=== PATIENT | female | born 1970 | race Caucasian/White ===

== ENCOUNTER 2016-10-25 14:32 | Inpatient (IN) | payer OTHER ==
[~2016-10-25] VITALS: Ht 177.8 cm; Wt 59.6 kg
[~2016-10-25 14:32] MED LIST: ACET-1256 PO; ALPR1TAB3 PO; ASPI-390 PO; ASPI81TA28 PO; CLR10 PO; ESOM1CAP34 PO; FLUT0.0529; PHN/25 PO; [UNRECOGNIZED DRUG - OTHER] PO
[2016-10-25] MEDS ORDERED: SODIUM CHLORIDE 0.9% 1000ML 1,000 ML IV STA (14:57)
[2016-10-25] MEDS ORDERED: ONDANSETRON INJ 2 MG/ML 2 ML VIAL IV STA (14:57)
[2016-10-25] MEDS ORDERED: OXYC-106 PO (15:14)
[2016-10-25] MEDS ORDERED: ONDA4TAB46 PO (15:14)
--- NOTE | 2016-10-25 15:24 | DIAGNOSTIC IMAGING REPORT ---
CHEST ONE VIEW PORTABLE CLINICAL HISTORY: vomiting nausea COMPARISON STUDY: 01/09/2016 FINDINGS: The bones soft tissues and hemidiaphragms are normal. The cardiomediastinal silhouette is normal. The lungs are clear. The pulmonary vasculature is normal. IMPRESSION: Negative chest. Electronically signed by: Geovany Pedro M.D. 10/25/2016 3:23 PM Dictated Date/Time: 10/25/2016 3:22 PM
[2016-10-25 16:15] LABS: BASO % 0.1 %; BASO ABS # 0.01 K/uL (0-0.2); COMPLETE YES; IG% 0.3 %; LYMPH % 11.2 %; LYMPH ABS # 1.66 K/uL (1.2-3.4); MEAN CELL VOLUME 91.4 fL (80-100); MEAN CORPUSCULAR HEMOGLOBIN 31.9 pg (25-34); MEAN CORPUSCULAR HGB CONC 34.9 g/dl (32-36); MEAN PLATELET VOLUME 9.8 fL (7.4-10.4); MONO % 6.9 %; NEUT % 81.5 %; PLATELET COUNT 295 K/uL (130-400); RED BLOOD COUNT 5.58 M/uL (4.2-5.4); WHITE BLOOD COUNT 14.83 K/uL (4.8-10.8)
[2016-10-25 16:40] LABS: BUN/CREATININE RATIO 33.6 (10-20); CALCIUM 9.2 mg/dl (8.5-10.1); CREATININE 0.84 mg/dl (0.60-1.20); POTASSIUM 2.7 mmol/L (3.5-5.1)
[2016-10-25] MEDS ORDERED: POTASSIUM CHLR 20 MEQ / WTR 20 MEQ in PREMIXED WATER 100 ML IV STA (17:11)
[2016-10-25 17:19] LABS: URINE APPEARANCE CLEAR (CLEAR); URINE COLOR DK YELLOW; URINE EPITHELIAL CELL AUTO >30 /lpf (0-5); URINE NITRITE NEG (NEG); URINE PH 5.5 (4.5-7.5); URINE SPECIFIC GRAVITY 1.045 (1.000-1.030); UROBILINOGEN NEG (NEG); ZZURINE CULT IF INDIC CATH NO
[2016-10-25 17:25] LABS: REVIEW REQ? NO; URINE BILIRUBIN NEG (NEG)
[2016-10-25 18:16] LABS: MANUAL MICROSCOPIC REQUIRED? NO
--- NOTE | 2016-10-25 18:29 | DIAGNOSTIC IMAGING REPORT ---
Right upper quadrant ultrasound (LIVER) ABDOMEN LIMITED CLINICAL HISTORY: vomiting, elevated LFTs nausea TECHNIQUE: Ultrasound COMPARISON STUDY: None FINDINGS: Prior cholecystectomy. Common bile duct 6 mm. Liver is uniform. Pancreas and right kidney are unremarkable. IMPRESSION: Negative study status post cholecystectomy Electronically signed by: Geovany Pedro M.D. 10/25/2016 6:28 PM Dictated Date/Time: 10/25/2016 6:27 PM
[2016-10-25] MEDS: POTASSIUM CHLR 10MEQ / WTR IV SCH ×2 (18:55→21:41)
[2016-10-25 19:33] LABS: INR 1.4 (0.9-1.1); PROTHROMBIN TIME (PATIENT) 14.7 SECONDS (9.0-12.0)
[2016-10-25] MEDS ORDERED: PHYTONADIONE 5 MG TAB PO STA (20:12)
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
--- NOTE | 2016-10-25 20:37 | DIAGNOSTIC IMAGING REPORT ---
HEAD CT NONCONTRAST CT DOSE: 601.98 mGy.cm HISTORY: Mental status change eval for ICH, eval for stroke, eval for fracture, etc TECHNIQUE: Multiaxial CT images of the head were performed without the use of intravenous contrast. Comparison: 02/23/2013 Findings: Air-fluid level within the right maxillary sinus. Prior antral window placement. The calvarium and skull base are intact. The ventricles and sulci are within normal limits. There is no mass, hematoma, midline shift, or acute infarct. Impression: No acute intracranial abnormality. Right maxillary sinusitis Electronically signed by: Geovany Pedro M.D. 10/25/2016 8:36 PM Dictated Date/Time: 10/25/2016 8:34 PM
[2016-10-25 20:54] VITALS: BP 174/86; PULSE 89; TEMP 37.7; O2SAT 96; Ht 177.8 cm; Wt 59.6 kg
[2016-10-25] MEDS ORDERED: FoLIC ACID INJ 1 MG in SYRINGE 9.8 ML IV ONE (21:30)
[2016-10-25] MEDS: FAMOTIDINE IV INJ 20 MG in DEXTROSE 5% 100ML 100 ML IV SCH (21:41)
[2016-10-25] MEDS: SODIUM CHLOR 0.45% + 20MEQ KCL 1,000 ML IV SCH (21:41)
--- NOTE | 2016-10-25 21:53 | EMERGENCY ROOM VISIT NOTE ---
History Report prepared by Bipin: Polly Moreno Under the Supervision of: Dr. Lake Swenson M.D. First contact with patient: 14:49 Chief Complaint: VOMITING Stated Complaint: VOMITING X 3 DAYS Nursing Triage Summary: reports pt has had n/v/d x3 days History of Present Illness The patient is a 46 year old female who presents to the Emergency Room with complaints of persistent vomiting for the past 4 days. There is blood in her vomit. She hasn't been able to keep anything down, including water and her medications, which include Zofran and Xanax. She has been gagging whenever she tries to eat something. She also has not been speaking very much for the past 4 days. Her last bowel movement was yesterday around 1500 and there was no blood. She is able to ambulate normally. She denies any abdominal pain or dysuria. Source of History: patient, family () Onset: 4 days ago Position: other (global) Quality: other (vomiting) Timing: other (persistent) Associated Symptoms: No abdominal pain, No hematochezia, No melena, No urinary symptoms Note: Pt is not speaking much. Review of Systems See HPI for pertinent positives & negatives. A total of 10 systems reviewed and were otherwise negative. Past Medical & Surgical Medical Problems: (1) Anxiety State Nos (2) borderline intellectual functioning (3) Dehydration with hypernatremia (4) Depressive Disorder Nec (5) Gastroenteritis (6) Gastroenteritis (7) Hearing impairment (8) Hyperlipidemia Nec/Nos (9) Hypertension Nos (10) Migraine (11) Opioid dependence (12) Personality disorder (13) Speech impairment Surgical Problems: (1) H/O section (2) Hx of cholecystectomy Family History No significant family history stated Social History Smoking Status: Current Every Day Smoker Alcohol Use: occasionally Drug Use: none Marital Status: Housing Status: lives with family Occupation Status: disabled Current/Historical Medications Scheduled Alprazolam (Xanax), 1 MG PO TID Aspirin (Aspirin Ec), 81 MG PO DAILY Esomeprazole Magnesium (Esomeprazole Magnesium), 40 MG PO DAILY Scheduled PRN Ryicbsa-Lrlqbwoabhmgx-Tttmhgvl (Excedrin Migraine), 2 TABLETS PO UD PRN Fluticasone Propionate (Nasal) (Flonase), 2 SPRAYS NA DAILY PRN for Nasal Congestion Loratadine (Claritin), 10 MG PO DAILY PRN for ALLERGIC REACTION Ondansetron Hcl (Zofran), 4 MG PO Q8 PRN for Nausea Oxycodone/Acetaminophen 10MG/325MG (Percocet 10MG/325MG), 1 TAB PO Q6 PRN for Pain Allergies Coded Allergies: Haloperidol (Verified Allergy, Severe, TONGUE SWELLS, 10/25/16) Hydroxyzine (Verified Allergy, Severe, CAN'T BREATH, 10/25/16) Prochlorperazine (Verified Adverse Reaction, Intermediate, SICK, 10/25/16) Escitalopram (Verified Adverse Reaction, Mild, MAKES HER "THINK GOOFY", ) Rofecoxib (Verified Adverse Reaction, Mild, FIERRO LIPS, 10/25/16) Prednisone (Verified Adverse Reaction, Unknown, GI UPSET, 10/25/16) Tramadol (Verified Adverse Reaction, Unknown, UNABLE TO VOID, 10/25/16) Physical Exam Vital Signs Date Time Temp Pulse Resp B/P Pulse Ox O2 Delivery O2 Flow Rate FiO2 10/25/16 18:58 77 16 141/80 93 Nasal Cannula 2.0 10/25/16 14:35 37.4 116 16 125/88 91 Room Air Physical Exam GENERAL: Patient is chronically unwell appearing, diffuse muscle wasting, not engaged in exam, only answered questions when directly asked to repeat them. HEENT: No acute trauma, normocephalic atraumatic, mucous membranes dry, no nasal congestion, no scleral icterus. NECK: No stridor, no adenopathy, no meningismus, trachea is midline. LUNGS: No dyspnea. Clear to auscultation and equal bilaterally. No wheeze, no rhonchi. HEART: Regular rate and rhythm. No murmurs, rubs, gallops appreciated. ABDOMEN: Soft, nontender, mildly hyperactive bowel sounds, no masses appreciated , no peritonitis. BACK: No midline tenderness, no CVA tenderness EXTREMITIES: Normal motion all extremities, no cyanosis, no edema. NEUROLOGIC: Alert and oriented, no acute motor or sensory deficits, no focal weakness, cranial nerves grossly intact. SKIN: No rash, no jaundice, no diaphoresis. Medical Decision & Procedures ER Provider Diagnostic Interpretation: X ray results are stated below per my interpretation and the radiologist's interpretation. Radiology results and stated below per my review and radiologist interpretation: CHEST ONE VIEW PORTABLE CLINICAL HISTORY: vomiting nausea COMPARISON STUDY: 01/09/2016 FINDINGS: The bones soft tissues and hemidiaphragms are normal. The cardiomediastinal silhouette is normal. The lungs are clear. The pulmonary vasculature is normal. IMPRESSION: Negative chest. Electronically signed by: Geovany Pedro M.D. 10/25/2016 3:23 PM Dictated Date/Time: 10/25/2016 3:22 PM Right upper quadrant ultrasound (LIVER) ABDOMEN LIMITED CLINICAL HISTORY: vomiting, elevated LFTs nausea TECHNIQUE: Ultrasound COMPARISON STUDY: None FINDINGS: Prior cholecystectomy. Common bile duct 6 mm. Liver is uniform. Pancreas and right kidney are unremarkable. IMPRESSION: Negative study status post cholecystectomy Electronically signed by: Geovany Pedro M.D. 10/25/2016 6:28 PM Dictated Date/Time: 10/25/2016 6:27 PM Laboratory Results 10/25/16 16:00 Red Blood Count 5.58, Mean Corpuscular Volume 91.4, Mean Corpuscular Hemoglobin 31.9, Mean Corpuscular Hemoglobin Concent 34.9, Mean Platelet Volume 9.8, Neutrophils (%) (Auto) 81.5, Lymphocytes (%) (Auto) 11.2, Monocytes (%) (Auto) 6.9, Eosinophils (%) (Auto) 0.0, Basophils (%) (Auto) 0.1, Neutrophils # (Auto) 12.10, Lymphocytes # (Auto) 1.66, Monocytes # (Auto) 1.02, Eosinophils # (Auto) 0.00, Basophils # (Auto) 0.01 10/25/16 16:00 Test 10/25/16 16:00 10/25/16 16:55 White Blood Count 14.83 K/uL (4.8-10.8) Red Blood Count 5.58 M/uL (4.2-5.4) Hemoglobin 17.8 g/dL (12.0-16.0) Hematocrit 51.0 % (37-47) Mean Corpuscular Volume 91.4 fL (80-100) Mean Corpuscular Hemoglobin 31.9 pg (25-34) Mean Corpuscular Hemoglobin Concent 34.9 g/dl (32-36) Platelet Count 295 K/uL (130-400) Mean Platelet Volume 9.8 fL (7.4-10.4) Neutrophils (%) (Auto) 81.5 % Lymphocytes (%) (Auto) 11.2 % Monocytes (%) (Auto) 6.9 % Eosinophils (%) (Auto) 0.0 % Basophils (%) (Auto) 0.1 % Neutrophils # (Auto) 12.10 K/uL (1.4-6.5) Lymphocytes # (Auto) 1.66 K/uL (1.2-3.4) Monocytes # (Auto) 1.02 K/uL (0.11-0.59) Eosinophils # (Auto) 0.00 K/uL (0-0.5) Basophils # (Auto) 0.01 K/uL (0-0.2) RDW Standard Deviation 43.4 fL (36.4-46.3) RDW Coefficient of Variation 13.2 % (11.5-14.5) Immature Granulocyte % (Auto) 0.3 % Immature Granulocyte # (Auto) 0.04 K/uL (0.00-0.02) Prothrombin Time 14.7 SECONDS (9.0-12.0) Prothromb Time International Ratio 1.4 (0.9-1.1) Anion Gap 14.0 mmol/L (3-11) Est Creatinine Clear Calc Drug Dose 82.3 ml/min Estimated GFR () 95.9 Estimated GFR (Non- 82.8 BUN/Creatinine Ratio 33.6 (10-20) Calcium Level 9.2 mg/dl (8.5-10.1) Magnesium Level 2.5 mg/dl (1.8-2.4) Total Bilirubin 1.6 mg/dl (0.2-1) Direct Bilirubin 0.3 mg/dl (0-0.2) Aspartate Amino Transf (AST/SGOT) 187 U/L (15-37) Alanine Aminotransferase (ALT/SGPT) 215 U/L (12-78) Alkaline Phosphatase 110 U/L (45-117) Total Protein 8.0 gm/dl (6.4-8.2) Albumin 4.1 gm/dl (3.4-5.0) Lipase 134 U/L (73-393) Acetaminophen Level < 2 ug/ml (10-30) Urine Color DK YELLOW Urine Appearance CLEAR (CLEAR) Urine pH 5.5 (4.5-7.5) Urine Specific [place] 1.045 (1.000-1.030) Urine Protein 2+ (NEG) Urine Glucose (UA) NEG (NEG) Urine Ketones 3+ (NEG) Urine Occult Blood 2+ (NEG) Urine Nitrite NEG (NEG) Urine Bilirubin NEG (NEG) Urine Urobilinogen NEG (NEG) Urine Leukocyte Esterase TRACE (NEG) Urine WBC (Auto) 5-10 /hpf (0-5) Urine RBC (Auto) 5-10 /hpf (0-4) Urine Hyaline Casts (Auto) 1-5 /lpf (0-5) Urine Epithelial Cells (Auto) >30 /lpf (0-5) Urine Bacteria (Auto) NEG (NEG) Urine Test NEG (NEG) Laboratory results as reviewed by me. Medications Administered Medications (Trade) Dose Ordered Sig/Jaquelin Route Start Time Stop Time Status Last Admin Dose Admin Sodium Chloride (Nss 1000ml) 1,000 ml @ 999 mls/hr Q1H1M STAT IV 10/25/16 14:57 10/25/16 15:57 DC 10/25/16 16:14 999 MLS/HR Ondansetron HCl 4 mg 4 mg NOW STAT IV 10/25/16 14:57 10/25/16 15:00 DC 10/25/16 16:14 4 MG Potassium Chloride/Prmx (Kcl 10 Meq / Wtr/Premixed Water) 100 ml @ 100 mls/hr Q1H IV 10/25/16 18:30 10/25/16 20:29 DC 10/25/16 21:41 100 MLS/HR ED Course 1450: The patient was evaluated in room C11. A complete history and physical exam was performed. 1457: Zofran Inj 4 mg IV, NSS 1000 ml @ 999 mls/hr IV. 1607: I reevaluated the patient. The IV is being placed. 1651: I reevaluated the patient. She is unable to pee. A straight catheter will be put in place. 1706: Upon reevaluation, the patient is resting. Discussed results and treatment plan with the patient. She verbalized understanding and agreement with the treatment plan. The patient will be evaluated for further management. 1711: I discussed the patient's case Dr. Ozuna, [facility] - hospitalist. The patient will be evaluated for further treatment and disposition. 1830: Potassium Chloride 10 meq/Prmx 100 ml @ 100 mls/hr IV. Medical Decision Differential: Gastroenteritis, Food Borne, Esophageal Perforation, , Electrolyte Abnormality, Dehydration, Intraabdominal Infection, UTI/ Pyelonephritis, Bowel Obstruction, Biliary Pathology, amongst other pathology entertained. 46 yr old female with clear mental health disorder and not very willing to participate in discussion nor exam (though clearly can). She is dehydrated appearing and unable to keep down fluids. No clear evidence of obstruction by examination. White count, LFTs, INR all elevated of uncertain etiology. US liver unremarkable. She has no abdominal TTP nor has she had significant evidence of obstruction. I suspect wbc is mostly dehydration related. K quite low from vomiting/not eating. She is in no condition to go home at this time. requesting pain medications for patient cosmo she is clearly in no distress nor in any need of pain medications at this time. Will hold off on abx at this time given no clear evidence of infection. Consults Time Called: 1708 Consulting Physician: Dr. Ozuna [facility] - hospitalist Returned Call: [phone] Discussed the patient's case. The patient will be evaluated for further treatment and disposition. Impression Primary Impression: Generalized weakness Additional Impressions: Hypokalemia Intractable vomiting Dehydration Scribe Attestation The scribe's documentation has been prepared under my direction and personally reviewed by me in its entirety. I confirm that the note above accurately reflects all work, treatment, procedures, and medical decision making performed by me. Departure Information Dispostion Being Evaluated By Hospitalist Referrals Sridhar Gonzalez D.O. (PCP) Patient Instructions My [facility] Problem Qualifiers Additional Impressions: Intractable vomiting Vomiting type: unspecified Nausea presence: with nausea Qualified Codes: R11.2 - Nausea with vomiting, unspecified
[2016-10-25 22:58] LABS: BENZODIAZEPINE, URINE NEG (NEG); COCAINE,URINE NEG (NEG); PHENCYCLIDINE, URINE NEG (NEG)
[2016-10-25 23:32] VITALS: BP 136/84; PULSE 88; TEMP 37.8; O2SAT 98
[2016-10-25] MEDS: THIAMINE HCL INJ 200 MG in SODIUM CHLORIDE 0.9% 50ML 50 ML IV SCH (23:47)
[2016-10-25] MEDS: CEFTRIAXONE SOD INJ 1 GM in DEXTROSE 5% ADD-VANTAGE 50ML 50 ML IV SCH (23:47)
[2016-10-26] VITALS (7 sets, daily range): BP systolic 125–150; BP diastolic 81–92; PULSE 60–87; TEMP 36.5–37.5; O2SAT 92–96
--- NOTE | 2016-10-26 06:15 | DIAGNOSTIC IMAGING REPORT ---
ABDOMEN 2 VIEWS CLINICAL HISTORY: eval for sob, ileus, etc dyspnea COMPARISON STUDY: 01/06/2016 FINDINGS: The soft tissues, psoas shadows, renal outlines and intestinal gas pattern appear normal. There is no evidence for bowel obstruction. There is no evidence for free intraperitoneal air. No abnormal abdominal calcifications are seen. IMPRESSION: Normal study. Electronically signed by: Geovany Pedro M.D. 10/26/2016 6:13 AM Dictated Date/Time: 10/26/2016 6:13 AM
[2016-10-26 07:01] LABS: INR 1.4 (0.9-1.1); PROTHROMBIN TIME (PATIENT) 15.4 SECONDS (9.0-12.0)
[2016-10-26 07:50] LABS: ALKALINE PHOSPHATASE 93 U/L (45-117); ALT/SGPT 156 U/L (12-78); BLOOD UREA NITROGEN 24 mg/dl (7-18); BUN/CREATININE RATIO 34.1 (10-20); CALCIUM 8.3 mg/dl (8.5-10.1); CARBON DIOXIDE 29 mmol/L (21-32); CHLORIDE 111 mmol/L (98-107); GLUCOSE 104 mg/dl (70-99); SODIUM 151 mmol/L (136-145)
[2016-10-26 08:23] LABS: MEAN CORPUSCULAR HGB CONC 35.1 g/dl (32-36); PLATELET COUNT 234 K/uL (130-400)
[2016-10-26 08:34] LABS: HEMATOCRIT 46.1 % (37-47); MEAN CELL VOLUME 92.8 fL (80-100); MEAN CORPUSCULAR HEMOGLOBIN 32.6 pg (25-34); MEAN PLATELET VOLUME 10.4 fL (7.4-10.4); RED BLOOD COUNT 4.97 M/uL (4.2-5.4); WHITE BLOOD COUNT 15.89 K/uL (4.8-10.8)
[2016-10-26] MEDS: PHYTONADIONE 5 MG TAB PO SCH (08:34)
[2016-10-26] MEDS: SODIUM CHLOR 0.45% + 20MEQ KCL 1,000 ML IV SCH (08:34)
[2016-10-26] MEDS: FoLIC ACID INJ 1 MG in SYRINGE 9.8 ML IV SCH (08:34)
[2016-10-26 10:35] LABS: POTASSIUM 3.2 mmol/L (3.5-5.1)
[2016-10-26] MEDS: D5W AND 1/4NSS + 20MEQ KCL 1,000 ML IV SCH ×2 (11:29→21:13)
[2016-10-26] MEDS: THIAMINE HCL INJ 200 MG in SODIUM CHLORIDE 0.9% 50ML 50 ML IV SCH ×2 (11:29→21:31)
[2016-10-26] MEDS: POTASSIUM CHLORIDE 20 MEQ/15 ML UDC PO SCH ×2 (11:29→21:30)
[2016-10-26] MEDS: FAMOTIDINE IV INJ 20 MG in DEXTROSE 5% 100ML 100 ML IV SCH ×2 (11:29→21:31)
[2016-10-26 11:59] LABS: ALLEN TEST POS (POS); ARTERIAL BLD GAS O2 SATURATION 84.5 % (90-95); ARTERIAL BLOOD GAS BASE EXCESS 5.3 mEq/L (-9-1.8); ARTERIAL BLOOD GAS HCO3 29 mmol/L (19-24); ARTERIAL BLOOD GAS PO2 51 mm/Hg (80-95); ARTERIAL BLOOD GAS pH 7.47 (7.35-7.45); O2 ADMINISTRATION ROOM AIR
--- NOTE | 2016-10-26 19:52 | DIAGNOSTIC IMAGING REPORT ---
CHEST ONE VIEW PORTABLE CLINICAL HISTORY: eval for new pneumonia dyspnea COMPARISON STUDY: 10/25/2016 FINDINGS: Small developing parenchymal infiltrate right base. Lungs otherwise appear clear. Diaphragms smooth. IMPRESSION: Small parenchymal infiltrate medial right base Electronically signed by: Geovany Pedro M.D. 10/26/2016 7:51 PM Dictated Date/Time: 10/26/2016 7:51 PM
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
[2016-10-26] MEDS ORDERED: AZITHROMYCIN IV 500 MG in DEXTROSE 5% 250ML 250 ML IV ONE (21:00)
--- NOTE | 2016-10-26 21:32 | Progress Note ---
Progress Note Date of Service Oct 26, 2016. Progress Note 0 P chest x-ray with developing RLL pneumonia. Will add zithromax IV to her rocephin. Hopefully her encephalopathy is due to pneumonia and will clear next 24-36 hours with abx and supportive care. see my progress note for additional information. total time today over multiple visits, speaking with , reviewing data, etc - 50 minutes Francesco WILLOUGHBY MD
[2016-10-26] MEDS: CEFTRIAXONE SOD INJ 1 GM in DEXTROSE 5% ADD-VANTAGE 50ML 50 ML IV SCH (22:59)
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
[2016-10-27 01:52] LABS: BASO % 0.1 %; BASO ABS # 0.02 K/uL (0-0.2); COMPLETE YES; EOS % 0.4 %; HEMATOCRIT 42.5 % (37-47); IG% 0.2 %; LYMPH % 18.9 %; LYMPH ABS # 2.55 K/uL (1.2-3.4); MEAN CELL VOLUME 91.4 fL (80-100); MEAN CORPUSCULAR HEMOGLOBIN 31.4 pg (25-34); MEAN CORPUSCULAR HGB CONC 34.4 g/dl (32-36); MEAN PLATELET VOLUME 9.7 fL (7.4-10.4); MONO % 5.4 %; PLATELET COUNT 211 K/uL (130-400); RED BLOOD COUNT 4.65 M/uL (4.2-5.4); WHITE BLOOD COUNT 13.48 K/uL (4.8-10.8)
[2016-10-27 02:08] LABS: BLOOD UREA NITROGEN 17 mg/dl (7-18); BUN/CREATININE RATIO 23.2 (10-20); CALCIUM 8.1 mg/dl (8.5-10.1); CARBON DIOXIDE 29 mmol/L (21-32); CHLORIDE 107 mmol/L (98-107); CREATININE 0.75 mg/dl (0.60-1.20); GLUCOSE 132 mg/dl (70-99); POTASSIUM 3.4 mmol/L (3.5-5.1); SODIUM 144 mmol/L (136-145)
[2016-10-27 02:13] LABS: CKMB/CK RATIO 0.3 (0-3.0)
[2016-10-27 03:56] VITALS: BP 125/81; PULSE 53; TEMP 36.7; O2SAT 95
[2016-10-27] MEDS: FoLIC ACID INJ 1 MG in SYRINGE 9.8 ML IV SCH (07:52)
[2016-10-27] MEDS: PHYTONADIONE 5 MG TAB PO SCH (07:52)
[2016-10-27 07:59] LABS: INR 1.2 (0.9-1.1); PROTHROMBIN TIME (PATIENT) 12.6 SECONDS (9.0-12.0)
[2016-10-27 08:00] VITALS: BP 141/86; PULSE 57; TEMP 36.6; O2SAT 94
[2016-10-27 08:16] LABS: BUN/CREATININE RATIO 20.8 (10-20); CALCIUM 9.3 mg/dl (8.5-10.1); CREATININE 0.72 mg/dl (0.60-1.20); POTASSIUM 3.4 mmol/L (3.5-5.1)
[2016-10-27 08:17] LABS: BASO % 0.2 %; BASO ABS # 0.03 K/uL (0-0.2); EOS % 0.7 %; HEMATOCRIT 43.6 % (37-47); IG% 0.7 %; LYMPH % 23.7 %; LYMPH ABS # 3.17 K/uL (1.2-3.4); MEAN CELL VOLUME 91.2 fL (80-100); MEAN CORPUSCULAR HEMOGLOBIN 31.4 pg (25-34); MEAN PLATELET VOLUME 10.1 fL (7.4-10.4); MONO % 5.8 %; NEUT % 68.9 %; PLATELET COUNT 229 K/uL (130-400); RED BLOOD COUNT 4.78 M/uL (4.2-5.4); WHITE BLOOD COUNT 13.35 K/uL (4.8-10.8)
[2016-10-27 08:26] LABS: THYROID STIMULATING HORMONE 2.36 uIu/ml (0.300-4.500)
[2016-10-27] MEDS: THIAMINE HCL INJ 200 MG in SODIUM CHLORIDE 0.9% 50ML 50 ML IV SCH ×2 (08:49→20:25)
[2016-10-27] MEDS: D5W AND 1/2NSS + 20MEQ KCL 1,000 ML IV SCH ×2 (08:49→20:25)
[2016-10-27 08:56] LABS: COMPLETE YES; MEAN CORPUSCULAR HGB CONC 34.4 g/dl (32-36)
[2016-10-27] MEDS: AZITHROMYCIN IV 250 MG in DEXTROSE 5% 250ML 250 ML IV SCH (09:32)
[2016-10-27 12:34] VITALS: BP 128/87; PULSE 63; TEMP 37; O2SAT 95
[2016-10-27] MEDS: POTASSIUM CHLORIDE 20 MEQ/15 ML UDC PO SCH ×2 (14:34→19:33)
[2016-10-27] MEDS: FAMOTIDINE IV INJ 20 MG in DEXTROSE 5% 100ML 100 ML IV SCH ×2 (14:35→20:25)
[2016-10-27] MEDS: MoRPHine SULFATE 2 MG/ML CARP IV PRN ×2 (14:36→21:57)
--- NOTE | 2016-10-27 16:08 | DIAGNOSTIC IMAGING REPORT ---
Brain MRI WITHOUT CONTRAST HISTORY: Mental status change eval for subacute stroke TECHNIQUE: Multiplanar multisequence MRI of the brain was performed without the use of contrast. COMPARISON STUDY: 01/26/2009 FINDINGS: Diffusion-weighted images show a 10 x 8 mm focus of increased signal posterior aspect of the corpus callosum. This is in the midline. No additional foci of increased signal are identified. Coronal FLAIR images demonstrate a slight progression of foci of increased signal within the periventricular deep white matter regions as compared to the prior exam. Possibility of chronic small vessel change without acute infarct of the posterior corpus callosum must be considered. Alternatively, active foci of demyelination must be considered. Ventricular system is midline. Sella and parasellar region are unremarkable. Internal artery canals are symmetric. IMPRESSION: 1. Mildly progressive number as well as size of several foci of increased signal within the periventricular deep white matter regions bilaterally. 2. Acute focus of either ischemic change versus an active plaque of a demyelinating disorder at the posterior corpus callosum is currently present. 3. Diagnostic considerations must include chronic small vessel change with an acute infarct, versus the possibility of a demyelinating disorder with an active plaque. Lyme' s disease is a potential but nevertheless secondary diagnostic possibility Electronically signed by: Geovany Pedro M.D. 10/27/2016 4:06 PM Dictated Date/Time: 10/27/2016 4:00 PM
[2016-10-27 16:46] VITALS: BP 130/80; PULSE 52; TEMP 36.5; O2SAT 95
[2016-10-27 18:42] LABS: LYME DISEASE AB IGG NEG (NEG); LYME DISEASE AB IGM NEG (NEG)
[2016-10-27 19:12] VITALS: BP 109/79; PULSE 57; TEMP 37; O2SAT 99
--- NOTE | 2016-10-27 20:16 | Procedure Note ---
Procedure Note Procedure Date Oct 27, 2016. Procedure Description Procedure Name: lumbar puncture Procedure time out: side/site verified, patient ID confirmed, correct procedure Consent obtained: written (from POA ()) Time of procedure: 18:30 Performed by: attending, other (ICU attending) Indications: diagnostic Contraindications: none Description: After written consent was obtained the patient was placed on her side and anatomical landmarks were identified. Betadine was used to prep the back and allowed to dry in sterile fashion. Sterile drapes were then applied. 1% lidocaine was used for local analgesia at the L4-L5 interspace. Using standard adult LP needle 1 attempt was made by this sports book writer without success. Dr. Brittany Kemp then attempted twice at the same level, and finally I attempted once more at the same level. No CSF was obtained. Blood loss - minimal (<1cc). Tolerated well. Complications: none Patient tolerated procedure: well Post-procedure vital signs: reviewed and stable Comments: Tee Mccollum MD
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
[2016-10-27] MEDS: CEFTRIAXONE SOD INJ 2,000 MG in DEXTROSE 5% ADD-VANTAGE 50ML 50 ML IV SCH (21:37)
[2016-10-28] VITALS (8 sets, daily range): BP systolic 97–138; BP diastolic 67–90; PULSE 58–106; TEMP 36.7–37.2; O2SAT 94–97
[2016-10-28 06:15] LABS: BASO % 0.2 %; BASO ABS # 0.02 K/uL (0-0.2); COMPLETE YES; EOS % 1.8 %; HEMATOCRIT 43.5 % (37-47); IG% 0.4 %; LYMPH % 17.9 %; LYMPH ABS # 2.33 K/uL (1.2-3.4); MEAN CELL VOLUME 90.6 fL (80-100); MEAN CORPUSCULAR HEMOGLOBIN 32.7 pg (25-34); MEAN CORPUSCULAR HGB CONC 36.1 g/dl (32-36); MEAN PLATELET VOLUME 10.1 fL (7.4-10.4); MONO % 4.8 %; NEUT % 74.9 %; PLATELET COUNT 225 K/uL (130-400); WHITE BLOOD COUNT 13.01 K/uL (4.8-10.8)
[2016-10-28 06:49] LABS: BUN/CREATININE RATIO 15.7 (10-20); CALCIUM 8.7 mg/dl (8.5-10.1); CREATININE 0.68 mg/dl (0.60-1.20); MAGNESIUM 2.1 mg/dl (1.8-2.4); POTASSIUM 3.7 mmol/L (3.5-5.1)
[2016-10-28 06:52] LABS: ALB/GLOB RATIO 0.9 (0.9-2)
[2016-10-28] MEDS: AZITHROMYCIN IV 250 MG in DEXTROSE 5% 250ML 250 ML IV SCH (08:07)
[2016-10-28] MEDS: PHYTONADIONE 5 MG TAB PO SCH (08:13)
[2016-10-28] MEDS: FoLIC ACID INJ 1 MG in SYRINGE 9.8 ML IV SCH (08:14)
[2016-10-28] MEDS: POTASSIUM CHLORIDE 20 MEQ/15 ML UDC PO SCH ×2 (08:16→21:01)
[2016-10-28] MEDS: MoRPHine SULFATE 2 MG/ML CARP IV PRN ×4 (08:32→20:28)
--- NOTE | 2016-10-28 09:45 | Progress Note ---
Progress Note Date of Service Oct 28, 2016. Progress Note Patient is encephalopathic with altered mental status from unknown cause. I feel she requires an emergent lumbar puncture to further evaluate her symptoms.
[2016-10-28] MEDS ORDERED: CHLORASEPTIC 1.4% SOLN 180 ML BTL MT PRN (10:30)
--- NOTE | 2016-10-28 10:48 | Neurology Consultation ---
Neurology Consultation Date of Consultation: Oct 28, 2016. Attending Physician: Tee Mccollum MD Primary Care Physician: Sridhar Gonzalez D.O. Reason for Consultation: Encephalopathy, abnormal MRI History of Present Illness Source: spouse, hospital records The patient is a 46-year-old female with a past medical history significant for chronic pain, chronic migraines, opioid dependency, benzodiazepine dependency, mixed personality disorder, and a previous admission to the behavioral mental health unit for suicidal ideation. She has followed with Dr. Wolf in the past for chronic migraines but has not seen him in several years. Her is at bedside indicates that he experiences migraine headaches on a daily basis and typically uses Percocet for headache control. She had been experiencing a persistent, severe headache that began about 1 week ago. She was evaluated at [facility] at that time. Her headache never really improved according to her . She has been having associated nausea, vomiting, diarrhea, abdominal pain and increasing lethargy and confusion. She has not been eating or drinking very well according to her . No seizures of been observed. Initial lab evaluation revealed an elevation in liver transaminases and bilirubins. She hyponatremic, hypokalemic, hypomagnesemic, and dehydrated upon presentation. A urine tox screen was unremarkable. Serum testing for Lyme disease as well as an RPR were unremarkable. A sedimentation rate and CRP were unremarkable. An initial CT of the head was unremarkable and negative for hemorrhage or other acute process. A follow-up brain MRI, without contrast, was completed. I reviewed the images, radiologist's interpretation, and discussed the test results personally with radiology this morning. There is a well- circumscribed area of restricted diffusion within the center splenium of the corpus callosum which measures 10 x 8 mm in size. There is decreased signal on associated ADC maps. The abnormality is bright on T2 and hypointense on T1. There is not appear to be associated vasogenic edema. The signal abnormality is fairly uniform. No evidence of hemorrhage. The remainder of the brain parenchyma reveals scattered, subcortical, by hemispheric hyperintensities on T2 /FLAIR sequences. The patient remains encephalopathic this morning. She does not interact well for the purposes of examination her physical examination. See physical exam below for further details. She does not really answer any questions pertaining to her symptoms at this time. She does properly identify her at bedside and is able to state her name. Past Medical/Surgical History Medical Problems: (1) Abdominal pain Status: Acute (2) Anxiety Status: Acute (3) Anxiety State Nos Status: Chronic (4) borderline intellectual functioning Status: Chronic (5) Dehydration Status: Acute (6) Depressive Disorder Nec Status: Chronic (7) Elevated liver function tests Status: Acute (8) Generalized weakness Status: Acute (9) Hearing impairment Status: Chronic (10) Hyperlipidemia Nec/Nos Status: Chronic (11) Hypertension Nos Status: Chronic (12) Hypokalemia Status: Acute (13) Intractable vomiting Status: Acute (14) Migraine Status: Chronic (15) Opioid dependence Status: Chronic (16) Personality disorder Status: Chronic (17) Speech impairment Status: Chronic (18) Vomiting Status: Acute Family History non-contributory in the context of her acute illness Grandfather: thromboembolic disease Social History Smoking Status: Unknown if ever smoked Alcohol Use: none Drug Use: none Marital Status: Housing Status: lives with family Occupation Status: disabled Allergies Coded Allergies: Haloperidol (Verified Allergy, Severe, TONGUE SWELLS, 10/25/16) Hydroxyzine (Verified Allergy, Severe, CAN'T BREATH, 10/25/16) Prochlorperazine (Verified Adverse Reaction, Intermediate, SICK, 10/25/16) Escitalopram (Verified Adverse Reaction, Mild, MAKES HER "THINK GOOFY", ) Rofecoxib (Verified Adverse Reaction, Mild, FIERRO LIPS, 10/25/16) Prednisone (Verified Adverse Reaction, Unknown, GI UPSET, 10/25/16) Tramadol (Verified Adverse Reaction, Unknown, UNABLE TO VOID, 10/25/16) Current Inpatient Medications Current Inpatient Medications Medications (Trade) Dose Ordered Sig/Jaquelin Route Start Time Stop Time Status Last Admin Dose Admin Thiamine HCl 200 mg/Sodium Chloride 52 ml @ 208 mls/hr Q12H IV 10/25/16 22:00 11/24/16 20:59 10/27/16 20:25 208 MLS/HR Folic Acid/Syringe (Folvite Inj/ Syringe) 10 ml @ 5 mls/min QAM IV 10/26/16 09:00 11/25/16 08:59 10/28/16 08:14 5 MLS/MIN Ondansetron HCl 4 mg 4 mg Q6H PRN IV 10/25/16 19:45 11/24/16 19:44 Famotidine/ Dextrose (Pepcid IV Inj/ D5 100ml) 102 ml @ 200 mls/hr Q12H IV 10/25/16 22:00 11/24/16 19:44 10/27/16 20:25 200 MLS/HR Morphine Sulfate (MoRPHine SULFATE INJ) 2 mg Q4H PRN IV 10/25/16 19:45 11/08/16 19:44 10/28/16 08:32 2 MG Phytonadione (Mephyton Tab) 5 mg QAM PO 10/26/16 09:00 11/25/16 08:59 10/28/16 08:13 5 MG Potassium Chloride 20 meq 20 meq BID PO 10/26/16 11:00 11/25/16 10:59 10/28/16 08:16 20 MEQ Azithromycin 250 mg/Dextrose 252.5 ml @ 125 mls/hr DAILY@0800 IV 10/27/16 08:00 11/03/16 07:59 10/28/16 08:07 125 MLS/HR Potassium Chloride/Dextrose/ Sod Cl 1,000 ml @ 75 mls/hr [id number] IV 10/27/16 08:30 11/26/16 08:29 10/27/16 20:25 75 MLS/HR Ceftriaxone Sodium/Dextrose (Rocephin Inj/ Dextrose Add-[place] 50ML) 70 ml @ 100 mls/hr Q12H IV 10/27/16 22:00 10/29/16 21:59 10/27/16 21:37 100 MLS/HR Review of Systems Unable to obtain due to patient's encephalopathy Physical Exam Vital Signs (Past 24 Hrs): Date Time Temp Pulse Resp B/P Pulse Ox O2 Delivery O2 Flow Rate FiO2 10/28/16 08:00 Nasal Cannula 2.0 10/28/16 07:10 36.9 61 16 124/86 96 Nasal Cannula 2.0 10/28/16 04:08 36.9 60 14 134/81 96 Nasal Cannula 2.0 10/28/16 04:00 Nasal Cannula 2.0 10/28/16 01:01 36.7 58 14 128/82 95 Nasal Cannula 2.0 10/28/16 00:00 Nasal Cannula 2.0 10/27/16 20:00 Nasal Cannula 2.0 10/27/16 19:12 37.0 57 20 109/79 99 Nasal Cannula 2.0 10/27/16 16:46 36.5 52 16 130/80 95 Nasal Cannula 2.0 10/27/16 16:00 Nasal Cannula 2.0 10/27/16 12:34 37.0 63 18 128/87 95 Nasal Cannula 2.0 10/27/16 12:00 Nasal Cannula 2.0 The patient is a chronically ill-appearing female who looks older than her stated age. She is lying in bed, her and brother are at bedside. She is lying quietly and appears to be sleeping throughout the majority of the evaluation. She will open her eyes only briefly to voice and tactile stimulation. She will answer only simple questions and is able to state her name. Attention is poor, she quickly falls back to sleep. She was able to correctly identify her at bedside, but perhaps not her brother. She was not oriented to place or time. Speech soft but limited, unable to fully assess. Not grossly dysarthric. She did not cooperate with testing of higher integrative functions such as language, fund of knowledge, or memory. Unable to reliably assess visual rebollar. Pupils equal round reactive to light. There is no gaze preference. There is no nystagmus. Full evaluation of ocular motility is limited. There is no obvious facial droop. The patient would not cooperate for testing of movement of the tongue or palate. Hearing grossly intact. Unable to evaluate shoulder shrug strength. Unable to evaluate sensory function to various modalities. Patient does withdraw all 4 limbs to noxious stimulation, however. Deep tendon reflexes are 1-2+ throughout, nonlocalizing or lateralized. Plantar responses withdrawal bilaterally. Patient unable to perform additional motor testing such as finger to nose or heel to goodman. Carotid pulses normal, no bruits to auscultation. Patient will not cooperate adequately for ophthalmoscopic examination. Unable to visualize optic nerves and posterior segments. Limited musculoskeletal examination due to poor patient cooperation. As above, she does withdraw all 4 limbs to noxious stimulation. Muscle tone appears to be normal throughout. No abnormal movements, tremors, or fasciculations observed. No myoclonic type movements. No dystonic posturing. Unable to assess gait and station. Laboratory Results Past 24 Hours: 10/28/16 06:00 Red Blood Count 4.80, Mean Corpuscular Volume 90.6, Mean Corpuscular Hemoglobin 32.7, Mean Corpuscular Hemoglobin Concent 36.1, Mean Platelet Volume 10.1, Neutrophils (%) (Auto) 74.9, Lymphocytes (%) (Auto) 17.9, Monocytes (%) (Auto) 4.8, Eosinophils (%) (Auto) 1.8, Basophils (%) (Auto) 0.2, Neutrophils # (Auto) 9.76, Lymphocytes # (Auto) 2.33, Monocytes # (Auto) 0.62, Eosinophils # (Auto) 0.23, Basophils # (Auto) 0.02 10/28/16 06:00 Test 10/27/16 16:57 10/27/16 17:20 10/27/16 21:03 10/28/16 04:44 Carboxyhemoglobin 0.0 % THgb Erythrocyte Sedimentation Rate 8 mm/hr (0-21) C-Reactive Protein < 0.29 mg/dl (0-0.29) Rapid Plasma Reagin NONREACTIVE (NONREACT) Lyme Disease IgG Antibody NEG (NEG) Lyme Disease IgM Antibody NEG (NEG) Test 10/28/16 06:00 White Blood Count 13.01 K/uL (4.8-10.8) Red Blood Count 4.80 M/uL (4.2-5.4) Hemoglobin 15.7 g/dL (12.0-16.0) Hematocrit 43.5 % (37-47) Mean Corpuscular Volume 90.6 fL (80-100) Mean Corpuscular Hemoglobin 32.7 pg (25-34) Mean Corpuscular Hemoglobin Concent 36.1 g/dl (32-36) Platelet Count 225 K/uL (130-400) Mean Platelet Volume 10.1 fL (7.4-10.4) Neutrophils (%) (Auto) 74.9 % Lymphocytes (%) (Auto) 17.9 % Monocytes (%) (Auto) 4.8 % Eosinophils (%) (Auto) 1.8 % Basophils (%) (Auto) 0.2 % Neutrophils # (Auto) 9.76 K/uL (1.4-6.5) Lymphocytes # (Auto) 2.33 K/uL (1.2-3.4) Monocytes # (Auto) 0.62 K/uL (0.11-0.59) Eosinophils # (Auto) 0.23 K/uL (0-0.5) Basophils # (Auto) 0.02 K/uL (0-0.2) RDW Standard Deviation 41.7 fL (36.4-46.3) RDW Coefficient of Variation 12.6 % (11.5-14.5) Immature Granulocyte % (Auto) 0.4 % Immature Granulocyte # (Auto) 0.05 K/uL (0.00-0.02) Anion Gap 11.0 mmol/L (3-11) Est Creatinine Clear Calc Drug Dose 93.2 ml/min Estimated GFR () 120.7 Estimated GFR (Non- 104.2 BUN/Creatinine Ratio 15.7 (10-20) Calcium Level 8.7 mg/dl (8.5-10.1) Magnesium Level 2.1 mg/dl (1.8-2.4) Total Bilirubin 1.4 mg/dl (0.2-1) Aspartate Amino Transf (AST/SGOT) 49 U/L (15-37) Alanine Aminotransferase (ALT/SGPT) 92 U/L (12-78) Alkaline Phosphatase 89 U/L (45-117) Total Protein 6.3 gm/dl (6.4-8.2) Albumin 3.0 gm/dl (3.4-5.0) Globulin 3.3 gm/dl (2.5-4.0) Albumin/Globulin Ratio 0.9 (0.9-2) Impression Encephalopathy, probably metabolic or toxic. Encephalitis not expected on the basis of imaging although not completely excluded. Chronic migraines. The observed abnormality affecting the center of the splenium of her corpus callosum is quite unusual. As above, I did discuss these results directly with Dr. Mon, radiology, this morning. I also performed a brief literature review summarizing lesions of the corpus callosum. ([place] Journal of Roentgentology, volume 200, issue 1, "lesions of the corpus callosum." The observed lesion appears most consistent with what is known as "transient splenial intensity change." This type of abnormality is nonspecific and has been associated with seizures, antiepileptic drug toxicity or withdraw, hypernatremia, Wernicke encephalopathy, migraine, and viral encephalitis. The differential diagnosis for a lesion in this area could also include Marchiafava- Bignami (related to chronic alcohol abuse and nutritional deficiencies), COUNTY DIRECTOR WELFARE lymphoma, multiple sclerosis, glioblastoma and stroke. The patient's is fairly adamant that she does not abuse alcohol, however. Her clinical history does not suggest multiple sclerosis. The observed imaging characteristics are not really suggestive of neoplasm. The location of the lesion would be quite atypical for acute stroke. Therefore, I think the imaging diagnosis of transient splenial intensity change is probably correct and in her case could be related to withdrawal of medications (her urine tox screen was negative for benzodiazepines and opiates in spite of long-term use), hypernatremia, or migraine. This patient's persistent encephalopathy could be related to withdrawal of opiates or benzodiazepines with additional contributions from dehydration, hyponatremia, and refractory migraine. However, encephalitis cannot be excluded. Plan Agree with obtaining a lumbar puncture in radiology today. This testing should help to exclude encephalitis and multiple sclerosis. Cytology and flow cytometry could be useful to exclude [employer] lymphoma. Continue supportive medical and nutritional care including administration of IV thiamine and broad-spectrum antimicrobial coverage. I would recommend adding intravenous acyclovir as well until HSV encephalitis can be excluded. A repeat brain MRI with and without contrast would be useful to further evaluate the lesion and assess for interval change or resolution. The repeat brain MRI could be obtained and 24-48 hours depending on her clinical status. I will follow along.
--- NOTE | 2016-10-28 11:23 | DIAGNOSTIC IMAGING REPORT ---
FLUOROSCOPICALLY GUIDED DIAGNOSTIC LUMBAR PUNCTURE CLINICAL HISTORY: altered mental status, abnormal MRI brain, recent fever COMPARISON STUDY: MRI the brain dated 10/27/2016 FINDINGS: The risks of procedure were explained to the patient's , and informed consent was obtained from the patient's as the patient was unable to give informed consent. The patient was prepped and draped in sterile fashion. The skin was anesthetized 1% lidocaine. A lumbar puncture was performed the L4-5 level with a 22-gauge spinal needle. 8 cc of clear CSF was withdrawn under gravity drip. The fluid was into 4 tubes and sent for laboratory analysis as specified by the referring clinician. IMPRESSION: Successful fluoroscopically guided diagnostic lumbar puncture at the L4-5 level. 8 cc of clear CSF was withdrawn and sent for laboratory analysis. Electronically signed by: Maurizio Vee M.D. 10/28/2016 11:22 AM Dictated Date/Time: 10/28/2016 11:20 AM
[2016-10-28] MEDS: CEFTRIAXONE SOD INJ 2,000 MG in DEXTROSE 5% ADD-VANTAGE 50ML 50 ML IV SCH ×2 (11:41→22:50)
[2016-10-28] MEDS: THIAMINE HCL INJ 200 MG in SODIUM CHLORIDE 0.9% 50ML 50 ML IV SCH ×2 (11:41→22:50)
[2016-10-28] MEDS: FAMOTIDINE IV INJ 20 MG in DEXTROSE 5% 100ML 100 ML IV SCH ×2 (11:42→23:13)
[2016-10-28 11:43] LABS: CSF TOTAL PROTEIN 49.6 mg/dl (15.0-45.0)
[2016-10-28] MEDS: D5W AND 1/2NSS + 20MEQ KCL 1,000 ML IV SCH (11:43)
[2016-10-28 12:43] LABS: CSF APPEARANCE CLEAR; CSF COLOR COLORLESS
[2016-10-28 12:44] LABS: CSF XANTHOCHROMIC NO XANTHOCHROMIA
--- NOTE | 2016-10-28 14:21 | Psychiatric Progress Notes ---
Psychiatric Progress Note Date of Service Oct 28, 2016. Notes Received consult request from Dr. Salazar for AMS, hx of personality disorder. Patient currently undergoing work up with neuro for possible MS. Will await completion of workup for medical causes for AMS. Dr. Salazar agrees to call us when she is appropriate to be seen.
[2016-10-28] MEDS: NYSTATIN SUSP 500,000 U/5 ML UDC MT SCH ×3 (14:29→20:34)
--- NOTE | 2016-10-28 20:13 | Hospitalist Progress Note ---
Hospitalist Progress Note Date of Service Oct 28, 2016. Subjective Pt evaluation today including: conversation w/ family, physical exam, chart review, lab review, review of studies, review of inpatient medication list Patient not conversant with me. reported that she was talking earlier and he reports that she is more awake today. Additional Comments: Unable secondary to condition. Objective Vital Signs Date Time Temp Pulse Resp B/P Pulse Ox O2 Delivery O2 Flow Rate FiO2 10/28/16 20:01 36.7 62 16 110/71 97 Nasal Cannula 2.0 10/28/16 16:00 Nasal Cannula 2.0 10/28/16 15:28 36.9 64 16 97/67 94 Nasal Cannula 2.0 10/28/16 13:39 36.8 106 18 97 Room Air 10/28/16 12:25 37.2 66 18 118/80 96 Nasal Cannula 2.0 10/28/16 11:35 Nasal Cannula 2.0 10/28/16 08:00 Nasal Cannula 2.0 10/28/16 07:10 36.9 61 16 124/86 96 Nasal Cannula 2.0 10/28/16 04:08 36.9 60 14 134/81 96 Nasal Cannula 2.0 10/28/16 04:00 Nasal Cannula 2.0 10/28/16 01:01 36.7 58 14 128/82 95 Nasal Cannula 2.0 10/28/16 00:00 Nasal Cannula 2.0 Physical Exam Notes: GEN: Awake (eyes are open) HEENT: PERRLA, MMM Neck: Soft, supple Lungs: CTA b/l, no r/r/w Heart: REG, nrl S1S2 without murmurs, rubs or gallops Abdomen: Soft, NT, ND, + BS EXT: No C/C/E NEURO: Not following commands. Skin: warm, dry, no rashes PSYCH: unable to assess. Laboratory Results Last 24 Hours Test 10/28/16 06:00 10/28/16 11:05 10/28/16 14:49 White Blood Count 13.01 K/uL Red Blood Count 4.80 M/uL Hemoglobin 15.7 g/dL Hematocrit 43.5 % Mean Corpuscular Volume 90.6 fL Mean Corpuscular Hemoglobin 32.7 pg Mean Corpuscular Hemoglobin Concent 36.1 g/dl Platelet Count 225 K/uL Mean Platelet Volume 10.1 fL Neutrophils (%) (Auto) 74.9 % Lymphocytes (%) (Auto) 17.9 % Monocytes (%) (Auto) 4.8 % Eosinophils (%) (Auto) 1.8 % Basophils (%) (Auto) 0.2 % Neutrophils # (Auto) 9.76 K/uL Lymphocytes # (Auto) 2.33 K/uL Monocytes # (Auto) 0.62 K/uL Eosinophils # (Auto) 0.23 K/uL Basophils # (Auto) 0.02 K/uL RDW Standard Deviation 41.7 fL RDW Coefficient of Variation 12.6 % Immature Granulocyte % (Auto) 0.4 % Immature Granulocyte # (Auto) 0.05 K/uL Sodium Level 139 mmol/L Potassium Level 3.7 mmol/L Chloride Level 103 mmol/L Carbon Dioxide Level 25 mmol/L Anion Gap 11.0 mmol/L Blood Urea Nitrogen 11 mg/dl Creatinine 0.68 mg/dl Est Creatinine Clear Calc Drug Dose 93.2 ml/min Estimated GFR () 120.7 Estimated GFR (Non- 104.2 BUN/Creatinine Ratio 15.7 Random Glucose 113 mg/dl Calcium Level 8.7 mg/dl Magnesium Level 2.1 mg/dl Total Bilirubin 1.4 mg/dl Aspartate Amino Transf (AST/SGOT) 49 U/L Alanine Aminotransferase (ALT/SGPT) 92 U/L Alkaline Phosphatase 89 U/L Total Protein 6.3 gm/dl Albumin 3.0 gm/dl Globulin 3.3 gm/dl Albumin/Globulin Ratio 0.9 CSF Color COLORLESS CSF Appearance CLEAR CSF WBC 0 /uL CSF RBC 1 /uL CSF Xanthrochromic NO XANTHOCHROMIA CSF Cell Count Tube # 3 CSF Chemistry Tube # 1 CSF Glucose 67 mg/dl CSF Total Protein 49.6 mg/dl Procalcitonin < 0.05 ng/mL Assessment and Plan 1) Altered mental status/encephalopathy - still no obvious explanation, but she is improving according to . 2) RLL pneumonia - day #3 Rocpehin and Zithromax 3) Hypokalemia - resolved. 4) Personality disorder - Ask psych to evaluate when patient is more lucid. 5) Vomiting and diarrhea - resolved. DVT prophylaxis TEDs, SCDs. adding Sub-q heparin today.
[2016-10-28] MEDS ORDERED: GADAVIST IV PRN (22:30)
--- NOTE | 2016-10-28 22:37 | DIAGNOSTIC IMAGING REPORT ---
Brain MRA HISTORY: Abnormal brain MRI. acute stroke? Evaluate for occlusion TECHNIQUE: 3-D [id number] MRA of the brain was performed without contrast. COMPARISON STUDY: Brain MRI 10/27/2016. FINDINGS: There is a hypoplastic left distal vertebral artery which terminates in the left posterior inferior cerebellar artery. The distal right vertebral artery and basilar artery are patent but also slightly small in caliber. The left P1 segment is absent consistent with a persistent left circulation. The left RN UNIT MANAGER is widely patent. There is a hypoplastic right P1 segment. Otherwise, the right RN UNIT MANAGER is widely patent. The bilateral locator specialist are fed primarily through the posterior communicating arteries. The bilateral ACAs and MCAs are widely patent. There is no significant stenosis, occlusion, or aneurysm. The bilateral intracranial internal carotid arteries are patent. IMPRESSION: No significant stenosis, occlusion, or aneurysm within the [place]. 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 Electronically signed by: Mehran Ingram M.D. 10/28/2016 10:36 PM Dictated Date/Time: 10/28/2016 10:28 PM
--- NOTE | 2016-10-28 22:46 | DIAGNOSTIC IMAGING REPORT ---
NECK MRA HISTORY: Abnormal brain MRI. acute stroke?, evaluate for dissection TECHNIQUE: [id number] and gadolinium-enhanced MRA of the neck was performed both before and after the intravenous administration of contrast. All measurements were calculated based on NASCET criteria. COMPARISON STUDY: None. FINDINGS: The aortic arch and proximal great vessels are widely patent. There is no significant stenosis, occlusion, or dissection identified within the bilateral common carotid, internal carotid, or vertebral arteries. Hypoplastic left vertebral artery. IMPRESSION: No significant stenosis, occlusion, or dissection identified within the carotid or vertebral arteries. Electronically signed by: Mehran Ingram M.D. 10/28/2016 10:45 PM Dictated Date/Time: 10/28/2016 10:42 PM
[2016-10-29] VITALS (10 sets, daily range): BP systolic 90–110; BP diastolic 59–76; PULSE 58–77; TEMP 36.6–37.2; O2SAT 93–100
[2016-10-29] MEDS: D5W AND 1/2NSS + 20MEQ KCL 1,000 ML IV SCH ×2 (03:41→14:46)
[2016-10-29 07:16] LABS: BASO % 0.2 %; BASO ABS # 0.02 K/uL (0-0.2); COMPLETE YES; EOS % 2.2 %; HEMATOCRIT 44.4 % (37-47); IG% 0.4 %; LYMPH % 16.9 %; LYMPH ABS # 1.95 K/uL (1.2-3.4); MEAN CELL VOLUME 91.2 fL (80-100); MEAN CORPUSCULAR HEMOGLOBIN 32.4 pg (25-34); MEAN CORPUSCULAR HGB CONC 35.6 g/dl (32-36); MEAN PLATELET VOLUME 10.3 fL (7.4-10.4); MONO % 6.6 %; NEUT % 73.7 %; PLATELET COUNT 224 K/uL (130-400); RED BLOOD COUNT 4.87 M/uL (4.2-5.4); WHITE BLOOD COUNT 11.53 K/uL (4.8-10.8)
[2016-10-29] MEDS: AZITHROMYCIN IV 250 MG in DEXTROSE 5% 250ML 250 ML IV SCH (07:45)
[2016-10-29 07:46] LABS: BUN/CREATININE RATIO 12.9 (10-20); CALCIUM 8.9 mg/dl (8.5-10.1); CREATININE 0.77 mg/dl (0.60-1.20); POTASSIUM 4.2 mmol/L (3.5-5.1)
[2016-10-29] MEDS: MoRPHine SULFATE 2 MG/ML CARP IV PRN (07:46)
[2016-10-29 07:49] LABS: ALB/GLOB RATIO 0.8 (0.9-2)
--- NOTE | 2016-10-29 10:20 | Neurology Progress Notes ---
Neurology Progress Note Date of Service Oct 29, 2016. Subjective Follow-up for encephalopathy The patient is lying comfortably in bed, she is much more alert compared with yesterday and answers questions appropriately. Her is at bedside. She does not seem uncomfortable or agitated. She is not photophobic. The patient has completed the requested MR angiography of the head and neck. I reviewed the results of these tests. There is no evidence of vascular occlusion , dissection, or other significant abnormalities. The results of yesterday's lumbar puncture were again reviewed. There is no evidence of abnormal cell counts that was suggested infection or hemorrhage. The CSF protein is mildly elevated which is nonspecific. The patient is not complaining of significant headache, light sensitivity, or nausea at this time. She does not appear uncomfortable. She has complained of some mild low back pain related to yesterday's lumbar puncture. Objective Date Time Temp Pulse Resp B/P Pulse Ox O2 Delivery O2 Flow Rate FiO2 10/29/16 07:44 37.2 66 18 104/71 95 10/29/16 04:15 36.8 63 18 110/73 94 Nasal Cannula 2.0 10/29/16 04:00 Nasal Cannula 2.0 10/29/16 00:12 36.6 59 18 95/62 93 Room Air 10/29/16 00:00 Nasal Cannula 2.0 10/28/16 20:01 36.7 62 16 110/71 97 Nasal Cannula 2.0 10/28/16 20:00 97 Nasal Cannula 10/28/16 16:00 Nasal Cannula 2.0 10/28/16 15:28 36.9 64 16 97/67 94 Nasal Cannula 2.0 10/28/16 13:39 36.8 106 18 97 Room Air 10/28/16 12:25 37.2 66 18 118/80 96 Nasal Cannula 2.0 10/28/16 11:35 Nasal Cannula 2.0 Last 24 Hours Test 10/28/16 11:05 10/28/16 14:49 10/29/16 07:07 CSF Color COLORLESS CSF Appearance CLEAR CSF WBC 0 /uL CSF RBC 1 /uL CSF Xanthrochromic NO XANTHOCHROMIA CSF Cell Count Tube # 3 CSF Chemistry Tube # 1 CSF Glucose 67 mg/dl CSF Total Protein 49.6 mg/dl Procalcitonin < 0.05 ng/mL White Blood Count 11.53 K/uL Red Blood Count 4.87 M/uL Hemoglobin 15.8 g/dL Hematocrit 44.4 % Mean Corpuscular Volume 91.2 fL Mean Corpuscular Hemoglobin 32.4 pg Mean Corpuscular Hemoglobin Concent 35.6 g/dl Platelet Count 224 K/uL Mean Platelet Volume 10.3 fL Neutrophils (%) (Auto) 73.7 % Lymphocytes (%) (Auto) 16.9 % Monocytes (%) (Auto) 6.6 % Eosinophils (%) (Auto) 2.2 % Basophils (%) (Auto) 0.2 % Neutrophils # (Auto) 8.50 K/uL Lymphocytes # (Auto) 1.95 K/uL Monocytes # (Auto) 0.76 K/uL Eosinophils # (Auto) 0.25 K/uL Basophils # (Auto) 0.02 K/uL RDW Standard Deviation 42.0 fL RDW Coefficient of Variation 12.6 % Immature Granulocyte % (Auto) 0.4 % Immature Granulocyte # (Auto) 0.05 K/uL Sodium Level 139 mmol/L Potassium Level 4.2 mmol/L Chloride Level 104 mmol/L Carbon Dioxide Level 26 mmol/L Anion Gap 9.0 mmol/L Blood Urea Nitrogen 10 mg/dl Creatinine 0.77 mg/dl Est Creatinine Clear Calc Drug Dose 82.3 ml/min Estimated GFR () 106.6 Estimated GFR (Non- 91.9 BUN/Creatinine Ratio 12.9 Random Glucose 109 mg/dl Calcium Level 8.9 mg/dl Total Bilirubin 1.3 mg/dl Aspartate Amino Transf (AST/SGOT) 34 U/L Alanine Aminotransferase (ALT/SGPT) 86 U/L Alkaline Phosphatase 97 U/L Total Protein 6.6 gm/dl Albumin 3.0 gm/dl Globulin 3.6 gm/dl Albumin/Globulin Ratio 0.8 Exam: As above, the patient is lying comfortably in bed, her is at bedside. She is not agitated and does not appear to be in significant pain. She is not photophobic. She is oriented to person place and time. She exhibits some mild impairment of intention and tends to stare off at a distance or down towards the floor. She is able to name objects, repeat phrases, and reads simple text without much difficulty. She is able to describe a complex visual scene. Spontaneous speech output is minimal although there is no dysarthria or aphasia. She does not exhibit echolalia or stuttering. Vocabulary seems normal. She follows a variety of commands and is able to distinguish left from right. She follows commands that require her to cross the midline without difficulty. She does not exhibit apraxia. Visual rebollar full to confrontation. There is no gaze preference. There is no nystagmus. Eye movements normal. Both pupils are modestly large in size but both are equal, round, and react to light and accommodation. There is no facial droop or weakness. There is normal movement of the tongue and palate. Hearing is normal. Ophthalmoscopic examination is completed. There is no papilledema. No retinal hemorrhages. The patient is able to perform finger to nose and heel to goodman without much difficulty. There is no dysmetria or ataxia. No abnormal movements or tremors are observed. She does not have a pronator drift. Full motor evaluation is limited due to poor patient effort, however. She does not appear to have focal or lateralized weakness on examination. Current Inpatient Medications Medications (Trade) Dose Ordered Sig/Jaquelin Route Start Time Stop Time Status Last Admin Dose Admin Thiamine HCl 200 mg/Sodium Chloride 52 ml @ 208 mls/hr Q12H IV 10/25/16 22:00 11/24/16 20:59 10/28/16 22:50 208 MLS/HR Folic Acid/Syringe (Folvite Inj/ Syringe) 10 ml @ 5 mls/min QAM IV 10/26/16 09:00 11/25/16 08:59 10/28/16 08:14 5 MLS/MIN Ondansetron HCl 4 mg 4 mg Q6H PRN IV 10/25/16 19:45 11/24/16 19:44 Famotidine/ Dextrose (Pepcid IV Inj/ D5 100ml) 102 ml @ 200 mls/hr Q12H IV 10/25/16 22:00 11/24/16 19:44 10/28/16 23:13 200 MLS/HR Morphine Sulfate (MoRPHine SULFATE INJ) 2 mg Q4H PRN IV 10/25/16 19:45 11/08/16 19:44 10/29/16 07:46 2 MG Phytonadione (Mephyton Tab) 5 mg QAM PO 10/26/16 09:00 11/25/16 08:59 10/28/16 08:13 5 MG Potassium Chloride 20 meq 20 meq BID PO 10/26/16 11:00 11/25/16 10:59 10/28/16 21:01 20 MEQ Azithromycin 250 mg/Dextrose 252.5 ml @ 125 mls/hr DAILY@0800 IV 10/27/16 08:00 11/03/16 07:59 10/29/16 07:45 125 MLS/HR Potassium Chloride/Dextrose/ Sod Cl 1,000 ml @ 75 mls/hr [id number] IV 10/27/16 08:30 11/26/16 08:29 10/29/16 03:41 75 MLS/HR Ceftriaxone Sodium/Dextrose (Rocephin Inj/ Dextrose Add-[place] 50ML) 70 ml @ 100 mls/hr Q12H IV 10/27/16 22:00 10/29/16 21:59 10/28/16 22:50 100 MLS/HR Nystatin (Mycostatin Susp) 10 ml QID MT 10/28/16 13:00 11/07/16 12:59 10/28/16 20:34 10 ML Phenol (Chloraseptic 1.4% [place]) 2 sprays Q4HWA PRN MT 10/28/16 10:30 11/27/16 10:29 Gadobutrol (Gadavist) 5.5 mmol UD PRN IV 10/28/16 22:30 11/01/16 22:29 Impression Improving encephalopathy. Etiology probably metabolic or toxic as previously described. Medication withdrawal also a potential factor. Chronic migraines. Seems to be stable at this time. No evidence of vascular occlusion or dissection on MR angiography of the head and neck as above. Atypical-appearing area of restricted diffusion within the splenium of her corpus callosum potentially related to an infarct or focus of demyelination. The underlying pathophysiology may be metabolic, toxic, or migraine induced vasospasm. Atheroembolic disease probably unlikely. No evidence of encephalitis, meningitis, or hemorrhage on recently completed lumbar puncture. MS profile pending although this diagnosis is felt to be unlikely based on her clinical presentation and assessment of her imaging. Plan I would like this patient have a follow-up brain MRI with and without contrast completed either this evening or tomorrow morning to assess for any significant interval change in the previously identified splenium hyperintensity. I do not have any additional recommendations for her treatment. Continue current supportive medical care.
--- NOTE | 2016-10-29 10:20 | Medical Consult ---
Consultation Date of Consultation: Oct 29, 2016. Attending Physician: Tee Mccollum MD Reason for Consultation: AMS/encephalitis unknown cause History of Present Illness The patient is a 46-year-old female who presented to the emergency department with her with complaints of 3 days of vomiting, headache, nausea, diarrhea, and abdominal pain. The patient does have history of chronic pain syndrome, migraines, opiate dependence, benzodiazepine dependence, and personality disorder. The patient reports that at home, she does have migraines frequently and does take Percocet for her migraines. Upon presentation, the patient's white blood cell count was 14.83 with predominantly neutrophils on differential. Her LFTs were noted to be mildly elevated with an AST of 187 and ALT of 215. Her creatinine was 0.84 on admission. Her potassium was noted to be low at 2.7 and her sodium was high at 150. She did have blood cultures drawn which are showing no growth to date. A urine culture showed lactobacillus only. Her urinalysis showed 5-10 white blood cells and trace leukocyte esterase with 3 ketones. She has been afebrile. The patient did have a lumbar puncture yesterday which showed 0 white blood cells, mildly elevated protein, and a glucose of 67. Lyme screen is negative, influenza screen was negative, and RPR was negative. Her tox screen was unremarkable. She has had multiple imaging studies. Her liver ultrasound showed no acute process. She did undergo head and neck MRA which showed no significant stenosis , occlusion, or aneurysm. Neurology consultation was reviewed, and it was noted that this patient likely has metabolic or toxic encephalopathy in the setting of chronic migraines. I did discuss this patient case with pharmacy as well. She is currently on IV ceftriaxone and azithromycin. Her C-reactive protein was unremarkable, and her ESR was 8. Her white blood cell count has trended down since admission. Her chest x-ray did show small parenchymal infiltrate of the medial right base. I also discussed this patient's case with her . He states that she did have a mild rash on her left wrist and posterior neck approximately 2 weeks ago. He has a similar rash on his posterior neck which is been there for approximately 5 years. He is unsure of the etiology of this rash. Past Medical/Surgical History Medical Problems: (1) Abdominal pain Status: Acute (2) Anxiety Status: Acute (3) Anxiety State Nos Status: Chronic (4) borderline intellectual functioning Status: Chronic (5) Dehydration Status: Acute (6) Depressive Disorder Nec Status: Chronic (7) Elevated liver function tests Status: Acute (8) Generalized weakness Status: Acute (9) Hearing impairment Status: Chronic (10) Hyperlipidemia Nec/Nos Status: Chronic (11) Hypertension Nos Status: Chronic (12) Hypokalemia Status: Acute (13) Intractable vomiting Status: Acute (14) Migraine Status: Chronic (15) Opioid dependence Status: Chronic (16) Personality disorder Status: Chronic (17) Speech impairment Status: Chronic (18) Vomiting Status: Acute Medical Problems: (1) Anxiety State Nos (2) borderline intellectual functioning (3) Dehydration with hypernatremia (4) Depressive Disorder Nec (5) Gastroenteritis (6) Gastroenteritis (7) Hearing impairment (8) Hyperlipidemia Nec/Nos (9) Hypertension Nos (10) Migraine (11) Opioid dependence (12) Personality disorder (13) Speech impairment Surgical Problems: (1) H/O section (2) Hx of cholecystectomy Family History No significant family history stated Noncontributory Social History Smoking Status: Current Every Day Smoker Alcohol Use: none Drug Use: none Marital Status: Housing Status: lives with family Occupation Status: disabled Allergies Coded Allergies: Haloperidol (Verified Allergy, Severe, TONGUE SWELLS, 10/25/16) Hydroxyzine (Verified Allergy, Severe, CAN'T BREATH, 10/25/16) Prochlorperazine (Verified Adverse Reaction, Intermediate, SICK, 10/25/16) Escitalopram (Verified Adverse Reaction, Mild, MAKES HER "THINK GOOFY", ) Rofecoxib (Verified Adverse Reaction, Mild, FIERRO LIPS, 10/25/16) Prednisone (Verified Adverse Reaction, Unknown, GI UPSET, 10/25/16) Tramadol (Verified Adverse Reaction, Unknown, UNABLE TO VOID, 10/25/16) Home Medications Reported Home Medications Medications Dose Route/Sig Max Daily Dose Days Date Category Zofran (Ondansetron HCl) 4 Mg Tab 4 Mg PO Q8 PRN 10/25/16 Reported Percocet 10MG/325MG (Oxycodone/Acetaminophen) Tab 1 Tab PO Q6 PRN 10/25/16 Reported Esomeprazole Magnesium 40 Mg Cap 40 Mg PO DAILY 30 01/06/16 Reported Claritin (Loratadine) 10 Mg Tab 10 Mg PO DAILY PRN 06/06/14 Reported Flonase (Fluticasone Propionate (Nasal)) 50 Mcg/Act Spr 2 Sprays NA DAILY PRN 06/06/14 Reported Xanax (Alprazolam) 1 Mg Tab 1 Mg PO TID 06/06/14 Reported Aspirin Ec (Aspirin) 81 Mg Tab 81 Mg PO DAILY 06/06/14 Reported Excedrin Migraine (Vxoqphn-Ocbdgpgqzscmu-Kgfetesw) 1 Tab Tab 2 Tablets PO UD PRN 02/23/13 Reported Current Inpatient Medications Current Inpatient Medications Medications (Trade) Dose Ordered Sig/Jaquelin Route Start Time Stop Time Status Last Admin Dose Admin Thiamine HCl 200 mg/Sodium Chloride 52 ml @ 208 mls/hr Q12H IV 10/25/16 22:00 11/24/16 20:59 10/28/16 22:50 208 MLS/HR Folic Acid/Syringe (Folvite Inj/ Syringe) 10 ml @ 5 mls/min QAM IV 10/26/16 09:00 11/25/16 08:59 10/28/16 08:14 5 MLS/MIN Ondansetron HCl 4 mg 4 mg Q6H PRN IV 10/25/16 19:45 11/24/16 19:44 Famotidine/ Dextrose (Pepcid IV Inj/ D5 100ml) 102 ml @ 200 mls/hr Q12H IV 10/25/16 22:00 11/24/16 19:44 10/28/16 23:13 200 MLS/HR Morphine Sulfate (MoRPHine SULFATE INJ) 2 mg Q4H PRN IV 10/25/16 19:45 11/08/16 19:44 10/29/16 07:46 2 MG Phytonadione (Mephyton Tab) 5 mg QAM PO 10/26/16 09:00 11/25/16 08:59 10/28/16 08:13 5 MG Potassium Chloride 20 meq 20 meq BID PO 10/26/16 11:00 11/25/16 10:59 10/28/16 21:01 20 MEQ Azithromycin 250 mg/Dextrose 252.5 ml @ 125 mls/hr DAILY@0800 IV 10/27/16 08:00 11/03/16 07:59 10/29/16 07:45 125 MLS/HR Potassium Chloride/Dextrose/ Sod Cl 1,000 ml @ 75 mls/hr [id number] IV 10/27/16 08:30 11/26/16 08:29 10/29/16 03:41 75 MLS/HR Ceftriaxone Sodium/Dextrose (Rocephin Inj/ Dextrose Add-[place] 50ML) 70 ml @ 100 mls/hr Q12H IV 10/27/16 22:00 10/29/16 21:59 10/28/16 22:50 100 MLS/HR Nystatin (Mycostatin Susp) 10 ml QID MT 10/28/16 13:00 11/07/16 12:59 10/28/16 20:34 10 ML Phenol (Chloraseptic 1.4% [place]) 2 sprays Q4HWA PRN MT 10/28/16 10:30 11/27/16 10:29 Gadobutrol (Gadavist) 5.5 mmol UD PRN IV 10/28/16 22:30 11/01/16 22:29 Review of Systems Constitutional: + fatigue, No fever Eyes: No worsening of vision ENT: No hearing loss, No sore throat, No trouble swallowing Respiratory: + cough, + shortness of breath (since admission), No sputum Cardiovascular: No chest pain Abdomen: + 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), No pain Musculoskeletal: No joint pain, No swelling Genitourinary - Female: No dysmenorrhea, No dysuria, No urinary frequency, No urinary urgency, No vaginal discharge, No vaginal itching Neurologic: + problem reported (chronic migraines), No numbness/tingling Integumentary: + rash (a week or 2 ago, patient had rash on back of neck and left wrist- now resolved- has similar rash on back of neck- erythematous , raised, nodular, recurring) Physical Exam Date Time Temp Pulse Resp B/P Pulse Ox O2 Delivery O2 Flow Rate FiO2 10/29/16 07:44 37.2 66 18 104/71 95 10/29/16 04:15 36.8 63 18 110/73 94 Nasal Cannula 2.0 10/29/16 04:00 Nasal Cannula 2.0 10/29/16 00:12 36.6 59 18 95/62 93 Room Air 10/29/16 00:00 Nasal Cannula 2.0 10/28/16 20:01 36.7 62 16 110/71 97 Nasal Cannula 2.0 10/28/16 20:00 97 Nasal Cannula 10/28/16 16:00 Nasal Cannula 2.0 10/28/16 15:28 36.9 64 16 97/67 94 Nasal Cannula 2.0 10/28/16 13:39 36.8 106 18 97 Room Air 10/28/16 12:25 37.2 66 18 118/80 96 Nasal Cannula 2.0 10/28/16 11:35 Nasal Cannula 2.0 General Appearance: WD/WN, no apparent distress Head: normocephalic, atraumatic Eyes: normal inspection, sclerae normal ENT: hearing grossly normal Neck: supple, trachea midline Respiratory/Chest: chest non-tender, lungs clear, normal breath sounds, no respiratory distress, no accessory muscle use Cardiovascular: regular rate, rhythm, no murmur Abdomen/GI: normal bowel sounds, non tender, soft Extremities/Musculoskelatal: normal inspection, no pedal edema Neurologic/Psych: alert, + disoriented (very slightly disoriented but answering questions appropriately. Speaks very softly) Skin: normal color, warm/dry, no rash Laboratory Results Brain MRA HISTORY: Abnormal brain MRI. acute stroke? Evaluate for occlusion TECHNIQUE: 3-D [id number] MRA of the brain was performed without contrast. COMPARISON STUDY: Brain MRI 10/27/2016. FINDINGS: There is a hypoplastic left distal vertebral artery which terminates in the left posterior inferior cerebellar artery. The distal right vertebral artery and basilar artery are patent but also slightly small in caliber. The left P1 segment is absent consistent with a persistent left circulation. The left DOG FOOD DOUGH MIXER is widely patent. There is a hypoplastic right P1 segment. Otherwise, the right DOG FOOD DOUGH MIXER is widely patent. The bilateral wildlife ecology professor are fed primarily through the posterior communicating arteries. The bilateral ACAs and MCAs are widely patent. There is no significant stenosis, occlusion, or aneurysm. The bilateral intracranial internal carotid arteries are patent. IMPRESSION: No significant stenosis, occlusion, or aneurysm within the mak[place] of [place]. 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 NECK MRA HISTORY: Abnormal brain MRI. acute stroke?, evaluate for dissection TECHNIQUE: [id number] and gadolinium-enhanced MRA of the neck was performed both before and after the intravenous administration of contrast. All measurements were calculated based on NASCET criteria. COMPARISON STUDY: None. FINDINGS: The aortic arch and proximal great vessels are widely patent. There is no significant stenosis, occlusion, or dissection identified within the bilateral common carotid, internal carotid, or vertebral arteries. Hypoplastic left vertebral artery. IMPRESSION: No significant stenosis, occlusion, or dissection identified within the carotid or vertebral arteries. CHEST ONE VIEW PORTABLE CLINICAL HISTORY: eval for new pneumonia dyspnea COMPARISON STUDY: 10/25/2016 FINDINGS: Small developing parenchymal infiltrate right base. Lungs otherwise appear clear. Diaphragms smooth. IMPRESSION: Small parenchymal infiltrate medial right base Right upper quadrant ultrasound (LIVER) ABDOMEN LIMITED CLINICAL HISTORY: vomiting, elevated LFTs nausea TECHNIQUE: Ultrasound COMPARISON STUDY: None FINDINGS: Prior cholecystectomy. Common bile duct 6 mm. Liver is uniform. Pancreas and right kidney are unremarkable. IMPRESSION: Negative study status post cholecystectomy RUN DATE: 10/28/16 [facility] LAB PAGE 1 RUN TIME: 1311 Specimen Inquiry PATIENT: JOSEFINA SHROE LOC: [facility] U # : [id number] AGE/SX: 46/F ROOM: E221 REG : 10/25/[address]: Tee Mccollum MD : 1970 BED: 1 DIS : STATUS: ADM IN TLOC: SPEC #: [id number] PATRICE: 10/28/16 STATUS: RES REQ #: [id number] RECD: 10/28/[address] [facility] [address]: Tee Mccollum MD SOURCE: CSF ENTR: 10/27/16 [facility] DR: Andrew Ozuna M.D. SPDESC: Sridhar Gonzalez D.O. ORDERED: CSF CULT/SMR COMMENTS: Comments to Shearing Shed Hand Tube #2 TUBE # TO USE FOR SPINAL FLUID CELL CULTURE= 2 Procedure Result Verified Site GRAM STAIN Final 10/28/16 RESULT NO WBCs SEEN NO ORGANISMS SEEN CSF CULTURE PENDING Item Value Date Time Gram Stain - Final Resulted 10/28/161104 Cerebral Spinal Fluid Blood Culture - Preliminary Resulted 10/25/162216 Blood NO GROWTH TO DATE. Blood Culture - Preliminary Resulted 10/25/162216 Blood NO GROWTH TO DATE. Urine Culture - Final Complete 10/25/162199 Urine,Catheterized Lactobacillus Species Last 24 Hours Test 10/28/16 11:05 10/28/16 14:49 10/29/16 07:07 CSF Color COLORLESS CSF Appearance CLEAR CSF WBC 0 /uL CSF RBC 1 /uL CSF Xanthrochromic NO XANTHOCHROMIA CSF Cell Count Tube # 3 CSF Chemistry Tube # 1 CSF Glucose 67 mg/dl CSF Total Protein 49.6 mg/dl Procalcitonin < 0.05 ng/mL White Blood Count 11.53 K/uL Red Blood Count 4.87 M/uL Hemoglobin 15.8 g/dL Hematocrit 44.4 % Mean Corpuscular Volume 91.2 fL Mean Corpuscular Hemoglobin 32.4 pg Mean Corpuscular Hemoglobin Concent 35.6 g/dl Platelet Count 224 K/uL Mean Platelet Volume 10.3 fL Neutrophils (%) (Auto) 73.7 % Lymphocytes (%) (Auto) 16.9 % Monocytes (%) (Auto) 6.6 % Eosinophils (%) (Auto) 2.2 % Basophils (%) (Auto) 0.2 % Neutrophils # (Auto) 8.50 K/uL Lymphocytes # (Auto) 1.95 K/uL Monocytes # (Auto) 0.76 K/uL Eosinophils # (Auto) 0.25 K/uL Basophils # (Auto) 0.02 K/uL RDW Standard Deviation 42.0 fL RDW Coefficient of Variation 12.6 % Immature Granulocyte % (Auto) 0.4 % Immature Granulocyte # (Auto) 0.05 K/uL Sodium Level 139 mmol/L Potassium Level 4.2 mmol/L Chloride Level 104 mmol/L Carbon Dioxide Level 26 mmol/L Anion Gap 9.0 mmol/L Blood Urea Nitrogen 10 mg/dl Creatinine 0.77 mg/dl Est Creatinine Clear Calc Drug Dose 82.3 ml/min Estimated GFR () 106.6 Estimated GFR (Non- 91.9 BUN/Creatinine Ratio 12.9 Random Glucose 109 mg/dl Calcium Level 8.9 mg/dl Total Bilirubin 1.3 mg/dl Aspartate Amino Transf (AST/SGOT) 34 U/L Alanine Aminotransferase (ALT/SGPT) 86 U/L Alkaline Phosphatase 97 U/L Total Protein 6.6 gm/dl Albumin 3.0 gm/dl Globulin 3.6 gm/dl Albumin/Globulin Ratio 0.8 Assessment & Plan Patient with encephalopathy of unknown source. She did have an LP which showed 0 WBC's and very mildly elevated protein. CSF culture pending. CXR showed small parenchymal infiltrate medial right base. She does have a mild cough on exam. Neurology is also following. I ordered procalcitonin which was negative. ESR and CRP are unremarkable. WBC count was up to 15.89 but has been trending down. Feel that likely this patient's encephalopathy is of a non-infectious source. She does appear that she could have a CAP, so therefore will continue Azithromycin. This patient does not have meningitis and is very unlikely to have HSV encephalitis with CSF evaluation showing 0 WBCs. Will D/C Ceftriaxone. We will follow along but feel that this is otherwise non-infectious. Note: This document was dictated utilizing [employer] voice recognition software. Minor errors in infant babysitter may be present. PROVIDER ADDENDUM: Patient examined and reviewed with Ms. Bales. Agree with above assessment.
[2016-10-29] MEDS: FoLIC ACID INJ 1 MG in SYRINGE 9.8 ML IV SCH (10:32)
[2016-10-29] MEDS: PHYTONADIONE 5 MG TAB PO SCH (10:34)
[2016-10-29] MEDS: NYSTATIN SUSP 500,000 U/5 ML UDC MT SCH ×4 (10:34→20:55)
[2016-10-29] MEDS: POTASSIUM CHLORIDE 20 MEQ/15 ML UDC PO SCH ×2 (10:34→20:55)
[2016-10-29] MEDS: FAMOTIDINE IV INJ 20 MG in DEXTROSE 5% 100ML 100 ML IV SCH ×2 (10:35→22:17)
[2016-10-29] MEDS: THIAMINE HCL INJ 200 MG in SODIUM CHLORIDE 0.9% 50ML 50 ML IV SCH ×2 (10:35→22:18)
[2016-10-29] MEDS ORDERED: IBUPROFEN 800 MG TAB PO PRN (14:15)
[2016-10-29] MEDS ORDERED: SUMATRIPTAN SUCCINATE 6 MG/0.5 ML VIAL SQ PRN (14:15)
[2016-10-29] MEDS: OXYCODONE/ACETAMINOPHEN 5-325 TAB PO PRN (14:46)
--- NOTE | 2016-10-29 16:09 | Hospitalist Progress Note ---
Hospitalist Progress Note Date of Service Oct 29, 2016. Subjective Pt evaluation today including: conversation w/ patient, physical exam, chart review, lab review, review of studies, review of inpatient medication list The patient is awake today. She is alert. There were no family members present. She told me that she remembers me from yesterday. I found that interesting as she had appeared to be unresponsive mostly. I did a review of systems and she declined having a headache. She has no nausea, chest pain or SOB. She did complain of cough and had coughed (which sounded moist) a few times during my visit. She told me many times that she does not remember anything that happened. She asked me if it would be expected for her to not remember. Lastly, she asked if her memory would come back. I found this series of questions curious. She never asked me what was wrong with her or for what we were treating her. Additional Comments: A 10 system review was performed and all were negative. Positives were placed in the subjective section. Objective Vital Signs Date Time Temp Pulse Resp B/P Pulse Ox O2 Delivery O2 Flow Rate FiO2 10/29/16 15:23 36.7 68 16 97/69 97 Nasal Cannula 3.0 10/29/16 12:00 95 Nasal Cannula 2.0 10/29/16 11:42 37.1 77 20 106/76 95 10/29/16 11:15 97 10/29/16 08:00 95 Nasal Cannula 2.0 10/29/16 07:44 37.2 66 18 104/71 95 10/29/16 04:15 36.8 63 18 110/73 94 Nasal Cannula 2.0 10/29/16 04:00 Nasal Cannula 2.0 10/29/16 00:12 36.6 59 18 95/62 93 Room Air 10/29/16 00:00 Nasal Cannula 2.0 10/28/16 20:01 36.7 62 16 110/71 97 Nasal Cannula 2.0 10/28/16 20:00 97 Nasal Cannula 10/28/16 16:00 Nasal Cannula 2.0 Physical Exam Notes: GEN: Awake, alert. Not in acute distress HEENT: Tm's intact, no inflammation, EOMI, PERRLA, MMM Neck: Soft, supple Lungs: few scattered rhonchi b/l. Heart: REG, nrl S1S2 without murmurs, rubs or gallops Abdomen: Soft, NT, ND, + BS EXT: No C/C/E NEURO: CN's II-XII grossly intact, non-focal Skin: warm, dry, no rashes PSYCH: Flat affect. Laboratory Results Last 24 Hours Test 10/29/16 07:07 White Blood Count 11.53 K/uL Red Blood Count 4.87 M/uL Hemoglobin 15.8 g/dL Hematocrit 44.4 % Mean Corpuscular Volume 91.2 fL Mean Corpuscular Hemoglobin 32.4 pg Mean Corpuscular Hemoglobin Concent 35.6 g/dl Platelet Count 224 K/uL Mean Platelet Volume 10.3 fL Neutrophils (%) (Auto) 73.7 % Lymphocytes (%) (Auto) 16.9 % Monocytes (%) (Auto) 6.6 % Eosinophils (%) (Auto) 2.2 % Basophils (%) (Auto) 0.2 % Neutrophils # (Auto) 8.50 K/uL Lymphocytes # (Auto) 1.95 K/uL Monocytes # (Auto) 0.76 K/uL Eosinophils # (Auto) 0.25 K/uL Basophils # (Auto) 0.02 K/uL RDW Standard Deviation 42.0 fL RDW Coefficient of Variation 12.6 % Immature Granulocyte % (Auto) 0.4 % Immature Granulocyte # (Auto) 0.05 K/uL Sodium Level 139 mmol/L Potassium Level 4.2 mmol/L Chloride Level 104 mmol/L Carbon Dioxide Level 26 mmol/L Anion Gap 9.0 mmol/L Blood Urea Nitrogen 10 mg/dl Creatinine 0.77 mg/dl Est Creatinine Clear Calc Drug Dose 82.3 ml/min Estimated GFR () 106.6 Estimated GFR (Non- 91.9 BUN/Creatinine Ratio 12.9 Random Glucose 109 mg/dl Calcium Level 8.9 mg/dl Total Bilirubin 1.3 mg/dl Aspartate Amino Transf (AST/SGOT) 34 U/L Alanine Aminotransferase (ALT/SGPT) 86 U/L Alkaline Phosphatase 97 U/L Total Protein 6.6 gm/dl Albumin 3.0 gm/dl Globulin 3.6 gm/dl Albumin/Globulin Ratio 0.8 Assessment and Plan 1) Altered mental status/encephalopathy - obvious improvement since yesterday. We have ruled out a number of causes, but to date have only possibilities and no solid diagnosis. Neurology ordered EEG and recommended repeat MRI in few days to re-evaluate the posterior corpus callosum. 2) RLL pneumonia - day #4 Rocpehin and Zithromax. ID then D/C'd Rocephin today. Will continue zithromax. 3) Hypokalemia - resolved. 4) Personality disorder - Psych attempted again today to talk with patient but patient was non-compliant. 5) Vomiting and diarrhea - resolved. DVT prophylaxis TEDs, SCDs. adding Sub-q heparin.
[2016-10-29] MEDS: KETOROLAC TROMETHAMINE 30 MG/ML VIAL IV PRN (16:32)
[2016-10-29] MEDS ORDERED: GADAVIST IV PRN (22:15)
--- NOTE | 2016-10-29 22:31 | DIAGNOSTIC IMAGING REPORT ---
MRI OF THE BRAIN WITHOUT AND WITH IV CONTRAST CLINICAL HISTORY: stroke, demyelination COMPARISON STUDY: 10/27/2016 TECHNIQUE: MRI of the brain was performed from the vertex to the skull base utilizing various T1 and T2 weighted sequences. Following the IV administration of 5.5 mL of Gadavist contrast, additional enhanced images were obtained. FINDINGS: Sagittal T1, axial diffusion, proton density and T2 weighted axial, coronal FLAIR, and pre and post axial T1-weighted images were acquired. These were supplemented with post gadolinium coronal T1 weighted images. No intra or extra-axial mass lesions are visualized. Axial diffusion-weighted images demonstrate a 14 mm focus of restricted water diffusion involving the splenium of the corpus callosum in the midline. This is minimally larger than on the preceding examination area this demonstrates decreased signal on ADC map images. This lesion is minimally hyperintense on T2 weighted images. Postcontrast images reveal no evidence of pathologic enhancement. The lesion is slightly hypointense on T1-weighted images. There is no evidence of ventricular dilatation. Proton density T2-weighted and FLAIR images reveal in addition to the signal abnormalities the corpus callosum, stable foci of increased T2 and FLAIR signal within the subcortical parietal white matter. There are no abnormal flow voids. There is no evidence of pathologic enhancement. There is a right maxillary sinus air-fluid level. IMPRESSION: 1. Minimal interval increase in the size of the 14 mm focus of restricted water diffusion involving the splenic edema the corpus callosum in the midline. This is minimally larger than on the preceding study. There is no pathologic enhancement. 2. This would be an atypical location for an acute infarct. A neoplasm is also felt to be unlikely given the lack of enhancement. 3. This lesion likely represents an area of demyelination and intracellular edema secondary to an infectious, inflammatory, or metabolic abnormality. 4. Follow-up MRI imaging is recommended, as it should be noted that lesions such as these, can be reversible. Reversible lesions are known as mild encephalitis/encephalopathy with a reversible isolated splenium of the corpus callosum lesion (MERS). There is a very large differential for associated etiologies. Obviously a follow-up study demonstrating resolution would be necessary before this lesion could be classified as a MERS lesion 5. The additional foci of increased T2 signal within the subcortical parietal white matter remain similar. 6. Right maxillary sinus air-fluid level. Electronically signed by: Maurizio Vee M.D. 10/29/2016 10:30 PM Dictated Date/Time: 10/29/2016 10:18 PM
[2016-10-30] VITALS (7 sets, daily range): BP systolic 86–112; BP diastolic 59–75; PULSE 56–73; TEMP 36.3–37.3; O2SAT 91–100
[2016-10-30] MEDS: D5W AND 1/2NSS + 20MEQ KCL 1,000 ML IV SCH ×2 (03:05→16:38)
[2016-10-30] MEDS: AZITHROMYCIN IV 250 MG in DEXTROSE 5% 250ML 250 ML IV SCH (08:12)
--- NOTE | 2016-10-30 08:57 | EEG Procedure Note ---
EEG Procedure Note Date of Service Oct 30, 2016. Start / End Times Start Time: 7:59 AM End Time: 8:19 AM Referring Physician Ellis Chin History This is a 46-year-old female who presents with delirium and encephalopathy. EEG for further evaluation of possible seizure etiology. Home Medication List Scheduled Alprazolam (Xanax), 1 MG PO TID Aspirin (Aspirin Ec), 81 MG PO DAILY Esomeprazole Magnesium (Esomeprazole Magnesium), 40 MG PO DAILY Scheduled PRN [id number]-[id number] (Excedrin Migraine), 2 TABLETS PO UD PRN Fluticasone Propionate (Nasal) (Flonase), 2 SPRAYS NA DAILY PRN for Nasal Congestion Loratadine (Claritin), 10 MG PO DAILY PRN for ALLERGIC REACTION Ondansetron Hcl (Zofran), 4 MG PO Q8 PRN for Nausea Oxycodone/Acetaminophen 10MG/325MG (Percocet 10MG/325MG), 1 TAB PO Q6 PRN for Pain Inpatient Medication List Current Inpatient Medications Medications (Trade) Dose Ordered Sig/Jaquelin Route Start Time Stop Time Status Last Admin Dose Admin Thiamine HCl 200 mg/Sodium Chloride 52 ml @ 208 mls/hr Q12H IV 10/25/16 22:00 11/24/16 20:59 10/29/16 22:18 208 MLS/HR Folic Acid/Syringe (Folvite Inj/ Syringe) 10 ml @ 5 mls/min QAM IV 10/26/16 09:00 11/25/16 08:59 10/29/16 10:32 5 MLS/MIN Ondansetron HCl 4 mg 4 mg Q6H PRN IV 10/25/16 19:45 11/24/16 19:44 Famotidine/ Dextrose (Pepcid IV Inj/ D5 100ml) 102 ml @ 200 mls/hr Q12H IV 10/25/16 22:00 11/24/16 19:44 10/29/16 22:17 200 MLS/HR Phytonadione (Mephyton Tab) 5 mg QAM PO 10/26/16 09:00 11/25/16 08:59 10/29/16 10:34 5 MG Potassium Chloride 20 meq 20 meq BID PO 10/26/16 11:00 11/25/16 10:59 3/22/17 20:55 20 MEQ Azithromycin 250 mg/Dextrose 252.5 ml @ 125 mls/hr DAILY@0800 IV 10/27/16 08:00 10/30/16 09:00 10/30/16 08:12 125 MLS/HR Potassium Chloride/Dextrose/ Sod Cl (D5W And 1/2nss + 20meq KCl) 1,000 ml @ 75 mls/hr [id number] IV 10/27/16 08:30 11/26/16 08:29 10/30/16 03:05 75 MLS/HR Nystatin (Mycostatin Susp) 10 ml QID MT 10/28/16 13:00 11/07/16 12:59 10/29/16 20:55 10 ML Phenol (Chloraseptic 1.4% [place]) 2 sprays Q4HWA PRN MT 10/28/16 10:30 11/27/16 10:29 Gadobutrol (Gadavist) 5.5 mmol UD PRN IV 10/28/16 22:30 11/01/16 22:29 Sumatriptan Succinate (Imitrex Sq Inj) 6 mg DAILY PRN SQ 10/29/16 14:15 11/28/16 14:14 Ketorolac Tromethamine (Toradol Inj) 30 mg Q6H PRN IV 10/29/16 14:15 11/03/16 14:14 10/29/16 16:32 30 MG Ibuprofen (Motrin Tab) 800 mg QID PRN PO 10/29/16 14:15 11/28/16 14:14 Oxycodone/ Acetaminophen (Percocet 5-325mg Tab) 1 tab Q4H PRN PO 10/29/16 14:15 11/12/16 14:14 10/29/16 14:46 1 TAB Gadobutrol (Gadavist) 5.5 mmol UD PRN IV 10/29/16 22:15 11/02/16 22:14 Description This is a 21 electrode EEG with a single channel dedicated to limited EKG. The electrodes were placed in accordance with the International 10-20 system. Intermittent movement and electrode artifact noted. At the start of the recording the patient was in an awake state. Background was well organized and composed of symmetric mixed alpha and beta frequencies. There was a symmetric well-formed moderate amplitude 9 Hz posterior dominant rhythm that was reactive to eye opening and closure. Hyperventilation was not done. Intermittent photic stimulation was not done due to lack of cooperation. There was no state changes or sleep transients Interpretation This is a normal awake only routine EEG. There was no electrographic seizures or epileptiform discharges. Clinical Correlation A normal EEG does not rule out epilepsy if there is a strong clinical suspicion.
[2016-10-30] MEDS: PHYTONADIONE 5 MG TAB PO SCH (09:52)
[2016-10-30] MEDS: POTASSIUM CHLORIDE 20 MEQ/15 ML UDC PO SCH ×2 (09:52→21:36)
[2016-10-30] MEDS: NYSTATIN SUSP 500,000 U/5 ML UDC MT SCH ×4 (09:53→21:35)
[2016-10-30] MEDS: FoLIC ACID INJ 1 MG in SYRINGE 9.8 ML IV SCH (09:53)
[2016-10-30] MEDS: THIAMINE HCL INJ 200 MG in SODIUM CHLORIDE 0.9% 50ML 50 ML IV SCH ×2 (09:53→21:44)
[2016-10-30] MEDS: FAMOTIDINE IV INJ 20 MG in DEXTROSE 5% 100ML 100 ML IV SCH ×2 (09:54→21:44)
--- NOTE | 2016-10-30 10:57 | Neurology Progress Notes ---
Neurology Progress Note Date of Service Oct 30, 2016. Subjective Follow-up for encephalopathy The patient seems to be improved this morning She currently denies headache, nausea, or light sensitivity. The patient completed the follow-up brain MRI as requested. I reviewed the images and radiologist's interpretation of this test. There is continued evidence of an area of restricted diffusion within the center of the splenium of her corpus callosum. The areas of bit more prominent than what was observed previously but not significantly different. The interpreting radiologist appears to be in agreement with my thoughts on "transients splenial intensity change" as described in my initial consult. These lesions are felt to be related to metabolic, toxic, or inflammatory processes. The patient is also completed electroencephalogram this morning as requested for further evaluation of her encephalopathy area I reviewed the tracing as well as the interpretation by Dr. Thomas. There is a normal 9 Hz background rhythm without evidence of focal slowing or epileptiform abnormalities. No evidence of encephalopathy or seizure disorder. Objective Date Time Temp Pulse Resp B/P Pulse Ox O2 Delivery O2 Flow Rate FiO2 10/30/16 08:00 98 Nasal Cannula 2.0 10/30/16 07:48 36.3 64 18 96/62 98 Nasal Cannula 2.0 10/30/16 04:40 36.8 58 18 101/65 100 Nasal Cannula 3.0 10/30/16 04:00 Nasal Cannula 4.0 10/30/16 00:00 Nasal Cannula 4.0 10/29/16 23:15 37.0 58 16 95/62 100 Nasal Cannula 3.0 10/29/16 20:00 Nasal Cannula 2.0 10/29/16 19:55 36.6 61 18 90/59 95 Nasal Cannula 3.0 10/29/16 16:00 Nasal Cannula 2.0 10/29/16 15:23 36.7 68 16 97/69 97 Nasal Cannula 3.0 10/29/16 12:00 95 Nasal Cannula 2.0 10/29/16 11:42 37.1 77 20 106/76 95 10/29/16 11:15 97 Exam: The patient is lying comfortably in bed. She is alert and oriented to person place and time. Attention and concentration seem to be normal. She does not really give good eye contact which may be normal for her. Her speech is soft but fluent and non-dysarthric. Vocabulary normal. She is able to name objects, repeat phrases, and read text without difficulty. Visual rebollar full to confrontation. Visual acuity normal. Pupils equal round reactive to light and accommodation. Eye movements normal. No nystagmus. There is normal facial symmetry and strength. No facial droop. Palate elevates to midline. Tongue protrudes to midline. Shoulder shrug and hearing intact. There is no pronator drift with outstretched arms. No dysmetria with finger to nose or heel to goodman. No tremors or other abnormal movements observed. There is normal strength for the arms and legs bilaterally. Sensation intact for the limbs. Deep tendon reflexes are normoactive for the arms and legs symmetrically. Plantar responses downgoing bilaterally. Current Inpatient Medications Medications (Trade) Dose Ordered Sig/Jaquelin Route Start Time Stop Time Status Last Admin Dose Admin Thiamine HCl 200 mg/Sodium Chloride 52 ml @ 208 mls/hr Q12H IV 10/25/16 22:00 11/24/16 20:59 10/30/16 09:53 208 MLS/HR Folic Acid/Syringe (Folvite Inj/ Syringe) 10 ml @ 5 mls/min QAM IV 10/26/16 09:00 11/25/16 08:59 10/30/16 09:53 5 MLS/MIN Ondansetron HCl 4 mg 4 mg Q6H PRN IV 10/25/16 19:45 11/24/16 19:44 Famotidine/ Dextrose (Pepcid IV Inj/ D5 100ml) 102 ml @ 200 mls/hr Q12H IV 10/25/16 22:00 11/24/16 19:44 10/30/16 09:54 200 MLS/HR Phytonadione (Mephyton Tab) 5 mg QAM PO 10/26/16 09:00 11/25/16 08:59 10/30/16 09:52 5 MG Potassium Chloride 20 meq 20 meq BID PO 10/26/16 11:00 11/25/16 10:59 10/30/16 09:52 20 MEQ Potassium Chloride/Dextrose/ Sod Cl (D5W And 1/2nss + 20meq KCl) 1,000 ml @ 75 mls/hr [id number] IV 10/27/16 08:30 11/26/16 08:29 10/30/16 03:05 75 MLS/HR Nystatin (Mycostatin Susp) 10 ml QID MT 10/28/16 13:00 11/07/16 12:59 10/30/16 09:53 10 ML Phenol (Chloraseptic 1.4% [place]) 2 sprays Q4HWA PRN MT 10/28/16 10:30 11/27/16 10:29 Gadobutrol (Gadavist) 5.5 mmol UD PRN IV 10/28/16 22:30 11/01/16 22:29 Sumatriptan Succinate (Imitrex Sq Inj) 6 mg DAILY PRN SQ 10/29/16 14:15 11/28/16 14:14 Ketorolac Tromethamine (Toradol Inj) 30 mg Q6H PRN IV 10/29/16 14:15 11/03/16 14:14 10/29/16 16:32 30 MG Ibuprofen (Motrin Tab) 800 mg QID PRN PO 10/29/16 14:15 11/28/16 14:14 Oxycodone/ Acetaminophen (Percocet 5-325mg Tab) 1 tab Q4H PRN PO 10/29/16 14:15 11/12/16 14:14 10/29/16 14:46 1 TAB Gadobutrol (Gadavist) 5.5 mmol UD PRN IV 10/29/16 22:15 11/02/16 22:14 Impression Improving encephalopathy. Suspect this patient has returned to her baseline. No evidence of encephalopathy on this morning's EEG. No evidence of seizure disorder. Follow-up brain MRI reviewed and described in the history of present illness. Transient splenial intensity change related to toxic or metabolic factors seems most likely. Plan I agree with the interpreting radiologist impression and statement that an additional follow-up MRI will be necessary to confirm the transient nature of the suspected diagnosis. Assuming this patient remains clinically stable, I think a follow-up brain MRI should be completed in 4-6 weeks. Outpatient follow-up in neurology clinic may be helpful to assist with managing her chronic migraines. She has followed with Dr. Wolf for this issue previously although has not seen him in a few years. I suspect she would be an appropriate candidate for Botox for chronic migraine as well. I have no further immediate recommendations.
--- NOTE | 2016-10-30 11:51 | Infectious Disease Progress Nt ---
Progress Note Date of Service Oct 30, 2016. Subjective Pt evaluation today including: conversation w/ patient, physical exam, chart review, lab review, review of studies, review of inpatient medication list WBC count this morning down to 11.53. Creatinine was stable at 0.77. CSF culture showing no growth. Blood cultures continue to show NGTD. Repeat Brain MRI showed minimal increase in the corpus collosum. She continues to have a mild cough but states that she feels very slightly better today. She would like to have she and her follow up with Dermatology after discharge to evaluate his rash. All Other Systems: Reviewed and Negative Medications Current Inpatient Medications Medications (Trade) Dose Ordered Sig/Jaquelin Route Start Time Stop Time Status Last Admin Dose Admin Thiamine HCl 200 mg/Sodium Chloride 52 ml @ 208 mls/hr Q12H IV 10/25/16 22:00 11/24/16 20:59 10/30/16 09:53 208 MLS/HR Folic Acid/Syringe (Folvite Inj/ Syringe) 10 ml @ 5 mls/min QAM IV 10/26/16 09:00 11/25/16 08:59 10/30/16 09:53 5 MLS/MIN Ondansetron HCl 4 mg 4 mg Q6H PRN IV 10/25/16 19:45 11/24/16 19:44 Famotidine/ Dextrose (Pepcid IV Inj/ D5 100ml) 102 ml @ 200 mls/hr Q12H IV 10/25/16 22:00 11/24/16 19:44 10/30/16 09:54 200 MLS/HR Phytonadione (Mephyton Tab) 5 mg QAM PO 10/26/16 09:00 11/25/16 08:59 10/30/16 09:52 5 MG Potassium Chloride 20 meq 20 meq BID PO 10/26/16 11:00 11/25/16 10:59 10/30/16 09:52 20 MEQ Potassium Chloride/Dextrose/ Sod Cl (D5W And 1/2nss + 20meq KCl) 1,000 ml @ 75 mls/hr [id number] IV 10/27/16 08:30 11/26/16 08:29 10/30/16 03:05 75 MLS/HR Nystatin (Mycostatin Susp) 10 ml QID MT 10/28/16 13:00 11/07/16 12:59 10/30/16 09:53 10 ML Phenol (Chloraseptic 1.4% [place]) 2 sprays Q4HWA PRN MT 10/28/16 10:30 11/27/16 10:29 Gadobutrol (Gadavist) 5.5 mmol UD PRN IV 10/28/16 22:30 11/01/16 22:29 Sumatriptan Succinate (Imitrex Sq Inj) 6 mg DAILY PRN SQ 10/29/16 14:15 11/28/16 14:14 Ketorolac Tromethamine (Toradol Inj) 30 mg Q6H PRN IV 10/29/16 14:15 11/03/16 14:14 10/29/16 16:32 30 MG Ibuprofen (Motrin Tab) 800 mg QID PRN PO 10/29/16 14:15 11/28/16 14:14 Oxycodone/ Acetaminophen (Percocet 5-325mg Tab) 1 tab Q4H PRN PO 10/29/16 14:15 11/12/16 14:14 10/29/16 14:46 1 TAB Gadobutrol (Gadavist) 5.5 mmol UD PRN IV 10/29/16 22:15 11/02/16 22:14 Objective Vital Signs Date Time Temp Pulse Resp B/P Pulse Ox O2 Delivery O2 Flow Rate FiO2 10/30/16 11:05 36.7 73 20 105/71 91 10/30/16 08:00 98 Nasal Cannula 2.0 10/30/16 07:48 36.3 64 18 96/62 98 Nasal Cannula 2.0 10/30/16 04:40 36.8 58 18 101/65 100 Nasal Cannula 3.0 10/30/16 04:00 Nasal Cannula 4.0 10/30/16 00:00 Nasal Cannula 4.0 10/29/16 23:15 37.0 58 16 95/62 100 Nasal Cannula 3.0 10/29/16 20:00 Nasal Cannula 2.0 10/29/16 19:55 36.6 61 18 90/59 95 Nasal Cannula 3.0 10/29/16 16:00 Nasal Cannula 2.0 10/29/16 15:23 36.7 68 16 97/69 97 Nasal Cannula 3.0 10/29/16 12:00 95 Nasal Cannula 2.0 Physical Exam General Appearance: no apparent distress, + thin Eyes: normal inspection ENT: hearing grossly normal Neck: supple, trachea midline Respiratory/Chest: chest non-tender, lungs clear, normal breath sounds, no respiratory distress, no accessory muscle use Cardiovascular: regular rate, rhythm, no murmur Abdomen: normal bowel sounds Neurologic/Psychiatric: alert Skin: normal color, warm/dry, no rash Laboratory Results MRI OF THE BRAIN WITHOUT AND WITH IV CONTRAST CLINICAL HISTORY: stroke, demyelination COMPARISON STUDY: 10/27/2016 TECHNIQUE: MRI of the brain was performed from the vertex to the skull base utilizing various T1 and T2 weighted sequences. Following the IV administration of 5.5 mL of Gadavist contrast, additional enhanced images were obtained. FINDINGS: Sagittal T1, axial diffusion, proton density and T2 weighted axial, coronal FLAIR, and pre and post axial T1-weighted images were acquired. These were supplemented with post gadolinium coronal T1 weighted images. No intra or extra-axial mass lesions are visualized. Axial diffusion-weighted images demonstrate a 14 mm focus of restricted water diffusion involving the splenium of the corpus callosum in the midline. This is minimally larger than on the preceding examination area this demonstrates decreased signal on ADC map images. This lesion is minimally hyperintense on T2 weighted images. Postcontrast images reveal no evidence of pathologic enhancement. The lesion is slightly hypointense on T1-weighted images. There is no evidence of ventricular dilatation. Proton density T2-weighted and FLAIR images reveal in addition to the signal abnormalities the corpus callosum, stable foci of increased T2 and FLAIR signal within the subcortical parietal white matter. There are no abnormal flow voids. There is no evidence of pathologic enhancement. There is a right maxillary sinus air-fluid level. IMPRESSION: 1. Minimal interval increase in the size of the 14 mm focus of restricted water diffusion involving the splenic edema the corpus callosum in the midline. This is minimally larger than on the preceding study. There is no pathologic enhancement. 2. This would be an atypical location for an acute infarct. A neoplasm is also felt to be unlikely given the lack of enhancement. 3. This lesion likely represents an area of demyelination and intracellular edema secondary to an infectious, inflammatory, or metabolic abnormality. 4. Follow-up MRI imaging is recommended, as it should be noted that lesions such as these, can be reversible. Reversible lesions are known as mild encephalitis/encephalopathy with a reversible isolated splenium of the corpus callosum lesion (MERS). There is a very large differential for associated etiologies. Obviously a follow-up study demonstrating resolution would be necessary before this lesion could be classified as a MERS lesion 5. The additional foci of increased T2 signal within the subcortical parietal white matter remain similar. 6. Right maxillary sinus air-fluid level. Assessment and Plan Patient with encephalopathy of unknown source. She did have an LP which showed 0 WBC's and very mildly elevated protein. CSF culture pending. CXR showed small parenchymal infiltrate medial right base. She has completed 5 days of Azithromycin for potential CAP. Feel that likely this patient's encephalopathy is of a non-infectious source. ID will sign off, but if there are further questions or changes in her state- please call. PROVIDER ADDENDUM: Patient reviewed with Ms. Bales. Agree with above assessment.
[2016-10-30] MEDS: ONDANSETRON INJ 2 MG/ML 2 ML VIAL IV PRN (13:14)
[2016-10-30] MEDS: KETOROLAC TROMETHAMINE 30 MG/ML VIAL IV PRN (15:44)
[2016-10-30] MEDS ORDERED: HYDROmorphone INJ 2 MG/ML SYR/VIAL IV STA (18:47)
[2016-10-30] MEDS ORDERED: PROMETHAZINE HCL INJ 25 MG in SODIUM CHLORIDE 0.9% 50ML 50 ML IV PRN (19:00)
--- NOTE | 2016-10-30 19:09 | Hospitalist Progress Note ---
Hospitalist Progress Note Date of Service Oct 30, 2016. Subjective Pt evaluation today including: conversation w/ patient, physical exam, chart review, lab review, review of studies, review of inpatient medication list Patient is wearing a black sleep/eye cover. She has a migraine headache reporting 9/10 pain associated with nausea. Imitrex did not help her. She is too nauseated to take oxycodone. I will order a one time dose of Dilaudid. Zofran did not completely resolve her nausea thus I also ordered Phenergan. It appears that her encephalopathy has resolved. Additional Comments: A 10 system review was performed and all were negative. Positives were placed in the subjective section. Objective Vital Signs Date Time Temp Pulse Resp B/P Pulse Ox O2 Delivery O2 Flow Rate FiO2 10/30/16 16:00 Nasal Cannula 2.0 10/30/16 15:47 37.3 57 20 112/75 99 Nasal Cannula 2.0 10/30/16 11:05 36.7 73 20 105/71 91 10/30/16 08:00 98 Nasal Cannula 2.0 10/30/16 07:48 36.3 64 18 96/62 98 Nasal Cannula 2.0 10/30/16 04:40 36.8 58 18 101/65 100 Nasal Cannula 3.0 10/30/16 04:00 Nasal Cannula 4.0 10/30/16 00:00 Nasal Cannula 4.0 10/29/16 23:15 37.0 58 16 95/62 100 Nasal Cannula 3.0 10/29/16 20:00 Nasal Cannula 2.0 10/29/16 19:55 36.6 61 18 90/59 95 Nasal Cannula 3.0 Physical Exam Notes: GEN: Awake, alert. In mod distress due to headache. HEENT: Tm's intact, no inflammation, MMM Neck: Soft, supple Lungs: CTA b/l, no r/r/w Heart: REG, nrl S1S2 without murmurs, rubs or gallops Abdomen: Soft, NT, ND, + BS EXT: No C/C/E NEURO: CN's II-XII grossly intact, non-focal Skin: warm, dry, no rashes PSYCH: seems agitated at her . She said, " I just want to be able to eat cause we dont have any food at home". Assessment and Plan 1) Altered mental status/encephalopathy - resolved. 2) RLL pneumonia - day #5 Zithromax. 3) Hypokalemia - resolved. 4) Migraine headache - acute, single dose of Dilaudid. 5) Vomiting and diarrhea - resolved. DVT prophylaxis TEDs, SCDs. adding Sub-q heparin.
[2016-10-31] VITALS (7 sets, daily range): BP systolic 89–108; BP diastolic 58–74; PULSE 53–66; TEMP 36.6–37.2; O2SAT 96–98
[2016-10-31] MEDS: D5W AND 1/2NSS + 20MEQ KCL 1,000 ML IV SCH ×2 (05:27→18:55)
[2016-10-31 06:02] LABS: BASO % 0.1 %; BASO ABS # 0.01 K/uL (0-0.2); COMPLETE YES; EOS % 2.5 %; IG% 0.3 %; LYMPH % 16.1 %; LYMPH ABS # 1.75 K/uL (1.2-3.4); MEAN CELL VOLUME 92.7 fL (80-100); MEAN CORPUSCULAR HEMOGLOBIN 31.1 pg (25-34); MEAN CORPUSCULAR HGB CONC 33.6 g/dl (32-36); MEAN PLATELET VOLUME 10.4 fL (7.4-10.4); MONO % 8.7 %; NEUT % 72.3 %; PLATELET COUNT 209 K/uL (130-400); RED BLOOD COUNT 4.53 M/uL (4.2-5.4); WHITE BLOOD COUNT 10.88 K/uL (4.8-10.8)
[2016-10-31 06:46] LABS: ALB/GLOB RATIO 0.9 (0.9-2); BUN/CREATININE RATIO 16.9 (10-20); CALCIUM 8.8 mg/dl (8.5-10.1); CREATININE 0.93 mg/dl (0.60-1.20); POTASSIUM 4.9 mmol/L (3.5-5.1)
[2016-10-31] MEDS: PHYTONADIONE 5 MG TAB PO SCH (08:09)
[2016-10-31] MEDS: FoLIC ACID INJ 1 MG in SYRINGE 9.8 ML IV SCH (08:09)
[2016-10-31] MEDS: POTASSIUM CHLORIDE 20 MEQ/15 ML UDC PO SCH ×2 (08:09→20:58)
[2016-10-31] MEDS: NYSTATIN SUSP 500,000 U/5 ML UDC MT SCH ×4 (08:10→20:57)
--- NOTE | 2016-10-31 09:34 | Neurology Progress Notes ---
Neurology Progress Note Date of Service Oct 31, 2016. Subjective Follow-up for encephalopathy, abnormal MRI, headaches The patient complains of a severe, 9-10/10, frontal headache with associated nausea. She indicates that this headache has never really gone away and has not responded to any particular treatments. However, she is just finished eating her entire breakfast. No emesis. No abdominal pain. She does not appear to be in any distress. She speaks very softly and slowly, not much different from yesterday. Upon further questioning, she admits that her current headache seems to be like her typical headache which she has been experiencing for many years and for which she has been using narcotic analgesics such as Percocet on an outpatient basis without much success. She has received a dose of hydromorphone last night for headache. She was last given Percocet on the . Imitrex has not been helpful previously. I questioned the patient regarding the intensity of her pain as she does not really appear to be in any significant distress. She was unable to elaborate any further and indicated that she was unable to get in touch with her . She continues to speak in a very flat, slow manner which I think is her baseline. The patient recalls trials of previous medications for headache prevention including Topamax, Depakote, Elavil, and propranolol. She remembers that Topamax had a negative effect on her thinking while Depakote and Elavil were not tolerated for other reasons. She states the propranolol gave her chest pain and made her feel like she was having a heart attack. The patient denies any new symptoms such as fever, chills, neck pain or stiffness, chest pain, shortness of breath, abdominal pain, dysuria, or diarrhea. Objective Date Time Temp Pulse Resp B/P Pulse Ox O2 Delivery O2 Flow Rate FiO2 10/31/16 07:31 37.2 60 18 95/62 96 Room Air 10/31/16 04:38 37.1 66 16 106/72 97 Nasal Cannula 2.0 10/31/16 04:00 Nasal Cannula 2.0 10/30/16 23:59 Nasal Cannula 2.0 10/30/16 23:50 36.9 56 16 86/59 98 Nasal Cannula 2.0 10/30/16 20:00 Nasal Cannula 2.0 10/30/16 19:51 37.0 65 20 92/63 97 Nasal Cannula 2.0 10/30/16 16:00 Nasal Cannula 2.0 10/30/16 15:47 37.3 57 20 112/75 99 Nasal Cannula 2.0 10/30/16 11:05 36.7 73 20 105/71 91 Last 24 Hours Test 10/31/16 05:19 White Blood Count 10.88 K/uL Red Blood Count 4.53 M/uL Hemoglobin 14.1 g/dL Hematocrit 42.0 % Mean Corpuscular Volume 92.7 fL Mean Corpuscular Hemoglobin 31.1 pg Mean Corpuscular Hemoglobin Concent 33.6 g/dl Platelet Count 209 K/uL Mean Platelet Volume 10.4 fL Neutrophils (%) (Auto) 72.3 % Lymphocytes (%) (Auto) 16.1 % Monocytes (%) (Auto) 8.7 % Eosinophils (%) (Auto) 2.5 % Basophils (%) (Auto) 0.1 % Neutrophils # (Auto) 7.87 K/uL Lymphocytes # (Auto) 1.75 K/uL Monocytes # (Auto) 0.95 K/uL Eosinophils # (Auto) 0.27 K/uL Basophils # (Auto) 0.01 K/uL RDW Standard Deviation 44.0 fL RDW Coefficient of Variation 13.1 % Immature Granulocyte % (Auto) 0.3 % Immature Granulocyte # (Auto) 0.03 K/uL Sodium Level 140 mmol/L Potassium Level 4.9 mmol/L Chloride Level 106 mmol/L Carbon Dioxide Level 28 mmol/L Anion Gap 6.0 mmol/L Blood Urea Nitrogen 16 mg/dl Creatinine 0.93 mg/dl Est Creatinine Clear Calc Drug Dose 70.1 ml/min Estimated GFR () 84.8 Estimated GFR (Non- 73.2 BUN/Creatinine Ratio 16.9 Random Glucose 103 mg/dl Calcium Level 8.8 mg/dl Total Bilirubin 1.2 mg/dl Aspartate Amino Transf (AST/SGOT) 7 U/L Alanine Aminotransferase (ALT/SGPT) 49 U/L Alkaline Phosphatase 91 U/L Total Protein 6.3 gm/dl Albumin 3.0 gm/dl Globulin 3.3 gm/dl Albumin/Globulin Ratio 0.9 Exam: The patient is lying comfortably in bed. The lights are on in the room. She does not exhibit photophobia or sonophobia. She exhibits no signs of distress and has just eaten her full breakfast. The patient is alert and oriented to person place and time. She exhibits normal attention and concentration. She is able to spell the word world forwards and backwards. She is able to name objects and repeat phrases. She speaks in a slow, soft, monotonous fashion and exhibits a flat affect. Recent and remote memory are intact. Delayed recall intact. Vocabulary normal. Visual rebollar full to confrontation. Pupils equal round reactive to light and accommodation. There is no nystagmus. Eye movements intact. There is normal facial symmetry and strength. The palate elevates to midline. Tongue protrudes to midline. Shoulder shrug and hearing intact bilaterally. The neck is supple. Negative Kernig sign. Negative Brudzinski sign. Moving the patient's head and neck does not provoke any pain or aggravate her headache. A repeat ophthalmoscopic examination was performed. There is no papilledema. No hemorrhages. The optic nerves appear normal. There is no pronator drift with outstretched arms. Patient performs finger to nose and heel to goodman bilaterally although does so slowly and deliberately. There is no dysmetria. There is no ataxia. There are no tremors. Muscle tone is normal throughout. No posturing or rigidity. No abnormal movements observed. No myoclonus, twitching, or fasciculations. Strength is normal for all 4 limbs proximally and distally. Sensation intact to light touch and vibration in all 4 limbs. Current Inpatient Medications Medications (Trade) Dose Ordered Sig/[facility] Route Start Time Stop Time Status Last Admin Dose Admin Thiamine HCl 200 mg/Sodium Chloride 52 ml @ 208 mls/hr Q12H IV 10/25/16 22:00 11/24/16 20:59 10/30/16 21:44 208 MLS/HR Folic Acid/Syringe (Folvite Inj/ Syringe) 10 ml @ 5 mls/min QAM IV 10/26/16 09:00 11/25/16 08:59 10/30/16 09:53 5 MLS/MIN Ondansetron HCl 4 mg 4 mg Q6H PRN IV 10/25/16 19:45 11/24/16 19:44 10/30/16 13:14 4 MG Famotidine/ Dextrose (Pepcid IV Inj/ D5 100ml) 102 ml @ 200 mls/hr Q12H IV 10/25/16 22:00 11/24/16 19:44 10/30/16 21:44 200 MLS/HR Phytonadione (Mephyton Tab) 5 mg QAM PO 10/26/16 09:00 11/25/16 08:59 10/30/16 09:52 5 MG Potassium Chloride 20 meq 20 meq BID PO 10/26/16 11:00 11/25/16 10:59 10/30/16 21:36 20 MEQ Potassium Chloride/Dextrose/ Sod Cl (D5W And 1/2nss + 20meq KCl) 1,000 ml @ 75 mls/hr [id number] IV 10/27/16 08:30 11/26/16 08:29 10/31/16 05:27 75 MLS/HR Nystatin (Mycostatin Susp) 10 ml QID MT 10/28/16 13:00 11/07/16 12:59 10/30/16 21:35 10 ML Phenol (Chloraseptic 1.4% [place]) 2 sprays Q4HWA PRN MT 10/28/16 10:30 11/27/16 10:29 Gadobutrol (Gadavist) 5.5 mmol UD PRN IV 10/28/16 22:30 11/01/16 22:29 Ketorolac Tromethamine (Toradol Inj) 30 mg Q6H PRN IV 10/29/16 14:15 11/03/16 14:14 10/30/16 15:44 30 MG Ibuprofen (Motrin Tab) 800 mg QID PRN PO 10/29/16 14:15 11/28/16 14:14 Oxycodone/ Acetaminophen (Percocet 5-325mg Tab) 1 tab Q4H PRN PO 10/29/16 14:15 11/12/16 14:14 10/29/16 14:46 1 TAB Gadobutrol 5.5 mmol 5.5 mmol UD PRN IV 10/29/16 22:15 11/02/16 22:14 Promethazine HCl/ Sodium Chloride (Phenergan Inj/ Nss 50ml) 51 ml @ 204 mls/hr Q6H PRN IV 10/30/16 19:00 11/29/16 18:59 10/30/16 21:34 204 MLS/HR Impression Improved encephalopathy. She did very well with bedside cognitive testing. 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 Although the patient complains of a persistent, severe, frontal headache. She later admits that this headache is consistent with her chronic daily headache which she has had for many years. Also, she does not appear to be in any significant degree of distress and appears to have a good appetite in spite of reporting to be in severe pain. Further, she does not exhibit obvious photophobia or sonophobia or any indication that external stimuli are bothersome to her. Furthermore, her lack of tolerance or benefit from any standard treatment for chronic headaches or migraine in the past is concerning. Her history potentially suggests dependency on narcotic analgesics and potentially medication overuse headache syndrome further confounded by psychiatric comorbidity. Plan I would recommend against using narcotic analgesics for treatment of this patient's chronic headache. I'm not very optimistic she would be a very good candidate for pharmacologic treatment of chronic migraines or other primary headache disorder. A trial of Botox for chronic migraines could be considered and would need to be arranged through the pain clinic. Physical therapy for chronic headache could also be an option for her. Psychiatric consultation will be of value and may provide additional insight into this patient's affect and limbic functioning. 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 This repeat study should be completed in 4-6 weeks depending on her clinical status. I do not have any further specific recommendations at this time. Please contact me if I may be of further assistance.
[2016-10-31] MEDS: FAMOTIDINE IV INJ 20 MG in DEXTROSE 5% 100ML 100 ML IV SCH ×2 (13:14→21:50)
[2016-10-31] MEDS: THIAMINE HCL INJ 200 MG in SODIUM CHLORIDE 0.9% 50ML 50 ML IV SCH ×2 (13:14→21:51)
[2016-10-31] MEDS: KETOROLAC TROMETHAMINE 30 MG/ML VIAL IV PRN (15:19)
[2016-10-31] MEDS: ONDANSETRON INJ 2 MG/ML 2 ML VIAL IV PRN (15:20)
[2016-10-31] MEDS ORDERED: OPTIRAY 320 IV PRN (16:00)
--- NOTE | 2016-10-31 16:04 | Hospitalist Progress Note ---
Hospitalist Progress Note Date of Service Oct 31, 2016. Subjective Pt evaluation today including: conversation w/ patient, conversation w/ family , physical exam, chart review, lab review, review of studies, review of inpatient medication list Patient is awake. She did not complain to me of having a headache. She has eyes open without photophobia. is at bedside. Nursing reported that the patient has been eating 100% of meals. I asked her how she was doing with regards to eating and she reported that she hasn't felt like eating. Nursing reported to me that patient had increased rhonchi in the right lung field to which I agree. I will order a CT of the chest. Her initial CXR did show a mid right infiltrate and she had antibiotics for days, but these have since been DC' d. Additional Comments: A 10 system review was performed and all were negative. Positives were placed in the subjective section. Objective Vital Signs Date Time Temp Pulse Resp B/P Pulse Ox O2 Delivery O2 Flow Rate FiO2 10/31/16 15:18 36.8 64 18 108/74 98 10/31/16 12:00 98 Nasal Cannula 2.0 10/31/16 11:24 37.1 61 16 104/68 98 Room Air 10/31/16 08:00 98 Nasal Cannula 2.0 10/31/16 07:31 37.2 60 18 95/62 96 Room Air 10/31/16 04:38 37.1 66 16 106/72 97 Nasal Cannula 2.0 10/31/16 04:00 Nasal Cannula 2.0 10/30/16 23:59 Nasal Cannula 2.0 10/30/16 23:50 36.9 56 16 86/59 98 Nasal Cannula 2.0 10/30/16 20:00 Nasal Cannula 2.0 10/30/16 19:51 37.0 65 20 92/63 97 Nasal Cannula 2.0 10/30/16 16:00 Nasal Cannula 2.0 Physical Exam Notes: GEN: Awake, alert, and oriented x 3. Not in acute distress HEENT: Tm's intact, no inflammation, EOMI, PERRLA, MMM Neck: Soft, supple Lungs: Rhonchi noted b/l R>L. Heart: REG, nrl S1S2 without murmurs, rubs or gallops Abdomen: Soft, NT, ND, + BS EXT: No C/C/E NEURO: CN's II-XII grossly intact, non-focal Skin: warm, dry, no rashes PSYCH: talks in a whisper. At times does not answer questions at all. She stares in one direction and does not move or change position. Laboratory Results Last 24 Hours Test 10/31/16 05:19 White Blood Count 10.88 K/uL Red Blood Count 4.53 M/uL Hemoglobin 14.1 g/dL Hematocrit 42.0 % Mean Corpuscular Volume 92.7 fL Mean Corpuscular Hemoglobin 31.1 pg Mean Corpuscular Hemoglobin Concent 33.6 g/dl Platelet Count 209 K/uL Mean Platelet Volume 10.4 fL Neutrophils (%) (Auto) 72.3 % Lymphocytes (%) (Auto) 16.1 % Monocytes (%) (Auto) 8.7 % Eosinophils (%) (Auto) 2.5 % Basophils (%) (Auto) 0.1 % Neutrophils # (Auto) 7.87 K/uL Lymphocytes # (Auto) 1.75 K/uL Monocytes # (Auto) 0.95 K/uL Eosinophils # (Auto) 0.27 K/uL Basophils # (Auto) 0.01 K/uL RDW Standard Deviation 44.0 fL RDW Coefficient of Variation 13.1 % Immature Granulocyte % (Auto) 0.3 % Immature Granulocyte # (Auto) 0.03 K/uL Sodium Level 140 mmol/L Potassium Level 4.9 mmol/L Chloride Level 106 mmol/L Carbon Dioxide Level 28 mmol/L Anion Gap 6.0 mmol/L Blood Urea Nitrogen 16 mg/dl Creatinine 0.93 mg/dl Est Creatinine Clear Calc Drug Dose 70.1 ml/min Estimated GFR () 84.8 Estimated GFR (Non- 73.2 BUN/Creatinine Ratio 16.9 Random Glucose 103 mg/dl Calcium Level 8.8 mg/dl Total Bilirubin 1.2 mg/dl Aspartate Amino Transf (AST/SGOT) 7 U/L Alanine Aminotransferase (ALT/SGPT) 49 U/L Alkaline Phosphatase 91 U/L Total Protein 6.3 gm/dl Albumin 3.0 gm/dl Globulin 3.3 gm/dl Albumin/Globulin Ratio 0.9 Assessment and Plan 1) Altered mental status/encephalopathy - resolved. 2) RLL pneumonia - Today with increased rhonchi in the right side, with increase in cough. I will check CT chest to further evaluate. 3) Hypokalemia - resolved. 4) Migraine headache - currently no reports of having headache. 5) Vomiting and diarrhea - resolved. 6) Deconditioning - advance activity, continue PT/OT. D/C [place] cath. tele monitoring no longer required. DVT prophylaxis TEDs, SCDs. Lovenox added today.
[2016-10-31] MEDS: ENOXAPARIN 40 MG/0.4 ML SYR SQ SCH (16:38)
[2016-10-31] MEDS ORDERED: OXYCODONE HCL IR 5 MG TAB (IMMEDIATE RELEASE) PO STA (16:58)
--- NOTE | 2016-10-31 20:05 | DIAGNOSTIC IMAGING REPORT ---
CHEST CT WITH CONTRAST CT DOSE: 189.40 mGy.cm HISTORY: Pneumonia productive cough, evaluate pneumonia. TECHNIQUE: Multiaxial CT images of the chest were performed following the intravenous administration of contrast. COMPARISON: None. FINDINGS: Minimal parenchymal infiltrative versus atelectatic changes right posterior gastric angle. Lungs otherwise are clear Mediastinal hilar regions are unremarkable. IMPRESSION: Minimal atelectatic versus infiltrative change posterior costophrenic angle right base. Otherwise negative study Electronically signed by: Geovany Pedro M.D. 10/31/2016 8:04 PM Dictated Date/Time: 10/31/2016 8:03 PM
[2016-11-01] MEDS: NYSTATIN SUSP 500,000 U/5 ML UDC MT SCH ×4 (07:25→20:43)
[2016-11-01] MEDS: D5W AND 1/2NSS + 20MEQ KCL 1,000 ML IV SCH (07:25)
[2016-11-01] MEDS: ENOXAPARIN 40 MG/0.4 ML SYR SQ SCH (07:26)
[2016-11-01] MEDS: PHYTONADIONE 5 MG TAB PO SCH (07:28)
[2016-11-01] MEDS: FoLIC ACID INJ 1 MG in SYRINGE 9.8 ML IV SCH (07:29)
[2016-11-01] MEDS: OXYCODONE/ACETAMINOPHEN 5-325 TAB PO PRN ×3 (07:31→20:42)
[2016-11-01] MEDS: POTASSIUM CHLORIDE 20 MEQ/15 ML UDC PO SCH ×4 (07:32→21:00)
[2016-11-01 07:43] LABS: BASO % 0.3 %; BASO ABS # 0.03 K/uL (0-0.2); COMPLETE YES; EOS % 3.5 %; HEMATOCRIT 39.7 % (37-47); IG% 0.3 %; LYMPH % 21.2 %; LYMPH ABS # 1.89 K/uL (1.2-3.4); MEAN CELL VOLUME 94.5 fL (80-100); MEAN CORPUSCULAR HEMOGLOBIN 31.7 pg (25-34); MEAN CORPUSCULAR HGB CONC 33.5 g/dl (32-36); MEAN PLATELET VOLUME 10.7 fL (7.4-10.4); MONO % 8.5 %; NEUT % 66.2 %; PLATELET COUNT 245 K/uL (130-400); WHITE BLOOD COUNT 8.92 K/uL (4.8-10.8)
[2016-11-01 07:49] LABS: PROTHROMBIN TIME (PATIENT) 11.2 SECONDS (9.0-12.0)
[2016-11-01 08:08] VITALS: BP 93/62; PULSE 61; TEMP 37; O2SAT 96
[2016-11-01 08:11] LABS: CALCIUM 9.2 mg/dl (8.5-10.1); CREATININE 0.93 mg/dl (0.60-1.20); POTASSIUM 5.4 mmol/L (3.5-5.1)
[2016-11-01 08:13] LABS: ALB/GLOB RATIO 0.9 (0.9-2)
[2016-11-01] MEDS: FAMOTIDINE IV INJ 20 MG in DEXTROSE 5% 100ML 100 ML IV SCH (09:56)
[2016-11-01] MEDS: THIAMINE HCL INJ 200 MG in SODIUM CHLORIDE 0.9% 50ML 50 ML IV SCH (09:56)
[2016-11-01 11:58] VITALS: BP 88/61; PULSE 57; TEMP 36.5; O2SAT 98
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
[2016-11-01 16:30] VITALS: BP 103/68; PULSE 69; TEMP 36.8; O2SAT 96
--- NOTE | 2016-11-01 17:30 | Hospitalist Progress Note ---
Hospitalist Progress Note Date of Service Nov 01, 2016. Subjective Pt evaluation today including: conversation w/ patient, physical exam, chart review, lab review, review of studies, review of inpatient medication list Patient makes eye contact with me as I walk in the room but as I walk to the opposite on the her bed, she does not turn head to make contact and does not respond to my questions unless I am looking directly at her ie leaning over the bed to have her see my face. She actually did not complain of having a headache to me. Additional Comments: Not answering questions today. Objective Vital Signs Date Time Temp Pulse Resp B/P Pulse Ox O2 Delivery O2 Flow Rate FiO2 11/01/16 16:30 36.8 69 16 103/68 96 Room Air 11/01/16 15:21 Room Air 11/01/16 11:58 36.5 57 16 88/61 98 Room Air 11/01/16 08:08 37.0 61 16 93/62 96 11/01/16 08:00 Room Air 11/01/16 00:00 Room Air 10/31/16 23:44 36.6 53 16 89/58 97 Room Air Physical Exam Notes: GEN: Awake, alert. Not in acute distress HEENT: Tm's intact, no inflammation, EOMI, PERRLA, MMM Neck: Soft, supple Lungs: CTA b/l, no r/r/w Heart: REG, nrl S1S2 without murmurs, rubs or gallops Abdomen: Soft, NT, ND, + BS EXT: No C/C/E NEURO: CN's II-XII grossly intact, non-focal Skin: warm, dry, no rashes PSYCH: quiet, impolite and uncooperative. Laboratory Results Last 24 Hours Test 11/01/16 07:00 White Blood Count 8.92 K/uL Red Blood Count 4.20 M/uL Hemoglobin 13.3 g/dL Hematocrit 39.7 % Mean Corpuscular Volume 94.5 fL Mean Corpuscular Hemoglobin 31.7 pg Mean Corpuscular Hemoglobin Concent 33.5 g/dl Platelet Count 245 K/uL Mean Platelet Volume 10.7 fL Neutrophils (%) (Auto) 66.2 % Lymphocytes (%) (Auto) 21.2 % Monocytes (%) (Auto) 8.5 % Eosinophils (%) (Auto) 3.5 % Basophils (%) (Auto) 0.3 % Neutrophils # (Auto) 5.90 K/uL Lymphocytes # (Auto) 1.89 K/uL Monocytes # (Auto) 0.76 K/uL Eosinophils # (Auto) 0.31 K/uL Basophils # (Auto) 0.03 K/uL RDW Standard Deviation 46.2 fL RDW Coefficient of Variation 13.3 % Immature Granulocyte % (Auto) 0.3 % Immature Granulocyte # (Auto) 0.03 K/uL Prothrombin Time 11.2 SECONDS Prothromb Time International Ratio 1.0 Sodium Level 139 mmol/L Potassium Level 5.4 mmol/L Chloride Level 106 mmol/L Carbon Dioxide Level 26 mmol/L Anion Gap 7.0 mmol/L Blood Urea Nitrogen 16 mg/dl Creatinine 0.93 mg/dl Est Creatinine Clear Calc Drug Dose 70.4 ml/min Estimated GFR () 84.8 Estimated GFR (Non- 73.2 BUN/Creatinine Ratio 17.0 Random Glucose 96 mg/dl Calcium Level 9.2 mg/dl Total Bilirubin 1.1 mg/dl Aspartate Amino Transf (AST/SGOT) 8 U/L Alanine Aminotransferase (ALT/SGPT) 34 U/L Alkaline Phosphatase 83 U/L Total Protein 5.9 gm/dl Albumin 2.8 gm/dl Globulin 3.1 gm/dl Albumin/Globulin Ratio 0.9 Assessment and Plan 1) Altered mental status/encephalopathy - resolved. 2) RLL pneumonia - resolved, CT favors atelectasis. . 3) Hypokalemia - resolved. 4) Migraine headache - currently no reports of having headache. 5) Vomiting and diarrhea - resolved. 6) Deconditioning - advance activity, continue PT/OT. DVT prophylaxis TEDs, SCDs. Lovenox. I do not think there is anything further we can do for her. I will attempt to discharge to home tomorrow, but if patient is not able due to strength we will have to look into rehab options that is if she will agree to go.
[2016-11-01] MEDS: ONDANSETRON INJ 2 MG/ML 2 ML VIAL IV PRN (19:24)
[2016-11-01] MEDS: FAMOTIDINE 20 MG TAB PO SCH (20:42)
[2016-11-01 23:44] VITALS: BP 96/62; PULSE 61; TEMP 36.9; O2SAT 97
[2016-11-02 08:15] VITALS: BP 97/61; PULSE 60; TEMP 36.8; O2SAT 90
[2016-11-02 08:16] VITALS: BP 100/64
[2016-11-02] MEDS: POTASSIUM CHLORIDE 20 MEQ/15 ML UDC PO SCH ×2 (08:19→20:16)
[2016-11-02] MEDS: PHYTONADIONE 5 MG TAB PO SCH (08:19)
[2016-11-02] MEDS: FAMOTIDINE 20 MG TAB PO SCH ×2 (08:19→20:16)
[2016-11-02] MEDS: THIAMINE HCL 50 MG TAB PO SCH (08:19)
[2016-11-02] MEDS: NYSTATIN SUSP 500,000 U/5 ML UDC MT SCH ×4 (08:19→20:16)
[2016-11-02] MEDS: ENOXAPARIN 40 MG/0.4 ML SYR SQ SCH (08:20)
--- NOTE | 2016-11-02 09:11 | Hospitalist Progress Note ---
Hospitalist Progress Note Date of Service Nov 02, 2016. Subjective Pt evaluation today including: conversation w/ patient, physical exam, chart review, lab review, review of studies, review of inpatient medication list Patient seems in a better mood today. No reports of pain or headache. She was wearing her glasses and reading the paper. She knew this day was Thursday. She needs assistance walking. Additional Comments: A 10 system review was performed and all were negative. Positives were placed in the subjective section. Objective Vital Signs Date Time Temp Pulse Resp B/P Pulse Ox O2 Delivery O2 Flow Rate FiO2 11/02/16 08:16 100/64 11/02/16 08:15 36.8 60 16 97/61 90 11/02/16 08:00 Room Air 11/02/16 00:00 Room Air 11/01/16 23:44 36.9 61 18 96/62 97 11/01/16 20:00 Room Air 11/01/16 16:30 36.8 69 16 103/68 96 Room Air 11/01/16 15:21 Room Air 11/01/16 11:58 36.5 57 16 88/61 98 Room Air Physical Exam Notes: GEN: Awake, alert. Not in acute distress HEENT: Tm's intact, no inflammation, EOMI, PERRLA, MMM Neck: Soft, supple Lungs: CTA b/l, no r/r/w Heart: REG, nrl S1S2 without murmurs, rubs or gallops Abdomen: Soft, NT, ND, + BS EXT: No C/C/E NEURO: CN's II-XII grossly intact, non-focal Skin: warm, dry, no rashes PSYCH: slow to answer questions, but this is improving. She also is speaking with more volume today as opposed to whispering. Assessment and Plan 1) Altered mental status/encephalopathy - resolved. 2) RLL pneumonia - resolved, CT favors atelectasis. . 3) Hypokalemia - resolved. 4) Migraine headache - No acute symptoms. 5) Vomiting and diarrhea - resolved. 6) Deconditioning - advance activity, continue PT/OT. DVT prophylaxis TEDs, SCDs. Lovenox. Await PT/OT evaluation tomorrow, if she is not able to ambulate on her own, we will need to look into rehab.
[2016-11-02] MEDS: OXYCODONE/ACETAMINOPHEN 5-325 TAB PO PRN (12:24)
[2016-11-02 15:52] VITALS: BP 100/68; PULSE 64; TEMP 36.8; O2SAT 94
[2016-11-02 16:00] VITALS: O2SAT 94
[2016-11-03 07:00] LABS: HEMATOCRIT 41.9 % (37-47); MEAN CELL VOLUME 91.9 fL (80-100); MEAN CORPUSCULAR HEMOGLOBIN 31.6 pg (25-34); MEAN CORPUSCULAR HGB CONC 34.4 g/dl (32-36); MEAN PLATELET VOLUME 10.6 fL (7.4-10.4); PLATELET COUNT 249 K/uL (130-400); RED BLOOD COUNT 4.56 M/uL (4.2-5.4); WHITE BLOOD COUNT 7.56 K/uL (4.8-10.8)
[2016-11-03 07:48] VITALS: BP 102/62; PULSE 66; TEMP 36.7; O2SAT 97
[2016-11-03 07:50] LABS: CREATININE 0.98 mg/dl (0.60-1.20)
[2016-11-03 07:51] LABS: BUN/CREATININE RATIO 20.9 (10-20); POTASSIUM 4.3 mmol/L (3.5-5.1)
[2016-11-03 08:07] VITALS: O2SAT 97
[2016-11-03] MEDS: NYSTATIN SUSP 500,000 U/5 ML UDC MT SCH ×4 (08:41→21:02)
[2016-11-03] MEDS: POTASSIUM CHLORIDE 20 MEQ/15 ML UDC PO SCH ×2 (08:41→21:02)
[2016-11-03] MEDS: THIAMINE HCL 50 MG TAB PO SCH (08:42)
[2016-11-03] MEDS: PHYTONADIONE 5 MG TAB PO SCH (08:42)
[2016-11-03] MEDS: FAMOTIDINE 20 MG TAB PO SCH ×2 (08:42→21:03)
[2016-11-03] MEDS: ENOXAPARIN 40 MG/0.4 ML SYR SQ SCH (08:42)
--- NOTE | 2016-11-03 11:09 | Hospitalist Progress Note ---
Hospitalist Progress Note Date of Service Nov 03, 2016. Subjective Pt evaluation today including: conversation w/ patient, physical exam, chart review, lab review, review of studies, review of inpatient medication list Voiding: no voiding problems, no incontinence Patient states she is feeling tired. Denies any headache. She is alert and oriented x3. She is eating and drinking OK. Patient denies any fever, chills, sweats, lightheadedness, dizziness, vision changes, CP, palpitations, edema, SOB , wheezing, cough, abdominal pain, nausea, vomiting, diarrhea, urinary symptoms , melena, numbness/tingling, weakness, muscle/joint pain, anxiety/depression, active bleeding, or new skin discoloration/changes. Medications Current Inpatient Medications Medications (Trade) Dose Ordered Sig/Jaquelin Route Start Time Stop Time Status Last Admin Dose Admin Ondansetron HCl (Zofran Inj) 4 mg Q6H PRN IV 10/25/16 19:45 11/24/16 19:44 11/01/16 19:24 4 MG Phytonadione (Mephyton Tab) 5 mg QAM PO 10/26/16 09:00 11/25/16 08:59 11/03/16 08:42 5 MG Potassium Chloride ([place]iel Elix) 20 meq BID PO 10/26/16 11:00 11/25/16 10:59 11/03/16 08:41 20 MEQ Nystatin (Mycostatin Susp) 10 ml QID MT 10/28/16 13:00 11/07/16 12:59 11/03/16 08:41 10 ML Phenol (Chloraseptic 1.4% [place]) 2 sprays Q4HWA PRN MT 10/28/16 10:30 11/27/16 10:29 Ketorolac Tromethamine (Toradol Inj) 30 mg Q6H PRN IV 10/29/16 14:15 11/03/16 14:14 10/31/16 15:19 30 MG Ibuprofen (Motrin Tab) 800 mg QID PRN PO 10/29/16 14:15 11/28/16 14:14 Oxycodone/ Acetaminophen 1 tab 1 tab Q4H PRN PO 10/29/16 14:15 11/12/16 14:14 11/02/16 12:24 1 TAB Promethazine HCl/ Sodium Chloride (Phenergan Inj/ Nss 50ml) 51 ml @ 204 mls/hr Q6H PRN IV 10/30/16 19:00 11/29/16 18:59 10/30/16 21:34 204 MLS/HR Enoxaparin Sodium (Lovenox Inj) 40 mg DAILY SQ 10/31/16 15:45 11/30/16 15:44 11/03/16 08:42 40 MG Ioversol (Optiray 320) 125 ml UD PRN IV 10/31/16 16:00 11/04/16 15:59 Famotidine (Pepcid Tab) 20 mg BID PO 11/01/16 21:00 12/01/16 20:59 11/03/16 08:42 20 MG Folic Acid (Folvite Tab) 1 mg QAM PO 11/02/16 09:00 12/02/16 08:59 11/03/16 08:41 1 MG Thiamine HCl (Vitamin B-1 Tab) 50 mg QAM PO 11/02/16 09:00 12/02/16 08:59 11/03/16 08:42 50 MG Objective Vital Signs Date Time Temp Pulse Resp B/P Pulse Ox O2 Delivery O2 Flow Rate FiO2 11/03/16 08:07 97 Room Air 11/03/16 08:00 Room Air 11/03/16 07:48 36.7 66 12 102/62 97 Room Air 11/03/16 00:00 Room Air 11/02/16 16:00 94 Room Air 11/02/16 15:52 36.8 64 16 100/68 94 Physical Exam General Appearance: no apparent distress Eyes: normal inspection, PERRL ENT: hearing grossly normal Neck: supple Respiratory/Chest: lungs clear, no respiratory distress, no accessory muscle use Cardiovascular: regular rate, rhythm Abdomen: normal bowel sounds, non tender, soft Extremities: no pedal edema, no calf tenderness Neurologic/Psychiatric: alert, normal mood/affect, oriented x 3 Skin: normal color, warm/dry, no rash Laboratory Results Last 24 Hours Test 11/03/16 06:18 White Blood Count 7.56 K/uL Red Blood Count 4.56 M/uL Hemoglobin 14.4 g/dL Hematocrit 41.9 % Mean Corpuscular Volume 91.9 fL Mean Corpuscular Hemoglobin 31.6 pg Mean Corpuscular Hemoglobin Concent 34.4 g/dl RDW Standard Deviation 43.2 fL RDW Coefficient of Variation 13.0 % Platelet Count 249 K/uL Mean Platelet Volume 10.6 fL Sodium Level 139 mmol/L Potassium Level 4.3 mmol/L Chloride Level 103 mmol/L Carbon Dioxide Level 27 mmol/L Anion Gap 9.0 mmol/L Blood Urea Nitrogen 21 mg/dl Creatinine 0.98 mg/dl Est Creatinine Clear Calc Drug Dose 66.8 ml/min Estimated GFR () 79.6 Estimated GFR (Non- 68.7 BUN/Creatinine Ratio 20.9 Random Glucose 100 mg/dl Calcium Level 9.0 mg/dl Assessment and Plan 46 y/o female with h/o opiate dependence, benzodiazepine dependence, chronic pain syndrome, chronic migraine headaches, previous psychiatric admissions for self-cutting/self-abuse, personality disorder, and suspected intellectual disorder presenting with hypernatremic dehydration, suspected altered mental status, and vomiting/abd pain/diarrhea. Hypernatremic, likely secondary to dehydration from vomiting/diarrhea- resolved : - Treated w/ 1/2 NS with KCL at 100cc/hr and D5 1/4 NS Nausea/vomiting/diarrhea- resolved: - IV Zofran PRN Encephalopathy/AMS- resolved: - Thiamine and Folic acid supplementation - IV Toradol/Percocet PRN for pain control - BCx- NGTD - UCx- Lactobacillus species - LP- CSFx- NGTD - Influenza- negative - Lyme titer, RPR- negative - HSV serologies pending - Toxicology screen- negative - TSH and B12- WNL - EEG- no evidence of seizure - Consult neurology, appreciate recommendations -- CT of head/brain MRIs/neck and head MRA- ?Transient splenial intensity change, repeat MRI in 4-6 wks, f/u outpt -- Chronic headaches- avoid narcotic analgesics for treatment, ?trial of Botox, f/u outpt - Consult ID, appreciate recommendations -- Likely non-infectious source Personality disorder: - Consult psychiatry, appreciate recommendations -- Avoid Xanax at discharge, no acute psychiatric admission indication, pt refusing mental health referrals RLL pneumonia: - Treated w/ Azithromycin x5 days - CT on 10/31 to confirm adequate treatment- favored atelectatic Hypokalemia- resolved: - KCL 20 mEq PO BID Oral thrush: Nystatin mouthwash Abnormal LFTs - in January 2016 had similar clinical presentation with abnormal LFTs- stable: - Hep A, B, C- all negative in January 2016 - Repeat LFTs stable - ETOH level <3 - RUQ U/S 10/25/16- unremarkable Coagulopathy, likely secondary to Vit K deficiency- resolved: - Treated w/ PO Vitamin K 5 mg daily - Follow INR Deconditioning: Consult PT/OT DVT prophylaxis: Lovenox 40 mg SQ q24 hrs, DARIO and SCDs Code Status: LEVEL I, FULL Dispo: Pending PT/OT evaluations--> ?Home vs placement
[2016-11-03] MEDS: OXYCODONE/ACETAMINOPHEN 5-325 TAB PO PRN ×2 (13:18→17:26)
[2016-11-03] MEDS ORDERED: CEPHALEXIN MONOHYDRATE 250 MG CAP PO ONE (14:45)
[2016-11-03 15:14] VITALS: BP 96/67; PULSE 77; TEMP 36.6; O2SAT 96
[2016-11-03 16:00] VITALS: O2SAT 96
[2016-11-03] MEDS ORDERED: LORATADINE 10 MG TAB PO PRN (16:30)
[2016-11-03] MEDS ORDERED: ONDANSETRON 4 MG TAB PO PRN ×2 (16:30→16:45)
[2016-11-03] MEDS ORDERED: FLUTICASONE PROPIONATE NA SPR 16 GM BTL PRN (16:30)
[2016-11-03] MEDS ORDERED: ALPRAZOLAM 0.5 MG TAB PO SCH (21:00)
[2016-11-03] MEDS: CEPHALEXIN MONOHYDRATE 250 MG CAP PO SCH (21:03)
[2016-11-04 00:25] VITALS: BP 101/68; PULSE 77; TEMP 36.7; O2SAT 97
[2016-11-04 07:31] VITALS: BP 92/61; PULSE 76; TEMP 36.7; O2SAT 96
[2016-11-04 08:22] LABS: PROTHROMBIN TIME (PATIENT) 10.7 SECONDS (9.0-12.0)
[2016-11-04 08:30] LABS: BUN/CREATININE RATIO 20.4 (10-20); CALCIUM 9.6 mg/dl (8.5-10.1); CREATININE 1.1 mg/dl (0.60-1.20); MAGNESIUM 2.3 mg/dl (1.8-2.4); POTASSIUM 4.6 mmol/L (3.5-5.1)
[2016-11-04] MEDS: NYSTATIN SUSP 500,000 U/5 ML UDC MT SCH ×2 (08:34→12:53)
[2016-11-04] MEDS: CEPHALEXIN MONOHYDRATE 250 MG CAP PO SCH ×2 (08:34→12:54)
[2016-11-04] MEDS: THIAMINE HCL 50 MG TAB PO SCH (08:35)
[2016-11-04] MEDS: POTASSIUM CHLORIDE 20 MEQ/15 ML UDC PO SCH (08:36)
[2016-11-04] MEDS: FAMOTIDINE 20 MG TAB PO SCH (08:36)
[2016-11-04] MEDS: ENOXAPARIN 40 MG/0.4 ML SYR SQ SCH (08:36)
[2016-11-04] MEDS: OXYCODONE/ACETAMINOPHEN 5-325 TAB PO PRN ×2 (08:41→12:53)
[2016-11-04] MEDS ORDERED: ASPIRIN 81 MG ECTAB PO SCH (09:00)
[2016-11-04] MEDS ORDERED: FLV1 PO (14:57)
[2016-11-04] MEDS ORDERED: THM50 PO (14:57)
--- NOTE | 2016-11-04 14:58 | Discharge Instructions ---
Discharge Instructions Date of Service Nov 04, 2016. Admission Reason for Admission: Dehydration W/ Hypernatremia, Gastroenteritis Discharge Discharge Diagnosis / Problem: hypernatremia, uti, pna Discharge Goals Goal(s): Decrease discomfort, Improve function, Increase independence, Improve disease control, Improve nutritional status, Learn about illness, Diagnostic testing, Therapeutic intervention, Prevent Disease Progression, Specific goals Activity Recommendations Activity Limitations: as noted below Exercise/Sports Limitations: as tolerated . Instructions / Follow-Up Instructions / Follow-Up you have Hypernatremic, likely secondary to dehydration from vomiting/diarrhea- resolved: you have mentale status changes, Encephalopathy/AMS- resolved: you need to continue thiamine and Folic acid supplementation you need to have person with you 02/03, for supervision because you are in high risks of fall - you need to follow up with your primary care physician in 1 week, - call your pcp if have chest pain, sob, palpitation, or if has any questions - take medication as instructed, never overdose or any misuse, or take with alcohol, because misuse of medicine may cause organ damage or , call your primary care physician if have questions of medicaitons. - call your primary care physician OR go to local emergency room if has any fever/chill, chest pain, shortness of breathing, nausea/vomiting/abdominal pain , facial droop/slurry speech/local weakness, or if has any questions. - fall precaution - diet as instructed - you should understand that it is important to follow up the above instruction , and "not following the above instruction" may cause delayed or missed care of your medical conditions which may cause permanent organ damage and even . Current Hospital Diet Patient's current hospital diet: AHA Diet (Heart Healthy) Discharge Diet Recommended Diet: Regular Diet Pending Studies Studies pending at discharge: no Laboratory Results Meds Administered (Past 24Hrs) Medications (Trade) Dose Ordered Sig/Jaquelin Route Start Time Stop Time Status Last Admin Dose Admin Cephalexin Monohydrate (Keflex Cap) 250 mg NOW ONCE PO 11/03/16 14:45 11/03/16 14:56 DC 11/03/16 15:46 250 MG Cephalexin Monohydrate (Keflex Cap) 250 mg QID PO 11/03/16 21:00 11/08/16 20:59 11/04/16 12:54 250 MG Aspirin (Ecotrin Tab) 81 mg DAILY PO 11/04/16 09:00 12/04/16 08:59 11/04/16 08:37 81 MG Medical Emergencies . Who to Call and When: Medical Emergencies: If at any time you feel your situation is an emergency, please call 911 immediately. . Non-Emergent Contact Non-Emergency issues call your: Primary Care Provider . . "Provider Documentation" section prepared by [place] [facility]. VTE Core Measure Inpt VTE Proph given/why not?: Enoxaparin (Lovenox)SQ, SCD's, Contraindicated
[2016-11-04 15:03] VITALS: BP 98/64; PULSE 70; TEMP 36.7; O2SAT 97
[2016-11-04 15:40] VITALS: BP 98/64; PULSE 70; TEMP 36.7; O2SAT 97
--- NOTE | 2016-11-04 17:15 | Discharge Summary ---
Discharge Summary Date of Service Nov 04, 2016. Discharge Summary Admission Date: Oct 25, 2016 at 19:28 Discharge Date: Nov 04, 2016 Discharge Disposition: Home with services Principal Diagnosis: Hypernatremic, likely secondary to dehydration from vomiting/diarrhea Problems/Secondary Diagnoses: mentale status changes, Encephalopathy/AMS- resolved: (1) Anxiety State Nos Status: Chronic (2) borderline intellectual functioning Status: Chronic (3) Depressive Disorder Nec Status: Chronic (4) Hearing impairment Status: Chronic (5) Hyperlipidemia Nec/Nos Status: Chronic (6) Hypertension Nos Status: Chronic (7) Migraine Status: Chronic (8) Opioid dependence Status: Chronic (9) Personality disorder Status: Chronic (10) Speech impairment Status: Chronic Immunizations: Have You Had Influenza Vaccine: N/A History of Tetanus Vaccine?: Unknown Tetanus Immunization Date: Jun 03, 2003 History of Pneumococcal: Unknown History of Hepatitis B Vaccine: Unknown Consultations: Psychiatry, Medication Reconciliation New Medications: Folic Acid (Folic Acid) 1 Mg Tab 1 MG PO QAM for 30 Days, #30 TAB Thiamine HCl (Vitamin B-1) 50 Mg Tab 50 MG PO QAM for 30 Days, #30 TAB Continued Medications: Alprazolam (Xanax) 1 Mg Tab 1 MG PO TID, TAB Aspirin (Aspirin Ec) 81 Mg Tab 81 MG PO DAILY Eamahul-Sdgownyuvjhho-Ymfhelic (Excedrin Migraine) 1 Tab Tab 2 TABLETS PO UD PRN Esomeprazole Magnesium (Esomeprazole Magnesium) 40 Mg Cap 40 MG PO DAILY for 30 Days Fluticasone Propionate (Nasal) (Flonase) 50 Mcg/Act Spr 2 SPRAYS NA DAILY PRN for Nasal Congestion Loratadine (Claritin) 10 Mg Tab 10 MG PO DAILY PRN for ALLERGIC REACTION, TAB Ondansetron Hcl (Zofran) 4 Mg Tab 4 MG PO Q8 PRN for Nausea, TAB Oxycodone/Acetaminophen 10MG/325MG (Percocet 10MG/325MG) Tab 1 TAB PO Q6 PRN for Pain, TAB Discharge Exam Feeling better, has been doing some therapies with PT OT, eating and it'll be better, generalized weakness, no other complaint Review of Systems: Constitutional: + fatigue, + weakness, No chills, No fever, No problem reported, No sweats, No weight loss Eyes: No diplopia, No discharge, No eye pain, No problem reported, No redness, No worsening of vision ENT: No dental problems, No hearing loss, No nasal symptoms, No problem reported, No sore throat, No tinnitus, No trouble swallowing, No unusual epistaxis Respiratory: No cough, No dyspnea at rest, No dyspnea on exertion, No hemoptysis, No problem reported, No shortness of breath, No sputum, No wheezing Cardiovascular: No PND, No chest pain, No claudication, No edema, No orthopnea, No palpitations, No problem reported Abdomen: No GI bleeding, No constipation, No diarrhea, No nausea, No pain, No problem reported, No vomiting Genitourinary - Female: No dysmenorrhea, No dysuria, No hematuria, No menorrhagia, No metrorrhagia, No , No problem reported, No rash, No urinary frequency, No urinary incontinence, No urinary retention, No urinary urgency, No vaginal bleeding, No vaginal discharge, No vaginal itching, No vulvodynia Neurologic: No balance problems, No memory loss, No numbness/tingling, No paralysis, No problem reported, No vertigo, No weakness Psychiatric: No anhedonism, No anxiety, No depression symptoms, No insomnia , No problem reported, No substance abuse Endocrine: No excessive thirst, No excessive urination, No fatigue, No problem reported Hematologic / Lymphatic: No abnormal bleeding/bruising, No clotting problems , No night sweats, No problem reported, No swollen lymph nodes Integumentary: No bleeding, No color change, No itch, No new/changing skin lesions, No problem reported, No rash Physical Exam: General Appearance: WD/WN, no apparent distress Eyes: normal inspection, PERRL, EOMI ENT: normal ENT inspection, hearing grossly normal, TMs normal Neck: supple, no adenopathy, thyroid normal Respiratory/Chest: chest non-tender, normal breath sounds, no respiratory distress, no accessory muscle use, + decreased breath sounds Cardiovascular: regular rate, rhythm, no edema, no gallop, no JVD, no murmur , normal peripheral pulses Abdomen / GI: normal bowel sounds, non tender, soft, no organomegaly, no pulsatile mass Extremities: normal inspection, no calf tenderness, normal capillary refill , no pedal edema, normal range of motion Neurologic/Psychiatric: auto parker II-XII nml as tested, no motor/sensory deficits , alert, normal mood/affect, normal reflexes, oriented x 3 Skin: normal color, warm/dry, no rash Lymphatic: no adenopathy Hospital Course 46 y/o female with admitted on 10/25/2016 b/c hypernatremic dehydration, suspected altered mental status, and vomiting/abd pain/diarrhea. Hypernatremic, likely secondary to dehydration from vomiting/diarrhea- resolved : - Treated w/ 1/2 NS with KCL at 100cc/hr and D5 1/4 NS , resolved Nausea/vomiting/diarrhea- resolved: - IV Zofran PRN to po prn Encephalopathy/AMS- resolved: - Thiamine and Folic acid supplementation - IV Toradol/Percocet PRN for pain control - BCx- NGTD - UCx- Lactobacillus species , was on Azithromycin x5 days , it should have been treated - LP- CSFx- NGTD - Influenza- negative - Lyme titer, RPR- negative - HSV serologies pending - Toxicology screen- negative - TSH and B12- WNL - EEG- no evidence of seizure - Consult neurology, appreciate recommendations -- CT of head/brain MRIs/neck and head MRA- ?Transient splenial intensity change, repeat MRI in 4-6 wks, f/u outpt -- Chronic headaches- avoid narcotic analgesics for treatment, ?trial of Botox, f/u outpt - Consult ID, appreciate recommendations -- Likely non-infectious source hx of opiate dependence, benzodiazepine dependence, chronic pain syndrome, chronic migraine headaches, previous psychiatric admissions for self-cutting/ self-abuse, personality disorder, and suspected intellectual disorder Consulted psychiatry, appreciate recommendations \\Avoid Xanax at discharge, no acute psychiatric admission indication, pt refusing mental health referrals RLL pneumonia: - Treated w/ Azithromycin x5 days - CT on 10/31 to confirm adequate treatment- favored atelectatic Hypokalemia- resolved: - KCL 20 mEq PO BID Oral thrush: Nystatin mouthwash Abnormal LFTs - in January 2016 had similar clinical presentation with abnormal LFTs- stable: - Hep A, B, C- all negative in January 2016 - Repeat LFTs stable - ETOH level <3 - RUQ U/S 10/25/16- unremarkable Coagulopathy, likely secondary to Vit K deficiency- resolved: - has been treated w/ PO Vitamin K 5 mg daily , DC today, will f/u PLT, INR OT ok to go home, PT is working on it. Discussed with patient and today, they are both comfortable to go home, I told that patient need to have 24/ 7 supervision because of high risk of the fall, said he is disabled at home, and that he take care of her and promise to arrange 24/ 7 supervision for her. DVT prophylaxis: Lovenox 40 mg SQ q24 hrs, DARIO and SCDs Code Status: LEVEL I, FULL Per PT OT progress note patient can go home Instructions / Follow-Up you have Hypernatremic, likely secondary to dehydration from vomiting/diarrhea- resolved: you have mentale status changes, Encephalopathy/AMS- resolved: you need to continue thiamine and Folic acid supplementation you need to have person with you 24/, for supervision because you are in high risks of fall - you need to follow up with your primary care physician in 1 week, - call your pcp if have chest pain, sob, palpitation, or if has any questions - take medication as instructed, never overdose or any misuse, or take with alcohol, because misuse of medicine may cause organ damage or , call your primary care physician if have questions of medicaitons. - call your primary care physician OR go to local emergency room if has any fever/chill, chest pain, shortness of breathing, nausea/vomiting/abdominal pain , facial droop/slurry speech/local weakness, or if has any questions. - fall precaution - diet as instructed - you should understand that it is important to follow up the above instruction , and "not following the above instruction" may cause delayed or missed care of your medical conditions which may cause permanent organ damage and even . Total Time Spent: Greater than 30 minutes This includes examination of the patient, discharge planning, medication reconciliation, and communication with other providers. Discharge Instructions Please refer to the electronic Patient Visit Report (Discharge Instructions) for additional information. Additional Copies To Sridhar Gonzalez D.O.
[2016-11-05 04:32] LABS: ALBUMIN 3.3 g/dL (3.5-4.9); HSV TYPE 1 DNA Not Detected (Not Detected); HSV TYPE 1&2 DNA SOURCE CSF; HSV TYPE 2 DNA Not Detected (Not Detected); IGG CSF 2.4 mg/dL (0.8-7.7); IGG SERUM 630 mg/dL (694-1618); MYELIN BASIC PROTEIN 663 <2.0 mcg/L (0.0-4.0)
[2017-04-25] MEDS ORDERED: AMOX875T PO (10:52)
[2017-04-25] MEDS ORDERED: HYDR25SU20 PR (19:23)
== END 2016-11-04 18:13 | disposition home or self-care (01) | DRG 640 ==
LOC: ENRESERVTM → ENRESERVDT → C.EDB 14:36 → C.2T 19:28 → C.MED 10-28 23:32 → C.MS2W 11-01 21:46
PROVIDERS: ADMIT Internal Medicine; ATTEND Hospitalist
PROC: 009U3ZX Drainage of Spinal Canal, Percutaneous Approach, Diagnostic (ICD-10-PCS; principal; 2016-10-27)
DX: E87.0 Hyperosmolality and hypernatremia (principal); J69.0 Pneumonitis due to inhalation of food and vomit; G93.40 Encephalopathy, unspecified; F11.23 Opioid dependence with withdrawal; B37.0 Candidal stomatitis; D68.9 Coagulation defect, unspecified; F19.20 Other psychoactive substance dependence, uncomplicated; N39.0 Urinary tract infection, site not specified; E86.0 Dehydration; R11.2 Nausea with vomiting, unspecified; E87.1 Hypo-osmolality and hyponatremia; H91.90 Unspecified hearing loss, unspecified ear; E87.6 Hypokalemia; E78.5 Hyperlipidemia, unspecified; G43.909 Migraine, unspecified, not intractable, without status migrainosus; F41.9 Anxiety disorder, unspecified; I10 Essential (primary) hypertension; K72.90 Hepatic failure, unspecified without coma; F32.9 Major depressive disorder, single episode, unspecified; R09.02 Hypoxemia; R41.82 Altered mental status, unspecified; R41.83 Borderline intellectual functioning; Z79.82 Long term (current) use of aspirin; R47.9 Unspecified speech disturbances; R10.9 Unspecified abdominal pain; F17.200 Nicotine dependence, unspecified, uncomplicated; G89.4 Chronic pain syndrome; E56.1 Deficiency of vitamin K; F60.9 Personality disorder, unspecified; R23.8 Other skin changes; K52.9 Noninfective gastroenteritis and colitis, unspecified; R79.89 Other specified abnormal findings of blood chemistry; R94.5 Abnormal results of liver function studies; Z86.73 Personal history of transient ischemic attack (TIA), and cerebral infarction without residual deficits; Z91.5 Personal history of self-harm; Z79.899 Other long term (current) drug therapy; B96.89 Other specified bacterial agents as the cause of diseases classified elsewhere

== ENCOUNTER 2017-04-22 01:51 | Inpatient (IN) | payer OTHER ==
[~2017-04-22] VITALS: Ht 167.6 cm; Wt 68.0 kg
[2017-04-22] VITALS (8 sets, daily range): BP systolic 91–115; BP diastolic 54–83; PULSE 91–106; TEMP 36.6–37.1; O2SAT 90–99; Ht 167.6 cm; Wt 68.0 kg
[~2017-04-22 01:51] MED LIST changes: -ACET-1256 PO; +FLV1 PO; +ONDA4TAB46 PO; +OXYC-106 PO; -PHN/25 PO; +THM50 PO; -[UNRECOGNIZED DRUG - OTHER] PO
[2017-04-22] MEDS ORDERED: KETOROLAC TROMETHAMINE 30 MG/ML VIAL IV STA (02:07)
[2017-04-22] MEDS ORDERED: ACETAMINOPHEN IV 100 ML IV ONE (02:15)
[2017-04-22] MEDS ORDERED: SODIUM CHLORIDE 0.9% 1000ML 1,000 ML, SODIUM CHLORIDE 0.9% 1000ML 1,000 ML IV ONE (02:15)
[2017-04-22 02:29] LABS: BASO % 0.1 %; BASO ABS # 0.01 K/uL (0-0.2); COMPLETE YES; EOS % 0.6 %; HEMATOCRIT 42.6 % (37-47); IG% 0.3 %; LYMPH % 6.4 %; LYMPH ABS # 0.64 K/uL (1.2-3.4); MEAN CORPUSCULAR HEMOGLOBIN 31.8 pg (25-34); MEAN CORPUSCULAR HGB CONC 33.8 g/dl (32-36); MEAN PLATELET VOLUME 9.7 fL (7.4-10.4); MONO % 8.6 %; PLATELET COUNT 197 K/uL (130-400); RED BLOOD COUNT 4.53 M/uL (4.2-5.4); WHITE BLOOD COUNT 9.97 K/uL (4.8-10.8)
[2017-04-22 02:51] LABS: URINE APPEARANCE CLEAR (CLEAR); URINE BILIRUBIN NEG (NEG); URINE COLOR YELLOW; URINE NITRITE NEG (NEG); URINE PH 8.5 (4.5-7.5); URINE SPECIFIC GRAVITY 1.019 (1.000-1.030); UROBILINOGEN NEG (NEG); ZZUR CULT IF INDIC CLEAN CATCH NO
[2017-04-22 02:52] LABS: INR 1.1 (0.9-1.1); PARTIAL THROMBOPLASTIN RATIO 1.1; PROTHROMBIN TIME (PATIENT) 11.5 SECONDS (9.0-12.0)
[2017-04-22 02:57] LABS: MANUAL MICROSCOPIC REQUIRED? NO; REVIEW REQ? NO
[2017-04-22 02:59] LABS: BUN/CREATININE RATIO 13.7 (10-20); CALCIUM 8.6 mg/dl (8.5-10.1); MAGNESIUM 1.7 mg/dl (1.8-2.4); POTASSIUM 3.9 mmol/L (3.5-5.1)
[2017-04-22 03:13] LABS: ALB/GLOB RATIO 0.9 (0.9-2); CKMB/CK RATIO 0.1 (0-3.0); THYROID STIMULATING HORMONE 1.69 uIu/ml (0.300-4.500)
[2017-04-22] MEDS ORDERED: IMIPENEM/CILASTATIN IV 500 MG in DEXTROSE 5% 100ML 100 ML IV STA (04:10)
[2017-04-22] MEDS ORDERED: SODIUM CHLORIDE 0.9% 1000ML 1,000 ML IV ONE (04:15)
[2017-04-22] MEDS ORDERED: DAPTOMYCIN IV ONE (04:15)
[2017-04-22] MEDS ORDERED: SODIUM CHLORIDE 0.9% IV ONE (04:15)
--- NOTE | 2017-04-22 06:12 | History and Physical ---
History & Physical Date & Time of Service: Apr 22, 2017 at 05:36 Chief Complaint: Abdominal Pain/Illness Primary Care Physician: Sridhar Gonzalez D.O. History of Present Illness Source: patient 47 y/o F Hx HTN, intellectual dysfunction, chronic migraines, opiate and benzodiazepine abuse, history of open cholecystectomy. Pt presents with acute onset abdominal pain, nausea, vomiting and fevers. She was in her normal state of health one day prior per her . She is unable to provide a comprehensive history after receiving pain medications in the ER. A CT abdomen was obtained and is suspicious for an SBO. Also reported was bibasilar disease which could not exclude pneumonia. Shortness of breath an cough were not reported. The pt was hypotensive on arrival but has responded to 3 L NS. She is apparently homeless and residing in a truck with her at present. Past Medical/Surgical History 1. chronic pain syndrome 2. opiate and benzodiazepine dependence 3. anxiety disorder 4. depression 5. intellectual disorder 6. hearing impairment 7. HTN 8. hyperlipidemia 9. migraine headaches 10. personality disorder 11. speech disorder Surgical 1. cholecystectomy (open) 2. Family History No significant family history stated Social History Smokes 1/2 pack daily - history of benzodiazepine and opiate abuse - currently homeless and residing in a truck Smoking Status: Current Every Day Smoker Drug Use: none Marital Status: Housing status: lives with family Occupational Status: disabled Immunizations History of Influenza Vaccine: N/A History of Tetanus Vaccine?: Unknown Tetanus Immunization Date: Jun 03, 2003 History of Pneumococcal: Unknown History of Hepatitis B Vaccine: Unknown Multi-Drug Resistant Organisms History of MDRO: No Allergies Coded Allergies: Haloperidol (Verified Allergy, Severe, TONGUE SWELLS, 04/22/17) Hydroxyzine (Verified Allergy, Severe, CAN'T BREATH, 04/22/17) Prochlorperazine (Verified Adverse Reaction, Intermediate, SICK, 04/22/17) Escitalopram (Verified Adverse Reaction, Mild, MAKES HER "THINK GOOFY", ) Rofecoxib (Verified Adverse Reaction, Mild, FIERRO LIPS, 04/22/17) Prednisone (Verified Adverse Reaction, Unknown, GI UPSET, 04/22/17) Tramadol (Verified Adverse Reaction, Unknown, UNABLE TO VOID, 04/22/17) Home Medications Scheduled Alprazolam (Xanax), 1 MG PO TID Aspirin (Aspirin Ec), 81 MG PO DAILY Esomeprazole Magnesium (Esomeprazole Magnesium), 40 MG PO DAILY Scheduled PRN Oxycodone/Acetaminophen 10MG/325MG (Percocet 10MG/325MG), 1 TAB PO Q6 PRN for Pain Review of Systems Constitutional: + fever, + chills Eyes: No worsening of vision ENT: No hearing loss, No nasal symptoms Respiratory: No cough, No sputum, No wheezing, No shortness of breath Cardiovascular: No chest pain, No orthopnea, No PND Abdomen: + pain, + nausea, + vomiting, No diarrhea, No constipation Musculoskeletal: + joint pain, + muscle pain Genitourinary - Female: No dysuria, No urinary frequency, No urinary urgency Neurologic: + weakness, No memory loss, No paralysis Psychiatric: + depression symptoms Endocrine: + fatigue Hematologic / Lymphatic: No abnormal bleeding/bruising Integumentary: No rash Allergic / Immunologic: No environmental allergies Physical Exam Vital Signs Date Time Temp Pulse Resp B/P (MAP) Pulse Ox O2 Delivery O2 Flow Rate FiO2 04/22/17 05:18 102 14 83/50 99 Nasal Cannula 3.0 04/22/17 04:30 108 14 86/45 97 Nasal Cannula 2.0 04/22/17 03:53 37.2 113 20 93/62 95 Nasal Cannula 2.0 04/22/17 03:06 112 18 99/70 97 Nasal Cannula 2.0 04/22/17 02:17 95 Nasal Cannula 2.0 04/22/17 02:17 88 Room Air 04/22/17 02:06 119 04/22/17 02:00 38.5 119 18 117/93 92 Room Air General Appearance: WD/WN, no apparent distress, + pertinent finding ( Somnolent middle-aged f) Head: normocephalic, atraumatic Eyes: normal inspection ENT: normal ENT inspection, pharynx normal Neck: supple, no JVD Respiratory/Chest: chest non-tender, lungs clear, normal breath sounds, no respiratory distress, no accessory muscle use, + pertinent finding (poor effort) Cardiovascular: regular rate, rhythm, no edema, no gallop, no JVD, no murmur Abdomen/GI: soft, + pertinent finding (hypoactive bowel sounds with mild diffuse tenderness) Back: normal inspection, no CVA tenderness, no muscle spasm, normal range of motion Extremities/Musculoskelatal: normal inspection, no calf tenderness, normal capillary refill Neurologic/Psych: activities counselor II-XII nml as tested, no motor/sensory deficits, + pertinent finding (SHe is somnolent but appears to be oriented when awake) Skin: normal color, warm/dry Diagnostics Laboratory Results Results Past 24 Hours Test 04/22/17 01:35 04/22/17 02:20 04/22/17 02:38 04/22/17 02:43 Range/Units White Blood Count 9.97 4.8-10.8 K/uL Red Blood Count 4.53 4.2-5.4 M/uL Hemoglobin 14.4 12.0-16.0 g/dL Hematocrit 42.6 37-47 % Mean Corpuscular Volume 94.0 80-100 fL Mean Corpuscular Hemoglobin 31.8 25-34 pg Mean Corpuscular Hemoglobin Concent 33.8 32-36 g/dl Platelet Count 197 130-400 K/uL Mean Platelet Volume 9.7 7.4-10.4 fL Neutrophils (%) (Auto) 84.0 % Lymphocytes (%) (Auto) 6.4 % Monocytes (%) (Auto) 8.6 % Eosinophils (%) (Auto) 0.6 % Basophils (%) (Auto) 0.1 % Neutrophils # (Auto) 8.37 1.4-6.5 K/uL Lymphocytes # (Auto) 0.64 1.2-3.4 K/uL Monocytes # (Auto) 0.86 0.11-0.59 K/uL Eosinophils # (Auto) 0.06 0-0.5 K/uL Basophils # (Auto) 0.01 0-0.2 K/uL RDW Standard Deviation 45.1 36.4-46.3 fL RDW Coefficient of Variation 13.2 11.5-14.5 % Immature Granulocyte % (Auto) 0.3 % Immature Granulocyte # (Auto) 0.03 0.00-0.02 K/uL Prothrombin Time 11.5 9.0-12.0 SECONDS Prothromb Time International Ratio 1.1 0.9-1.1 Activated Partial Thromboplast Time 27.5 21.0-31.0 SECONDS Partial Thromboplastin Ratio 1.1 Sodium Level 138 136-145 mmol/L Potassium Level 3.9 3.5-5.1 mmol/L Chloride Level 103 98-107 mmol/L Carbon Dioxide Level 28 21-32 mmol/L Anion Gap 7.0 3-11 mmol/L Blood Urea Nitrogen 14 7-18 mg/dl Creatinine 1.00 0.60-1.20 mg/dl Est Creatinine Clear Calc Drug Dose 64.4 ml/min Estimated GFR () 77.2 Estimated GFR (Non- 66.6 BUN/Creatinine Ratio 13.7 10-20 Random Glucose 103 70-99 mg/dl Calcium Level 8.6 8.5-10.1 mg/dl Magnesium Level 1.7 1.8-2.4 mg/dl Total Bilirubin 0.6 0.2-1 mg/dl Aspartate Amino Transf (AST/SGOT) 57 15-37 U/L Alanine Aminotransferase (ALT/SGPT) 55 12-78 U/L Alkaline Phosphatase 138 45-117 U/L Total Creatine Kinase 1275 26-192 U/L Creatine Kinase MB 1.3 0.5-3.6 ng/ml Creatine Kinase MB Ratio 0.1 0-3.0 Total Protein 6.4 6.4-8.2 gm/dl Albumin 3.0 3.4-5.0 gm/dl Globulin 3.4 2.5-4.0 gm/dl Albumin/Globulin Ratio 0.9 0.9-2 Lipase 51 73-393 U/L Thyroid Stimulating Hormone (TSH) 1.690 0.300-4.500 uIu/ml Urine Color YELLOW Urine Appearance CLEAR CLEAR Urine pH 8.5 4.5-7.5 Urine Specific [place] 1.019 1.000-1.030 Urine Protein NEG NEG Urine Glucose (UA) NEG NEG Urine Ketones NEG NEG Urine Occult Blood NEG NEG Urine Nitrite NEG NEG Urine Bilirubin NEG NEG Urine Urobilinogen NEG NEG Urine Leukocyte Esterase TRACE NEG Urine WBC (Auto) 1-5 0-5 /hpf Urine RBC (Auto) 0-4 0-4 /hpf Urine Hyaline Casts (Auto) 0 0-5 /lpf Urine Epithelial Cells (Auto) 10-20 0-5 /lpf Urine Bacteria (Auto) NEG NEG Urine Test NEG NEG Influenza Type A Antigen Neg for Influ A NEG Influenza Type B Antigen Neg for Influ B NEG Bedside Lactic Acid Venous 2.05 0.90-1.70 mmol/L Microbiology Results 04/22/17 Blood Culture, Received Pending 04/22/17 Blood Culture, Received Pending Diagnostic Radiology CT abdomen: DIlated fluid filled small bowel with distal gradual transition point - consistent with SBO Bibasilar airspace disease could not exclude PNM vs atelectasis Impression Assessment and Plan 47 y/o F Hx HTN, intellectual dysfunction, chronic migraines, opiate and benzodiazepine abuse, history of open cholecystectomy. Pt presents with acute onset abdominal pain, nausea, vomiting and fevers. She was in her normal state of health one day prior per her . She is unable to provide a comprehensive history after receiving pain medications in the ER. A CT abdomen was obtained and is suspicious for an SBO. Also reported was bibasilar disease which could not exclude pneumonia. Shortness of breath an cough were not reported. The pt was hypotensive on arrival but has responded to 3 L NS. She is apparently homeless and residing in a truck with her at present. 1) Fever , hypotension - source unclear - initial symptoms of nausea, vomiting, abd pain - may have lead to aspiration, however, she is not having any respiratory symptoms. Pt placed on Primaxin and Vanc due to sepsis criteria. We will change this to Unasyn, Vanc to cover potential aspiration. Blood cultures are pending. 2) SBO - surgery consult requested. NPO, pain control, antiemetics - may need NGT - had initially refused. 3) Opiate and Benzo abuse - she is at risk for withdrawal - will continue as needed in IV form as weening with an acute illness is not likely to be helpful. 4) HTN - hypotensive on arrival - does not appear to take any related meds regardless 5) CK is elevated indicating mild rhabdo - IVF provided - will trend CK 6) Can offer smoking cessation advise following recovery Full code - Heparin prophylaxis should be initiated following surgery eval if procedure is not imminent Level of Care Telemetry Resuscitation Status FULL RESUSCITATION VTE Prophylaxis Given or contraindicated: Unfractionated heparin SQ
[2017-04-22] MEDS ORDERED: LORAZEPAM 2 MG/ML 1 ML VIAL IV PRN (06:15)
[2017-04-22] MEDS ORDERED: ACETAMINOPHEN IV 650 MG in EMPTY BAG 0 ML IV PRN (06:30)
--- NOTE | 2017-04-22 06:58 | DIAGNOSTIC IMAGING REPORT ---
CT SCAN OF THE ABDOMEN AND PELVIS WITHOUT CONTRAST CLINICAL HISTORY: Fever, abdominal pain, nausea and vomiting. COMPARISON STUDY: 01/09/2016 TECHNIQUE: CT scan of the abdomen and pelvis was performed from the lung bases to the proximal femurs. Images are reviewed in the axial, sagittal, and coronal planes. IV contrast was not administered for this examination. A dose lowering technique was utilized adhering to the principles of ALARA. CT DOSE: 309.67 mGy.cm FINDINGS: Lower chest: There are bibasal or dependent airspace opacities. Liver: The unenhanced liver is normal in size, contour, and attenuation. There is no intrahepatic biliary ductal dilatation. Gallbladder: Surgically absent Spleen: .Normal in size measuring 11.5 cm Pancreas: Equivocal slight pancreatic edema. No focal masses identified in this noncontrast study Adrenal glands: Unremarkable. Kidneys: No renal, ureteral, or bladder calculi are visualized. Bowel: The appendix appears normal. There is no acute diverticulitis. There are several mildly prominent fluid-filled central abdominal small bowel loops with multiple air-fluid levels, borderline small bowel wall thickening, and mild associated mesenteric edema. The distal small bowel is decompressed. This could indicate an early or partial small bowel obstruction Peritoneum: No free air is visualized. There is trace free pelvic fluid. Vasculature: The abdominal aorta is normal in course and caliber. Adenopathy: Inguinal lymph nodes are the upper limits of normal in size. There is no pathologic adenopathy by size criteria. Pelvic viscera: The bladder, and pelvic viscera are unremarkable. Skeletal structures: No destructive osseous lesions are seen. IMPRESSION: 1. No evidence of free air.. 2. Surgically absent gallbladder 3. Normal appendix. No evidence of acute diverticulitis 4. There are several mildly prominent fluid-filled central abdominal small bowel loops with multiple air-fluid levels, borderline small bowel wall thickening, and mild associated mesenteric edema. The distal small bowel is decompressed. This could indicate an early or partial small bowel obstruction. 5. Equivocal minimal pancreatic edema Electronically signed by: Maurizio Vee M.D. 04/22/2017 6:57 AM Dictated Date/Time: 04/22/2017 6:49 AM
--- NOTE | 2017-04-22 07:02 | EMERGENCY ROOM VISIT NOTE ---
History First contact with patient: 01:55 Chief Complaint: ABDOMINAL PAIN Stated Complaint: FEVER, SBO Nursing Triage Summary: pt brought to main ED B11b by ALS. ALS picked pt up in her truck with her , reports "they were fishing" ALS states it appears pt and are living in truck, were going to bring pt to hospital but they were unable to start truck. pt states "we've been homeless since October, don't tell him." states her and her have been camping in [place] and trading off in the truck. ALS reprots pt has gradual onset of abd pain since 5pm and productive cough, temp 102.9F and hr 140 sinus tach, abd tender with palpation. pt reports she had pneumonia in september. pt ambulatory independently. breathing regularly and independently. pt has noted speech impediment, states she has a hx speech and hearing difficulties. pt has noted dime sized wounds one on left breast and one on center of chest between breasts. pt has pea sized wound/scab below left knee. left upper leg has slight reddened appearance, left ankle +1 edema. right ankle no edema. lungs clear. pt alert and oriented x4 at this time, pt appears to fall asleep easily. pt denies urinary symptoms, denies diarrhea. reports vomiting today. History of Present Illness The patient is a 47 year old female who presents to the Emergency Room with complaints of fever, abdominal pain, nausea, and vomiting for essentially the past one day. The patient is evidently homeless and has been living out of a pickup truck with her for the past 6 months. The patient was essentially at her normal state of well-being this morning, but after lunch she began having significant episodes of vomiting. She had been running a fever and initially did have Tylenol. The patient was feeling worse, and her contacted the ambulance. The patient was found to have a temperature of 102.8 Fahrenheit prehospital. She was tachycardic in the 130s and 140s. The patient herself does not report any chest pain, chest tightness, or shortness of breath. She rates her discomfort a 9/10. Review of Systems More than 10 systems were reviewed and otherwise negative with the exception of history of present illness. Past Medical/Surgical History Medical Problems: (1) Anxiety State Nos (2) borderline intellectual functioning (3) Dehydration with hypernatremia (4) Depressive Disorder Nec (5) Fever (6) Gastroenteritis (7) Gastroenteritis (8) Hearing impairment (9) Hyperlipidemia Nec/Nos (10) Hypertension Nos (11) Migraine (12) Opioid dependence (13) Personality disorder (14) SBO (small bowel obstruction) (15) Speech impairment Surgical Problems: (1) H/O section (2) Hx of cholecystectomy Family History No significant family history stated Social History Smoking Status: Current Every Day Smoker Alcohol Use: occasionally Drug Use: none Marital Status: Housing Status: lives with family Occupation Status: disabled Current/Historical Medications Scheduled Alprazolam (Xanax), 1 MG PO TID Aspirin (Aspirin Ec), 81 MG PO DAILY Esomeprazole Magnesium (Esomeprazole Magnesium), 40 MG PO DAILY Scheduled PRN Oxycodone/Acetaminophen 10MG/325MG (Percocet 10MG/325MG), 1 TAB PO Q6 PRN for Pain Allergies Coded Allergies: Haloperidol (Verified Allergy, Severe, TONGUE SWELLS, 04/22/17) Hydroxyzine (Verified Allergy, Severe, CAN'T BREATH, 04/22/17) Prochlorperazine (Verified Adverse Reaction, Intermediate, SICK, 04/22/17) Escitalopram (Verified Adverse Reaction, Mild, MAKES HER "THINK GOOFY", ) Rofecoxib (Verified Adverse Reaction, Mild, FIERRO LIPS, 04/22/17) Prednisone (Verified Adverse Reaction, Unknown, GI UPSET, 04/22/17) Tramadol (Verified Adverse Reaction, Unknown, UNABLE TO VOID, 04/22/17) Physical Exam Vital Signs Date Time Temp Pulse Resp B/P (MAP) Pulse Ox O2 Delivery O2 Flow Rate FiO2 04/22/17 06:05 103 04/22/17 06:02 102 14 91/57 93 Nasal Cannula 2.0 04/22/17 05:30 100 18 101/51 95 Room Air 04/22/17 05:18 102 14 83/50 99 Nasal Cannula 3.0 04/22/17 04:30 108 14 86/45 97 Nasal Cannula 2.0 04/22/17 03:53 37.2 113 20 93/62 95 Nasal Cannula 2.0 04/22/17 03:06 112 18 99/70 97 Nasal Cannula 2.0 04/22/17 02:17 95 Nasal Cannula 2.0 04/22/17 02:17 88 Room Air 04/22/17 02:06 119 04/22/17 02:00 38.5 119 18 117/93 92 Room Air Physical Exam VITALS: Vitals are noted on the nurse's note and reviewed by myself. Vital signs with fever, tachycardia, hypotension GENERAL: Somnolent appearing white female who is mildly cooperative with the exam NECK: Supple without nuchal rigidity. No lymphadenopathy. No thyromegaly. Cervical spine is nontender. HEART: Regular rate and rhythm without murmurs gallops or rubs. LUNGS: Poor respiratory effort without significant wheezing, crackles, or rales ABDOMEN: Positive normal bowel sounds x 4. Soft with mild generalized tenderness. MUSCULOSKELETAL: No muscle atrophy, erythema, or edema noted. Full range of motion without joint tenderness in all extremities. Medical Decision & Procedures ER Provider Diagnostic Interpretation: Preliminary Findings Only See Final Report For Complete Findings CT ABDOMEN & PELVIS: Several loops of relatively prominent small bowel with air-fluid levels, a stretched appearance, mild associated mesenteric edema and the distal small bowel is decompressed, suggesting small bowel obstruction. No focal transition point but there is gradual transition to decompressed distal small bowel at the mid pelvis. Relatively dilated bowel measures up to 2.6 cm. Trace free fluid within the pelvis. No free air. Bibasilar airspace disease/atelectasis. Pneumonia not excluded. Cholecystectomy. Normal appendix. Small fat-containing umbilical hernia. Degenerative changes of spine. Laboratory Results 04/22/17 01:35 Red Blood Count 4.53, Mean Corpuscular Volume 94.0, Mean Corpuscular Hemoglobin 31.8, Mean Corpuscular Hemoglobin Concent 33.8, Mean Platelet Volume 9.7, Neutrophils (%) (Auto) 84.0, Lymphocytes (%) (Auto) 6.4, Monocytes (%) (Auto) 8.6, Eosinophils (%) (Auto) 0.6, Basophils (%) (Auto) 0.1, Neutrophils # (Auto) 8.37, Lymphocytes # (Auto) 0.64, Monocytes # (Auto) 0.86, Eosinophils # (Auto) 0.06, Basophils # (Auto) 0.01 04/22/17 01:35 Test 04/22/17 01:35 04/22/17 02:20 04/22/17 02:38 04/22/17 02:43 White Blood Count 9.97 K/uL (4.8-10.8) Red Blood Count 4.53 M/uL (4.2-5.4) Hemoglobin 14.4 g/dL (12.0-16.0) Hematocrit 42.6 % (37-47) Mean Corpuscular Volume 94.0 fL (80-100) Mean Corpuscular Hemoglobin 31.8 pg (25-34) Mean Corpuscular Hemoglobin Concent 33.8 g/dl (32-36) Platelet Count 197 K/uL (130-400) Mean Platelet Volume 9.7 fL (7.4-10.4) Neutrophils (%) (Auto) 84.0 % Lymphocytes (%) (Auto) 6.4 % Monocytes (%) (Auto) 8.6 % Eosinophils (%) (Auto) 0.6 % Basophils (%) (Auto) 0.1 % Neutrophils # (Auto) 8.37 K/uL (1.4-6.5) Lymphocytes # (Auto) 0.64 K/uL (1.2-3.4) Monocytes # (Auto) 0.86 K/uL (0.11-0.59) Eosinophils # (Auto) 0.06 K/uL (0-0.5) Basophils # (Auto) 0.01 K/uL (0-0.2) RDW Standard Deviation 45.1 fL (36.4-46.3) RDW Coefficient of Variation 13.2 % (11.5-14.5) Immature Granulocyte % (Auto) 0.3 % Immature Granulocyte # (Auto) 0.03 K/uL (0.00-0.02) Prothrombin Time 11.5 SECONDS (9.0-12.0) Prothromb Time International Ratio 1.1 (0.9-1.1) Activated Partial Thromboplast Time 27.5 SECONDS (21.0-31.0) Partial Thromboplastin Ratio 1.1 Anion Gap 7.0 mmol/L (3-11) Est Creatinine Clear Calc Drug Dose 64.4 ml/min Estimated GFR () 77.2 Estimated GFR (Non- 66.6 BUN/Creatinine Ratio 13.7 (10-20) Calcium Level 8.6 mg/dl (8.5-10.1) Magnesium Level 1.7 mg/dl (1.8-2.4) Total Bilirubin 0.6 mg/dl (0.2-1) Aspartate Amino Transf (AST/SGOT) 57 U/L (15-37) Alanine Aminotransferase (ALT/SGPT) 55 U/L (12-78) Alkaline Phosphatase 138 U/L (45-117) Total Creatine Kinase 1275 U/L (26-192) Creatine Kinase MB 1.3 ng/ml (0.5-3.6) Creatine Kinase MB Ratio 0.1 (0-3.0) Total Protein 6.4 gm/dl (6.4-8.2) Albumin 3.0 gm/dl (3.4-5.0) Globulin 3.4 gm/dl (2.5-4.0) Albumin/Globulin Ratio 0.9 (0.9-2) Lipase 51 U/L (73-393) Thyroid Stimulating Hormone (TSH) 1.690 uIu/ml (0.300-4.500) Urine Color YELLOW Urine Appearance CLEAR (CLEAR) Urine pH 8.5 (4.5-7.5) Urine Specific [place] 1.019 (1.000-1.030) Urine Protein NEG (NEG) Urine Glucose (UA) NEG (NEG) Urine Ketones NEG (NEG) Urine Occult Blood NEG (NEG) Urine Nitrite NEG (NEG) Urine Bilirubin NEG (NEG) Urine Urobilinogen NEG (NEG) Urine Leukocyte Esterase TRACE (NEG) Urine WBC (Auto) 1-5 /hpf (0-5) Urine RBC (Auto) 0-4 /hpf (0-4) Urine Hyaline Casts (Auto) 0 /lpf (0-5) Urine Epithelial Cells (Auto) 10-20 /lpf (0-5) Urine Bacteria (Auto) NEG (NEG) Urine Test NEG (NEG) Influenza Type A Antigen Neg for Influ A (NEG) Influenza Type B Antigen Neg for Influ B (NEG) Bedside Lactic Acid Venous 2.05 mmol/L (0.90-1.70) Medications Administered Medications (Trade) Dose Ordered Sig/Jaquelin Route Start Time Stop Time Status Last Admin Dose Admin Sodium Chloride/ Sodium Chloride 2,000 ml @ 999 mls/hr Q2H1M ONCE IV 04/22/17 02:15 04/22/17 04:15 DC 04/22/17 02:15 999 MLS/HR Ketorolac Tromethamine (Toradol Inj) 30 mg NOW STAT IV 04/22/17 02:07 04/22/17 02:12 DC 04/22/17 02:38 30 MG Acetaminophen 100 ml @ 400 mls/hr NOW ONCE IV 04/22/17 02:15 04/22/17 02:29 DC 04/22/17 02:38 400 MLS/HR Sodium Chloride 1,000 ml @ 999 mls/hr Q1H1M ONCE IV 04/22/17 04:15 04/22/17 05:15 DC 04/22/17 04:34 999 MLS/HR Daptomycin 411 mg/ Sodium Chloride 58.22 ml @ 100 mls/hr NOW ONCE IV 04/22/17 04:15 04/22/17 04:49 DC 04/22/17 04:46 100 MLS/HR Imipenem/ Cilastatin Sodium 500 mg/Dextrose 110 ml @ 100 mls/hr NOW STAT IV 04/22/17 04:10 04/22/17 05:15 DC 04/22/17 05:16 100 MLS/HR ED Course Physical exam and history were performed. Nursing notes, EMR, and Medication List were personally reviewed. Patient appears to have fever, tachycardia, hypertension, nausea, vomiting, abdominal pain essentially for the past one day. The patient has a history of narcotic use/abuse and is somewhat somnolent on examination. IV access was established and labs were obtained. The patient was hydrated with a total of 3 L normal saline. Chest x-ray and CT scans were performed. Blood cultures were gathered. The patient's blood work is as above and was reviewed. She does not have a significantly elevated white blood cell count, gross anemia, or significant electrolyte imbalance. Her lactic acid is slightly elevated, and she was started on Primaxin and Daptomycin. The patient's CK is elevated greater than 1300. CT scan of the abdomen and pelvis appears to show a small bowel obstruction. Overall the patient does not appear stable for discharge home. I did discuss the case with surgery, Dr Clinton, who will follow the patient as an inpatient. The case was discussed with the preparation department supervisor hospitalist, Dr Kingston, who agreed to evaluate the patient here in the department. Please see his dictation for further patient course, plan, and disposition. The chart was completed utilizing Dragon Speech Voice Recognition Software. Grammatical errors, random word insertions, pronoun errors, and incomplete sentences are an occasional consequence of this system due to software limitations, ambient noise, and hardware issues. Any formal questions or concerns about the content, text, or information contained within the body of this dictation should be directly addressed to the provider for clarification. . Medical Decision Differential diagnosis: Etiologies such as sepsis, UTI, pneumonia, metabolic, electrolyte abnormalities , cardiac sources, intracerebral event, toxicologic, neurologic, as well as others were entertained. Impression Primary Impression: SBO (small bowel obstruction) Additional Impression: Fever Departure Information Referrals Sridhar Gonzalez D.O. (PCP) Patient Instructions [facility] Problem Qualifiers
[2017-04-22] MEDS ORDERED: VANCOMYCIN CONSULT ACTIVE PRN (07:15)
--- NOTE | 2017-04-22 07:28 | DIAGNOSTIC IMAGING REPORT ---
CHEST 2 VIEWS ROUTINE CLINICAL HISTORY: 47 years-old Female presenting with Fever. TECHNIQUE: AP and lateral views of the chest were obtained. COMPARISON: 10/26/2016. FINDINGS: Cardiomediastinal silhouette normal. Minimal linear opacities at the left lung base. Lungs and pleural spaces otherwise clear. Osseous structures normal. Upper abdomen normal. IMPRESSION: 1. Minimal left basilar atelectasis suspected. No other focal infiltrate to suggest pneumonia. Electronically signed by: Rafi Dukes M.D. 04/22/2017 7:26 AM Dictated Date/Time: 04/22/2017 7:25 AM
[2017-04-22] MEDS ORDERED: VANCOMYCIN INJ 1,750 MG in SODIUM CHLORIDE 0.9% 500ML 500 ML IV SCH (07:30)
--- NOTE | 2017-04-22 08:20 | Surgery Consultation ---
Consultation Date of Consultation: Apr 22, 2017. Attending Physician: Luciano Kingston M.D. History of Present Illness Eliz Swan is a 47 year old woman with HTN, hyperlipidemia, depression and anxiety, history of chronic pain syndrome and opiate, benzodiazepine dependence who presented to the ED with fever, tachycardia, hypotension and diffuse abdominal pain. Per reports, she was in her usual state of health until 1 day prior to admission. In the ED, vitals signs normalized with administration of 3L NSS. On my exam, patient is not very interactive - very sleepy, giving one word answers and falling back asleep. Admits to recent abdominal pain, nausea and vomiting. Denies constipation / diarrhea. Would not tell me duration of symptoms or any other associated symptoms. She has a past surgical history of open cholecystectomy and . Unable to elicit any other review of symptoms. Past Medical/Surgical History Medical History: 1. Chronic pain syndrome 2. Opiate and benzodiazepine dependence 3. Anxiety disorder 4. Depression 5. Intellectual disorder 6. Hearing impairment 7. HTN 8. Hyperlipidemia 9. Migraine headaches 10. Personality disorder 11. Speech disorder Surgical History: 1. Cholecystectomy (open) 2. Family History No significant family history stated Social History Smoking Status: Current Every Day Smoker Drug Use: none Marital Status: Housing Status: lives with family Occupation Status: disabled Allergies Coded Allergies: Haloperidol (Verified Allergy, Severe, TONGUE SWELLS, 04/22/17) Hydroxyzine (Verified Allergy, Severe, CAN'T BREATH, 04/22/17) Prochlorperazine (Verified Adverse Reaction, Intermediate, SICK, 04/22/17) Escitalopram (Verified Adverse Reaction, Mild, MAKES HER "THINK GOOFY", ) Rofecoxib (Verified Adverse Reaction, Mild, FIERRO LIPS, 04/22/17) Prednisone (Verified Adverse Reaction, Unknown, GI UPSET, 04/22/17) Tramadol (Verified Adverse Reaction, Unknown, UNABLE TO VOID, 04/22/17) Home Medications Scheduled Alprazolam (Xanax), 1 MG PO TID Aspirin (Aspirin Ec), 81 MG PO DAILY Esomeprazole Magnesium (Esomeprazole Magnesium), 40 MG PO DAILY Scheduled PRN Oxycodone/Acetaminophen 10MG/325MG (Percocet 10MG/325MG), 1 TAB PO Q6 PRN for Pain Current Inpatient Medications Current Inpatient Medications Medications (Trade) Dose Ordered Sig/Jaquelin Route Start Time Stop Time Status Last Admin Dose Admin Pantoprazole Sodium 40 mg/ Syringe 10 ml @ 5 mls/min DAILY@11 IV 04/22/17 11:00 05/22/17 10:59 Hydromorphone HCl (Dilaudid Inj) 0.5 mg Q2H PRN IV 04/22/17 06:15 05/06/17 06:14 Lorazepam (Ativan Inj) 1 mg Q4H PRN IV 04/22/17 06:15 05/22/17 06:14 Potassium Chloride/Dextrose/ Sod Cl 1,000 ml @ 150 mls/hr Q6H40M IV 04/22/17 07:00 04/22/17 20:19 Ondansetron HCl (Zofran Inj) 4 mg Q6H PRN IV 04/22/17 06:15 05/22/17 06:14 Acetaminophen 650 mg/Empty Bag 65 ml @ 260 mls/hr Q8H PRN IV 04/22/17 06:30 05/22/17 06:29 Ampicillin Sodium/ Sulbactam Sodium 3000 mg/Sodium Chloride 108 ml @ 200 mls/hr Q6H IV 04/22/17 08:00 04/29/17 07:59 Vancomycin HCl 1000 mg/Sodium Chloride 270 ml @ 125 mls/hr Q12 IV 04/22/17 09:00 04/29/17 08:59 UNV Vancomycin HCl 1750 mg/Sodium Chloride 535 ml @ 200 mls/hr 0730 IV 04/22/17 07:30 04/22/17 10:11 Vancomycin HCl (Consult) 1 ea UD PRN N/A 04/22/17 07:15 05/22/17 07:14 Review of Systems Cardiovascular: No chest pain Abdomen: + pain, + nausea, + vomiting, No diarrhea, No constipation Physical Exam Date Time Temp Pulse Resp B/P (MAP) Pulse Ox O2 Delivery O2 Flow Rate FiO2 04/22/17 06:30 96 14 98/51 96 Nasal Cannula 2.0 04/22/17 06:05 103 04/22/17 06:02 102 14 91/57 93 Nasal Cannula 2.0 04/22/17 05:30 100 18 101/51 95 Room Air 04/22/17 05:18 102 14 83/50 99 Nasal Cannula 3.0 04/22/17 04:30 108 14 86/45 97 Nasal Cannula 2.0 04/22/17 03:53 37.2 113 20 93/62 95 Nasal Cannula 2.0 04/22/17 03:06 112 18 99/70 97 Nasal Cannula 2.0 04/22/17 02:17 95 Nasal Cannula 2.0 04/22/17 02:17 88 Room Air 04/22/17 02:06 119 04/22/17 02:00 38.5 119 18 117/93 92 Room Air General Appearance: WD/WN, no apparent distress, + pertinent finding (very sleepy) Head: normocephalic, atraumatic Neck: supple Respiratory/Chest: lungs clear, normal breath sounds, no respiratory distress Cardiovascular: regular rate, rhythm Abdomen/GI: soft (no rebound / guarding), + tenderness (mild epigastric tenderness to palpation), + abnormal bowel sounds (hypoactive), + distended ( mildly) Neurologic/Psych: + pertinent finding (awakens to voice and stimulation, but very sleepy) Skin: normal color, warm/dry, no rash Laboratory Results Last 24 Hours Test 04/22/17 01:35 04/22/17 02:20 04/22/17 02:38 04/22/17 02:43 White Blood Count 9.97 K/uL Red Blood Count 4.53 M/uL Hemoglobin 14.4 g/dL Hematocrit 42.6 % Mean Corpuscular Volume 94.0 fL Mean Corpuscular Hemoglobin 31.8 pg Mean Corpuscular Hemoglobin Concent 33.8 g/dl Platelet Count 197 K/uL Mean Platelet Volume 9.7 fL Neutrophils (%) (Auto) 84.0 % Lymphocytes (%) (Auto) 6.4 % Monocytes (%) (Auto) 8.6 % Eosinophils (%) (Auto) 0.6 % Basophils (%) (Auto) 0.1 % Neutrophils # (Auto) 8.37 K/uL Lymphocytes # (Auto) 0.64 K/uL Monocytes # (Auto) 0.86 K/uL Eosinophils # (Auto) 0.06 K/uL Basophils # (Auto) 0.01 K/uL RDW Standard Deviation 45.1 fL RDW Coefficient of Variation 13.2 % Immature Granulocyte % (Auto) 0.3 % Immature Granulocyte # (Auto) 0.03 K/uL Prothrombin Time 11.5 SECONDS Prothromb Time International Ratio 1.1 Activated Partial Thromboplast Time 27.5 SECONDS Partial Thromboplastin Ratio 1.1 Sodium Level 138 mmol/L Potassium Level 3.9 mmol/L Chloride Level 103 mmol/L Carbon Dioxide Level 28 mmol/L Anion Gap 7.0 mmol/L Blood Urea Nitrogen 14 mg/dl Creatinine 1.00 mg/dl Est Creatinine Clear Calc Drug Dose 64.4 ml/min Estimated GFR () 77.2 Estimated GFR (Non- 66.6 BUN/Creatinine Ratio 13.7 Random Glucose 103 mg/dl Calcium Level 8.6 mg/dl Magnesium Level 1.7 mg/dl Total Bilirubin 0.6 mg/dl Aspartate Amino Transf (AST/SGOT) 57 U/L Alanine Aminotransferase (ALT/SGPT) 55 U/L Alkaline Phosphatase 138 U/L Total Creatine Kinase 1275 U/L Creatine Kinase MB 1.3 ng/ml Creatine Kinase MB Ratio 0.1 Total Protein 6.4 gm/dl Albumin 3.0 gm/dl Globulin 3.4 gm/dl Albumin/Globulin Ratio 0.9 Lipase 51 U/L Thyroid Stimulating Hormone (TSH) 1.690 uIu/ml Urine Color YELLOW Urine Appearance CLEAR Urine pH 8.5 Urine Specific [place] 1.019 Urine Protein NEG Urine Glucose (UA) NEG Urine Ketones NEG Urine Occult Blood NEG Urine Nitrite NEG Urine Bilirubin NEG Urine Urobilinogen NEG Urine Leukocyte Esterase TRACE Urine WBC (Auto) 1-5 /hpf Urine RBC (Auto) 0-4 /hpf Urine Hyaline Casts (Auto) 0 /lpf Urine Epithelial Cells (Auto) 10-20 /lpf Urine Bacteria (Auto) NEG Urine Test NEG Influenza Type A Antigen Neg for Influ A Influenza Type B Antigen Neg for Influ B Bedside Lactic Acid Venous 2.05 mmol/L 04/22/17 CXR: IMPRESSION: 1. Minimal left basilar atelectasis suspected. No other focal infiltrate to suggest pneumonia. 04/22/17 CT Abd / Pelvis (no contrast): IMPRESSION: 1. No evidence of free air.. 2. Surgically absent gallbladder 3. Normal appendix. No evidence of acute diverticulitis 4. There are several mildly prominent fluid-filled central abdominal small bowel loops with multiple air-fluid levels, borderline small bowel wall thickening, and mild associated mesenteric edema. The distal small bowel is decompressed. This could indicate an early or partial small bowel obstruction. 5. Equivocal minimal pancreatic edema Assessment & Plan Eliz Swan is a 47 year old woman with history of open cholecystectomy and C- section who is now admitted with diffuse abdominal pain, reports of N/V and CT scan findings concerning for potential early small bowel obstruction. -No acute surgical intervention indicated at this time -Recommend non-operative management of partial obstruction: NPO, IVF hydration, pain and nausea control as needed -No need for NGT decompression at this time, but if develops N/V again would recommend NGT placement -Trend labs, replete electrolytes as needed -Rest of management per primary team -Will continue to follow Arminda Marlow MD 04/22/17
[2017-04-22] MEDS: D5NSS + 20MEQ KCL 1,000 ML IV SCH ×3 (09:05→17:30)
[2017-04-22] MEDS: AMPICILLIN/SULBACTAM SOD INJ 3,000 MG in SODIUM CHLORIDE 0.9% 100ML 100 ML IV SCH ×3 (09:05→20:17)
[2017-04-22] MEDS: PANTOprazole INJ 40 MG in SYRINGE 0 ML IV SCH (11:04)
--- NOTE | 2017-04-22 11:18 | Pharmacy Progress Note ---
Pharmacy Antibiotic Consult Date of Service: Apr 22, 2017. Pharmacy Dosing Scope Pharmacy is consulted to initiate vancomycin IV dosing therapy, order appropriate labs and adjust drug dose/frequency. Subjective The patient is a 47 year old female admitted on Apr 22, 2017 at 06:17. Partial SBO, possible aspiration pneumonia. Objective Height (Feet): 5 Height (Inches): 6.00 Weight (Kilograms): 68.500 Lab Results (24hrs): Test 04/22/17 01:35 04/22/17 02:20 04/22/17 02:38 04/22/17 02:43 White Blood Count 9.97 K/uL (4.8-10.8) Red Blood Count 4.53 M/uL (4.2-5.4) Hemoglobin 14.4 g/dL (12.0-16.0) Hematocrit 42.6 % (37-47) Mean Corpuscular Volume 94.0 fL (80-100) Mean Corpuscular Hemoglobin 31.8 pg (25-34) Mean Corpuscular Hemoglobin Concent 33.8 g/dl (32-36) Platelet Count 197 K/uL (130-400) Mean Platelet Volume 9.7 fL (7.4-10.4) Neutrophils (%) (Auto) 84.0 % Lymphocytes (%) (Auto) 6.4 % Monocytes (%) (Auto) 8.6 % Eosinophils (%) (Auto) 0.6 % Basophils (%) (Auto) 0.1 % Neutrophils # (Auto) 8.37 K/uL (1.4-6.5) Lymphocytes # (Auto) 0.64 K/uL (1.2-3.4) Monocytes # (Auto) 0.86 K/uL (0.11-0.59) Eosinophils # (Auto) 0.06 K/uL (0-0.5) Basophils # (Auto) 0.01 K/uL (0-0.2) RDW Standard Deviation 45.1 fL (36.4-46.3) RDW Coefficient of Variation 13.2 % (11.5-14.5) Immature Granulocyte % (Auto) 0.3 % Immature Granulocyte # (Auto) 0.03 K/uL (0.00-0.02) Prothrombin Time 11.5 SECONDS (9.0-12.0) Prothromb Time International Ratio 1.1 (0.9-1.1) Activated Partial Thromboplast Time 27.5 SECONDS (21.0-31.0) Partial Thromboplastin Ratio 1.1 Sodium Level 138 mmol/L (136-145) Potassium Level 3.9 mmol/L (3.5-5.1) Chloride Level 103 mmol/L (98-107) Carbon Dioxide Level 28 mmol/L (21-32) Anion Gap 7.0 mmol/L (3-11) Blood Urea Nitrogen 14 mg/dl (7-18) Creatinine 1.00 mg/dl (0.60-1.20) Est Creatinine Clear Calc Drug Dose 64.4 ml/min Estimated GFR () 77.2 Estimated GFR (Non- 66.6 BUN/Creatinine Ratio 13.7 (10-20) Random Glucose 103 mg/dl (70-99) Calcium Level 8.6 mg/dl (8.5-10.1) Magnesium Level 1.7 mg/dl (1.8-2.4) Total Bilirubin 0.6 mg/dl (0.2-1) Aspartate Amino Transf (AST/SGOT) 57 U/L (15-37) Alanine Aminotransferase (ALT/SGPT) 55 U/L (12-78) Alkaline Phosphatase 138 U/L (45-117) Total Creatine Kinase 1275 U/L (26-192) Creatine Kinase MB 1.3 ng/ml (0.5-3.6) Creatine Kinase MB Ratio 0.1 (0-3.0) Total Protein 6.4 gm/dl (6.4-8.2) Albumin 3.0 gm/dl (3.4-5.0) Globulin 3.4 gm/dl (2.5-4.0) Albumin/Globulin Ratio 0.9 (0.9-2) Lipase 51 U/L (73-393) Thyroid Stimulating Hormone (TSH) 1.690 uIu/ml (0.300-4.500) Urine Color YELLOW Urine Appearance CLEAR (CLEAR) Urine pH 8.5 (4.5-7.5) Urine Specific [place] 1.019 (1.000-1.030) Urine Protein NEG (NEG) Urine Glucose (UA) NEG (NEG) Urine Ketones NEG (NEG) Urine Occult Blood NEG (NEG) Urine Nitrite NEG (NEG) Urine Bilirubin NEG (NEG) Urine Urobilinogen NEG (NEG) Urine Leukocyte Esterase TRACE (NEG) Urine WBC (Auto) 1-5 /hpf (0-5) Urine RBC (Auto) 0-4 /hpf (0-4) Urine Hyaline Casts (Auto) 0 /lpf (0-5) Urine Epithelial Cells (Auto) 10-20 /lpf (0-5) Urine Bacteria (Auto) NEG (NEG) Urine Test NEG (NEG) Influenza Type A Antigen Neg for Influ A (NEG) Influenza Type B Antigen Neg for Influ B (NEG) Bedside Lactic Acid Venous 2.05 mmol/L (0.90-1.70) Test 04/22/17 09:03 Lactic Acid Level 0.8 mmol/L (0.4-2.0) Total Creatine Kinase 710 U/L (26-192) Micro Results: 04/22 blood x2 pending 04/22 nasal swab for MRSA- pending Recent Pertinent Medications Item Value Date Time Vancomycin HCl 270 ml @ 125 mls/hr 04/22/17 2200 1000 mg/Sodium Q12@1000,2200/IV Chloride Ampicillin Sodium/ 108 ml @ 200 mls/hr 04/22/17 0800 Sulbactam Sodium Q6H/IV 04/22/17 0905 3000 mg/Sodium Chloride Vancomycin HCl 535 ml @ 200 mls/hr 04/22/17 0730 1750 mg/Sodium 0730/IV 04/22/17 0906 Chloride Daptomycin 411 mg/ 58.22 ml @ 100 mls/hr 04/22/17 0415 Sodium Chloride NOW ONCE/IV 04/22/17 0446 Imipenem/ 110 ml @ 100 mls/hr 04/22/17 0410 Cilastatin Sodium NOW STAT/IV 04/22/17 0516 500 mg/Dextrose Assessment & Plan Loading dose: vancomycin 1750 mg IV X 1 dose (~25 mg/kg) then: vancomycin 1000 mg IV every 12 hours. Goal peak level estimate: between 25-40 mcg/mL. Goal trough level estimate: between 15-20 mcg/mL. Trough has been ordered for: 04/24/17 before 10 am dose. Pharmacy will continue to follow and will adjust dose/frequency as necessary. Thank you
[2017-04-22] MEDS: HYDROmorphone INJ 0.5 MG/0.5 ML SYR IV PRN (16:31)
[2017-04-22] MEDS ORDERED: MAGNESIUM SULFATE 1GM / D5W 1 GM in PREMIXED IN D5W 100 ML IV STA (17:09)
--- NOTE | 2017-04-22 17:09 | Progress Note ---
Progress Note Date of Service Apr 22, 2017. (Cony Paulson ., ROSANGELA) Progress Note Patient admitted after midnight. Seen and examined by me. Pt uncomfortable, complaining of 10/10 diffuse abdominal pain. She is unable to characterize the pain. She complains of nausea but denies vomiting. She also admits to a non-productive cough and is sometimes short of breath. She denies passing gas. Per nursing, the patient passed a small stool earlier today. Physical exam pertinent for distended abdomen and hypoactive bowel sounds. Abdomen diffusely TTP. Exam otherwise unremarkable. A/P: Small bowel obstruction -Admit to telemetry -General surgery consulted, appreciate recs: no acute surgery at this time. Continue conservative management with NPO, IVF, pain/nausea control. Hold off on NGT unless more vomiting. -Pain control with Dilaudid 0.5 mg IV q2h prn pain -Zofran 4 mg IV q6hp prn nausea -LFTs elevated, repeat tomorrow morning -Check urine drug screen -Continue D5NSS + 20 mEq KCl at 100 cc/hr Sepsis, unknown source--pt febrile and hypotensive on arrival -Continue Unasyn and vancomycin -CT abdomen did not show obvious source -UA negative -CXR no acute disease Hypomagnesemia -Magnesium 1.7 on admission -Magnesium sulfate 1 gm IV x 1, continue to monitor (Cony Paulson ., ROSANGELA) Reviewed: Pt Seen/Exam by Me (Janet Mcbride MD) History Physician Drywall Mechanic Supervision Note: I interviewed and examined the patient. Discussed with PAMELA Paulson and agree with findings and plan as documented in the note. Any exceptions or clarifications are listed here: Pt sleeping but after I woke her up, says she has a lot of pain but then falls back asleep. She is having nausea but no vomiting. Review of [facility] Rx Monitoring website, shows she is prescribed percocet 10/ 325mg #180 tabs for 30 day supply each month and Xanax 1mg tabs #120 tabs per month. Vitals and tele reviewed NAD, sleeping edentulous, drowsy but wakes up and follows commands RRR no mgr CTAB no wcr Abd hypoactive BS soft, +TTP periumbilical region with some voluntary guarding, no rebound Ext no edema 47 yo female with PSBO, fever with unknown source, minimally elevated LFTs. LFTs up possibly secondary to opioid use? Will trend. Does not have a GB Had N/V prior to admission and could have aspiration pneumonitis causing fever-- > repeat CXR with [facility] in the AM -appreciate Gen Surgery following -continue NPO, IVFs, pain meds -watch for opioid nad benzo withdrawal Documented By: Janet Mcbride (Janet Mcbride MD)
[2017-04-22 19:03] LABS: BENZODIAZEPINE, URINE POS (NEG); COCAINE,URINE NEG (NEG); PHENCYCLIDINE, URINE NEG (NEG)
[2017-04-22] MEDS: VANCOMYCIN INJ 1,000 MG in SODIUM CHLORIDE 0.9% 250ML 250 ML IV SCH (22:27)
[2017-04-23] VITALS (7 sets, daily range): BP systolic 106–132; BP diastolic 61–88; PULSE 86–109; TEMP 36.8–37.1; O2SAT 94–96
[2017-04-23] MEDS: AMPICILLIN/SULBACTAM SOD INJ 3,000 MG in SODIUM CHLORIDE 0.9% 100ML 100 ML IV SCH ×4 (02:24→20:11)
[2017-04-23] MEDS: D5NSS + 20MEQ KCL 1,000 ML IV SCH ×3 (02:26→22:49)
[2017-04-23] MEDS: HYDROmorphone INJ 0.5 MG/0.5 ML SYR IV PRN ×4 (05:30→20:11)
--- NOTE | 2017-04-23 08:16 | DIAGNOSTIC IMAGING REPORT ---
ABDOMEN 2VIEW W/PA CHEST RTN CLINICAL HISTORY: 47 years-old Female presenting with f/u small bowel obstruction. TECHNIQUE: PA view of the chest and supine and upright views of the abdomen were obtained. COMPARISON: 04/22/2017. FINDINGS: Cardiomediastinal silhouette normal. Lungs and pleural spaces clear. Cholecystectomy clips noted. Few air-fluid levels noted in the small bowel of the central abdomen. No evidence of free intraperitoneal gas, pneumatosis, or portal venous gas. Osseous structures normal. IMPRESSION: 1. No acute cardiopulmonary disease. 2. Partial small bowel obstruction cannot be excluded given multiple air-fluid levels in small bowel in the central abdomen. Follow-up suggested. Electronically signed by: Raif Dukes M.D. 04/23/2017 8:15 AM Dictated Date/Time: 04/23/2017 8:13 AM
[2017-04-23 08:38] LABS: HEMATOCRIT 38.4 % (37-47); MEAN CELL VOLUME 95.5 fL (80-100); MEAN CORPUSCULAR HEMOGLOBIN 30.8 pg (25-34); MEAN CORPUSCULAR HGB CONC 32.3 g/dl (32-36); MEAN PLATELET VOLUME 9.4 fL (7.4-10.4); PLATELET COUNT 183 K/uL (130-400); RED BLOOD COUNT 4.02 M/uL (4.2-5.4)
[2017-04-23 09:14] LABS: BUN/CREATININE RATIO 7.4 (10-20); CALCIUM 8.4 mg/dl (8.5-10.1); CREATININE 0.62 mg/dl (0.60-1.20); MAGNESIUM 2.1 mg/dl (1.8-2.4); POTASSIUM 4.1 mmol/L (3.5-5.1)
[2017-04-23] MEDS: VANCOMYCIN INJ 1,000 MG in SODIUM CHLORIDE 0.9% 250ML 250 ML IV SCH (10:23)
--- NOTE | 2017-04-23 11:18 | Surgery Progress Note ---
Surgery Progress Note Date of Service Apr 23, 2017. Subjective Post OP Day: HD # 1 + bowel movement (liquid bowel movements this am), + flatus, No nausea, No vomiting "not feeling well" Belly is sore, constantly hurting, no change from yesterday Objective Vital Signs: Date Time Temp Pulse Resp B/P (MAP) Pulse Ox O2 Delivery O2 Flow Rate FiO2 04/23/17 08:00 Room Air 04/23/17 07:58 36.9 109 18 122/85 (97) 96 04/23/17 04:28 Room Air 04/23/17 04:22 36.8 105 20 118/80 (93) 96 Room Air 04/23/17 00:45 Room Air 04/22/17 23:56 36.7 105 20 108/73 (85) 90 Room Air 04/22/17 20:00 Room Air 04/22/17 19:24 36.9 106 20 114/78 (90) 93 Room Air 04/22/17 16:00 95 Room Air 04/22/17 15:14 36.6 101 22 115/83 (94) 95 Room Air 04/22/17 13:18 36.6 86 16 101/86 97 04/22/17 13:10 36.9 91 16 96/66 (76) 96 Room Air 04/22/17 12:40 101/86 04/22/17 12:05 36.6 92 16 97/61 97 Nasal Cannula 2.0 04/22/17 12:00 97 Nasal Cannula 2.0 General Appearance: WD/WN, no apparent distress Head: normocephalic, atraumatic Neck: trachea midline Respiratory/Chest: no respiratory distress, no accessory muscle use Abdomen: soft, + distended (very mildly), + tenderness (mild tenderness on palpation, no rebound, guarding, or peritonitis) Laboratory Results: Results Past 24 Hours Test 04/22/17 17:23 04/22/17 18:25 04/23/17 08:11 Range/Units Total Creatine Kinase 539 26-192 U/L Urine Opiates Screen POS NEG Urine Methadone, Qualitative NEG NEG Urine Barbiturates NEG NEG Urine Phencyclidine (PCP) Level NEG NEG Ur Amphetamine/Methamphetamine NEG NEG MDMA (Ecstasy) Screen NEG NEG Urine Benzodiazepines Screen POS NEG Urine Cocaine Metabolite NEG NEG Urine Marijuana (THC) NEG NEG White Blood Count 6.40 4.8-10.8 K/uL Red Blood Count 4.02 4.2-5.4 M/uL Hemoglobin 12.4 12.0-16.0 g/dL Hematocrit 38.4 37-47 % Mean Corpuscular Volume 95.5 80-100 fL Mean Corpuscular Hemoglobin 30.8 25-34 pg Mean Corpuscular Hemoglobin Concent 32.3 32-36 g/dl RDW Standard Deviation 45.5 36.4-46.3 fL RDW Coefficient of Variation 13.2 11.5-14.5 % Platelet Count 183 130-400 K/uL Mean Platelet Volume 9.4 7.4-10.4 fL Sodium Level 142 136-145 mmol/L Potassium Level 4.1 3.5-5.1 mmol/L Chloride Level 112 98-107 mmol/L Carbon Dioxide Level 25 21-32 mmol/L Anion Gap 5.0 3-11 mmol/L Blood Urea Nitrogen 5 7-18 mg/dl Creatinine 0.62 0.60-1.20 mg/dl Est Creatinine Clear Calc Drug Dose 103.8 ml/min Estimated GFR () 123.6 Estimated GFR (Non- 106.6 BUN/Creatinine Ratio 7.4 10-20 Random Glucose 107 70-99 mg/dl Calcium Level 8.4 8.5-10.1 mg/dl Magnesium Level 2.1 1.8-2.4 mg/dl Total Bilirubin 0.6 0.2-1 mg/dl Direct Bilirubin 0.1 0-0.2 mg/dl Aspartate Amino Transf (AST/SGOT) 23 15-37 U/L Alanine Aminotransferase (ALT/SGPT) 31 12-78 U/L Alkaline Phosphatase 99 45-117 U/L Total Protein 5.3 6.4-8.2 gm/dl Albumin 2.5 3.4-5.0 gm/dl Microbiology Results 04/22/17 MRSA DNA Surveillance Screen - Final, Complete Specimen Negative for MRSA by DNA Probe Diagnostic Interpretation: ABDOMEN 2VIEW W/PA CHEST RTN CLINICAL HISTORY: 47 years-old Female presenting with f/u small bowel obstruction. TECHNIQUE: PA view of the chest and supine and upright views of the abdomen were obtained. COMPARISON: 04/22/2017. FINDINGS: Cardiomediastinal silhouette normal. Lungs and pleural spaces clear. Cholecystectomy clips noted. Few air-fluid levels noted in the small bowel of the central abdomen. No evidence of free intraperitoneal gas, pneumatosis, or portal venous gas. Osseous structures normal. IMPRESSION: 1. No acute cardiopulmonary disease. 2. Partial small bowel obstruction cannot be excluded given multiple air-fluid levels in small bowel in the central abdomen. Follow-up suggested. Assessment & Plan Partial Small Bowel Obstruction- resolving -vitals stable, afebrile - no leukocytosis - + bowel function - moderate abdominal pain, cramping, no change from admission Plan: May have ice chips and sips, did not want to try any clear liquids Continue IV fluids, Iv antibiotics, and IV pain management as needed Continue current medical management will follow Discussed with Dr. Marlow
--- NOTE | 2017-04-23 11:47 | Hospitalist Progress Note ---
Hospitalist Progress Note Date of Service Apr 23, 2017. (Cony Paulson ., DELIAC) Subjective Pt evaluation today including: conversation w/ patient, physical exam, chart review, lab review, review of inpatient medication list Pain: 10/10 diffuse abdominal pain PO Intake: NPO Voiding: no voiding problems Patient still complains of 10/10 diffuse abdominal pain. She states that the pain is constant. She also complains of nausea today but again denies vomiting. She believes she has had some bowel movements today. Per nursing records, the patient has had 3 liquid stools so far today. The patient also states that she is passing gas now. The patient denies fevers, chills, sweats, chest pain, palpitations, claudication, cough, wheezing, shortness of breath, vomiting, dysuria, hematuria, urinary retention, paralysis, weakness, numbness and tingling. Additional Comments: See HPI for pertinent positives and negatives. All other systems reviewed and negative. (Cony Paulson PA-C) Objective Vital Signs Date Time Temp Pulse Resp B/P (MAP) Pulse Ox O2 Delivery O2 Flow Rate FiO2 04/23/17 08:00 Room Air 04/23/17 07:58 36.9 109 18 122/85 (97) 96 04/23/17 04:28 Room Air 04/23/17 04:22 36.8 105 20 118/80 (93) 96 Room Air 04/23/17 00:45 Room Air 04/22/17 23:56 36.7 105 20 108/73 (85) 90 Room Air 04/22/17 20:00 Room Air 04/22/17 19:24 36.9 106 20 114/78 (90) 93 Room Air 04/22/17 16:00 95 Room Air 04/22/17 15:14 36.6 101 22 115/83 (94) 95 Room Air 04/22/17 13:18 36.6 86 16 101/86 97 04/22/17 13:10 36.9 91 16 96/66 (76) 96 Room Air 04/22/17 12:40 101/86 04/22/17 12:05 36.6 92 16 97/61 97 Nasal Cannula 2.0 04/22/17 12:00 97 Nasal Cannula 2.0 (Cony Paulson PA-C) Physical Exam Notes: General appearance: +Lethargic. Well-developed, well-nourished, no apparent distress Head: Normocephalic, atraumatic Eyes: Normal inspection, PERRL, EOMI ENT: +Edentulous. Normal ENT inspection, hearing grossly normal, pharynx normal Neck: Supple, no JVD, trachea midline Respiratory/Chest: Lungs clear to auscultation, normal breath sounds, no respiratory distress Cardiovascular: Regular rate & rhythm, no gallop, no murmur Abdomen/GI: +Distended, but appears improved today. Diffuse tenderness to palpation. Hypoactive bowel sounds. Extremities/Musculoskeletal: +1+ pitting edema. Normal inspection, no calf tenderness Neurological/Psych: Alert, normal mood/affect, oriented x 3 Skin: Normal color, warm/dry, no rash (Cony Paulson ., PA-C) Laboratory Results Last 24 Hours Test 04/22/17 17:23 04/22/17 18:25 04/23/17 08:11 Total Creatine Kinase 539 U/L Urine Opiates Screen POS Urine Methadone, Qualitative NEG Urine Barbiturates NEG Urine Phencyclidine (PCP) Level NEG Ur Amphetamine/Methamphetamine NEG MDMA (Ecstasy) Screen NEG Urine Benzodiazepines Screen POS Urine Cocaine Metabolite NEG Urine Marijuana (THC) NEG White Blood Count 6.40 K/uL Red Blood Count 4.02 M/uL Hemoglobin 12.4 g/dL Hematocrit 38.4 % Mean Corpuscular Volume 95.5 fL Mean Corpuscular Hemoglobin 30.8 pg Mean Corpuscular Hemoglobin Concent 32.3 g/dl RDW Standard Deviation 45.5 fL RDW Coefficient of Variation 13.2 % Platelet Count 183 K/uL Mean Platelet Volume 9.4 fL Sodium Level 142 mmol/L Potassium Level 4.1 mmol/L Chloride Level 112 mmol/L Carbon Dioxide Level 25 mmol/L Anion Gap 5.0 mmol/L Blood Urea Nitrogen 5 mg/dl Creatinine 0.62 mg/dl Est Creatinine Clear Calc Drug Dose 103.8 ml/min Estimated GFR () 123.6 Estimated GFR (Non- 106.6 BUN/Creatinine Ratio 7.4 Random Glucose 107 mg/dl Calcium Level 8.4 mg/dl Magnesium Level 2.1 mg/dl Total Bilirubin 0.6 mg/dl Direct Bilirubin 0.1 mg/dl Aspartate Amino Transf (AST/SGOT) 23 U/L Alanine Aminotransferase (ALT/SGPT) 31 U/L Alkaline Phosphatase 99 U/L Total Protein 5.3 gm/dl Albumin 2.5 gm/dl (Cony Paulson PA-C) Diagnostic Results Reviewed the following studies and agree with interpretation as follows: Patient Name: JOSEFINA SHORE Unit Number: [id number] Dictated: 04/23/17812 Transcribed: 04/23/17812 PBS Printed Date/Time: [~ rep prt dt]/[~ rep prt tm] [~ rep ct labl] - [~ rep ct ivnm] [facility] [place] [address] Dictated: 04/23/17812 Transcribed: 04/23/17812 PBS Printed Date/Time: [~ rep prt dt]/[~ rep prt tm] [~ rep ct labl] - [~ rep ct ivnm] Patient: JOSEFINA SHORE Address1: [address] Rec: [id number] Address2: Acct ID: [id number] [facility] Zip: [place] [address] Date: 1970 Sex: F Room/Bed: [facility] Ref Phy: Sridhar Gonzalez D.O. SC: C.2T Att Phy: Luciano Kingston M.D. Report #: [id number] Johanny Phy: Sridhar Gonzalez D.O. Test: ABCX Admit Phy: Luciano Kingston M.D. Pillow Filler: [facility] Interpreting Phy: Rafi Dukes MD Diagnosis: FEVER, SBO Ordering Phy: Janet Mcbride MD Service Date: 04/23/17 Admit Date: 04/22/1709/13/17 MNE: [id number] CONF: DICTATED BY: Rafi Dukes MD]] CC: Luciano Kingston M.D. Probst, Dennis S, D.O. Tussey, Natalie B., MD Endcc: [~ rep ct add3]] ABDOMEN 2VIEW W/PA CHEST RTN CLINICAL HISTORY: 47 years-old Female presenting with f/u small bowel obstruction. TECHNIQUE: PA view of the chest and supine and upright views of the abdomen were obtained. COMPARISON: 04/22/2017. FINDINGS: Cardiomediastinal silhouette normal. Lungs and pleural spaces clear. Cholecystectomy clips noted. Few air-fluid levels noted in the small bowel of the central abdomen. No evidence of free intraperitoneal gas, pneumatosis, or portal venous gas. Osseous structures normal. IMPRESSION: 1. No acute cardiopulmonary disease. 2. Partial small bowel obstruction cannot be excluded given multiple air-fluid levels in small bowel in the central abdomen. Follow-up suggested. Electronically signed by: Rafi Dukes M.D. 04/23/2017 8:15 AM Dictated Date/Time: 04/23/2017 8:13 AM The status of this report is Signed. Draft = Not yet reviewed or approved by Radiologist. Signed = Reviewed and approved by Radiologist. <AttendingPhy>Luciano Kingston M.D.</AttendingPhy> <FamilyPhy>Sridhar Gonzalez D.OJyothi </FamilyPhy> <PrimaryPhy>Sridhar Gonzalez D.O.</PrimaryPhy> <UnitNumber> [id number]</UnitNumber> <VisitNumber>[id number]</VisitNumber> <PatientName> JOSEFINA SHORE</PatientName> <DateOfBirth>1970</DateOfBirth> <Location>C.2T< /Location> <ServiceDate>04/22/17</ServiceDate> <MNE>ESINDI</MNE> <OrderingPhy> Janet Mcbride MD</OrderingPhy> <OrderingPhyMNE>f rep ord dr lopez</ OrderingPhyMNE> <DictatingPhyMNE>f rep dict dr lopez</DictatingPhyMNE> <CCListMNE> f rep ct john</CCListMNE> <AdmittingPhyMNE>f pt admit dr lopez</AdmittingPhyMNE> < AttendingPhyMNE>f pt attend dr lopez</AttendingPhyMNE> <ConsultingPhyMNE>f pt consult dr lopez</ConsultingPhyMNE> <FamilyPhyMNE>f pt fam dr lopez</FamilyPhyMNE> <OtherPhyMNE>f pt other dr lopez</OtherPhyMNE> < PrimaryPhyMNE>f pt prim care dr lopez</PrimaryPhyMNE> <ReferringPhyMNE>f pt referring dr lopez</ReferringPhyMNE> (Cony Paulson ., ROSANGELA) Assessment and Plan 47 y/o female with a history of HTN, intellectual dysfunction, chronic migraines , opiate and benzodiazepine abuse and GERD who presents to the ED on 04/22 with abdominal pain, nausea, vomiting, and fevers. She was found to have a partial small bowel obstruction. Pt does have a history of open cholecystectomy in 1992 and in 1996. She was hypotensive on arrival with resolved with 3L NSS. Partial small bowel obstruction--improving -Admit to telemetry. No acute events overnight. Pt in sinus tachycardia with HR in low 100s. -General surgery consulted, appreciate recs: No acute surgery at this time. Pt may have ice chips and sips. She did not want to attempt clear liquids. Continue IVF, IV abx, pain and nausea control. -NPO except ice chips and sips -Pt passing gas and liquid stools today -Pain control with Dilaudid 0.5 mg IV q2h prn pain -Zofran 4 mg IV q6hp prn nausea -LFTs elevated on admission, now WNL -Urine drug screen positive for opiates and benzos, which pt is prescribed. Differentiation pending -Continue D5NSS + 20 mEq KCl at 100 cc/hr -Chest/abdomen x-ray shows partial small bowel obstruction Sepsis vs SIRS, unknown source--pt febrile and hypotensive on arrival. -Blood cultures NGTD x 2 -UA negative -CXR no acute disease -D/C abx. No PNA on x-ray, no more fevers since admission or leukocytosis. No infection/inflammation on abdominal CT Hypomagnesemia--resolved -Magnesium 1.7 on admission -Magnesium sulfate 1 gm IV x 1 -Repeat Mg 2.1 on 04/23 HTN--stable, hypotension resolved Opiate and benzo abuse -No s/s withdrawal -Continue Ativan 1 mg IV q4h prn withdrawal sx. Has not needed Rhabdomyolysis--improving -CK elevated at 1275 on admission -IVF as above -CK 539 on 9/14 GERD -Continue Protonix 40 mg PO qd Current smoker -Pt declined nicotine patch DVT prophylaxis -SCDs Code Status -Level I, FULL RESUSCITATION STATUS (Cony Paulson ., ROSANGELA) Reviewed: Pt Seen/Exam by Me (Janet Mcbride MD) History Physician Publishing Specialist Supervision Note: I interviewed and examined the patient. Discussed with PAMELA Paulson and agree with findings and plan as documented in the note. Any exceptions or clarifications are listed here: Pt reports having a SALAS. Says she has a long h/o migraines and is on disability for her migraines. Says she takes oxycodone daily at home for her migraines. Vitals and tele reviewed NAD, alert edentulous RRR no mgr CTAB no wcr Abd hypoactive BS soft, +TTP diffusely but no guarding today Ext no edema 47 yo female with PSBO, fever with unknown source, minimally elevated LFTs. LFTs were up possibly secondary to opioid use. Now normal. Previous liver US earlier this year is normal, CT abd here no liver abnormalities. Does not have a GB Had N/V prior to admission and could have had aspiration pneumonitis causing fever--> repeat CXR this AM without PNA or infiltrate. -ok to stop vanco but as per Surgery recommendations, will continue Unasyn to cover for GI source of infection -appreciate Gen Surgery following -continue NPO except sips and chips, IVFs, pain meds -watch for opioid and benzo withdrawal -opioids for headache for now, consider Neuro consultation as before if not improved -Start heparin for DVT proph as no surgery imminent Documented By: Janet Mcbride (Janet Mcbride MD)
[2017-04-23] MEDS: PANTOprazole INJ 40 MG in SYRINGE 0 ML IV SCH (13:34)
[2017-04-23] MEDS: ONDANSETRON INJ 2 MG/ML 2 ML VIAL IV PRN (13:45)
[2017-04-23] MEDS: HEPARIN SOD 5000 UNIT/0.5 ML CARP SQ SCH (21:57)
[2017-04-24] VITALS (9 sets, daily range): BP systolic 108–150; BP diastolic 66–95; PULSE 57–96; TEMP 36.5–37; O2SAT 94–99
[2017-04-24] MEDS: HYDROmorphone INJ 0.5 MG/0.5 ML SYR IV PRN ×3 (00:04→07:41)
[2017-04-24] MEDS: AMPICILLIN/SULBACTAM SOD INJ 3,000 MG in SODIUM CHLORIDE 0.9% 100ML 100 ML IV SCH ×4 (01:52→20:05)
[2017-04-24] MEDS: HEPARIN SOD 5000 UNIT/0.5 ML CARP SQ SCH ×3 (05:50→20:06)
[2017-04-24 06:11] LABS: BASO % 0.3 %; BASO ABS # 0.02 K/uL (0-0.2); COMPLETE YES; EOS % 2.7 %; HEMATOCRIT 35.4 % (37-47); IG% 0.5 %; LYMPH % 17.4 %; LYMPH ABS # 1.16 K/uL (1.2-3.4); MEAN CELL VOLUME 93.9 fL (80-100); MEAN CORPUSCULAR HEMOGLOBIN 31.3 pg (25-34); MEAN CORPUSCULAR HGB CONC 33.3 g/dl (32-36); MONO % 5.1 %; PLATELET COUNT 184 K/uL (130-400); RED BLOOD COUNT 3.77 M/uL (4.2-5.4); WHITE BLOOD COUNT 6.66 K/uL (4.8-10.8)
[2017-04-24 06:49] LABS: BUN/CREATININE RATIO 2.4 (10-20); CALCIUM 8.2 mg/dl (8.5-10.1); CREATININE 0.72 mg/dl (0.60-1.20); MAGNESIUM 1.8 mg/dl (1.8-2.4); POTASSIUM 3.8 mmol/L (3.5-5.1)
--- NOTE | 2017-04-24 07:03 | DIAGNOSTIC IMAGING REPORT ---
BILATERAL LOWER EXTREMITY VENOUS DOPPLER CLINICAL HISTORY: Bilateral lower extremity edema. COMPARISON STUDY: No previous studies for comparison. TECHNIQUE: Sonography of the deep venous system of the bilateral lower extremities was performed. Compression and augmentation were evaluated. FINDINGS: The bilateral common femoral, superficial femoral and popliteal veins were compressible. Augmentation was normal. Flow was shown within the deep calf vessels. IMPRESSION: No evidence of deep venous thrombus within the bilateral lower extremities. Electronically signed by: Bobby Santos M.D. 04/24/2017 7:01 AM Dictated Date/Time: 04/24/2017 7:01 AM
--- NOTE | 2017-04-24 08:09 | DIAGNOSTIC IMAGING REPORT ---
ABDOMEN 2 VIEWS HISTORY: Follow-up for small bowel obstruction. COMPARISON: Chest and abdominal series 04/23/2017. FINDINGS: Distended air-filled loops of small bowel have improved. No dilated loops of bowel identified this time to suggest an obstruction. A few small fluid levels identified within the small bowel. The lung bases are clear. No pneumoperitoneum. No pneumatosis. Cholecystectomy. IMPRESSION: Interval improvement/resolution of the small bowel obstruction pattern. Electronically signed by: Mehran Ingram M.D. 04/24/2017 8:08 AM Dictated Date/Time: 04/24/2017 8:06 AM
[2017-04-24] MEDS ORDERED: VANCOMYCIN TROUGH SCH (09:30)
--- NOTE | 2017-04-24 09:44 | Surgery Progress Note ---
Surgery Progress Note Date of Service Apr 24, 2017. Subjective +headache No nausea or vomiting abdominal pain much improved Objective Vital Signs: Date Time Temp Pulse Resp B/P (MAP) Pulse Ox O2 Delivery O2 Flow Rate FiO2 04/24/17 08:01 36.5 77 18 115/66 (82) 99 04/24/17 08:00 94 Room Air 2.0 04/24/17 04:00 36.7 96 18 123/72 (89) 94 Room Air 04/24/17 04:00 94 Room Air 04/24/17 00:00 Room Air 04/23/17 23:01 37.1 98 18 115/71 (86) 95 Room Air 04/23/17 20:00 95 Room Air 04/23/17 19:34 36.9 102 16 106/71 (83) 95 Room Air 04/23/17 16:00 Room Air 04/23/17 15:21 36.8 103 16 132/88 (103) 94 Room Air 04/23/17 12:00 Room Air 04/23/17 11:38 37.0 86 16 129/61 (83) 95 General Appearance: WD/WN, no apparent distress Head: normocephalic, atraumatic Neck: trachea midline Respiratory/Chest: no respiratory distress, no accessory muscle use Abdomen: non tender, non distended, soft Laboratory Results: Results Past 24 Hours Test 04/24/17 05:52 Range/Units White Blood Count 6.66 4.8-10.8 K/uL Red Blood Count 3.77 4.2-5.4 M/uL Hemoglobin 11.8 12.0-16.0 g/dL Hematocrit 35.4 37-47 % Mean Corpuscular Volume 93.9 80-100 fL Mean Corpuscular Hemoglobin 31.3 25-34 pg Mean Corpuscular Hemoglobin Concent 33.3 32-36 g/dl Platelet Count 184 130-400 K/uL Mean Platelet Volume 9.0 7.4-10.4 fL Neutrophils (%) (Auto) 74.0 % Lymphocytes (%) (Auto) 17.4 % Monocytes (%) (Auto) 5.1 % Eosinophils (%) (Auto) 2.7 % Basophils (%) (Auto) 0.3 % Neutrophils # (Auto) 4.93 1.4-6.5 K/uL Lymphocytes # (Auto) 1.16 1.2-3.4 K/uL Monocytes # (Auto) 0.34 0.11-0.59 K/uL Eosinophils # (Auto) 0.18 0-0.5 K/uL Basophils # (Auto) 0.02 0-0.2 K/uL RDW Standard Deviation 44.1 36.4-46.3 fL RDW Coefficient of Variation 13.0 11.5-14.5 % Immature Granulocyte % (Auto) 0.5 % Immature Granulocyte # (Auto) 0.03 0.00-0.02 K/uL Sodium Level 144 136-145 mmol/L Potassium Level 3.8 3.5-5.1 mmol/L Chloride Level 112 98-107 mmol/L Carbon Dioxide Level 26 21-32 mmol/L Anion Gap 6.0 3-11 mmol/L Blood Urea Nitrogen 2 7-18 mg/dl Creatinine 0.72 0.60-1.20 mg/dl Est Creatinine Clear Calc Drug Dose 89.4 ml/min Estimated GFR () 114.8 Estimated GFR (Non- 99.0 BUN/Creatinine Ratio 2.4 10-20 Random Glucose 108 70-99 mg/dl Calcium Level 8.2 8.5-10.1 mg/dl Magnesium Level 1.8 1.8-2.4 mg/dl Total Bilirubin 0.6 0.2-1 mg/dl Direct Bilirubin 0.1 0-0.2 mg/dl Aspartate Amino Transf (AST/SGOT) 14 15-37 U/L Alanine Aminotransferase (ALT/SGPT) 29 12-78 U/L Alkaline Phosphatase 91 45-117 U/L Total Creatine Kinase 167 26-192 U/L Total Protein 5.7 6.4-8.2 gm/dl Albumin 2.6 3.4-5.0 gm/dl Assessment & Plan Partial Small Bowel Obstruction- resolving - vitals stable, afebrile - no leukocytosis - + bowel function - abdominal pain improving - KUB pending for this am Plan: No acute surgical intervention required Continue current medical management await results of KUB this am May advance diet to clear liquids Dr. Marlow has seen and examined patient, agrees with above
[2017-04-24] MEDS: ONDANSETRON INJ 2 MG/ML 2 ML VIAL IV PRN ×2 (09:46→20:08)
[2017-04-24] MEDS: D5NSS + 20MEQ KCL 1,000 ML IV SCH ×2 (09:46→20:05)
[2017-04-24] MEDS: PANTOprazole INJ 40 MG in SYRINGE 0 ML IV SCH (11:20)
[2017-04-24] MEDS ORDERED: NURSING VERBAL MED ORDER ONE ×2 (11:30→15:45)
[2017-04-24] MEDS ORDERED: OXYCODONE/ACETAMINOPHEN 10/325MG TAB PO PRN (11:45)
[2017-04-24] MEDS ORDERED: ALPRAZOLAM 0.5 MG TAB PO PRN (15:45)
--- NOTE | 2017-04-24 21:01 | Hospitalist Progress Note ---
Hospitalist Progress Note Date of Service Apr 24, 2017. Subjective Pt evaluation today including: conversation w/ patient Feeling much better, still some nausea but no abd pain, is passing flatus and stool today. Abd xray shows resolution of PSBO. Afebrile. All Other Systems: Reviewed and Negative Objective Vital Signs Date Time Temp Pulse Resp B/P (MAP) Pulse Ox O2 Delivery O2 Flow Rate FiO2 04/24/17 19:23 37.0 89 18 135/86 (102) 95 Room Air 04/24/17 16:00 94 Room Air 2.0 04/24/17 15:59 36.8 76 18 114/69 (84) 96 04/24/17 12:00 94 Room Air 2.0 04/24/17 11:16 36.9 85 18 150/95 (113) 96 04/24/17 08:01 36.5 77 18 115/66 (82) 99 04/24/17 08:00 94 Room Air 2.0 04/24/17 04:00 36.7 96 18 123/72 (89) 94 Room Air 04/24/17 04:00 94 Room Air 04/24/17 00:00 Room Air 04/23/17 23:01 37.1 98 18 115/71 (86) 95 Room Air Physical Exam General Appearance: no apparent distress, + pertinent finding (dissheveled, edentulous) Eyes: sclerae normal ENT: hearing grossly normal Neck: trachea midline Respiratory/Chest: lungs clear, normal breath sounds, no respiratory distress, no accessory muscle use Cardiovascular: regular rate, rhythm, no edema, no gallop, no murmur Abdomen: normal bowel sounds, non tender, soft, no organomegaly Extremities: non-tender, normal inspection, no pedal edema, no calf tenderness Neurologic/Psychiatric: alert, normal mood/affect, oriented x 3 Skin: normal color, warm/dry, no rash Laboratory Results Last 24 Hours Test 04/24/17 05:52 White Blood Count 6.66 K/uL Red Blood Count 3.77 M/uL Hemoglobin 11.8 g/dL Hematocrit 35.4 % Mean Corpuscular Volume 93.9 fL Mean Corpuscular Hemoglobin 31.3 pg Mean Corpuscular Hemoglobin Concent 33.3 g/dl Platelet Count 184 K/uL Mean Platelet Volume 9.0 fL Neutrophils (%) (Auto) 74.0 % Lymphocytes (%) (Auto) 17.4 % Monocytes (%) (Auto) 5.1 % Eosinophils (%) (Auto) 2.7 % Basophils (%) (Auto) 0.3 % Neutrophils # (Auto) 4.93 K/uL Lymphocytes # (Auto) 1.16 K/uL Monocytes # (Auto) 0.34 K/uL Eosinophils # (Auto) 0.18 K/uL Basophils # (Auto) 0.02 K/uL RDW Standard Deviation 44.1 fL RDW Coefficient of Variation 13.0 % Immature Granulocyte % (Auto) 0.5 % Immature Granulocyte # (Auto) 0.03 K/uL Sodium Level 144 mmol/L Potassium Level 3.8 mmol/L Chloride Level 112 mmol/L Carbon Dioxide Level 26 mmol/L Anion Gap 6.0 mmol/L Blood Urea Nitrogen 2 mg/dl Creatinine 0.72 mg/dl Est Creatinine Clear Calc Drug Dose 89.4 ml/min Estimated GFR () 114.8 Estimated GFR (Non- 99.0 BUN/Creatinine Ratio 2.4 Random Glucose 108 mg/dl Calcium Level 8.2 mg/dl Magnesium Level 1.8 mg/dl Total Bilirubin 0.6 mg/dl Direct Bilirubin 0.1 mg/dl Aspartate Amino Transf (AST/SGOT) 14 U/L Alanine Aminotransferase (ALT/SGPT) 29 U/L Alkaline Phosphatase 91 U/L Total Creatine Kinase 167 U/L Total Protein 5.7 gm/dl Albumin 2.6 gm/dl Assessment and Plan 47 y/o female with a history of HTN, intellectual dysfunction, chronic migraines , opiate and benzodiazepine dependence, and GERD who presents to the ED on 04/22 with abdominal pain, nausea, vomiting, and fevers. She was found to have a partial small bowel obstruction and minimally elevated LFTs. Pt does have a history of open cholecystectomy in 1992 and in 1996. She was hypotensive on arrival with resolved with 3L NSS. PSBO, fever-resolved, repeat AAS normal. No other source of infection found on CT abd/pel or CXR. Likely secondary to adhesive disease. Consider SBFT as outpt as won't be able to obtain here on weekend and don't need to hold up discharge tomorrow if doing well. LFTs were up possibly secondary to opioid use. Now normal. Previous liver US earlier this year is normal, CT abd here no liver abnormalities. Does not have a GB Had N/V prior to admission and could have had aspiration pneumonitis causing fever--> repeat CXR without PNA or infiltrate. -stopped vanco, continued Unasyn to cover for GI source of infection-will give 1 more day then transition to po Augmentin for dc for 7 day course -appreciate Gen Surgery following-signed off -advance diet to clears today, adv as tolerated tomorrow and likely dc tomorrow -continue IVFs until taking adequate po -replete lytes as needed HTN--stable, hypotension resolved, not on meds at home? 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 She says she can't be around other children at the shelters?
[2017-04-25 00:05] VITALS: BP 126/78; PULSE 95; TEMP 36.6; O2SAT 96
[2017-04-25 00:48] VITALS: O2SAT 96
[2017-04-25] MEDS: AMPICILLIN/SULBACTAM SOD INJ 3,000 MG in SODIUM CHLORIDE 0.9% 100ML 100 ML IV SCH ×2 (01:49→09:11)
[2017-04-25] MEDS: ONDANSETRON INJ 2 MG/ML 2 ML VIAL IV PRN (01:55)
[2017-04-25] MEDS: D5NSS + 20MEQ KCL 1,000 ML IV SCH (05:30)
[2017-04-25] MEDS: HEPARIN SOD 5000 UNIT/0.5 ML CARP SQ SCH ×2 (05:31→14:00)
[2017-04-25 07:11] VITALS: BP 137/82; PULSE 91; TEMP 36.8; O2SAT 95
[2017-04-25] MEDS ORDERED: ASPIRIN 81 MG ECTAB PO SCH (08:00)
[2017-04-25] MEDS ORDERED: PANTOprazole SOD 40 MG TAB PO SCH (08:00)
[2017-04-25 08:07] LABS: HEMATOCRIT 36.7 % (37-47); MEAN CELL VOLUME 92.7 fL (80-100); MEAN CORPUSCULAR HEMOGLOBIN 30.8 pg (25-34); MEAN CORPUSCULAR HGB CONC 33.2 g/dl (32-36); MEAN PLATELET VOLUME 9.2 fL (7.4-10.4); PLATELET COUNT 199 K/uL (130-400); RED BLOOD COUNT 3.96 M/uL (4.2-5.4); WHITE BLOOD COUNT 6.51 K/uL (4.8-10.8)
[2017-04-25 08:41] LABS: BUN/CREATININE RATIO 1.6 (10-20); CALCIUM 8.9 mg/dl (8.5-10.1); CREATININE 0.82 mg/dl (0.60-1.20); MAGNESIUM 1.8 mg/dl (1.8-2.4); POTASSIUM 3.9 mmol/L (3.5-5.1)
[2017-04-25] MEDS ORDERED: AMOX875T PO (10:52)
--- NOTE | 2017-04-25 10:57 | Discharge Instructions ---
Discharge Instructions Date of Service Apr 25, 2017. Admission Reason for Admission: Fever, Small bowel obstruction Discharge Discharge Diagnosis / Problem: Fever, small bowel obstruciton Discharge Goals Goal(s): Improve disease control, Diagnostic testing, Therapeutic intervention Activity Recommendations Activity Limitations: resume your previous activity Lifting Limitations: none Exercise/Sports Limitations: none Shower/Bathe: no limitations . Instructions / Follow-Up Instructions / Follow-Up You were admitted with a bowel blockage which is likely secondary to scar tissue from previous abdominal surgeries. You also had a fever and you were treated with IV antibiotics and IV fluids for hydration. You did NOT have a pneumonia on your chest xray. Your abdominal xray showed great improvement and you were eating regular food prior to discharge. Please finish out 4 more days of your antibiotic which will treat for a bowel infection. Please talk to your doctor about weaning you off of your high dose of Xanax. You did not have any Xanax for 3 days in the hospital until the last day when your heart rate started to increase likely due to withdrawal from the medication. You do not want to stop Xanax suddenly, but you could slowly go down on your dose under the guidance of your doctor. Please follow up with Dr. Gonzalez within 1 week. Current Hospital Diet Patient's current hospital diet: Regular Diet Discharge Diet Recommended Diet: Regular Diet Procedures Procedures Performed: Abdomen xrays Chest xray CT abdomen/pelvis Venous Doppler lower extremities bilateral-negative for DVT (blood clot) Pending Studies Studies pending at discharge: yes List of pending studies: Final blood cultures-no growth to date Laboratory Results Last 24 Hours Test 04/25/17 07:44 White Blood Count 6.51 K/uL Red Blood Count 3.96 M/uL Hemoglobin 12.2 g/dL Hematocrit 36.7 % Mean Corpuscular Volume 92.7 fL Mean Corpuscular Hemoglobin 30.8 pg Mean Corpuscular Hemoglobin Concent 33.2 g/dl RDW Standard Deviation 43.2 fL RDW Coefficient of Variation 12.8 % Platelet Count 199 K/uL Mean Platelet Volume 9.2 fL Sodium Level 140 mmol/L Potassium Level 3.9 mmol/L Chloride Level 108 mmol/L Carbon Dioxide Level 26 mmol/L Anion Gap 6.0 mmol/L Blood Urea Nitrogen 1 mg/dl Creatinine 0.82 mg/dl Est Creatinine Clear Calc Drug Dose 78.5 ml/min Estimated GFR () 98.1 Estimated GFR (Non- 84.6 BUN/Creatinine Ratio 1.6 Random Glucose 107 mg/dl Calcium Level 8.9 mg/dl Magnesium Level 1.8 mg/dl Medical Emergencies . Who to Call and When: Medical Emergencies: If at any time you feel your situation is an emergency, please call 911 immediately. . Non-Emergent Contact Non-Emergency issues call your: Primary Care Provider Call Non-Emergent contact if: you have a fever, your pain is not controlled, your pain is worsening, your pain is unusual for you, your pain is concerning you, you have any medication questions . . "Provider Documentation" section prepared by Janet Mcbride. . VTE Core Measure Inpt VTE Proph given/why not?: Unfractionated heparin SQ
[2017-04-25 11:57] VITALS: BP 137/82; PULSE 91; TEMP 36.8; O2SAT 95
[2017-04-25 14:54] VITALS: BP 130/86; PULSE 91; TEMP 36.9; O2SAT 93
[2017-04-25 18:51] LABS: COD UR NEGATIVE NG/ML (CUTOFF=50); HYDROCOD UR NEGATIVE NG/ML (CUTOFF=50); HYDROMOR UR 111 NG/ML (CUTOFF=50); HYDROXYETHYLFLURAZEPAM CONF NEGATIVE NG/ML (CUTOFF=50); HYDROXYMIDAZOLAM NEGATIVE NG/ML (CUTOFF=50); HYDROXYTRIAZOLAM CONF NEGATIVE NG/ML (CUTOFF=50); MORPHINE UR NEGATIVE NG/ML (CUTOFF=50); NORHYDROCODONE CONF UR NEGATIVE NG/ML (CUTOFF=50); OXYMORPH UR 159 NG/ML (CUTOFF=50); TEMAZEPAM CONF NEGATIVE NG/ML (CUTOFF=50)
[2017-04-25] MEDS ORDERED: HYDR25SU20 PR (19:23)
--- NOTE | 2017-04-25 21:07 | Discharge Summary ---
Discharge Summary Date of Service Apr 25, 2017. Discharge Summary Admission Date: Apr 22, 2017 at 06:17 Discharge Date: Apr 25, 2017 Discharge Disposition: Home Principal Diagnosis: Fever, SBO Problems/Secondary Diagnoses: Anxiety State Nos Borderline intellectual functioning Depressive Disorder Nec Hearing impairment Hyperlipidemia Nec/Nos History of Hypertension Nos Migraine Opioid dependence Benzodiazepine dependence Personality disorder Speech impairment GERD Elevated LFTs Rhabdomyolysis Current smoker BRBPR-scant amount, likely secondary to internal hemorrhoids Immunizations: Have You Had Influenza Vaccine: N/A History of Tetanus Vaccine?: Unknown Tetanus Immunization Date: Jun 03, 2003 History of Pneumococcal: Unknown History of Hepatitis B Vaccine: Unknown Procedures: CT SCAN OF THE ABDOMEN AND PELVIS WITHOUT CONTRAST CLINICAL HISTORY: Fever, abdominal pain, nausea and vomiting. COMPARISON STUDY: 01/09/2016 TECHNIQUE: CT scan of the abdomen and pelvis was performed from the lung bases to the proximal femurs. Images are reviewed in the axial, sagittal, and coronal planes. IV contrast was not administered for this examination. A dose lowering technique was utilized adhering to the principles of ALARA. CT DOSE: 309.67 mGy.cm FINDINGS: Lower chest: There are bibasal or dependent airspace opacities. Liver: The unenhanced liver is normal in size, contour, and attenuation. There is no intrahepatic biliary ductal dilatation. Gallbladder: Surgically absent Spleen: .Normal in size measuring 11.5 cm Pancreas: Equivocal slight pancreatic edema. No focal masses identified in this noncontrast study Adrenal glands: Unremarkable. Kidneys: No renal, ureteral, or bladder calculi are visualized. Bowel: The appendix appears normal. There is no acute diverticulitis. There are several mildly prominent fluid-filled central abdominal small bowel loops with multiple air-fluid levels, borderline small bowel wall thickening, and mild associated mesenteric edema. The distal small bowel is decompressed. This could indicate an early or partial small bowel obstruction Peritoneum: No free air is visualized. There is trace free pelvic fluid. Vasculature: The abdominal aorta is normal in course and caliber. Adenopathy: Inguinal lymph nodes are the upper limits of normal in size. There is no pathologic adenopathy by size criteria. Pelvic viscera: The bladder, and pelvic viscera are unremarkable. Skeletal structures: No destructive osseous lesions are seen. IMPRESSION: 1. No evidence of free air.. 2. Surgically absent gallbladder 3. Normal appendix. No evidence of acute diverticulitis 4. There are several mildly prominent fluid-filled central abdominal small bowel loops with multiple air-fluid levels, borderline small bowel wall thickening, and mild associated mesenteric edema. The distal small bowel is decompressed. This could indicate an early or partial small bowel obstruction. 5. Equivocal minimal pancreatic edema Chest xray Abd xray Bilateral lower extremity Venous Doppler Consultations: General Surgery Medication Reconciliation New Medications: Amoxicillin & Pot Clavulanate (Augmentin 875-125 mg) 1 Tab Tab 875 MG PO BID for 4 Days, #8 TAB Continued Medications: Alprazolam (Xanax) 1 Mg Tab 1 MG PO TID, TAB Aspirin (Aspirin Ec) 81 Mg Tab 81 MG PO DAILY Esomeprazole Magnesium (Esomeprazole Magnesium) 40 Mg Cap 40 MG PO DAILY for 30 Days Oxycodone/Acetaminophen 10MG/325MG (Percocet 10MG/325MG) Tab 1 TAB PO Q6 PRN for Pain, TAB Discharge Exam Doing well, eating regular food, no further N/V, no abd pain. Had multiple BMs overnight, passing flatus. Today had 2 eisodes of BRBPR on TP and one small clot in toilet that I witnessed. Not painful, no abd pain Physical Exam Vitals reviewed General Appearance: no apparent distress, + pertinent finding (disheveled, edentulous) Eyes: sclerae normal ENT: hearing grossly normal Neck: trachea midline Respiratory/Chest: lungs clear, normal breath sounds, no respiratory distress, no accessory muscle use Cardiovascular: regular rate, rhythm, no edema, no gallop, no murmur Abdomen: normal bowel sounds, non tender, soft, no organomegaly, rectal exam with mild erythema of gluteal cleft, 2 skin tags of anus, +palpable internal hemorrhoids, no gross blood on exam on finger, no rectal masses Extremities: non-tender, normal inspection, no pedal edema, no calf tenderness Neurologic/Psychiatric: alert, normal mood/affect, oriented x 3 Skin: normal color, warm/dry, no rash Review of Systems: Constitutional: No fever, No chills Eyes: No problem reported ENT: No problem reported Respiratory: No shortness of breath Cardiovascular: No chest pain Abdomen: + GI bleeding (as per HPI), No pain, No nausea, No vomiting, No constipation Musculoskeletal: No problem reported Genitourinary - Female: No problem reported Neurologic: No problem reported Psychiatric: No problem reported Endocrine: No problem reported Hematologic / Lymphatic: No problem reported Integumentary: No problem reported Hospital Course 47 y/o female with a history of HTN, intellectual dysfunction, chronic migraines , opiate and benzodiazepine dependence, and GERD who presents to the ED on 04/22 with abdominal pain, nausea, vomiting, and fevers. She was found to have a partial small bowel obstruction and minimally elevated LFTs. Pt does have a history of open cholecystectomy in 1992 and in 1996. She was hypotensive on arrival with resolved with 3L NSS. PSBO, fever-resolved, repeat AAS normal. No other source of infection found on CT abd/pel or CXR. Likely secondary to adhesive disease. Consider SBFT as outpt as won't be able to obtain here on weekend and don't need to hold up discharge tomorrow if doing well. LFTs were up possibly secondary to opioid use. Now normal. Previous liver US earlier this year is normal, CT abd here no liver abnormalities. Does not have a GB Had N/V prior to admission and could have had aspiration pneumonitis causing fever--> repeat CXR without PNA or infiltrate. -stopped vanco, continued Unasyn to cover for GI source of infection-will give 1 more day then transition to po Augmentin for dc for 7 day course -appreciate Gen Surgery following-signed off -advance diet to clears today, adv as tolerated tomorrow and likely dc tomorrow -continue IVFs until taking adequate po -replete lytes as needed HTN--stable, hypotension resolved, not on meds at home? Unsure if actually has this diagnosis Opiate and benzo dependence-uses for anxiety and chronic migraines -No s/s withdrawal -restart xanax prn, percocet prn but recommend alternate treatments as outpt for her migraines Rhabdomyolysis--improving -CK elevated at 1275 on admission -IVF as above -CK 539 on 04/23 GERD -Continue Protonix 40 mg PO qd BRBPR-scant amount, likely secondary to internal hemorrhoids -Anusol HC rectal suppositories x 1 week -buy colace Current smoker -Pt declined nicotine patch DVT prophylaxis -SCDs Code Status -Level I, FULL RESUSCITATION STATUS Dispo-dc tomorrow-currently homeless, living in her cloth picker truck with her , says shelters won't accept her due to her losing custody of her children in the past? She says she can't be around other children at the shelters? Total Time Spent: Greater than 30 minutes This includes examination of the patient, discharge planning, medication reconciliation, and communication with other providers. Discharge Instructions Please refer to the electronic Patient Visit Report (Discharge Instructions) for additional information. Follow-Up PCP within 1 week Additional Copies To Sridhar Gonzalez D.O.
--- NOTE | 2017-04-30 06:37 | EDITING REQUIRED CODING QUERY ---
CODING QUERY To promote full compliance with coding requirements relating to patient care, provider participation is requested in all cases of information coder uncertainty. Please assist us with the question(s) below: Coding Question(s): Please clarify below regarding the aspiration pneumonia. ( ) There was possible aspiration pneumonia treated during this admission ( x ) The possible aspiration pneumonia was ruled-out and there was no possible aspiration pneumonia Physician's Response(s): Thank you Cee Tong Principal Diagnosis: "_that condition established after study, to be chiefly responsible for occasioning the admission of the patient to the hospital for care." Co-Existing Principal Diagnosis: "_when two or more diagnoses equally meet the criteria for principal diagnosis as determined by the circumstances of admission, diagnostic work up, and/or therapy provided, and the Alphabetic Index, Tabular List, or another coding guideline does not provide sequencing direction, any one of the diagnoses may be sequenced first." "When the physician has documented what appears to be a current diagnosis in the body of the record, but has not included the diagnosis in the final diagnostic statement, the physician should be asked whether the diagnosis should be added." (Source Coding [facility] 2 QTR90. p3-4)
--- NOTE | 2017-04-30 06:38 | EDITING REQUIRED CODING QUERY ---
SEPSIS To promote full compliance with coding requirements relating to patient care, physician participation is requested in all cases of fish hatchery worker uncertainty. Please assist us with the question(s) below: In responding to this query, please exercise your independent professional judgement. The fact that a question is asked does not imply that any particular answer is desired or expected. We appreciate your clarification on this issue. Throughout the medical record, you have clearly documented a localized infection and your patient has clinical evidence of a generalized sepsis or severe sepsis. The term urosepsis is a nonspecific entity and is coded as an UTI. If the patient has sepsis, severe sepsis, from an urinary source or some other source, please clarify in your response below. The medical record reflects the following clinical findings: (With dates as appropriate) (Body temperature of >38.3 C(101 F) or <36 C(96.8F), pulse >90/minute, respirations >20/minute, WBC count >12,000 or <4,000, altered mental status, significant edema or positive fluid balance, hyperglycemia without diabetes, hypotension, metabolic acidosis (elev. lactate level, anion gap or reduced blood pH), shock, positive blood culture (enter organism) ()Bacteremia (Nonspecific laboratory finding of bacteria in the blood) Specify Organism () Present on Admission () Not present on admission () Unable to clinically determine () Septicemia (Systemic disease associated with the presence of pathogenic microorganisms in the blood): Specify Organism () Present on Admission () Not present on admission () Unable to clinically determine (x) Sepsis Specify Organism Specify Associated Condition/Diagnosis () Present on Admission () Not present on admission (x) Unable to clinically determine () Severe Sepsis (Sepsis associated with acute organ dysfunction) Specify Organism Specify Associated Condition/Diagnosis () Present on Admission () Not present on admission () Unable to clinically determine () Septic Shock (Severe sepsis with acute circulatory failure, unexplained by other causes) () Present on Admission () Not present on admission () Unable to clinically determine () Other, patient has: () No Sepsis
== END 2017-04-25 19:35 | disposition home or self-care (01) | DRG 388 ==
LOC: EDBD 01:51 → C.EDB 01:52 → C.EDINP 06:17 → ENRESERV 12:07 → C.2T 13:43 → ENRESERV 04-24 21:00 → C.MS4W 04-24 22:04
PROVIDERS: ADMIT Internal Medicine; ATTEND Family Medicine
DX: K56.5 Intestinal adhesions [bands] with obstruction (postinfection) (principal); A41.9 Sepsis, unspecified organism; F11.20 Opioid dependence, uncomplicated; F13.20 Sedative, hypnotic or anxiolytic dependence, uncomplicated; M62.82 Rhabdomyolysis; E83.42 Hypomagnesemia; K64.8 Other hemorrhoids; R41.83 Borderline intellectual functioning; F41.9 Anxiety disorder, unspecified; F32.9 Major depressive disorder, single episode, unspecified; G43.909 Migraine, unspecified, not intractable, without status migrainosus; K21.9 Gastro-esophageal reflux disease without esophagitis; I10 Essential (primary) hypertension; H91.90 Unspecified hearing loss, unspecified ear; F17.200 Nicotine dependence, unspecified, uncomplicated; Z79.899 Other long term (current) drug therapy; Z79.82 Long term (current) use of aspirin; Z59.0 Homelessness; Z90.49 Acquired absence of other specified parts of digestive tract; Z98.891 History of uterine scar from previous surgery

== ENCOUNTER 2017-12-20 00:28 | Emergency (ER) | payer OTHER ==
[~2017-12-20] VITALS: Ht 167.6 cm; Wt 66.0 kg
[~2017-12-20 00:28] MED LIST changes: -ASPI-390 PO; -CLR10 PO; -FLUT0.0529; -FLV1 PO; -ONDA4TAB46 PO; -THM50 PO
[2017-12-20 00:32] VITALS: TEMP 36.4; Ht 167.6 cm; Wt 66.0 kg
[2017-12-20] MEDS ORDERED: ONDANSETRON INJ 2 MG/ML 2 ML VIAL IV STA (00:58)
[2017-12-20] MEDS ORDERED: KETOROLAC TROMETHAMINE 30 MG/ML VIAL IV STA (00:58)
[2017-12-20 01:29] LABS: BASO % 0.3 %; BASO ABS # 0.02 K/uL (0-0.2); EOS % 4.9 %; EOS ABS # 0.33 K/uL (0-0.5); HEMATOCRIT 40.8 % (37-47); HEMOGLOBIN 14.3 g/dL (12.0-16.0); IG# 0.02 K/uL (0.00-0.02); LYMPH % 35.2 %; LYMPH ABS # 2.37 K/uL (1.2-3.4); MEAN CELL VOLUME 91.7 fL (80-100); MEAN CORPUSCULAR HEMOGLOBIN 32.1 pg (25-34); MEAN PLATELET VOLUME 8.8 fL (7.4-10.4); MONO % 5.8 %; MONO ABS # 0.39 K/uL (0.11-0.59); NEUT % 53.5 %; PLATELET COUNT 210 K/uL (130-400); RED CELL DISTRIBUTION WIDTH CV 12.7 % (11.5-14.5); RED CELL DISTRIBUTION WIDTH SD 42.8 fL (36.4-46.3); WHITE BLOOD COUNT 6.73 K/uL (4.8-10.8)
[2017-12-20 02:07] LABS: ALBUMIN 3.3 gm/dl (3.4-5.0); CALCIUM 8.4 mg/dl (8.5-10.1); CREATININE 0.97 mg/dl (0.60-1.20)
[2017-12-20 02:19] LABS: TOTAL PROTEIN 7.2 gm/dl (6.4-8.2)
[2017-12-20 03:02] LABS: POTASSIUM 4.2 mmol/L (3.5-5.1)
[2017-12-20] MEDS ORDERED: PROM25TA9 PO (03:11)
[2017-12-20] MEDS ORDERED: AMOXICILLIN 500 MG CAP PO ONE (03:15)
[2017-12-20] MEDS ORDERED: AMOX500C3 PO (03:18)
[2017-12-20] MEDS ORDERED: AMOXICILLIN 250 MG CAP PO ONE (03:22)
[2017-12-20 03:38] VITALS: BP 97/66; PULSE 72; O2SAT 97
--- NOTE | 2017-12-20 06:06 | EMERGENCY ROOM VISIT NOTE ---
History Report prepared by Bipin: Jordon Jarvis Under the Supervision of: Dr. Sally Nam D.O. First contact with patient: 00:43 Chief Complaint: HEADACHE Stated Complaint: MIGRAINES,NAUSEA,LOSS OF BALANCE History of Present Illness The patient is a 47 year old female who presents to the Emergency Room with complaints of a constant migraine headache that began today at 1200 hours, 12.5 hours ago. The majority of this HPI was acquired from her as the patient is speech/hearing impaired. The states that the patient has been having migraines for the "past 26 years." She is prescribed Percocet and Xanax by her primary care physician. She took a Percocet at 1200, and another tablet 45 minutes later. The Percocet has not improved her pain. The notes that she is nauseous as well, and seems to be fatigued. She has not vomited. The patient herself notes that the location of her headache pain is different than usual. She usually has pain behind one of her eyes, but now is having pain in the back-left portion of the head. The patient was in the Emergency Department last October and had a CT of the head which showed some abnormalities. She then had a follow-up MRI which was unremarkable. Source of History: patient, spouse/significant other Onset: 12.5 hours ago Position: head Quality: other (Migraine ) Timing: constant Modifying Factors (Relieving): other (N/A) Associated Symptoms: + nausea, + fatigue, No vomiting Review of Systems See HPI for pertinent positives & negatives. A total of 10 systems reviewed and were otherwise negative. Past Medical & Surgical Medical Problems: (1) Anxiety State Nos (2) borderline intellectual functioning (3) Dehydration with hypernatremia (4) Depressive Disorder Nec (5) Fever (6) Gastroenteritis (7) Gastroenteritis (8) Hearing impairment (9) Hyperlipidemia Nec/Nos (10) Hypertension Nos (11) Migraine (12) Opioid dependence (13) Personality disorder (14) SBO (small bowel obstruction) (15) Speech impairment Surgical Problems: (1) H/O section (2) Hx of cholecystectomy Family History No significant family history stated Social History Smoking Status: Current Every Day Smoker Alcohol Use: occasionally Drug Use: none Marital Status: Housing Status: lives with family Occupation Status: disabled Current/Historical Medications Scheduled Alprazolam (Xanax), 1 MG PO TID Amoxicillin (Amoxil), 500 MG PO TID Aspirin (Aspirin Ec), 81 MG PO DAILY Scheduled PRN Esomeprazole Magnesium (Esomeprazole Magnesium), 40 MG PO DAILY PRN for GI Upset Oxycodone/Acetaminophen 10MG/325MG (Percocet 10MG/325MG), 1 TAB PO Q6 PRN for Pain Promethazine Hcl (Phenergan), 25 MG PO Q6H PRN for Nausea Allergies Coded Allergies: Haloperidol (Verified Allergy, Severe, TONGUE SWELLS, 04/22/17) Hydroxyzine (Verified Allergy, Severe, CAN'T BREATH, 04/22/17) Prochlorperazine (Verified Adverse Reaction, Intermediate, SICK, 04/22/17) Escitalopram (Verified Adverse Reaction, Mild, MAKES HER "THINK GOOFY", ) Rofecoxib (Verified Adverse Reaction, Mild, FIERRO LIPS, 04/22/17) Prednisone (Verified Adverse Reaction, Unknown, GI UPSET, 04/22/17) Tramadol (Verified Adverse Reaction, Unknown, UNABLE TO VOID, 04/22/17) Physical Exam Vital Signs Date Time Temp Pulse Resp B/P (MAP) Pulse Ox O2 Delivery O2 Flow Rate FiO2 12/20/17 03:38 72 16 97/66 97 12/20/17 03:14 72 16 97/66 97 Room Air 12/20/17 01:49 67 16 111/73 96 Room Air 12/20/17 00:32 36.4 90 18 136/95 99 Room Air Physical Exam General: Patient is extremely lethargic on exam. Speech is difficult to understand. HEENT: Head - normocephalic and atraumatic. Pupils are equal, round, and reactive to light. Extraocular eye muscles are intact and sclera are anicteric. Ears - bilaterally patent canals with noninjected tympanic membranes and no evidence of hemotympanum. Nose - moist nasal mucosa without discharge. Mouth - moist buccal mucosa. Oropharynx is nonerythematous and there is no tonsillar exudate or edema noted. Neck: Supple; no JVD, nuchal rigidity, cervical lymphadenopathy, or auscultated bruits. Heart: Regular rate and rhythm. There is a normal S1 and S2 with no murmurs, clicks, or gallops appreciated. Lungs: Clear to auscultation bilaterally with no wheezes, rales, or rhonchi. Abdomen: Soft, completely nontender, nondistended, with good bowel sounds. There are no palpable pulsatile masses or hepatosplenomegaly. There is no guarding, rigidity, or rebound noted. Extremities: No evidence of cyanosis, clubbing, or edema. There are easily palpable peripheral pulses. Neuro:The patient is awake and alert, oriented to day, time, and place. Speech is slow. Muscle strength is 5/5 in all 4 extremities. The patient has equal autotransfusionist strength and equal pedal push and pull. There are no cerebellar signs. Medical Decision & Procedures ER Provider Diagnostic Interpretation: Radiology results as stated below per my review and the radiologist's interpretation: CT HEAD: No acute hemorrhage or infarction. Fluid in the right maxillary sinus may indicate sinusitis. Radiologist: Ben Hernández M.D. Laboratory Results 12/20/17 01:20 Red Blood Count 4.45, Mean Corpuscular Volume 91.7, Mean Corpuscular Hemoglobin 32.1, Mean Corpuscular Hemoglobin Concent 35.0, Mean Platelet Volume 8.8, Neutrophils (%) (Auto) 53.5, Lymphocytes (%) (Auto) 35.2, Monocytes (%) (Auto) 5.8, Eosinophils (%) (Auto) 4.9, Basophils (%) (Auto) 0.3, Neutrophils # (Auto) 3.60, Lymphocytes # (Auto) 2.37, Monocytes # (Auto) 0.39, Eosinophils # (Auto) 0.33, Basophils # (Auto) 0.02 12/20/17 01:20 12/20/17 02:19 Test 12/20/17 01:20 12/20/17 02:19 White Blood Count 6.73 K/uL (4.8-10.8) Red Blood Count 4.45 M/uL (4.2-5.4) Hemoglobin 14.3 g/dL (12.0-16.0) Hematocrit 40.8 % (37-47) Mean Corpuscular Volume 91.7 fL (80-100) Mean Corpuscular Hemoglobin 32.1 pg (25-34) Mean Corpuscular Hemoglobin Concent 35.0 g/dl (32-36) Platelet Count 210 K/uL (130-400) Mean Platelet Volume 8.8 fL (7.4-10.4) Neutrophils (%) (Auto) 53.5 % Lymphocytes (%) (Auto) 35.2 % Monocytes (%) (Auto) 5.8 % Eosinophils (%) (Auto) 4.9 % Basophils (%) (Auto) 0.3 % Neutrophils # (Auto) 3.60 K/uL (1.4-6.5) Lymphocytes # (Auto) 2.37 K/uL (1.2-3.4) Monocytes # (Auto) 0.39 K/uL (0.11-0.59) Eosinophils # (Auto) 0.33 K/uL (0-0.5) Basophils # (Auto) 0.02 K/uL (0-0.2) RDW Standard Deviation 42.8 fL (36.4-46.3) RDW Coefficient of Variation 12.7 % (11.5-14.5) Immature Granulocyte % (Auto) 0.3 % Immature Granulocyte # (Auto) 0.02 K/uL (0.00-0.02) Anion Gap 5.0 mmol/L (3-11) Est Creatinine Clear Calc Drug Dose 66.4 ml/min Estimated GFR () 80.0 Estimated GFR (Non- 69.1 BUN/Creatinine Ratio 9.9 (10-20) Calcium Level 8.4 mg/dl (8.5-10.1) Total Bilirubin 0.5 mg/dl (0.2-1) Alanine Aminotransferase (ALT/SGPT) 29 U/L (12-78) Alkaline Phosphatase 143 U/L (45-117) Total Protein 7.2 gm/dl (6.4-8.2) Albumin 3.3 gm/dl (3.4-5.0) Thyroid Stimulating Hormone (TSH) 2.630 uIu/ml (0.300-4.500) Direct Bilirubin 0.1 mg/dl (0-0.2) Aspartate Amino Transf (AST/SGOT) 14 U/L (15-37) Laboratory results per my review. Medications Administered Medications (Trade) Dose Ordered Sig/Jaquelin Route Start Time Stop Time Status Last Admin Dose Admin Ketorolac Tromethamine (Toradol Inj) 30 mg NOW STAT IV 12/20/17 00:58 12/20/17 00:59 DC 12/20/17 01:34 30 MG Ondansetron HCl (Zofran Inj) 4 mg NOW STAT IV 12/20/17 00:58 12/20/17 00:59 DC 12/20/17 01:34 4 MG Amoxicillin (Amoxil Cap) 500 mg STK-MED ONCE PO 12/20/17 03:22 12/20/17 03:23 DC 12/20/17 03:25 500 MG Procedure Medications Ordered: Zofran, Toradol, Amoxicillin ED Course 0049: Past medical records reviewed. The patient was evaluated in room A11B. A complete history and physical exam was performed. An IV lock was initiated and labs were drawn as above. 0058: Ordered Zofran 4 mg IV, Toradol 30 mg IV. The patient went for CT scan of the brain as described above. 0152: I updated the patient's on the findings of her case to this point. He explains that she seemed to be feeling much better and was resting comfortably. 0301: I checked on the patient. She was sound asleep in bed. I discussed findings and results with her. She verbalized agreement of the treatment plan. The patient was discharged home. 0315: Ordered Amoxicillin 500 mg PO. Medical Decision The patient is a 47 year old female who presents to the Emergency Room with complaints of a constant migraine headache Differential Diagnosis includes; electrolyte abnormality, dehydration, migraine headache, and intracranial process. Laboratory results were reviewed and show; no leukocytosis, stable hemoglobin and hematocrit, normal TSH and LFTs, Glucose of 105, and normal renal function. This is a 39-year-old female patient presents to the emergency department with a more severe headache than usual. The patient has a chronic history of migraines and typically takes Percocet for her pain. The Percocet did not work tonight. Patient had a fairly normal physical exam other than her speech seemed to be somewhat slow. CT scan of the brain showed no intracranial process other than a right-sided maxillary sinusitis. The patient does smoke. She had moderate relief of her headache with the above analgesia. She had no focal neurological findings. She will be treated with amoxicillin for the sinusitis. I have encouraged her to stop smoking. I have asked patient to follow-up with her PCP if the headaches persist. She is to return here to the emergency department if she develops worsening symptoms such as fever or altered mental status. Medication Reconcilliation Current Medication List: was personally reviewed by me Blood Pressure Screening Patient's blood pressure: Normal blood pressure Impression Primary Impression: Maxillary sinusitis Additional Impression: Headache Scribe Attestation The scribe's documentation has been prepared under my direction and personally reviewed by me in its entirety. I confirm that the note above accurately reflects all work, treatment, procedures, and medical decision making performed by me. Departure Information Dispostion Home / Self-Care Prescriptions Amoxicillin (AMOXIL) 500 Mg Cap 500 MG PO TID, #21 CAP Prov: Sally Nam D.OJyothi 12/20/17 Referrals Sridhar Gonzalez D.O. (PCP) Forms HOME CARE DOCUMENTATION FORM, IMPORTANT VISIT INFORMATION Patient Instructions [facility] Additional Instructions rest STOP SMOKING Amoxil - 1 tab. every 8 hours for next week. Follow up with PCP if headache or other symptoms persist Problem Qualifiers Primary Impression: Maxillary sinusitis Chronicity: acute Recurrence: non-recurrent Qualified Codes: J01.00 - Acute maxillary sinusitis, unspecified Additional Impression: Headache Headache type: unspecified Headache chronicity pattern: acute headache Intractability: not intractable Qualified Codes: R51 - Headache
--- NOTE | 2017-12-20 08:21 | DIAGNOSTIC IMAGING REPORT ---
HEAD CT NONCONTRAST CT DOSE: 537.48 mGy.cm HISTORY: severe occipital pain - h/o migraines TECHNIQUE: Multiaxial CT images of the head were performed without the use of intravenous contrast. Automated exposure control was utilized for this study. A dose lowering technique was utilized adhering to the principles of ALARA. Comparison: Head CT 10/25/2016. Findings: Progressive fluid within the right maxillary sinus resulting in partial opacification. There is also partial opacification of the ethmoid air cells and mild mucosal thickening within the remaining paranasal sinuses. The calvarium and skull base are intact. The ventricles and sulci are within normal limits. There is no mass, hematoma, midline shift, or acute infarct. Impression: Progressive right maxillary sinus disease consistent with acute sinusitis. Otherwise, no acute intracranial abnormality. Electronically signed by: Mehran Ingram M.D. 12/20/2017 8:20 AM Dictated Date/Time: 12/20/2017 8:17 AM
== END 2017-12-20 03:37 | disposition home or self-care (01) ==
LOC: C.EDB 00:29 → C.EDA 03:37
DX: J01.00 Acute maxillary sinusitis, unspecified (principal); R51 Headache; I10 Essential (primary) hypertension; F41.1 Generalized anxiety disorder; F17.200 Nicotine dependence, unspecified, uncomplicated; Z90.49 Acquired absence of other specified parts of digestive tract; Z98.891 History of uterine scar from previous surgery; Z88.6 Allergy status to analgesic agent; Z88.8 Allergy status to other drugs, medicaments and biological substances; Z79.82 Long term (current) use of aspirin; Z79.899 Other long term (current) drug therapy

== ENCOUNTER 2019-05-10 16:38 | Inpatient (IN) ==
[2019-05-10] MEDS ORDERED: ONDANSETRON INJ 2 MG/ML 2 ML VIAL IV STA ×2 (17:50→19:51)
[2019-05-10] MEDS ORDERED: MoRPHine SULFATE 4 MG/ML 1 ML CARP\\VIAL IV STA (17:50)
[2019-05-10] MEDS ORDERED: SODIUM CHLORIDE 0.9% 1000ML 1,000 ML IV SCH (18:00)
[2019-05-10 18:35] LABS: Basophils # (auto) 0.02 K/uL (0-0.2); Basophils % (auto) 0.1 %; Hematocrit (blood only) 56.6 % (37-47); Immature Granulocytes # (auto) 0.06 K/uL (0.00-0.02); Immature Granulocytes % (auto) 0.4 %; Lymphocytes % (auto) 8.9 %; Mean Corpuscular Hemoglobin 31.5 pg (25-34); Mean Corpuscular Volume 89.1 fL (80-100); Mean Platelet Volume 10.6 fL (7.4-10.4); Monocytes # (auto) 1.04 K/uL (0.11-0.59); Monocytes % (auto) 6.1 %; Neutrophils # (auto) 14.31 K/uL (1.4-6.5); Neutrophils % (auto) 84.5 %; Platelet Count 356 K/uL (130-400); RDW Standard Deviation 42.5 fL (36.4-46.3); Red Blood Count 6.35 M/uL (4.2-5.4); White Blood Count 16.93 K/uL (4.8-10.8)
[2019-05-10 18:38] LABS: Mean Corpuscular Hgb Conc 35.3 g/dL (32-36)
[2019-05-10 18:42] LABS: Pregnancy Test, Serum Negative (Negative)
[2019-05-10 18:56] LABS: Alanine Aminotransferase 88 U/L (12-78); Albumin Level 4.7 gm/dl (3.4-5.0); Aspartate Aminotransferase 42 U/L (15-37); Blood Urea Nitrogen 43 mg/dl (7-18); Calcium 10.6 mg/dl (8.5-10.1); Carbon Dioxide 25 mmol/L (21-32); Chloride 92 mmol/L (98-107); Creatinine Clr Calc Pharmacy 26.5 ml/min; Est GFR (African American) 28.7; Est GFR (Non-African American) 24.8; Glucose 165 mg/dl (70-99); Lipase 86 U/L (73-393); Potassium 3.2 mmol/L (3.5-5.1); Sodium 135 mmol/L (136-145)
[2019-05-10] MEDS ORDERED: SODIUM CHLORIDE 0.9% 1000ML 1,000 ML IV ONE (18:59)
[2019-05-10 19:01] LABS: Alkaline Phosphatase 167 U/L (45-117); Bilirubin,Total 5.1 mg/dl (0.2-1); Globulin 4.6 gm/dl (2.5-4.0); Total Protein 9.3 gm/dl (6.4-8.2); Troponin I < 0.015 ng/ml (0-0.045)
--- NOTE | 2019-05-10 19:30 | CT Scan Report ---
CT OF THE ABDOMEN AND PELVIS WITHOUT CONTRAST CLINICAL HISTORY: pain, n/v, BHARTI, dehydration COMPARISON STUDY: CT of the abdomen and pelvis April 22, 2017 and abdominal series April 24, 2017. TECHNIQUE: Axial images of the abdomen and pelvis were obtained without IV contrast. Images were revi ewed in the axial, sagittal, and coronal planes. Automated exposure control was utilized for the rodríguez dy. A dose lowering technique was utilized adhering to the principles of ALARA. FINDINGS: Lung bases are unremarkable. No renal, ureteral or bladder calculi are present. There is no hydronephrosis or hydroureter. There is no perinephric infiltration. Evaluation of the abdomen and p shalonda is suboptimal on this unenhanced examination. Slight dilatation of the common bile duct is unch anged from prior CT and likely related to previous cholecystectomy. Unenhanced images of the spleen, adrenal glands and pancreas are unremarkable. There is no peripancreatic infiltration or fluid. The a ppendix is normal. There is no evidence for bowel obstruction. There is no ascites or lymphadenopathy . No suspicious osseous lesions are noted. No bowel wall thickening is evident on this unenhanced rodríguez dy. IMPRESSION: 1. No urinary calculi or hydronephrosis. 2. No acute process within the abdomen or pelvis on unenhanced study. Electronically signed by: Bobby Santos M.D. 05/10/2019 7:29 PM
[2019-05-10] MEDS ORDERED: ASPIRIN 81 MG CHEW PO STA (19:51)
[2019-05-10] MEDS ORDERED: GI COCKTAIL ED USE PO ONE (19:52)
[2019-05-10 20:15] LABS: Magnesium 2.2 mg/dl (1.8-2.4); Phosphorus 1.9 mg/dl (2.5-4.9)
--- NOTE | 2019-05-10 20:39 | History & Physical Report ---
Date of Service May 10, 2019 Assessment & Plan (1) Gastroenteritis: Ms. Swan is a 49 year old female with a past medical history of COPD, anxiety, opioid and benzodiazepine dependence, coronary artery disease, and intellectual dysfunction who presents to the emergency department with a 5-day history of vomiting. ED course: 2 L normal saline bolus, 4 mg IV morphine sulfate, 4 mg IV Zofran x2, 324 mg p.o. aspirin, GI cocktail -Admit to med/surg -CT abdomen and pelvis without any acute findings -Examination not consistent with surgical abdomen -Lipase within normal limits -Afebrile, patient does have elevated white cell count at 16.9, however this is in part related to hemoconcentration -Suspect symptoms related to gastroenteritis, will treat supportively -Clear liquids, maintenance IV fluids with normal saline at 95 mLs/hour -IV Zofran as needed for nausea -Stool culture ordered by ED Acute kidney injury -Creatinine acutely elevated to 2.24, baseline is < 1 -Suspect prerenal etiology in the setting of dehydration -Fluids as above, trend BMP -Avoid nephrotoxic agents -Urinalysis ordered and pending Transaminitis -Patient has a history of the same in the past, felt to be related to opioid use -Suspect worsened by gastroenteritis -patient does not have a gallbladder -Repeat CMP in the morning Electrolyte abnormalities - hyponatremia, hypokalemia, hypochloremia, hypophosphatemia -Related to vomiting and diarrhea, and poor oral intake -Continue maintenance IVF as above -10 mEq K riders ordered x3, 15 mmol sodium phosphate ordered GERD -Nexium nonformulary, will order pantoprazole Coronary artery disease -Patient reports history of CO 6 years ago, without the placement of stents -Continue home aspirin -EKG appears improved from prior, troponin negative -Patient's chart also lists a history of hypertension, however patient does not appear to be on medications for this -> outpt f/u Anxiety -Continue alprazolam Migraines/opioid dependence -Continue home Percocet -No migraines currently COPD -Listed on patient's chart, however patient does not know anything about this diagnosis -Does not use home inhalers, no evidence of COPD exacerbation on exam CODE STATUS: DNR, per discussion with patient, who expressed understanding of t his DVT prophylaxis: Low risk - SCDs, encourage ambulation Disposition: Admit to med/surg (2) Dehydration: (3) Acute kidney injury: (4) Hypokalemia: (5) Elevated bilirubin: (6) COPD (chronic obstructive pulmonary disease): (7) Nausea, vomiting, and diarrhea: (8) Opioid dependence: (9) Benzodiazepine dependence: (10) Coronary artery disease: (11) Anxiety: (12) Migraines: History of Present Illness Chief Complaint: Vomiting, Abdominal Pain Primary Care Provider: Sridhar Gonzalez Ms. Swan is a 49 year old female with a past medical history of COPD, anxiety, opioid and benzodiazepine dependence, coronary artery disease, and intellectual dysfunction who presents to the emergency department with a 5-day history of vomiting. She notes that she has been vomiting several times a day, and is unable to keep any food or drink down. She denies the presence of blood in her vomit. She also endorses abdominal pain that began today, describing it as stabbing, located in various parts of her abdomen, radiating to her back. She reports her last bowel movement was yesterday, and noted that it was "smelly diarrhea," without the presence of blood. She denies having fevers, however reports having chills. She states that this began after she consumed her 's chili on Thursday. She states that her was also ill after this, however he is better now. She denies any recent traveling, or camping. She also endorses tingling in her hands and face, which she states began today. She denies any chest pain or shortness of breath. Past medical history: Migraines, COPD, anxiety, opioid and benzodiazepine dependence, coronary artery disease (states that she had an CO 6 years ago, however does not have any stents placed), intellectual dysfunction Past surgical history: Cholecystectomy, section Medications: Alprazolam, aspirin, Nexium, Zofran, Percocet Allergies: Haloperidol, hydroxyzine, prochlorperazine, citalopram, rofecoxib, prednisone, tramadol Social history: Lives with her , daughter and grandson in a house. Has smoked >1 PPD since age 15, now down to 5 cigarettes a day. Rarely consumes alcohol. No recreational drugs. Allergies Allergy/AdvReac Type Severity Reaction Status Date / Time haloperidol Allergy Severe TONGUE Verified 05/10/19 17:44 SWELLS hydroxyzine Allergy Severe CAN'T Verified 05/10/19 17:44 BREATH prochlorperazine AdvReac Intermediate SICK Verified 05/10/19 17:44 escitalopram AdvReac Mild MAKES HER Verified 05/10/19 17:44 "THINK GOOFY" rofecoxib AdvReac Mild FIERRO LIPS Verified 05/10/19 17:44 prednisone AdvReac Unknown GI UPSET Verified 05/10/19 17:44 tramadol AdvReac Unknown UNABLE TO Verified 05/10/19 17:44 VOID Home Medications Home Medications Medication Instructions Recorded Confirmed Type alprazolam 1 mg PO QID 07/25/18 05/10/19 History aspirin 81 mg PO DAILY 07/25/18 05/10/19 History esomeprazole magnesium [Nexium] 40 mg PO DAILY PRN 07/25/18 05/10/19 History oxycodone-acetaminophen [Percocet] 1 tab PO Q6H PRN 07/25/18 05/10/19 History ondansetron HCl 4 mg PO Q8H PRN 10/18/18 05/10/19 History Past Med/Surg History Surgical History H/O section Hx of cholecystectomy No significant past surgical history Social History Preferred Language: Chinese Communication Ability: Effective 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 Beliefs That Will Affect Care: None marital status: Current Living Situation: Spouse current occupational status: disabled Other Information That Helps Us Care for You: No Feels Safe at Home: Yes Safety Concerns: Feels Safe At This Time Smoking Status: Current every day smoker Tobacco Type: cigarettes ; Cigarettes Per Day: 5 ; Do You Dip or Chew Tobacco: No ; Second Hand Exposure: Yes ; Hx Alcohol Use: No Hx Substance Use: No Review of Systems Constitutional: + chills, + fatigue and + anorexia; no fever Respiratory: no cough, no dyspnea and no wheezing Cardiovascular: no chest pain, no syncope, no edema and no calf pain Gastrointestinal: + abdominal pain, + nausea, + vomiting and + diarrhea/loose stools; no coffee ground emesis and no blood in stools Genitourinary: no dysuria, no urinary frequency and no urinary urgency Physical Exam Constitutional: WD/WN, vitals as above cooperative and comfortable Eyes: PERRL, conjunctivae normal, anicteric sclerae ENMT: external ear and nose normal, oropharynx normal (Dry mucous membrane) Respiratory: normal respiratory effort, lungs clear to auscultation Cardiovascular: RRR, no murmur, no edema Gastrointestinal (Abdomen): Inspection/Auscultation: abdomen normal to inspection; abdomen not distended Percussion/Palpation: + abdomen tender (Mildly uncomfortable throughout, however not overtly tender) and abdomen soft; no guarding and abdomen not rigid Skin: no rashes, warm and dry Neurologic: 5/5 power in upper and lower extremities Results & Data Vital Signs (Past 12 Hours) Vital Signs Temp Pulse Resp BP Pulse Ox 05/10/19 20:01 109 H 14 161/138 H 96 05/10/19 19:30 116 H 24 96 05/10/19 19:00 105 H 19 140/111 H 90 05/10/19 18:00 109 H 20 148/111 H 99 05/10/19 17:30 139 H 23 133/108 H 99 05/10/19 17:15 115 H 18 144/113 H 100 05/10/19 16:47 36.7 C 90 18 115/50 L 97 Supervising Physician Co-Signing Physician Notes Patient was seen and examined by me personally. I reviewed the chart, the orders and discussed the case in detail with Dr. Ryan Martinez MD. I read this H&P and agree with its contents to entirety. PG Care Time/CCT Total # of Minutes Spent Total Time Spent with Patient: Total time spent is greater than 50% in coordination of care (as documented) at patient's floor/unit and/or counseling patient: Resident Activity Tracking Resident Involvement: Resident Care Provided Care Provided: Adult Hospital Medicine
[2019-05-10] MEDS ORDERED: ACETAMINOPHEN 325 MG TAB PO PRN (22:07)
[2019-05-10] MEDS ORDERED: SODIUM PHOSPHATE 3 MMOL/1 ML INFUSION IV ONE (22:07)
[2019-05-10] MEDS: SODIUM CHLORIDE 0.9% 1000ML 1,000 ML IV SCH (22:13)
[2019-05-10] MEDS: ALPRAZolam 0.5 MG TABLET PO SCH (22:25)
[2019-05-10] MEDS ORDERED: SODIUM PHOSPHATE 15 MMOL in SODIUM CHLORIDE 0.9% 250 ML IV ONE (22:30)
[2019-05-10] MEDS ORDERED: COUGH DROP (SUGAR FREE) LOZ 24 LOZ/1 BOX BUCCAL PRN (23:18)
[2019-05-10] MEDS: POTASSIUM CHLORIDE / WTR 10 MEQ/100 ML PLCT IV SCH (23:59)
--- NOTE | 2019-05-11 00:20 | Emergency Department Note ---
Entered by Asiya Fisher acting as a scribe for Eligio De Dios M.D. History of Present Illness General Chief complaint: Vomiting Stated complaint: VOMITING X3 DAYS-CARDIAC HX Source: patient History of Present Illness Provider complaint: vomiting Onset (ago): hour(s) 10 Pain Consistency: + other (episode) Maximum Pain Intensity: 8 Quality: + other (vomiting) Associated symptoms: + other (trouble swallowing, unable to eat, unable to move bowels, unable to urinate, abdominal pain) Treatments prior to arrival: other (Percocet, but could not keep it down) The patient is a 49 year old female who presents to the ED with complaints of an episode of vomiting that started 10 hours ago. The patient states that she started having abdominal pain when she got to the ED today. The patient states that she is unable to eat, move her bowels and urinate. The patient states that she tried taking a Percocet for the pain, but she could not keep it down. The patient notes that she has been more tired than usual and she is having trouble swallowing. Home Medications Home Medications Medication Instructions Recorded Confirmed Type alprazolam 1 mg PO QID 07/25/18 05/10/19 History aspirin 81 mg PO DAILY 07/25/18 05/10/19 History esomeprazole magnesium [Nexium] 40 mg PO DAILY PRN 07/25/18 05/10/19 History oxycodone-acetaminophen [Percocet] 1 tab PO Q6H PRN 07/25/18 05/10/19 History ondansetron HCl 4 mg PO Q8H PRN 10/18/18 05/10/19 History Allergies Allergy/AdvReac Type Severity Reaction Status Date / Time haloperidol Allergy Severe TONGUE Verified 05/10/19 17:44 SWELLS hydroxyzine Allergy Severe CAN'T Verified 05/10/19 17:44 BREATH prochlorperazine AdvReac Intermediate SICK Verified 05/10/19 17:44 escitalopram AdvReac Mild MAKES HER Verified 05/10/19 17:44 "THINK GOOFY" rofecoxib AdvReac Mild FIERRO LIPS Verified 05/10/19 17:44 prednisone AdvReac Unknown GI UPSET Verified 05/10/19 17:44 tramadol AdvReac Unknown UNABLE TO Verified 05/10/19 17:44 VOID Past Med/Surg History Surgical History H/O section Hx of cholecystectomy No significant past surgical history Social History Preferred Language: Thai Communication Ability: Effective 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 and A total of 10 systems reviewed and were otherwise negative Physical Exam Vital Signs Vital Signs - 24 hr 05/10/19 16:47 05/10/19 17:15 05/10/19 17:30 Temperature 36.7 C Temperature Source Oral Sepsis Recent Fever Within 48 Hours No Sepsis New/Unexplained Change in Mental Status No Sepsis Action Taken by Nursing No Action Required Pulse Rate 90 115 H 139 H Pulse Rate from SpO2 Sensor 117 H Respiratory Rate 18 18 23 Respiratory Effort / Characteristics Non-Labored Spontaneous Respiratory Depth Normal Respiratory Pattern Regular Blood Pressure 115/50 L 144/113 H 133/108 H Blood Pressure Mean 71 123 116 Blood Pressure Position Sitting Pulse Oximetry 97 100 99 Oxygen Delivery Method Room Air 05/10/19 18:00 05/10/19 19:00 05/10/19 19:30 Temperature Temperature Source Sepsis Recent Fever Within 48 Hours Sepsis New/Unexplained Change in Mental Status Sepsis Action Taken by Nursing Pulse Rate 109 H 105 H 116 H Pulse Rate from SpO2 Sensor 106 H 116 H Respiratory Rate 20 19 24 Respiratory Effort / Characteristics Respiratory Depth Respiratory Pattern Blood Pressure 148/111 H 140/111 H Blood Pressure Mean 123 120 Blood Pressure Position Pulse Oximetry 99 90 96 Oxygen Delivery Method Room Air Room Air 05/10/19 20:01 Temperature Temperature Source Sepsis Recent Fever Within 48 Hours Sepsis New/Unexplained Change in Mental Status Sepsis Action Taken by Nursing Pulse Rate 109 H Pulse Rate from SpO2 Sensor 109 H Respiratory Rate 14 Respiratory Effort / Characteristics Respiratory Depth Respiratory Pattern Blood Pressure 161/138 H Blood Pressure Mean 145 Blood Pressure Position Pulse Oximetry 96 Oxygen Delivery Method GENERAL: Awake, alert, fatigued in appearance, retching HENT: Normocephalic, atraumatic. Dry Mucous membranes. EYES: Normal conjunctiva. Sclera non-icteric. NECK: Supple. No nuchal rigidity. RESPIRATORY: Clear to auscultation. No wheezes. Normal respiratory effort. CARDIAC: Normal rate. Normal rhythm. Extremities warm and well perfused. GI: Soft, non-distended. Diffuse abdominal tenderness to palpation. No masses. RECTAL: Deferred. MUSCULOSKELETAL: Atraumatic. Chest examination reveals no tenderness. LOWER EXTREMITIES: Calves are equal size bilaterally and non-tender. No edema NEURO: Normal sensorium. No sensory or motor deficits noted. No facial droop. SKIN: Warm and dry. No rash or jaundice noted. Course 1744: Past medical records reviewed. The patient was evaluated in room C12. A complete history and physical exam was performed. 1950: I reevaluated the patient at this time and she is resting comfortably. 2000: [facility] the [facility] He will evaluate the patient for further management. Consultations Consultation #1: I discussed the patient's case with Dr. [facility] . He will evaluate the patient for further management. Time: 20:01 Administered Medications Alprazolam (Xanax) 1 mg PO QID SONNY Stop: 06/09/19 22:59 Last Admin: 05/10/19 22:25 Dose: 1 mg Documented by: [id number] Sodium Chloride (Nss 1000ml) 1,000 mls @ 95 mls/hr IV .[id number] SONNY Stop: 06/09/19 22:06 Last Admin: 05/10/19 22:13 Dose: 95 mls/hr Documented by: [id number] Potassium Chloride (K [place] / Wtr) 10 meq in 100 mls @ 100 mls/hr IV Q1H SONNY Stop: 05/11/19 01:29 Last Admin: 05/10/19 23:59 Dose: 100 mls/hr Documented by: [id number] Sodium Phosphate 15 mmol/ (Sodium Chloride) 255 mls @ 88 mls/hr IV ONE ONE Stop: 05/11/19 01:23 Last Admin: 05/10/19 23:58 Dose: 88 mls/hr Documented by: [id number] Discontinued Medications Al Hydrox/Mg Hydrox/Simethicone () 1 dose PO ONE ONE Stop: 05/10/19 19:53 Last Admin: 05/10/19 20:00 Dose: 1 dose Documented by: [id number] Aspirin (Aspirin Chew) 324 mg PO NOW STA Stop: 05/10/19 19:52 Last Admin: 05/10/19 20:00 Dose: 324 mg Documented by: [id number] Sodium Chloride (Nss 1000ml) 1,000 mls @ 999 mls/hr IV .[id number] SONNY Stop: 05/10/19 19:00 Last Infusion: 05/10/19 19:21 Dose: 0 mls/hr Documented by: [id number] Admin: 05/10/19 18:29 Dose: 999 mls/hr Documented by: [id number] Sodium Chloride (Nss 1000ml) 1,000 mls @ 999 mls/hr IV .Q1H1M ONE Stop: 05/10/19 19:59 Last Infusion: 05/10/19 20:29 Dose: 0 mls/hr Documented by: [id number] Admin: 05/10/19 19:38 Dose: 999 mls/hr Documented by: [id number] Morphine Sulfate (Morphine Sulfate) 4 mg IV NOW STA Stop: 05/10/19 17:51 Last Admin: 05/10/19 18:29 Dose: 4 mg Documented by: [id number] Ondansetron HCl (Zofran) 4 mg IV NOW STA Stop: 05/10/19 17:51 Last Admin: 05/10/19 18:29 Dose: 4 mg Documented by: [id number] Ondansetron HCl (Zofran) 4 mg IV NOW STA Stop: 05/10/19 19:52 Last Admin: 05/10/19 20:00 Dose: 4 mg Documented by: [id number] Medical Decision Making Differential Diagnosis Differential diagnosis Etiologies such as biliary colic, cholecystitis, hepatitis, perihepatitis, panc reatitis, cardiac disease, pancreatitis, gastritis, peptic ulcer disease, appendicitis, ovarian cyst, ovarian torsion, ectopic , pelvic inflammatory disease, cystitis, diverticulitis, mesenteric ischemia, inflammatory bowel disease, ileus, bowel obstruction, aortic pathology, shingles, as well as others were considered. Medical Records Attestation: I reviewed the patient's medical records. Home Medications Current Medication List: was personally reviewed by me Laboratory Data Attestation: I reviewed the patient's lab results. Result diagrams: 05/10/19 18:15 05/10/19 18:15 Lab Results 05/10/19 05/10/19 05/10/19 Range/Units 18:15 18:15 18:15 WBC 16.93 H (4.8-10.8) K/uL RBC 6.35 H (4.2-5.4) M/uL Hgb 20.0 H (12.0-16.0) g/dL Hct 56.6 H (37-47) % MCV 89.1 (80-100) fL MCH 31.5 (25-34) pg MCHC 35.3 (32-36) g/dL RDW Std Deviation 42.5 (36.4-46.3) fL RDW Coeff of Rosetta 13.0 (11.5-14.5) % Plt Count 356 (130-400) K/uL MPV 10.6 H (7.4-10.4) fL Immature Gran % (Auto) 0.4 % Neut % (Auto) 84.5 % Lymph % (Auto) 8.9 % [place] % (Auto) 6.1 % Eos % (Auto) 0.0 % Baso % (Auto) 0.1 % Immature Gran # (Auto) 0.06 H (0.00-0.02) K/uL Neut # (Auto) 14.31 H (1.4-6.5) K/uL Lymph # (Auto) 1.50 (1.2-3.4) K/uL [place] # (Auto) 1.04 H (0.11-0.59) K/uL Eos # (Auto) 0.00 (0-0.5) K/uL Baso # (Auto) 0.02 (0-0.2) K/uL Sodium 135 L (136-145) mmol/L Potassium 3.2 L (3.5-5.1) mmol/L Chloride 92 L (98-107) mmol/L Carbon Dioxide 25 (21-32) mmol/L Anion Gap 18.0 H (3-11) BUN 43 H (7-18) mg/dl Creatinine 2.24 H (0.6-1.2) mg/dl Est Cr Clr Drug Dosing 26.5 ml/min Est GFR ( Amer) 28.7 Est GFR (Non-Af Amer) 24.8 BUN/Creatinine Ratio 19.0 (10-20) Glucose 165 H (70-99) mg/dl Calcium 10.6 H (8.5-10.1) mg/dl Phosphorus (2.5-4.9) mg/dl Magnesium (1.8-2.4) mg/dl Total Bilirubin 5.1 H (0.2-1) mg/dl AST 42 H (15-37) U/L ALT 88 H (12-78) U/L Alkaline Phosphatase 167 H (45-117) U/L Troponin I < 0.015 (0-0.045) ng/ml Total Protein 9.3 H (6.4-8.2) gm/dl Albumin 4.7 (3.4-5.0) gm/dl Globulin 4.6 H (2.5-4.0) gm/dl Albumin/Globulin Ratio 1.0 (0.9-2) Lipase 86 (73-393) U/L HCG, Qual Negative (Negative) 05/10/19 Range/Units 18:15 WBC (4.8-10.8) K/uL RBC (4.2-5.4) M/uL Hgb (12.0-16.0) g/dL Hct (37-47) % MCV (80-100) fL MCH (25-34) pg MCHC (32-36) g/dL RDW Std Deviation (36.4-46.3) fL RDW Coeff of [place] (11.5-14.5) % Plt Count (130-400) K/uL MPV (7.4-10.4) fL Immature Gran % (Auto) % Neut % (Auto) % Lymph % (Auto) % [place] % (Auto) % Eos % (Auto) % Baso % (Auto) % Immature Gran # (Auto) (0.00-0.02) K/uL Neut # (Auto) (1.4-6.5) K/uL Lymph # (Auto) (1.2-3.4) K/uL [place] # (Auto) (0.11-0.59) K/uL Eos # (Auto) (0-0.5) K/uL Baso # (Auto) (0-0.2) K/uL Sodium (136-145) mmol/L Potassium (3.5-5.1) mmol/L Chloride (98-107) mmol/L Carbon Dioxide (21-32) mmol/L Anion Gap (3-11) BUN (7-18) mg/dl Creatinine (0.6-1.2) mg/dl Est Cr Clr Drug Dosing ml/min Est GFR ( Amer) Est GFR (Non-Af Amer) BUN/Creatinine Ratio (10-20) Glucose (70-99) mg/dl Calcium (8.5-10.1) mg/dl Phosphorus 1.9 L (2.5-4.9) mg/dl Magnesium 2.2 (1.8-2.4) mg/dl Total Bilirubin (0.2-1) mg/dl AST (15-37) U/L ALT (12-78) U/L Alkaline Phosphatase (45-117) U/L Troponin I (0-0.045) ng/ml Total Protein (6.4-8.2) gm/dl Albumin (3.4-5.0) gm/dl Globulin (2.5-4.0) gm/dl Albumin/Globulin Ratio (0.9-2) Lipase (73-393) U/L HCG, Qual (Negative) Imaging Data Radiologist's Impression: Radiology results as stated below per my review and the radiologist's interpretation: CT OF THE ABDOMEN AND PELVIS WITHOUT CONTRAST CLINICAL HISTORY: pain, n/v, BHARTI, dehydration COMPARISON STUDY: CT of the abdomen and pelvis April 22, 2017 and abdominal series April 24, 2017. TECHNIQUE: Axial images of the abdomen and pelvis were obtained without IV contrast. Images were reviewed in the axial, sagittal, and coronal planes. Automated exposure control was utilized for the study. A dose lowering technique was utilized adhering to the principles of ALARA. FINDINGS: Lung bases are unremarkable. No renal, ureteral or bladder calculi are present. There is no hydronephrosis or hydroureter. There is no perinephric infiltration. Evaluation of the abdomen and pelvis is suboptimal on this unenhanced examination. Slight dilatation of the common bile duct is unchanged from prior CT and likely related to previous cholecystectomy. Unenhanced images of the spleen, adrenal glands and pancreas are unremarkable. There is no peripancreatic infiltration or fluid. The appendix is normal. There is no evidence for bowel obstruction. There is no ascites or lymphadenopathy. No suspicious osseous lesions are noted. No bowel wall thickening is evident on this unenhanced study. IMPRESSION: 1. No urinary calculi or hydronephrosis. 2. No acute process within the abdomen or pelvis on unenhanced study. Electronically signed by: Bobby Santos M.D. 05/10/2019 7:29 PM ECG Data Attestation: I personally reviewed and interpreted this ECG as follows: Indication: abdominal pain Rate (beats per minute): 117 Rhythm: sinus tachycardia Findings: + other (normal axis) and + ST depression (inferior lateral); no PVC Additional Comments: 2ND EKG: Rate: 92 Rhythm: Normal sinus Findings: No PVC, improvement on inferior lateral ST depression from 1st EKG. Blood Pressure Blood Pressure Findings: Elevated blood pressure Blood Pressure Disposition: further management by hospitalist DEAN Narrative Patient is a 49-year-old female with a past medical history including COPD, small bowel obstruction, migraines, prior and cholecystectomy presenting today complaining of several days of nausea and vomiting. States she has not had a bowel movement several days and also reports over the difficulty urinating today. Today developed severe diffuse abdominal pain. No trauma or fevers reported. Patient states she has not been able to keep anything down and feels dehydrated. No chest pain reported. Some sick family contacts have been reported. Blood work, EKG, troponin, and CT scan of the abdomen pelvis was completed. Patient has evidence of acute renal failure, leukocytosis of 16 with significant hemoconcentration with a hemoglobin of 20. Slight hypokalemia is also noted. Slight elevation of AST and ALT. Negative lipase. Negative . Will defer any potassium replacement given the significant creatinine elevation noted nearly today. CT scan of the abdomen pelvis without acute pathology. EKG does show concerning findings for inferior ST depressions. Rpt with improvement. Patient denies active chest pain and has reproducible lower abdominal tenderness as well as a little bit of throat irritation she reports. Troponin is undetectable. Do not believe this represents ST segment elevation ME concerned; more likely could be some demand. Also noted elevated bilirubin and some slight transaminase elevation. Negative lipase. Seems hu rly severe for gastroenteritis but believe a lot of her abnormalities are related to dehydrational state. Given a GI cocktail and full dose aspirin here to help with throat irritation symptoms and given the findings on the EKG. Discussed with the hospitalist for admission as well as the patient. Impression & Plan Acute kidney injury, Dehydration, Gastroenteritis, Hypokalemia, Elevated bilirubin Discharge Plan Visit Data *Final* Discharge Date/Time: 05/10/19 21:41 Chief Complaint: Vomiting Stated Complaint: VOMITING X3 DAYS-CARDIAC HX ED Provider: Eligio De Dios Discharge Problem: Acute kidney injury, Dehydration, Gastroenteritis, Hypokalemia, Elevated bilirubin Patient Disposition: Admitted As Inpatient Discharge Instructions Interventions: ED Discharge Assessment Last Done: 05/10/19 21:41 The scribe's documentation has been prepared under my direction and personally reviewed by me in its entirety. I confirm that the note above accurately reflects all work, treatment, procedures, and medical decision making performed by me.
[2019-05-11] MEDS: POTASSIUM CHLORIDE / WTR 10 MEQ/100 ML PLCT IV SCH ×2 (00:59→02:06)
[2019-05-11] MEDS: ONDANSETRON INJ 2 MG/ML 2 ML VIAL IV PRN ×3 (03:03→18:37)
[2019-05-11 06:35] LABS: Basophils # (auto) 0.04 K/uL (0-0.2); Basophils % (auto) 0.3 %; Eosinophils # (auto) 0.04 K/uL (0-0.5); Eosinophils % (auto) 0.3 %; Hematocrit (blood only) 43.7 % (37-47); Hemoglobin 14.8 g/dL (12.0-16.0); Immature Granulocytes # (auto) 0.03 K/uL (0.00-0.02); Immature Granulocytes % (auto) 0.2 %; Lymphocytes # (auto) 3.69 K/uL (1.2-3.4); Lymphocytes % (auto) 27.3 %; Mean Corpuscular Hemoglobin 31.5 pg (25-34); Mean Corpuscular Hgb Conc 33.9 g/dL (32-36); Mean Platelet Volume 10.1 fL (7.4-10.4); Monocytes # (auto) 1.03 K/uL (0.11-0.59); Monocytes % (auto) 7.6 %; Neutrophils # (auto) 8.67 K/uL (1.4-6.5); Neutrophils % (auto) 64.3 %; Platelet Count 229 K/uL (130-400); RDW Coefficient of Variation 13.4 % (11.5-14.5); RDW Standard Deviation 45.9 fL (36.4-46.3)
[2019-05-11 07:05] LABS: BUN Creatinine Ratio 27.5 (10-20); Calcium 8.1 mg/dl (8.5-10.1); Creatinine Clr Calc Pharmacy 42.5 ml/min; Est GFR (African American) 49.8; Potassium 3.1 mmol/L (3.5-5.1)
[2019-05-11 07:08] LABS: Phosphorus 4.8 mg/dl (2.5-4.9)
[2019-05-11] MEDS: SODIUM CHLORIDE 0.9% 1000ML 1,000 ML IV SCH ×2 (08:29→18:45)
[2019-05-11] MEDS: ASPIRIN 81 MG ECTAB PO SCH (08:30)
[2019-05-11] MEDS: ALPRAZolam 0.5 MG TABLET PO SCH ×4 (08:31→21:44)
[2019-05-11] MEDS: PANTOprazole 40 MG TAB PO SCH (08:31)
[2019-05-11 08:59] LABS: Albumin Level 3.3 gm/dl (3.4-5.0); Bilirubin Direct 0.5 mg/dl (0-0.2); Bilirubin,Total 3.1 mg/dl (0.2-1); Total Protein 6.2 gm/dl (6.4-8.2)
[2019-05-11] MEDS ORDERED: INFLUENZA ADMINISTRATION CHARGE ONE (09:00)
[2019-05-11] MEDS ORDERED: PNEUMOCOCCAL POLYSACCHARIDES 25 MCG/0.5 ML VIAL/SYR IM ONE (09:00)
[2019-05-11] MEDS ORDERED: PNEUMOCOCCAL ADMINISTRATION CHARGE ONE (09:00)
[2019-05-11] MEDS ORDERED: INFLUENZA VIRUS QUAD VACCINE 0.5 ML SYR IM ONE (09:00)
[2019-05-11] MEDS: ALUMINUM/MAGNESIUM SUSP 30 ML UDC PO PRN (10:44)
[2019-05-11 10:47] LABS: Appearance Urine Clear (Clear); Blood Urine Negative (Negative); Epithelial Cell Urine Auto >30 /lpf (0-5); Glucose Urine UA Negative (Negative); Ketones Urine 1+ (Negative); Leukocyte Esterase Urine Trace (Negative); Nitrite Urine Positive (Negative); Protein Urine 1+ (Negative); RBC Urine Automated 0-4 /hpf (0-4); Specific Gravity Urine 1.034 (1.000-1.030); Urobilinogen Urine Negative (Negative); pH Urine 5.5 (4.5-7.5)
[2019-05-11 10:51] LABS: Bilirubin Urine Negative (Negative); Color Urine Amber; Ictotest Urine Negative (Negative)
[2019-05-11 10:58] LABS: Bacteria Urine Automated 1+ (Negative)
--- NOTE | 2019-05-11 14:45 | Hospitalist Progress Note ---
Date of Service May 11, 2019 Assessment & Plan (1) Gastroenteritis: Ms. Swan is a 49 year old female with a past medical history of COPD, anxiety, opioid and benzodiazepine dependence, coronary artery disease, and intellectual dysfunction who presents to the emergency department with a 5-day history of vomiting. ED course: 2 L normal saline bolus, 4 mg IV morphine sulfate, 4 mg IV Zofran x2, 324 mg p.o. aspirin, GI cocktail -CT abdomen and pelvis without any acute findings lipase normal, mild elevated in LFT continue clear liquids as symptoms improved, no vomiting since admission (2) Dehydration: due to vomiting and some diarrhea, symptoms for 5 days fluid boluses in the ED continue NSS at 95cc/hr (3) Acute kidney injury: -Creatinine acutely elevated to 2.24, baseline is < 1 -Suspect prerenal etiology in the setting of dehydration IV fluids at 95cc/hr, Cr improved to 1.4 today, K a little low at 3.1 continue fluids overnight repeat BMP in the morning making adequate urine (4) Hypokalemia: still a little low at 3.1 will replace (5) Transaminitis: ALT down to normal, AST slightly high at 48 repeat tomorrow most likely viral infection (6) Elevated bilirubin: Bili improved to 3.1 from 5.1 no signs of biliary obstruction on imaging repeat tomorrow (7) COPD (chronic obstructive pulmonary disease): no wheezing, breathing stable (8) Nausea, vomiting, and diarrhea: likely viral etiology or food toxin from eating bad chili symptoms improving slowly advance diet tomorrow (9) Opioid dependence: (10) Benzodiazepine dependence: (11) Coronary artery disease: -Patient reports history of CT 6 years ago, without the placement of stents -Continue home aspirin -EKG appears improved from prior, troponin negative -Patient's chart also lists a history of hypertension, however patient does not appear to be on medications for this -> outpt f/u some chest pain but related to swallowing, likely some mild esophagitis from vomiting (12) Anxiety: (13) Migraines: Subjective patient reports that her throat still hurts, she has pain with swallowing, some pain in her chest she admits to vomiting a lot at home but no vomiting since she was admitted no abdominal pain, tolerating liquid diet no dyspnea, no fever/chills updated her mom at the bedside reviewed labs, WBC 13k, Hb and plts stable Cr improved to 1.4 and BUN down slightly to 39 K a little low at 3.1 Bili down to 3.1 from 5.1 AST still 48, ALT normal reviewed chart, CT normal on admission Review of Systems Review of Systems: All systems reviewed & are unremarkable except as noted in HPI & below Ear, Nose, Mouth, Throat: + sore throat and + dysphagia Respiratory: no cough and no dyspnea Cardiovascular: no chest pain, no palpitations and no edema Gastrointestinal: + abdominal pain, + pain with swallowing and + dysphagia; no nausea, no vomiting, no constipation and no diarrhea/loose stools Physical Exam Constitutional: WD/WN, vitals as above Eyes: PERRL, conjunctivae normal, anicteric sclerae ENMT: external ear and nose normal, oropharynx normal Neck: trachea midline, no thyromegaly Respiratory: normal respiratory effort, lungs clear to auscultation Cardiovascular: RRR, no murmur, no edema Gastrointestinal (Abdomen): normal bowel sounds, soft, nontender, no hepatosplenomegaly Musculoskeletal: no cyanosis or clubbing, extremities motor strength 5/5 Skin: no rashes, warm and dry Neurologic: patellar DTR's 2+ bilat, sensation intact and PERRL, EOMI, accommodation nl, no face palsy, no dysarthria Psychiatric: A+Ox3, euthymic affect (intellectually slow) Lymphatic: no cervical or axillary lymphadenopathy Results & Data Vital Signs (Past 12 Hours) Vital Signs Temp Pulse Resp BP Pulse Ox 05/11/19 07:05 37.2 C 94 H 16 110/73 92 Laboratory Results Laboratory Results - last 24 hr 05/10/19 05/10/19 05/10/19 18:15 18:15 18:15 WBC 16.93 H RBC 6.35 H Hgb 20.0 H Hct 56.6 H MCV 89.1 MCH 31.5 MCHC 35.3 RDW Std Deviation 42.5 RDW Coeff of [place] 13.0 Plt Count 356 MPV 10.6 H Immature Gran % (Auto) 0.4 Neut % (Auto) 84.5 Lymph % (Auto) 8.9 [place] % (Auto) 6.1 Eos % (Auto) 0.0 Baso % (Auto) 0.1 Immature Gran # (Auto) 0.06 H Neut # (Auto) 14.31 H Lymph # (Auto) 1.50 [place] # (Auto) 1.04 H Eos # (Auto) 0.00 Baso # (Auto) 0.02 Sodium 135 L Potassium 3.2 L Chloride 92 L Carbon Dioxide 25 Anion Gap 18.0 H BUN 43 H Creatinine 2.24 H Est Cr Clr Drug Dosing 26.5 Est GFR ( Amer) 28.7 Est GFR (Non-Af Amer) 24.8 BUN/Creatinine Ratio 19.0 Glucose 165 H Calcium 10.6 H Phosphorus Magnesium Total Bilirubin 5.1 H Direct Bilirubin AST 42 H ALT 88 H Alkaline Phosphatase 167 H Troponin I < 0.015 Total Protein 9.3 H Albumin 4.7 Globulin 4.6 H Albumin/Globulin Ratio 1.0 Lipase 86 HCG, Qual Negative Urine Color Urine Appearance Urine pH Ur Specific [place] Urine Protein Urine Glucose (UA) Urine Ketones Urine Blood Urine Nitrite Urine Bilirubin Urine Urobilinogen Ur Leukocyte Esterase Urine WBC (Auto) Urine RBC (Auto) U Hyaline Cast (Auto) U Epithel Cells (Auto) Urine Bacteria (Auto) 05/10/19 05/11/19 05/11/19 18:15 06:12 06:12 WBC 13.50 H RBC 4.70 Hgb 14.8 D Hct 43.7 MCV 93.0 MCH 31.5 MCHC 33.9 RDW Std Deviation 45.9 RDW Coeff of [place] 13.4 Plt Count 229 MPV 10.1 Immature Gran % (Auto) 0.2 Neut % (Auto) 64.3 Lymph % (Auto) 27.3 [place] % (Auto) 7.6 Eos % (Auto) 0.3 Baso % (Auto) 0.3 Immature Gran # (Auto) 0.03 H Neut # (Auto) 8.67 H Lymph # (Auto) 3.69 H [place] # (Auto) 1.03 H Eos # (Auto) 0.04 Baso # (Auto) 0.04 Sodium 143 D Potassium 3.1 L Chloride 103 Carbon Dioxide 32 Anion Gap 8.0 BUN 39 H Creatinine 1.42 H D Est Cr Clr Drug Dosing 42.5 Est GFR ( Amer) 49.8 Est GFR (Non-Af Amer) 43.0 BUN/Creatinine Ratio 27.5 H Glucose 103 H Calcium 8.1 L D Phosphorus 1.9 L 4.8 D Magnesium 2.2 Total Bilirubin Direct Bilirubin AST ALT Alkaline Phosphatase Troponin I Total Protein Albumin Globulin Albumin/Globulin Ratio Lipase HCG, Qual Urine Color Urine Appearance Urine pH Ur Specific [place] Urine Protein Urine Glucose (UA) Urine Ketones Urine Blood Urine Nitrite Urine Bilirubin Urine Urobilinogen Ur Leukocyte Esterase Urine WBC (Auto) Urine RBC (Auto) U Hyaline Cast (Auto) U Epithel Cells (Auto) Urine Bacteria (Auto) 05/11/19 05/11/19 06:12 10:35 WBC RBC Hgb Hct MCV MCH MCHC RDW Std Deviation RDW Coeff of [place] Plt Count MPV Immature Gran % (Auto) Neut % (Auto) Lymph % (Auto) [place] % (Auto) Eos % (Auto) Baso % (Auto) Immature Gran # (Auto) Neut # (Auto) Lymph # (Auto) [place] # (Auto) Eos # (Auto) Baso # (Auto) Sodium Potassium Chloride Carbon Dioxide Anion Gap BUN Creatinine Est Cr Clr Drug Dosing Est GFR ( Amer) Est GFR (Non-Af Amer) BUN/Creatinine Ratio Glucose Calcium Phosphorus Magnesium Total Bilirubin 3.1 H Direct Bilirubin 0.5 H AST 48 H ALT 66 Alkaline Phosphatase 113 Troponin I Total Protein 6.2 L D Albumin 3.3 L Globulin Albumin/Globulin Ratio Lipase HCG, Qual Urine Color [place] Urine Appearance Clear Urine pH 5.5 Ur Specific [place] 1.034 H Urine Protein 1+ H Urine Glucose (UA) Negative Urine Ketones 1+ H Urine Blood Negative Urine Nitrite Positive A Urine Bilirubin Negative Urine Urobilinogen Negative Ur Leukocyte Esterase Trace H Urine WBC (Auto) 1-5 Urine RBC (Auto) 0-4 U Hyaline Cast (Auto) 5-10 H U Epithel Cells (Auto) >30 H Urine Bacteria (Auto) 1+ H Medications Administered Current Inpatient Medications Acetaminophen (Tylenol) 650 mg PO Q4H PRN PRN Reason: pain/fever Stop: 06/09/19 22:06 Al Hydrox/Mg Hydrox/Simethicone (Maalox) 30 ml PO Q6H PRN PRN Reason: Dyspepsia Stop: 06/09/19 22:06 Last Admin: 05/11/19 10:44 Dose: 30 ml Documented by: Alprazolam (Xanax) 1 mg PO QID SONNY Stop: 06/09/19 22:59 Last Admin: 05/11/19 12:32 Dose: 1 mg Documented by: Aspirin (Ecotrin Ectab) 81 mg PO DAILY [facility] Stop: 06/10/19 08:59 Last Admin: 05/11/19 08:30 Dose: 81 mg Documented by: Sodium Chloride (Nss 1000ml) 1,000 mls @ 95 mls/hr IV .[id number] [facility] Stop: 06/09/19 22:06 Last Admin: 05/11/19 08:29 Dose: 95 mls/hr Documented by: Menthol (Nice) 1 charlene BUCCAL PRN PRN PRN Reason: Cough Stop: 06/09/19 23:17 Ondansetron HCl (Zofran) 4 mg IV Q6H PRN PRN Reason: Nausea Stop: 06/09/19 22:06 Last Admin: 05/11/19 09:55 Dose: 4 mg Documented by: Oxycodone/Acetaminophen (Percocet 10/325mg) 1 tab PO Q6H PRN PRN Reason: Pain Stop: 05/24/19 22:06 Pantoprazole Sodium (Protonix) 40 mg PO QAM [facility] Stop: 06/10/19 08:59 Last Admin: 05/11/19 08:31 Dose: 40 mg Documented by: PG Care Time/CCT Total # of Minutes Spent Total Time Spent with Patient: Total time spent is greater than 50% in coordination of care (as documented) at patient's floor/unit and/or counseling patient:
[2019-05-11] MEDS ORDERED: SODIUM CHLORIDE 0.9% 500 ML IV SCH (20:30)
[2019-05-11] MEDS: OXYCODONE/ACETAMINOPHEN 10-325 TAB PO PRN (20:34)
[2019-05-11] MEDS: POTASSIUM CHLORIDE 20 MEQ/15 ML UDC PO SCH (21:45)
[2019-05-11] MEDS ORDERED: DiphenhydrAMINE HCL 50 MG/ML VIAL IV STA (23:36)
[2019-05-12] MEDS ORDERED: MAGNESIUM SULFATE / D5W 1 GM/100 ML BAG IV ONE
[2019-05-12] MEDS ORDERED: MoRPHine SULFATE 2 MG/ML CARP IV STA (02:37)
[2019-05-12] MEDS ORDERED: SUMAtriptan succinate 50 MG TAB PO ONE (03:15)
[2019-05-12] MEDS: OXYCODONE/ACETAMINOPHEN 10-325 TAB PO PRN (03:22)
[2019-05-12] MEDS: ALUMINUM/MAGNESIUM SUSP 30 ML UDC PO PRN (03:25)
[2019-05-12] MEDS: SODIUM CHLORIDE 0.9% 1000ML 1,000 ML IV SCH (05:09)
[2019-05-12 08:26] LABS: Basophils # (auto) 0.03 K/uL (0-0.2); Basophils % (auto) 0.5 %; Eosinophils # (auto) 0.14 K/uL (0-0.5); Eosinophils % (auto) 2.2 %; Hematocrit (blood only) 38.6 % (37-47); Hemoglobin 12.7 g/dL (12.0-16.0); Immature Granulocytes # (auto) 0.01 K/uL (0.00-0.02); Immature Granulocytes % (auto) 0.2 %; Lymphocytes # (auto) 2.84 K/uL (1.2-3.4); Lymphocytes % (auto) 44.6 %; Mean Corpuscular Hemoglobin 31.3 pg (25-34); Mean Corpuscular Hgb Conc 32.9 g/dL (32-36); Mean Corpuscular Volume 95.1 fL (80-100); Mean Platelet Volume 9.9 fL (7.4-10.4); Monocytes # (auto) 0.31 K/uL (0.11-0.59); Monocytes % (auto) 4.9 %; Neutrophils # (auto) 3.04 K/uL (1.4-6.5); Neutrophils % (auto) 47.6 %; Platelet Count 145 K/uL (130-400); RDW Coefficient of Variation 13.2 % (11.5-14.5); RDW Standard Deviation 45.9 fL (36.4-46.3); Red Blood Count 4.06 M/uL (4.2-5.4); White Blood Count 6.37 K/uL (4.8-10.8)
[2019-05-12] MEDS: ALPRAZolam 0.5 MG TABLET PO SCH ×4 (08:48→20:48)
[2019-05-12] MEDS: POTASSIUM CHLORIDE 20 MEQ/15 ML UDC PO SCH ×2 (08:49→20:50)
[2019-05-12] MEDS: ASPIRIN 81 MG ECTAB PO SCH (08:49)
[2019-05-12 09:00] LABS: Albumin Globulin Ratio 1.2 (0.9-2); Albumin Level 2.8 gm/dl (3.4-5.0); BUN Creatinine Ratio 19.8 (10-20); Bilirubin,Total 1.9 mg/dl (0.2-1); Calcium 8.3 mg/dl (8.5-10.1); Creatinine Clr Calc Pharmacy 59.2 ml/min; Est GFR (African American) 74.3; Est GFR (Non-African American) 64.1; Globulin 2.3 gm/dl (2.5-4.0); Potassium 3.6 mmol/L (3.5-5.1); Total Protein 5.1 gm/dl (6.4-8.2)
[2019-05-12] MEDS: PANTOprazole 40 MG TAB PO SCH (09:01)
[2019-05-12] MEDS: SUCRALFATE 1 GM/10 ML UDC PO SCH ×3 (12:25→20:50)
--- NOTE | 2019-05-12 14:30 | Hospitalist Progress Note ---
Date of Service May 12, 2019 Assessment & Plan (1) Gastroenteritis: Ms. Swan is a 49 year old female with a past medical history of COPD, anxiety, opioid and benzodiazepine dependence, coronary artery disease, and intellectual dysfunction who presents to the emergency department with a 5-day history of vomiting. ED course: 2 L normal saline bolus, 4 mg IV morphine sulfate, 4 mg IV Zofran x2, 324 mg p.o. aspirin, GI cocktail -CT abdomen and pelvis without any acute findings lipase normal, mild elevated in LFT symptoms improved, no vomiting advance diet from clears to low fiber diet no abdominal pain some pain with swallowing, likely esophagitis from vomiting for 5 days add carafate and continue PPI twice a day stop fluids today (2) Dehydration: due to vomiting and some diarrhea, symptoms for 5 days fluid boluses in the ED continue NSS at 95cc/hr for today and then stop (3) Acute kidney injury: -Creatinine acutely elevated to 2.24, baseline is < 1 -Suspect prerenal etiology in the setting of dehydration IV fluids at 95cc/hr, Cr improved to 1.0 today, K is normal stop fluids today repeat BMP in the morning making adequate urine (4) Hypokalemia: resolved, up to 3.6 today low K was due to GI losses (5) Transaminitis: ALT down to normal, AST slightly high at 45 repeat tomorrow most likely viral infection (6) Elevated bilirubin: Bili improved to 1.9 from 5.1 no signs of biliary obstruction on imaging repeat tomorrow (7) COPD (chronic obstructive pulmonary disease): no wheezing, breathing stable (8) Nausea, vomiting, and diarrhea: likely viral etiology or food toxin from eating bad chili symptoms improving slowly advance diet to low fiber (9) Opioid dependence: (10) Benzodiazepine dependence: (11) Coronary artery disease: -Patient reports history of OR 6 years ago, without the placement of stents -Continue home aspirin -EKG appears improved from prior, troponin negative -Patient's chart also lists a history of hypertension, however patient does not appear to be on medications for this -> outpt f/u some chest pain but related to swallowing, likely some mild esophagitis from vomiting (12) Anxiety: (13) Migraines: Subjective patient sitting up, says she is feeling a little better today swallowing a little better evaluated by speech therapy, recommended using pudding for pills added carafate this AM for any further dysphagia or chest pain reviewed labs, Cr down to 1.0, K is 3.6, bili down to 1.9 CBC normal will advance patient's diet, stop fluids when this bag is done discussed likely discharge tomorrow Review of Systems Review of Systems: All systems reviewed & are unremarkable except as noted in HPI & below Gastrointestinal: + pain with swallowing; no abdominal pain, no nausea, no vomiting, no constipation and no diarrhea/loose stools Physical Exam Constitutional: WD/WN, vitals as above Eyes: PERRL, conjunctivae normal, anicteric sclerae ENMT: external ear and nose normal, oropharynx normal Neck: trachea midline, no thyromegaly Respiratory: normal respiratory effort, lungs clear to auscultation Cardiovascular: RRR, no murmur, no edema Gastrointestinal (Abdomen): normal bowel sounds, soft, nontender, no hepatosplenomegaly Musculoskeletal: no cyanosis or clubbing, extremities motor strength 5/5 Skin: no rashes, warm and dry Neurologic: patellar DTR's 2+ bilat, sensation intact and PERRL, EOMI, accommodation nl, no face palsy, no dysarthria Psychiatric: A+Ox3, euthymic affect (intellectually slow) Lymphatic: no cervical or axillary lymphadenopathy Results & Data Vital Signs (Past 12 Hours) Vital Signs Temp Pulse Resp BP Pulse Ox 05/12/19 07:08 36.5 C 62 16 104/71 94 Laboratory Results Laboratory Results - last 24 hr 05/11/19 05/12/19 05/12/19 20:37 02:19 08:12 WBC 6.37 RBC 4.06 L Hgb 12.7 Hct 38.6 MCV 95.1 MCH 31.3 MCHC 32.9 RDW Std Deviation 45.9 RDW Coeff of [place] 13.2 Plt Count 145 MPV 9.9 Immature Gran % (Auto) 0.2 Neut % (Auto) 47.6 Lymph % (Auto) 44.6 [place] % (Auto) 4.9 Eos % (Auto) 2.2 Baso % (Auto) 0.5 Immature Gran # (Auto) 0.01 Neut # (Auto) 3.04 Lymph # (Auto) 2.84 [place] # (Auto) 0.31 Eos # (Auto) 0.14 Baso # (Auto) 0.03 Sodium Potassium Chloride Carbon Dioxide Anion Gap BUN Creatinine Est Cr Clr Drug Dosing Est GFR ( Amer) Est GFR (Non-Af Amer) BUN/Creatinine Ratio Glucose Calcium Total Bilirubin AST ALT Alkaline Phosphatase Troponin I < 0.015 < 0.015 Total Protein Albumin Globulin Albumin/Globulin Ratio 05/12/19 08:12 WBC RBC Hgb Hct MCV MCH MCHC RDW Std Deviation RDW Coeff of [place] Plt Count MPV Immature Gran % (Auto) Neut % (Auto) Lymph % (Auto) [place] % (Auto) Eos % (Auto) Baso % (Auto) Immature Gran # (Auto) Neut # (Auto) Lymph # (Auto) [place] # (Auto) Eos # (Auto) Baso # (Auto) Sodium 141 Potassium 3.6 D Chloride 109 H Carbon Dioxide 27 Anion Gap 5.0 BUN 20 H Creatinine 1.02 Est Cr Clr Drug Dosing 59.2 Est GFR ( Amer) 74.3 Est GFR (Non-Af Amer) 64.1 BUN/Creatinine Ratio 19.8 Glucose 95 Calcium 8.3 L Total Bilirubin 1.9 H AST 45 H ALT 67 Alkaline Phosphatase 94 Troponin I Total Protein 5.1 L Albumin 2.8 L Globulin 2.3 L Albumin/Globulin Ratio 1.2 Medications Administered Current Inpatient Medications Acetaminophen (Tylenol) 650 mg PO Q4H PRN PRN Reason: pain/fever Stop: 06/09/19 22:06 Last Admin: 05/11/19 18:36 Dose: 650 mg Documented by: Al Hydrox/Mg Hydrox/Simethicone (Maalox) 30 ml PO Q6H PRN PRN Reason: Dyspepsia Stop: 06/09/19 22:06 Last Admin: 05/12/19 03:25 Dose: 30 ml Documented by: Alprazolam (Xanax) 1 mg PO QID [facility] Stop: 06/09/19 22:59 Last Admin: 05/12/19 12:24 Dose: 1 mg Documented by: Aspirin (Ecotrin Ectab) 81 mg PO DAILY [facility] Stop: 06/10/19 08:59 Last Admin: 05/12/19 08:49 Dose: 81 mg Documented by: Menthol (Nice) 1 charlene BUCCAL PRN PRN PRN Reason: Cough Stop: 06/09/19 23:17 Ondansetron HCl (Zofran) 4 mg IV Q6H PRN PRN Reason: Nausea Stop: 06/09/19 22:06 Last Admin: 05/11/19 18:37 Dose: 4 mg Documented by: Oxycodone/Acetaminophen (Percocet 10/325mg) 1 tab PO Q6H PRN PRN Reason: Pain Stop: 05/24/19 22:06 Last Admin: 05/12/19 03:22 Dose: 1 tab Documented by: Pantoprazole Sodium (Protonix) 40 mg PO QAM [facility] Stop: 06/10/19 08:59 Last Admin: 05/12/19 09:01 Dose: 40 mg Documented by: Potassium Chloride (Mine Ciel Elix) 20 meq PO BID [facility] Stop: 06/10/19 20:59 Last Admin: 05/12/19 08:49 Dose: 20 meq Documented by: Sucralfate (Carafate) 1 gm PO QID [facility] Stop: 06/11/19 12:59 Last Admin: 05/12/19 12:25 Dose: 1 gm Documented by: PG Care Time/CCT Total # of Minutes Spent Total Time Spent with Patient: Total time spent is greater than 50% in coordination of care (as documented) at patient's floor/unit and/or counseling patient:
[2019-05-12] MEDS: ONDANSETRON INJ 2 MG/ML 2 ML VIAL IV PRN (21:46)
[2019-05-13] MEDS: OXYCODONE/ACETAMINOPHEN 10-325 TAB PO PRN ×2 (06:49→18:36)
[2019-05-13] MEDS: ONDANSETRON INJ 2 MG/ML 2 ML VIAL IV PRN ×2 (06:49→23:38)
[2019-05-13 07:34] LABS: Creatinine Clr Calc Pharmacy 54.4 ml/min; Est GFR (African American) 67.1; Est GFR (Non-African American) 57.9
[2019-05-13 07:35] LABS: Albumin Level 3.1 gm/dl (3.4-5.0); BUN Creatinine Ratio 17.1 (10-20); Calcium 9.2 mg/dl (8.5-10.1)
[2019-05-13] MEDS: PANTOprazole 40 MG TAB PO SCH ×2 (08:22→21:00)
[2019-05-13] MEDS: ALPRAZolam 0.5 MG TABLET PO SCH ×4 (08:22→21:00)
[2019-05-13] MEDS: SUCRALFATE 1 GM/10 ML UDC PO SCH ×4 (08:22→21:00)
[2019-05-13] MEDS: ASPIRIN 81 MG ECTAB PO SCH (08:22)
[2019-05-13] MEDS: POTASSIUM CHLORIDE 20 MEQ/15 ML UDC PO SCH (08:23)
[2019-05-13 08:56] LABS: Bilirubin Direct 0.2 mg/dl (0-0.2)
[2019-05-13 08:57] LABS: Potassium 4.1 mmol/L (3.5-5.1)
[2019-05-13] MEDS ORDERED: SUMAtriptan succinate 6 MG/0.5 ML VIAL SQ STA (10:20)
--- NOTE | 2019-05-13 10:52 | CT Scan Report ---
CT head/brain wo con CLINICAL HISTORY: 49 years-old Female presenting with headache, vomiting. TECHNIQUE: Multidetector CT imaging of the head was performed without the use of intravenous contrast . IV contrast: None. One or more dose lowering techniques were used consistent with the principles of ALARA (as low as reasonably achievable), including automatic exposure control, mA or kV adjustment t o individual patient size, and/or use of iterative reconstruction. COMPARISON: 07/25/2018. CT DOSE (mGy.cm): The estimated cumulative dose is 537.48 mGy.cm. FINDINGS: Data Management Consultant topogram: Unremarkable. Ventricles and sulci normal in size. No hemorrhage. Brain parenchyma normal in appearance with preser gabbi ramirez-white differentiation. No acute territorial infarct. No mass effect or midline shift. No ext ra-axial fluid collection. Paranasal sinuses and mastoid air cells clear. Calvarium intact. IMPRESSION: 1. No acute intracranial abnormality. Electronically signed by: Rafi Dukes M.D. 05/13/2019 10:51 AM
--- NOTE | 2019-05-13 13:37 | Hospitalist Progress Note ---
Date of Service May 13, 2019 Assessment & Plan (1) Gastroenteritis: Ms. Swan is a 49 year old female with a past medical history of COPD, anxiety, opioid and benzodiazepine dependence, coronary artery disease, and intellectual dysfunction who presents to the emergency department with a 5-day history of vomiting. ED course: 2 L normal saline bolus, 4 mg IV morphine sulfate, 4 mg IV Zofran x2, 324 mg p.o. aspirin, GI cocktail -CT abdomen and pelvis without any acute findings lipase normal, mild elevated in LFT symptoms improved, then she had one episode of vomiting last night no vomiting this morning, ate breakfast will stop Potassium supplement as it may aggravate stomach advance diet from clears to low fiber diet no abdominal pain some pain with swallowing, likely esophagitis from vomiting for 5 days add carafate and continue PPI twice a day observe for 24 more hours, likely d/c tomorrow if stable (2) Dehydration: due to vomiting and some diarrhea, symptoms for 5 days fluid boluses in the ED stopped fluids on 05/12, adequately hydrated (3) Acute kidney injury: -Creatinine acutely elevated to 2.24, baseline is < 1 -Suspect prerenal etiology in the setting of dehydration IV fluids at 95cc/hr, Cr improved to 1.0 yesterday stopped fluids 05/12 repeat BMP in the morning making adequate urine (4) Hypokalemia: resolved, up to 4.1 today low K was due to GI losses stop PO supplementation (5) Transaminitis: ALT and AST minimally high repeat tomorrow most likely viral infection (6) Elevated bilirubin: Bili improved to 1.0 today no signs of biliary obstruction on imaging (7) COPD (chronic obstructive pulmonary disease): no wheezing, breathing stable (8) Nausea, vomiting, and diarrhea: likely viral etiology or food toxin from eating bad chili symptoms improving slowly advance diet to low fiber (9) Opioid dependence: (10) Benzodiazepine dependence: (11) Coronary artery disease: -Patient reports history of NC 6 years ago, without the placement of stents -Continue home aspirin -EKG appears improved from prior, troponin negative -Patient's chart also lists a history of hypertension, however patient does not appear to be on medications for this -> outpt f/u some chest pain but related to swallowing, likely some mild esophagitis from vomiting last two EKG when she expressed feeling chest pain showed NSR with no ischemic changes (12) Anxiety: (13) Migraines: Imitrex Subjective patient said that she vomited last night, before midnight no vomiting since that time she was able to eat breakfast this morning reviewed labs, K is 4.1, Cr 1.11 patient says she has no further chest pain, no pain with swallowing, no back p ain hoping to discharge tomorrow got a CT head for vibrations in right ear with the vomiting as well as headache CT head normal Review of Systems 2 Review of Systems: All systems reviewed & are unremarkable except as noted in HPI & below Constitutional: + fatigue and + weakness; no fever Ear, Nose, Mouth, Throat: + tinnitus (right ear) Respiratory: no cough and no dyspnea Cardiovascular: no chest pain and no edema Gastrointestinal: + nausea and + vomiting; no abdominal pain, no constipation and no diarrhea/loose stools Physical Exam Constitutional: WD/WN, vitals as above Eyes: PERRL, conjunctivae normal, anicteric sclerae ENMT: external ear and nose normal, oropharynx normal Neck: trachea midline, no thyromegaly Respiratory: normal respiratory effort, lungs clear to auscultation Cardiovascular: RRR, no murmur, no edema Gastrointestinal (Abdomen): normal bowel sounds, soft, nontender, no hepatosplenomegaly Musculoskeletal: no cyanosis or clubbing, extremities motor strength 5/5 Skin: no rashes, warm and dry Neurologic: patellar DTR's 2+ bilat, sensation intact and PERRL, EOMI, accommodation nl, no face palsy, no dysarthria Psychiatric: A+Ox3, euthymic affect (intellectually slow) Lymphatic: no cervical or axillary lymphadenopathy Results & Data Vital Signs (Past 12 Hours) Vital Signs Temp Pulse Resp BP Pulse Ox 05/13/19 07:28 36.7 C 58 L 16 128/77 98 Laboratory Results Laboratory Results - last 24 hr 05/13/19 05/13/19 06:37 08:03 Sodium 140 Potassium 4.1 Chloride 106 Carbon Dioxide 29 Anion Gap 5.0 BUN 19 H Creatinine 1.11 Est Cr Clr Drug Dosing 54.4 Est GFR ( Amer) 67.1 Est GFR (Non-Af Amer) 57.9 BUN/Creatinine Ratio 17.1 Glucose 85 Calcium 9.2 Total Bilirubin 1.0 D Direct Bilirubin 0.2 AST 45 H ALT 81 H Alkaline Phosphatase 112 Total Protein 6.0 L Albumin 3.[address] HEAD IMPRESSION: 1. No acute intracranial abnormality. Medications Administered Current Inpatient Medications Acetaminophen (Tylenol) 650 mg PO Q4H PRN PRN Reason: pain/fever Stop: 06/09/19 22:06 Last Admin: 05/11/19 18:36 Dose: 650 mg Documented by: Al Hydrox/Mg Hydrox/Simethicone (Maalox) 30 ml PO Q6H PRN PRN Reason: Dyspepsia Stop: 06/09/19 22:06 Last Admin: 05/12/19 03:25 Dose: 30 ml Documented by: Alprazolam (Xanax) 1 mg PO QID [facility] Stop: 06/09/19 22:59 Last Admin: 05/13/19 12:40 Dose: 1 mg Documented by: Aspirin (Ecotrin Ectab) 81 mg PO DAILY [facility] Stop: 06/10/19 08:59 Last Admin: 05/13/19 08:22 Dose: 81 mg Documented by: Menthol (Nice) 1 charlene BUCCAL PRN PRN PRN Reason: Cough Stop: 06/09/19 23:17 Ondansetron HCl (Zofran) 4 mg IV Q6H PRN PRN Reason: Nausea Stop: 06/09/19 22:06 Last Admin: 05/13/19 06:49 Dose: 4 mg Documented by: Oxycodone/Acetaminophen (Percocet 10/325mg) 1 tab PO Q6H PRN PRN Reason: Pain Stop: 05/24/19 22:06 Last Admin: 05/13/19 06:49 Dose: 1 tab Documented by: Pantoprazole Sodium (Protonix) 40 mg PO BID [facility] Stop: 06/12/19 20:59 Sucralfate (Carafate) 1 gm PO QID [facility] Stop: 06/11/19 12:59 Last Admin: 05/13/19 12:40 Dose: 1 gm Documented by: PG Care Time/CCT Total # of Minutes Spent Total Time Spent with Patient: Total time spent is greater than 50% in coordination of care (as documented) at patient's floor/unit and/or counseling patient:
[2019-05-14] MEDS: OXYCODONE/ACETAMINOPHEN 10-325 TAB PO PRN ×3 (00:10→12:09)
[2019-05-14] MEDS: ONDANSETRON INJ 2 MG/ML 2 ML VIAL IV PRN (05:48)
[2019-05-14] MEDS: SUCRALFATE 1 GM/10 ML UDC PO SCH ×2 (08:29→12:08)
[2019-05-14] MEDS: ALPRAZolam 0.5 MG TABLET PO SCH ×2 (08:30→13:28)
[2019-05-14] MEDS: ASPIRIN 81 MG ECTAB PO SCH (08:31)
[2019-05-14] MEDS: PANTOprazole 40 MG TAB PO SCH (08:31)
--- NOTE | 2019-05-14 13:08 | Discharge Summary ---
Date of Service May 14, 2019 Admission HPI Per Admitting Provider Ms. Swan is a 49 year old female with a past medical history of COPD, anxiety, opioid and benzodiazepine dependence, coronary artery disease, and intellectual dysfunction who presents to the emergency department with a 5-day history of vomiting. She notes that she has been vomiting several times a day, and is unable to keep any food or drink down. She denies the presence of blood in her vomit. She also endorses abdominal pain that began today, describing it as stabbing, located in various parts of her abdomen, radiating to her back. She reports her last bowel movement was yesterday, and noted that it was "smelly diarrhea," without the presence of blood. She denies having fevers, however reports having chills. She states that this began after she consumed her 's chili on Thursday. She states that her was also ill after this, however he is better now. She denies any recent traveling, or camping. She also endorses tingling in her hands and face, which she states began today. She denies any chest pain or shortness of breath. Past medical history: Migraines, COPD, anxiety, opioid and benzodiazepine dependence, coronary artery disease (states that she had an MA 6 years ago, however does not have any stents placed), intellectual dysfunction Past surgical history: Cholecystectomy, section Medications: Alprazolam, aspirin, Nexium, Zofran, Percocet Allergies: Haloperidol, hydroxyzine, prochlorperazine, citalopram, rofecoxib, prednisone, tramadol Social history: Lives with her , daughter and grandson in a house. Has smoked >1 PPD since age 15, now down to 5 cigarettes a day. Rarely consumes alcohol. No recreational drugs. Principal Diagnosis Acute kidney injury due to dehydration, GI losses Discharge Exam Constitutional WD/WN, vitals as above Eyes PERRL, conjunctivae normal, anicteric sclerae ENMT external ear and nose normal, oropharynx normal Neck trachea midline, no thyromegaly Respiratory normal respiratory effort, lungs clear to auscultation Cardiovascular RRR, no murmur, no edema Gastrointestinal (Abdomen) normal bowel sounds, soft, nontender, no hepatosplenomegaly Musculoskeletal no cyanosis or clubbing, extremities motor strength 5/5 Skin no rashes, warm and dry Neurologic patellar DTR's 2+ bilat, sensation intact and PERRL, EOMI, accommodation nl, no face palsy, no dysarthria Psychiatric A+Ox3, euthymic affect (intellectually slow) Lymphatic no cervical or axillary lymphadenopathy Discharge Data Allergies Allergy/AdvReac Type Severity Reaction Status Date / Time haloperidol Allergy Severe TONGUE Verified 05/10/19 17:44 SWELLS hydroxyzine Allergy Severe CAN'T Verified 05/10/19 17:44 BREATH prochlorperazine AdvReac Intermediate SICK Verified 05/10/19 17:44 escitalopram AdvReac Mild MAKES HER Verified 05/10/19 17:44 "THINK GOOFY" rofecoxib AdvReac Mild FIERRO LIPS Verified 05/10/19 17:44 prednisone AdvReac Unknown GI UPSET Verified 05/10/19 17:44 tramadol AdvReac Unknown UNABLE TO Verified 05/10/19 17:44 VOID Consultations 05/10/19 20:04 ED Decision to Admit Stat Ordered Studies 05/10/19 19:00 CT abd pelvis wo con Stat 05/13/19 10:18 CT head/brain wo con Routine Hospital Course (1) Gastroenteritis: presented to the emergency department with a 5-day history of vomiting. -CT abdomen and pelvis without any acute findings lipase normal, had transaminitis, elevated bilirubin, acute kidney injury, low potassium symptoms improved over three days no vomiting, tolerating diet, no abdominal pain some pain with swallowing, likely esophagitis from vomiting for 5 days added carafate and continue PPI twice a day most likely a virus or toxin from contaminated food, self limiting (2) Acute kidney injury: -Creatinine acutely elevated to 2.24, baseline is < 1 -Suspect prerenal etiology in the setting of dehydration treated with IV fluids at 95cc/hr, Cr improved to 1.0 on 05/12 stopped fluids 05/12 making adequate urine (3) Dehydration: due to vomiting and some diarrhea, symptoms for 5 days fluid boluses in the ED stopped fluids on 05/12, adequately hydrated (4) Hypokalemia: resolved, up to 4.1 on 05/13 low K was due to GI losses stop PO supplementation (5) Transaminitis: ALT and AST minimally high repeat tomorrow most likely due to viral infection (6) Elevated bilirubin: Bili improved to 1.0 on 05/13 no signs of biliary obstruction on imaging (7) COPD (chronic obstructive pulmonary disease): no wheezing, breathing stable (8) Opioid dependence: takes for migraine headaches (9) Benzodiazepine dependence: (10) Coronary artery disease: -Patient reports history of MA 6 years ago, without the placement of stents -Continue home aspirin some chest pain but related to swallowing, likely some mild esophagitis from vomiting last two EKG when she expressed feeling chest pain showed NSR with no ischemic changes (11) Anxiety: (12) Migraines: Imitrex used here with good results follow up with Dr. Gonzalez Total Time Total Time Spent Total Time Spent (In Minutes): 36 minutes Total Time Includes: Examination of the Patient, Discharge Planning and Medicat ion Reconciliation Discharge Plan Discharge Items Patient Disposition: Home - Self-Care Reason For Visit: VOMITING,ABDOMINAL PAIN,BHARTI Discharge Diagnosis: Viral gastroenteritis Nausea and vomiting Dehydration, resolved Acute kidney injury with hypokalemia, resolved Condition on Discharge: Good Goals: maintain adequate hydration get rest, rebuild strength follow up with PCP to discuss vibratory sensation and cognitive issues Activity: Resume your previous activity Non-emergency contact: Primary Care Provider Call non-emergency contact if: you have any medication questions, your symptoms worsen and you have a fever Follow-up/Referrals: Sridhar Gonzalez D.O. [Primary Care Provider] - 05/21/19 11:00 am (Please, follow up with Dr. Gonzalez on ThursdayMay 21 at 11:00 am. *If you need to change this appointment, call the office at [phone].) Diet: Regular Addtl Attending Provider Instructions: Medications: - CARAFATE: 10mL four times a day, take after meals and at bedtime, helps stomach and esophagus heal Acute gastroenteritis, nausea / vomiting, dehydration, acute kidney injury all acute issues resolved with IV hydration and electrolyte replacement liver enzymes down to normal renal function back to normal, electrolytes stable Pain with swallowing: likely some irritation of esophagus from excessive vomiting continue to treat with carafate for 5 more days Vibratory sensation, cognitive issues recommend follow up with Dr. Gonzalez CT head was normal here Pending Studies at Discharge: No Stand-Alone Forms: [employer], Opioid Pain Management Medications and DC Order Prescriptions: New sucralfate [Carafate] 100 mg/mL suspension 10 ml PO QID 5 Days Qty: 200 RF: 0 Continued ondansetron HCl 4 mg tablet 4 mg PO Q8H PRN (Reason: Nausea) RF: 0 alprazolam 1 mg Tablet 1 mg PO QID RF: 0 aspirin 81 mg Tablet,Delayed Release (Dr/Ec) 81 mg PO DAILY RF: 0 oxycodone-acetaminophen [Percocet] 10-325 mg Tablet 1 tab PO Q6H PRN (Reason: Pain) RF: 0 esomeprazole magnesium [Nexium] 40 mg Capsule,Delayed Release(Dr/Ec) 40 mg PO DAILY PRN (Reason: Acid Reflux) RF: 0 Discharge Orders: Discharge Order (Routine); Ordered 05/14/19 Ordered By: King Sarmiento/Other Patient Handouts: Diet Low Residue Admission Data Admit Date/Time: 05/10/19 21:00 Attending Provider: King Brunson Admit Provider: Ryan Martinez Primary Care Provider: Sridhar Gonzalez Other Providers: Keyon Salazar Other Interventions: Discharge Summary Assessment (RN) Last Done: 05/14/19 12:17 DC Date/Time DO NOT enter until pt leaves facility: 05/14/19 13:52
== END 2019-05-14 13:52 | disposition home or self-care (01) | DRG 683 ==
LOC: ED 16:38 → 3N 21:00 → SUATTDRO 21:00 → 3N 21:41

== ENCOUNTER 2024-09-14 16:47 | Observation (INO) ==
--- NOTE | 2024-09-14 17:00 | ED Triage Note ---
Date of Service September 14, 2024 Provider in Triage Author: Garrett Driver History of Present Illness This patient was briefly evaluated while in triage. An abbreviated physical exam was performed. This patient is a 54-year-old Female who presents to the ED for evaluation hx of COPD, anxiety, migraines, CAD, benzo/opioid dependence "I just don't feel very well" Per spouse, migraine headache, nausea and vomiting x 2-3 days "entire body numbness" since 0900 off oxycodone and Valium x 2 months due to physician leaving the area Physical Exam GENERAL: chronically ill appearing, looks older than stated age CARDIOVASCULAR: tachycardic in 160s RESPIRATORY: CTA ABDOMEN: BS x 4. Diffusely TTP. Initial orders for labs and / or imaging were placed and patient was placed in the waiting area until a bed is available. Please see further documentation for the full ED course.
[2024-09-14] MEDS: LORazepam 2 MG/1 ML VIAL IV STA (17:22)
[2024-09-14] MEDS: SODIUM CHLORIDE 0.9% 1,000 ML IV ONE ×3 (17:23→19:51)
[2024-09-14 17:31] LABS: iSTAT Hemoglobin 16.7 g/dl (12.0-16.0); iSTAT Ionized Calcium 1.06 mmol/l (1.12-1.32); iSTAT Potassium 3.2 mmol/L (3.3-5.0)
[2024-09-14 17:41] LABS: Basophils # (auto) 0.07 K/uL (0.00-0.20); Basophils % (auto) 0.4 %; Eosinophils # (auto) 0.15 K/uL (0.00-0.50); Eosinophils % (auto) 0.8 %; Hematocrit (blood only) 50.6 % (37.0-47.0); Immature Granulocytes # (auto) 0.07 K/uL (0.01-0.20); Immature Granulocytes % (auto) 0.4 %; Lymphocytes # (auto) 3.29 K/uL (1.20-3.40); Lymphocytes % (auto) 17.3 %; Mean Corpuscular Hemoglobin 33.7 pg (25.0-34.0); Mean Corpuscular Hgb Conc 35.6 g/dL (32.0-36.0); Mean Corpuscular Volume 94.8 fL (80.0-100.0); Mean Platelet Volume 9.6 fL (9.4-12.4); Monocytes # (auto) 1.15 K/uL (0.11-0.59); Neutrophils # (auto) 14.28 K/uL (1.40-6.50); Neutrophils % (auto) 75.1 %; Platelet Count 346 K/uL (130-400); RDW Coefficient of Variation 13.3 % (11.5-14.5); RDW Standard Deviation 46.4 fL (36.4-46.3); Red Blood Count 5.34 M/uL (4.20-5.40); White Blood Count 19.01 K/ul (4.8-10.8)
[2024-09-14 17:42] LABS: HCO3 VBG 31 mmol/L; PCO2 VBG 42 mmHg (38-50); PO2 VBG 56 mmHg; pH VBG 7.48 (7.36-7.41)
--- NOTE | 2024-09-14 17:48 | XRay Report ---
EXAM: Radiograph of the Chest 1 View INDICATION: Chest pain. TECHNIQUE: Frontal view of the chest. COMPARISON: 01/07/2024 FINDINGS: Lungs and pleural spaces: Stable symmetrical hyperinflation. No consolidation or pulmonary edema. No pleural effusion or pneumothorax. Heart: Shape and configuration within normal limits allowing for technique. Mediastinum: Normal contour. Bones/joints: No fracture, erosion or dislocation. Soft tissues: No abnormality noted. No radiopaque foreign body noted. Upper abdomen: No abnormality noted. IMPRESSION: Stable chronic changes. No acute disease. ACT 112: Negative or not required by law. Electronically signed by Lucie Dailey 09-14-2024 5:47 PM
[2024-09-14] MEDS: OPTIRAY 320 100ml IV ONE (17:53)
[2024-09-14 17:57] LABS: Albumin Globulin Ratio 1.6 (0.9-2); Albumin Level 4.7 gm/dl (3.4-5.0); BUN Creatinine Ratio 20.2 (10-20); Calcium 10.2 mg/dl (8.6-10.3); Creatinine Clr Calc Pharmacy 55.3 ml/min; Globulin 2.9 gm/dl (2.5-4.0); Magnesium 1.8 mg/dl (1.7-2.4); Potassium 3.2 mmol/L (3.5-5.1); Total Protein 7.6 gm/dl (6.0-8.3)
[2024-09-14] MEDS: cefTRIAXone SODIUM 2,000 MG/50 ML BAG IV STA (18:03)
--- NOTE | 2024-09-14 18:07 | CT Scan Report ---
CT head without contrast History: Headache Comparison: 05/27/2022 Technique: Using multidetector thin collimation helical acquisition technique, axial, coronal and sagittal CT images from the skull base to the vertex were obtained without intravenous contrast. Dose reduction techniques were achieved by using automatic exposure control and/or adjustment of mA and/or kV according to patient size and/or use of iterative reconstruction technique. Findings: No intracranial hemorrhage, mass-effect, or midline shift. The ventricles are proportionate to the cerebral sulci. The ramirez to white matter differentiation of the cerebral hemispheres is preserved. The basal cisterns are patent. There is moderate cerebral atrophy. Moderate, patchy low-attenuation changes in the white matter, most suggestive of sequelae of chronic small vessel ischemic disease. The visualized paranasal sinuses are clear. Mastoid air cells are clear. Impression: No acute intracranial pathology. Electronically signed by Ben Marinelli 09-14-2024 6:06 PM
--- NOTE | 2024-09-14 18:08 | CT Scan Report ---
EXAMINATION: CT of the abdomen and pelvis performed after the administration of IV contrast TECHNIQUE: Helical CT images from the lung bases through the symphysis pubis were obtained with contrast. Coronal and sagittal reformatted images were generated at a workstation for further assessment. Dose reduction techniques were achieved by using automatic exposure control and/or adjustment of mA and/or kV according to patient size and/or use of iterative reconstruction technique. COMPARISON: None HISTORY: Abdominal pain FINDINGS: Lower chest: The lungs appear emphysematous. Minimal centrilobular nodules in the right middle lobe are seen. Liver: No suspicious liver lesions. Portal veins appear patent. Gallbladder: Cholecystectomy changes. Spleen: Normal size. Pancreas: No suspicious pancreatic lesions. The pancreatic duct is not dilated. Adrenal glands: No adrenal nodules. Kidneys: No hydronephrosis or obstructing renal stones. Bladder / Pelvic organs: Unremarkable. Bowel: No bowel obstruction. No abnormal bowel wall thickening. The appendix is unremarkable. Lymph nodes: No retroperitoneal, mesenteric, or pelvic lymphadenopathy. Peritoneum / Retroperitoneum: No free fluid or air within the abdomen. Vessels: No infrarenal aortic aneurysm. Moderate aortoiliac calcification. Bones and soft tissues: No suspicious lesion in the bones. IMPRESSION: No acute findings in the abdomen or pelvis. Minimal infectious bronchiolitis partially seen in the right middle lobe. Electronically signed by Ben Marinelli 09-14-2024 6:06 PM
[2024-09-14 18:09] LABS: INR 1.1 (0.9-1.1); Partial Thromboplastin Ratio 0.9; Partial Thromboplastin Time 25 Seconds (21-31); Prothrombin Time 11.6 Seconds (9.0-12.0)
[2024-09-14] MEDS: KETOROLAC TROMETHAMINE 15 MG/ML VIAL IV STA (18:35)
[2024-09-14 18:37] LABS: Appearance Urine Clear (Clear); Bacteria Urine Automated None Seen (None Seen); Bilirubin Urine Negative (Negative); Blood Urine Trace (Negative); Cast Urine Automated 0-2 /lpf (0-2); Color Urine Yellow; Epithelial Cell Urine Auto 0-2 /hpf (0-2); Glucose Urine UA Negative (Negative); Ketones Urine Negative (Negative); Leukocyte Esterase Urine 1+ (Negative); Nitrite Urine Negative (Negative); Protein Urine Negative (Negative); RBC Urine Automated 0-2 /hpf (0-2); Specific Gravity Urine 1.024 (1.000-1.030); Urobilinogen Urine Negative (Negative); pH Urine 6.5 (4.5-7.5)
[2024-09-14] MEDS: AZITHROMYCIN 250 MG TAB PO ONE (18:38)
[2024-09-14] MEDS: POTASSIUM CHLORIDE 10 MEQ TABCR PO STA (18:39)
[2024-09-14 19:11] LABS: Adenovirus PCR Not Detected (NotDetected); Bordetella parapertussis PCR Not Detected (NotDetected); Bordetella pertussis PCR Not Detected (NotDetected); Chlamydia pneumoniae PCR Not Detected (NotDetected); Coronavirus 229E PCR Not Detected (NotDetected); Coronavirus CoV-2 (COVID19)PCR Not Detected (NotDetected); Coronavirus HKU1 PCR Not Detected (NotDetected); Coronavirus NL63 PCR Not Detected (NotDetected); Coronavirus OC43PCR Not Detected (NotDetected); Human Metapneumovirus PCR Not Detected (NotDetected); Influenza A PCR Not Detected (NotDetected); Influenza B PCR Not Detected (NotDetected); Mycoplasma pneumoniae PCR Not Detected (NotDetected); Parainfluenza Virus 1 PCR Not Detected (NotDetected); Parainfluenza Virus 2 PCR Not Detected (NotDetected); Parainfluenza Virus 3 PCR Not Detected (NotDetected); Parainfluenza Virus 4 PCR Not Detected (NotDetected); Respiratory Syncytial VirusPCR Not Detected (NotDetected); Rhinovirus/Enterovirus PCR Not Detected (NotDetected)
--- NOTE | 2024-09-14 20:11 | History & Physical Report ---
Date of Service September 14, 2024 Assessment & Plan (1) Left facial numbness: Plan: Patient reports several days of left sided facial numbness as well as perioral numbness and numbness/tingling of her fingertips bilaterally. Most likely secondary to anxiety. -Observation to medical -MRI brain ordered to assess for possible CVA - unfortunately, machine is not functioning at present. Will order CTA Head and Neck -Check Lipid panel and HgbA1C -Continue Atorvastatin 10mg po daily -Initiate ASA 81mg po daily (2) Coronary artery disease: Plan: Patient reports history of CAD. No chest pain. Troponin is unremarkable -Continue Atorvastatin -Initiate ASA 81mg po daily (3) Anxiety: Plan: Patient with anxiety. Has been on Diazepam 10mg po TID PRN in the past which she has not been able to get since June. Patient reports significant anxiety and panic. Diazepam 5mg po given in the ER with marked improvement in her symptoms -Will continue Diazepam 5mg po BID for now. Patient should be considered for SSRI with PRN Hydroxyzine or Buspirone for management of her anxiety rather than PRN Valium. (4) Electrolyte abnormality: Plan: Hypokalemia and hypocalcemia -Repleted with KCl 40mEq PO and Calcium gluconate 1gm IV -Repeat labs in AM (5) GERD (gastroesophageal reflux disease): Plan: Patient with GERD. On Nexium outpatient -Protonix 40mg po daily while inpatient (6) LFTs abnormal: Plan: Patient with elevation of T-bili as well as Alkaline Phosphatase. She has had some nausea and vomiting ongoing for the last three days. CT of the abdomen reveals prior cholecystectomy otherwise no acute findings -Repeat LFTs in AM -Additional imaging pending results of repeat LFTs (7) Elevated blood pressure reading: Plan: Patient with elevated blood pressure readings. In setting of acute anxiety as well as pain. She does not have diagnosis of hypertension -Monitor for now Plan Case Management consultation appreciated - patient will need to establish with a local PCP. Would benefit from having appointment made for her prior to discharge. History of Present Illness Chief Complaint: pain Primary Care Provider: NO PCP Eliz Swan is a 54yo female with history of CAD, COPD, GERD, HLP presenting from home with complaint of left sided facial numbness, perioral numbness and tingling as well as tingling of her fingertips bilaterally, possibly some word finding difficulty as well. Also with generalized pain and anxiety. Patient has prescriptions for PO Valium as well as Percocet. She was following with a PCP but he retired and she has not been able to get her medications since June. She denies having any serious withdrawal symptoms since being off the Valium and Percocet, however, she reports that her anxiety has been "out of control" and she's been "freaking out". Her symptoms have been ongoing for the last 3-4 days. Patient additionally reports 3days of nausea, vomiting and PO intolerance. She has not eaten much for the last 3 days. Denies fever, chills, abdominal pain. In the ER patient patient hypertensive Adequate oxygenation ER Course: Ativan 1mg IV NSS x 3L Ceftriaxone 2gm Toradol 15mg IV Azithromycin 500mg po KCl 40mEq PO Diazepam 5mg po Allergies Allergy/AdvReac Type Severity Reaction Status Date / Time haloperidol Allergy Severe TONGUE Verified 05/27/22 00:08 SWELLS hydroxyzine Allergy Severe CAN'T Verified 05/27/22 00:08 BREATH prochlorperazine AdvReac Intermediate SICK Verified 05/27/22 00:08 escitalopram AdvReac Mild MAKES HER Verified 05/27/22 00:08 "THINK GOOFY" rofecoxib AdvReac Mild FIERRO LIPS Verified 05/27/22 00:08 prednisone AdvReac Unknown GI UPSET Verified 05/27/22 00:08 tramadol AdvReac Unknown UNABLE TO Verified 05/27/22 00:08 VOID Home Medications Medication Instructions Recorded Confirmed Type esomeprazole magnesium 40 mg 40 mg PO DAILY 07/25/18 09/14/24 History capsule,delayed release (Nexium) atorvastatin 10 mg tablet 10 mg PO HS 11/11/20 09/14/24 History albuterol sulfate 90 mcg/actuation 2 inh inhalation Q6 PRN Wheezing 01/07/24 09/14/24 History aerosol inhaler diazepam 10 mg tablet 10 mg PO TID PRN Anxiety 01/07/24 09/14/24 History ondansetron HCl 4 mg tablet 4 mg PO Q8 PRN Nausea And Vomiting 09/14/24 09/14/24 History oxycodone-acetaminophen 10 mg-325 1 tab PO Q4 PRN Pain 09/14/24 09/14/24 History mg tablet Past Med/Surg History Problem List (Updated 09/15/24 @ 01:26 by Shy Meléndez DO) Elevated blood pressure reading LFTs abnormal GERD (gastroesophageal reflux disease) Electrolyte abnormality Left facial numbness Sepsis (Acute) Pneumonia (Acute) Problem related to nonsupportive living environment Ambulatory dysfunction Encounter for pre-operative examination Anxiety (Acute) Coronary artery disease Adverse reaction to drug (Acute) COPD exacerbation (Acute) Dehydration (Acute) Dehydration with hypernatremia Fever Headache (Acute) Maxillary sinusitis (Acute) Nausea & vomiting (Acute) Medical History Sacral decubitus ulcer Migraines Benzodiazepine dependence Opioid dependence COPD (chronic obstructive pulmonary disease) SBO (small bowel obstruction) Sprained ankle Ectopic Migraines Surgical History H/O section Hx of cholecystectomy No significant past surgical history Social History Smoking Status: Current every day smoker Tobacco Type: Cigarettes Cigarettes Per Day: 1/2 PPD; Second Hand Exposure: Yes; Do You Dip or Chew Tobacco: No; Tobacco Cessation Education Requested by Patient: No Hx Alcohol Use: No Hx Substance Use: No Preferred Language: Finnish Communication Ability: Effective Pot Feeder Required: No Beliefs That Will Affect Care: None marital status: Current Living Situation: Spouse Current Living Situation Comment: lives in a trailer with currently frozen pipes/no water current occupational status: disabled Feels Safe at Home: Yes Safety Concerns: Feels Safe At This Time Assistive Devices: None Review of Systems Review of Systems: All systems reviewed & are unremarkable except as noted in HPI & below Physical Exam Physical Exam: General: patient very anxious in appearance, answers questions appropriately Skin: warm, dry, intact, no rashes or lesions HEENT: NC/AT, PERRL, EOMI, anicteric sclera, conjunctiva without injection, external ear normal to inspection and nontender, nares patent, moist mucus membranes, dentition intact, no oropharyngeal lesions, neck supple, trachea midline, no LAD, no thyromegaly, no JVD Heart: +S1/S2, regular, no m/r/g Lungs: equal air entry bilaterally, no rales/rhonchi/wheezes Abd: +BS, soft, NT/ND, no masses/organomegaly/ascites Ext: warm, 2+ pulses in UE/LE bilaterally, no clubbing/cyanosis or edema Neuro: left facial numbness, MS 5/5 in UE/LE bilaterally, no facial droop, tongue midline Results & Data Results & Data Vital Signs (Past 12 Hours) Vital Signs Temp Pulse Pulse Resp BP BP Pulse Ox 09/14/24 19:26 89 15 164/116 H 96 09/14/24 18:47 36.6 C 106 H 20 173/108 H 100 09/14/24 18:36 110 H 28 H 98 09/14/24 18:30 171/108 H 09/14/24 18:27 108 H 25 H 97 09/14/24 18:15 173/98 H 09/14/24 18:15 114 H 20 173/98 H 100 09/14/24 18:06 99 H 20 97 09/14/24 18:03 164/97 H 09/14/24 18:03 97 H 25 H 164/97 H 97 09/14/24 17:58 165/105 H 09/14/24 17:42 103 H 19 171/102 H 98 09/14/24 17:31 105 H 20 97 09/14/24 17:30 136/107 H 09/14/24 17:30 111 H 22 96 09/14/24 17:27 104 H 25 H 136/107 H 97 09/14/24 17:26 113 H 28 H 131/99 97 09/14/24 17:25 131/99 09/14/24 17:20 96 09/14/24 17:15 135 H 21 96 09/14/24 17:15 163/123 H 09/14/24 17:15 137 H 09/14/24 17:12 135 H 26 H 98 09/14/24 17:09 140 H 21 96 09/14/24 16:58 36.5 C 160 H 16 96 O2 Del Method 09/14/24 19:26 Room Air 09/14/24 18:47 Room Air 09/14/24 18:36 09/14/24 18:30 09/14/24 18:27 09/14/24 18:15 09/14/24 18:15 Room Air 09/14/24 18:06 09/14/24 18:03 09/14/24 18:03 Room Air 09/14/24 17:58 09/14/24 17:42 Room Air 09/14/24 17:31 Room Air 09/14/24 17:30 09/14/24 17:30 09/14/24 17:27 Room Air 09/14/24 17:26 Room Air 09/14/24 17:25 09/14/24 17:20 Room Air 09/14/24 17:15 09/14/24 17:15 09/14/24 17:15 09/14/24 17:12 09/14/24 17:09 Room Air 09/14/24 16:58 Room Air Laboratory Results Laboratory Results WBC 19.01 K/ul (4.8-10.8) H 09/14/24 17:14 RBC 5.34 M/uL (4.20-5.40) 09/14/24 17:14 Hgb 18.0 g/dl (12.0-16.0) H 09/14/24 17:14 POC Hgb 16.7 g/dl (12.0-16.0) H 09/14/24 17:19 Hct 50.6 % (37.0-47.0) H 09/14/24 17:14 POC Hct 49 % (37-47) H 09/14/24 17:19 MCV 94.8 fL (80.0-100.0) 09/14/24 17:14 MCH 33.7 pg (25.0-34.0) 09/14/24 17:14 MCHC 35.6 g/dL (32.0-36.0) 09/14/24 17:14 RDW Std Deviation 46.4 fL (36.4-46.3) H 09/14/24 17:14 RDW Coeff of Rosetta 13.3 % (11.5-14.5) 09/14/24 17:14 Plt Count 346 K/uL (130-400) 09/14/24 17:14 MPV 9.6 fL (9.4-12.4) 09/14/24 17:14 Immature Gran % (Auto) 0.4 % 09/14/24 17:14 Neut % (Auto) 75.1 % 09/14/24 17:14 Lymph % (Auto) 17.3 % 09/14/24 17:14 Nance % (Auto) 6.0 % 09/14/24 17:14 Eos % (Auto) 0.8 % 09/14/24 17:14 Baso % (Auto) 0.4 % 09/14/24 17:14 Neut # (Auto) 14.28 K/uL (1.40-6.50) H 09/14/24 17:14 Lymph # (Auto) 3.29 K/uL (1.20-3.40) 09/14/24 17:14 Nance # (Auto) 1.15 K/uL (0.11-0.59) H 09/14/24 17:14 Eos # (Auto) 0.15 K/uL (0.00-0.50) 09/14/24 17:14 Baso # (Auto) 0.07 K/uL (0.00-0.20) 09/14/24 17:14 Immature Gran # (Auto) 0.07 K/uL (0.01-0.20) 09/14/24 17:14 PT 11.6 Seconds (9.0-12.0) 09/14/24 17:14 INR 1.1 (0.9-1.1) 09/14/24 17:14 APTT 25 Seconds (21-31) 09/14/24 17:14 PTT Ratio 0.9 09/14/24 17:14 VBG pH 7.48 (7.36-7.41) H 09/14/24 17:21 VBG pCO2 42 mmHg (38-50) 09/14/24 17:21 VBG pO2 56 mmHg 09/14/24 17:21 VBG HCO3 31 mmol/L 09/14/24 17:21 VBG O2 Saturation 91.0 % 09/14/24 17:21 VBG Base Excess 7.0 mEq/L 09/14/24 17:21 POC Sodium 135 mmol/L (135-144) 09/14/24 17:19 Sodium 137 mmol/L (136-145) 09/14/24 17:14 POC Potassium 3.2 mmol/L (3.3-5.0) L 09/14/24 17:19 Potassium 3.2 mmol/L (3.5-5.1) L 09/14/24 17:14 POC Chloride 93 mmol/L (101-112) L 09/14/24 17:19 Chloride 92 mmol/L (98-107) L 09/14/24 17:14 Carbon Dioxide 30 mmol/L (21-32) 09/14/24 17:14 POC Total CO2 29 mmol/L (24-31) 09/14/24 17:19 Anion Gap 15 (3-11) H 09/14/24 17:14 POC Anion Gap 16.0 mmol/L (16-25) 09/14/24 17:19 POC BUN 20 mg/dl (7-18) H 09/14/24 17:19 BUN 19 mg/dl (6-23) 09/14/24 17:14 Creatinine 0.94 mg/dl (0.6-1.2) 09/14/24 17:14 POC Creatinine 1.0 mg/dl (0.6-1.3) 09/14/24 17:19 Est Cr Clr Drug Dosing 55.3 ml/min 09/14/24 17:14 eGFR 71.66 09/14/24 17:14 BUN/Creatinine Ratio 20.2 (10-20) H 09/14/24 17:14 Glucose 125 mg/dl (70-99(Fasting)) H 09/14/24 17:14 POC Glucose 142 mg/dl (70-99) H 09/14/24 17:07 POC Glucose (other) 129 mg/dl (70-99) H 09/14/24 17:19 Lactate 1.4 mmol/L (0.4-2.0) 09/14/24 19:50 Calcium 10.2 mg/dl (8.6-10.3) 09/14/24 17:14 POC Ioniz Calcium Wan 1.06 mmol/l (1.12-1.32) L 09/14/24 17:19 Magnesium 1.8 mg/dl (1.7-2.4) 09/14/24 17:14 Total Bilirubin 2.0 mg/dl (0.2-1.0) H 09/14/24 17:14 AST 20 U/L (13-39) 09/14/24 17:14 ALT 20 U/L (7-52) 09/14/24 17:14 Alkaline Phosphatase 113 U/L (34-104) H 09/14/24 17:14 Troponin I High Sens 6.0 pg/ml (0-14) 09/14/24 17:14 Total Protein 7.6 gm/dl (6.0-8.3) 09/14/24 17:14 Albumin 4.7 gm/dl (3.4-5.0) 09/14/24 17:14 Globulin 2.9 gm/dl (2.5-4.0) 09/14/24 17:14 Albumin/Globulin Ratio 1.6 (0.9-2) 09/14/24 17:14 Procalcitonin 0.04 ng/ml (0-0.5) 09/14/24 17:21 Urine Color Yellow 09/14/24 18:19 Urine Appearance Clear (Clear) 09/14/24 18:19 Urine pH 6.5 (4.5-7.5) 09/14/24 18:19 Ur Specific [place] 1.024 (1.000-1.030) 09/14/24 18:19 Urine Protein Negative (Negative) 09/14/24 18:19 Urine Glucose (UA) Negative (Negative) 09/14/24 18:19 Urine Ketones Negative (Negative) 09/14/24 18:19 Urine Blood Trace (Negative) H 09/14/24 18:19 Urine Nitrite Negative (Negative) 09/14/24 18:19 Urine Bilirubin Negative (Negative) 09/14/24 18:19 Urine Urobilinogen Negative (Negative) 09/14/24 18:19 Ur Leukocyte Esterase 1+ (Negative) H 09/14/24 18:19 Urine WBC (Auto) 6-10 /hpf (0-5) H 09/14/24 18:19 Urine RBC (Auto) 0-2 /hpf (0-2) 09/14/24 18:19 U Hyaline Cast (Auto) 0-2 /lpf (0-2) 09/14/24 18:19 U Epithel Cells (Auto) 0-2 /hpf (0-2) 09/14/24 18:19 Urine Bacteria (Auto) None Seen (None Seen) 09/14/24 18:19 Adenovirus (PCR) Not Detected (NotDetected) 09/14/24 18:07 B. pertussis DNA (PCR) Not Detected (NotDetected) 09/14/24 18:07 B.parapertussis DNA PCR Not Detected (NotDetected) 09/14/24 18:07 C. pneumoniae DNA (PCR) Not Detected (NotDetected) 09/14/24 18:07 Coronavirus OC43 (PCR) Not Detected (NotDetected) 09/14/24 18:07 Coronavirus HKU1 (PCR) Not Detected (NotDetected) 09/14/24 18:07 Coronavirus 229E (PCR) Not Detected (NotDetected) 09/14/24 18:07 SARS-CoV-2 (PCR) Not Detected (NotDetected) 09/14/24 18:07 Coronavirus NL63 (PCR) Not Detected (NotDetected) 09/14/24 18:07 Human Metapneumovir PCR Not Detected (NotDetected) 09/14/24 18:07 Influenza Type A (PCR) Not Detected (NotDetected) 09/14/24 18:07 Influenza Type B (PCR) Not Detected (NotDetected) 09/14/24 18:07 M. pneumoniae (PCR) Not Detected (NotDetected) 09/14/24 18:07 Parainfluenza 1 (PCR) Not Detected (NotDetected) 09/14/24 18:07 Parainfluenza 2 (PCR) Not Detected (NotDetected) 09/14/24 18:07 Parainfluenza 3 (PCR) Not Detected (NotDetected) 09/14/24 18:07 Parainfluenza 4 (PCR) Not Detected (NotDetected) 09/14/24 18:07 RSV (PCR) Not Detected (NotDetected) 09/14/24 18:07 Entero/Rhino (PCR) Not Detected (NotDetected) 09/14/24 18:07 Impressions Chest X-Ray 09/14/24 17:03 EXAM: Radiograph of the Chest 1 View INDICATION: Chest pain. TECHNIQUE: Frontal view of the chest. COMPARISON: 01/07/2024 FINDINGS: Lungs and pleural spaces: Stable symmetrical hyperinflation. No consolidation or pulmonary edema. No pleural effusion or pneumothorax. Heart: Shape and configuration within normal limits allowing for technique. Mediastinum: Normal contour. Bones/joints: No fracture, erosion or dislocation. Soft tissues: No abnormality noted. No radiopaque foreign body noted. Upper abdomen: No abnormality noted. IMPRESSION: Stable chronic changes. No acute disease. ACT 112: Negative or not required by law. Electronically signed by Lucie Dailey 09-14-2024 5:47 PM Abdomen/Pelvis CT 09/14/24 17:18 EXAMINATION: CT of the abdomen and pelvis performed after the administration of IV contrast TECHNIQUE: Helical CT images from the lung bases through the symphysis pubis were obtained with contrast. Coronal and sagittal reformatted images were generated at a workstation for further assessment. Dose reduction techniques were achieved by using automatic exposure control and/or adjustment of mA and/or kV according to patient size and/or use of iterative reconstruction technique. COMPARISON: None HISTORY: Abdominal pain FINDINGS: Lower chest: The lungs appear emphysematous. Minimal centrilobular nodules in the right middle lobe are seen. Liver: No suspicious liver lesions. Portal veins appear patent. Gallbladder: Cholecystectomy changes. Spleen: Normal size. Pancreas: No suspicious pancreatic lesions. The pancreatic duct is not dilated. Adrenal glands: No adrenal nodules. Kidneys: No hydronephrosis or obstructing renal stones. Bladder / Pelvic organs: Unremarkable. Bowel: No bowel obstruction. No abnormal bowel wall thickening. The appendix is unremarkable. Lymph nodes: No retroperitoneal, mesenteric, or pelvic lymphadenopathy. Peritoneum / Retroperitoneum: No free fluid or air within the abdomen. Vessels: No infrarenal aortic aneurysm. Moderate aortoiliac calcification. Bones and soft tissues: No suspicious lesion in the bones. IMPRESSION: No acute findings in the abdomen or pelvis. Minimal infectious bronchiolitis partially seen in the right middle lobe. Electronically signed by Ben Marinelli 09-14-2024 6:[address] 09/14/24 17:18 CT head without contrast History: Headache Comparison: 05/27/2022 Technique: Using multidetector thin collimation helical acquisition technique, axial, coronal and sagittal CT images from the skull base to the vertex were obtained without intravenous contrast. Dose reduction techniques were achieved by using automatic exposure control and/or adjustment of mA and/or kV according to patient size and/or use of iterative reconstruction technique. Findings: No intracranial hemorrhage, mass-effect, or midline shift. The ventricles are proportionate to the cerebral sulci. The ramirez to white matter differentiation of the cerebral hemispheres is preserved. The basal cisterns are patent. There is moderate cerebral atrophy. Moderate, patchy low-attenuation changes in the white matter, most suggestive of sequelae of chronic small vessel ischemic disease. The visualized paranasal sinuses are clear. Mastoid air cells are clear. Impression: No acute intracranial pathology. Electronically signed by Ben Marinelli 09-14-2024 6:06 PM ECG Additional Comments: EKKG wtih ST at 137bpm, right axis, XG=791, QRS=80, KGz=732, some ST depressions PG Care Time/CCT Total # of Minutes Spent Total Time Spent with Patient: Total time spent is greater than 50% in coordination of care (as documented) at patient's floor/unit and/or counseling patient: Coding Level of Care Code 98991 INT INP/OBS CARE 3/75MIN Diagnoses Left facial numbness R20.0 Coronary artery disease I25.10 Anxiety F41.9 Electrolyte abnormality E87.8 GERD (gastroesophageal reflux disease) K21.9 LFTs abnormal R79.89 Elevated blood pressure reading R03.0
[2024-09-14] MEDS: diazePAM 5 MG TABLET PO ONE (20:48)
--- NOTE | 2024-09-14 20:52 | Emergency Department Note ---
History of Present Illness General Chief complaint: Weakness Stated complaint: CHEST PAIN,L SIDE OF FACE NUMB,MIGRAINE Time Seen by Provider: 09/14/24 17:11 History of Present Illness Provider complaint: Illness Maximum Pain Intensity: 10 54-year-old female presents emergency department for illness. Patient is crying and screaming and is unable to give history. Her is at bedside. Her states that this has been going on since her PCP moved from the area I can no longer write her Valium or Percocet for her chronic headaches. He states when she gets Valium and Percocet her headache is under control but when she does not she becomes like this. No recent falls or trauma. Home Medications Medication Instructions Recorded Confirmed Type esomeprazole magnesium 40 mg 40 mg PO DAILY 07/25/18 09/14/24 History capsule,delayed release (Nexium) atorvastatin 10 mg tablet 10 mg PO HS 11/11/20 09/14/24 History albuterol sulfate 90 mcg/actuation 2 inh inhalation Q6 PRN Wheezing 01/07/24 09/14/24 History aerosol inhaler diazepam 10 mg tablet 10 mg PO TID PRN Anxiety 01/07/24 09/14/24 History ondansetron HCl 4 mg tablet 4 mg PO Q8 PRN Nausea And Vomiting 09/14/24 09/14/24 History oxycodone-acetaminophen 10 mg-325 1 tab PO Q4 PRN Pain 09/14/24 09/14/24 History mg tablet Allergies Allergy/AdvReac Type Severity Reaction Status Date / Time haloperidol Allergy Severe TONGUE Verified 05/27/22 00:08 SWELLS hydroxyzine Allergy Severe CAN'T Verified 05/27/22 00:08 BREATH prochlorperazine AdvReac Intermediate SICK Verified 05/27/22 00:08 escitalopram AdvReac Mild MAKES HER Verified 05/27/22 00:08 "THINK GOOFY" rofecoxib AdvReac Mild FIERRO LIPS Verified 05/27/22 00:08 prednisone AdvReac Unknown GI UPSET Verified 05/27/22 00:08 tramadol AdvReac Unknown UNABLE TO Verified 05/27/22 00:08 VOID Past Med/Surg History Problem List (Updated 09/14/24 @ 21:17 by Paul Perry MD) Sepsis (Acute) Pneumonia (Acute) Problem related to nonsupportive living environment Ambulatory dysfunction Encounter for pre-operative examination Anxiety (Acute) Coronary artery disease Adverse reaction to drug (Acute) COPD exacerbation (Acute) Dehydration (Acute) Dehydration with hypernatremia Fever Headache (Acute) Maxillary sinusitis (Acute) Nausea & vomiting (Acute) Medical History Sacral decubitus ulcer Migraines Benzodiazepine dependence Opioid dependence COPD (chronic obstructive pulmonary disease) SBO (small bowel obstruction) Sprained ankle Ectopic Migraines Surgical History H/O section Hx of cholecystectomy No significant past surgical history Social History Smoking Status: Current every day smoker Tobacco Type: Cigarettes Cigarettes Per Day: 5; Second Hand Exposure: Yes; Do You Dip or Chew Tobacco: No; Hx Alcohol Use: No Hx Substance Use: No Preferred Language: Brazilian Communication Ability: Effective Nondestructive Tester Required: No Beliefs That Will Affect Care: None marital status: Current Living Situation: Spouse current occupational status: disabled Feels Safe at Home: Yes Assistive Devices: Glasses Physical Exam Vital Signs Vital Signs - 24 hr 09/14/24 16:58 09/14/24 17:09 09/14/24 17:12 Temperature 36.5 C Temperature Source Temporal Artery Scan Pulse Rate 160 H 140 H 135 H Pulse Rate [Apical] Pulse Rate from SpO2 Sensor 140 H 136 H Pulse Rhythm [Apical] Pulse Strength [Apical] Respiratory Rate 16 21 26 H Respiratory Effort / Characteristics Non-Labored Spontaneous Respiratory Depth Normal Respiratory Pattern Blood Pressure Blood Pressure [Right Arm] Blood Pressure Mean Blood Pressure Mean [Right Arm] Blood Pressure Position Sitting Blood Pressure Position [Right Arm] Pulse Oximetry 96 96 98 Oxygen Delivery Method Room Air Room Air Sepsis Recent Fever Within 48 Hours No Sepsis New/Unexplained Change in Mental Status No Sepsis Action Taken by Nursing No Action Required 09/14/24 17:15 09/14/24 17:15 09/14/24 17:15 Temperature Temperature Source Pulse Rate 137 H 135 H Pulse Rate [Apical] Pulse Rate from SpO2 Sensor 135 H Pulse Rhythm [Apical] Pulse Strength [Apical] Respiratory Rate 21 Respiratory Effort / Characteristics Respiratory Depth Respiratory Pattern Blood Pressure 163/123 H Blood Pressure [Right Arm] Blood Pressure Mean 138 Blood Pressure Mean [Right Arm] Blood Pressure Position Blood Pressure Position [Right Arm] Pulse Oximetry 96 Oxygen Delivery Method Sepsis Recent Fever Within 48 Hours Sepsis New/Unexplained Change in Mental Status Sepsis Action Taken by Nursing 09/14/24 17:20 09/14/24 17:25 09/14/24 17:26 Temperature Temperature Source Pulse Rate Pulse Rate [Apical] 113 H Pulse Rate from SpO2 Sensor Pulse Rhythm [Apical] Pulse Strength [Apical] Respiratory Rate 28 H Respiratory Effort / Characteristics Non-Labored Spontaneous Respiratory Depth Normal Respiratory Pattern Tachypnea Blood Pressure 131/99 Blood Pressure [Right Arm] 131/99 Blood Pressure Mean 117 Blood Pressure Mean [Right Arm] 109 Blood Pressure Position Blood Pressure Position [Right Arm] Semi-fowlers Pulse Oximetry 96 97 Oxygen Delivery Method Room Air Room Air Sepsis Recent Fever Within 48 Hours Sepsis New/Unexplained Change in Mental Status Sepsis Action Taken by Nursing 09/14/24 17:27 09/14/24 17:30 09/14/24 17:30 Temperature Temperature Source Pulse Rate 111 H Pulse Rate [Apical] 104 H Pulse Rate from SpO2 Sensor 112 H Pulse Rhythm [Apical] Pulse Strength [Apical] Respiratory Rate 25 H 22 Respiratory Effort / Characteristics Non-Labored Spontaneous Respiratory Depth Normal Respiratory Pattern Regular Blood Pressure 136/107 H Blood Pressure [Right Arm] 136/107 H Blood Pressure Mean 128 Blood Pressure Mean [Right Arm] 116 Blood Pressure Position Blood Pressure Position [Right Arm] Semi-fowlers Pulse Oximetry 97 96 Oxygen Delivery Method Room Air Sepsis Recent Fever Within 48 Hours Sepsis New/Unexplained Change in Mental Status Sepsis Action Taken by Nursing 09/14/24 17:31 09/14/24 17:42 09/14/24 17:58 Temperature Temperature Source Pulse Rate 105 H Pulse Rate [Apical] 103 H Pulse Rate from SpO2 Sensor Pulse Rhythm [Apical] Pulse Strength [Apical] Respiratory Rate 20 19 Respiratory Effort / Characteristics Non-Labored Spontaneous Respiratory Depth Normal Respiratory Pattern Regular Blood Pressure 165/105 H Blood Pressure [Right Arm] 171/102 H Blood Pressure Mean 140 Blood Pressure Mean [Right Arm] 125 Blood Pressure Position Blood Pressure Position [Right Arm] Semi-fowlers Pulse Oximetry 97 98 Oxygen Delivery Method Room Air Room Air Sepsis Recent Fever Within 48 Hours Sepsis New/Unexplained Change in Mental Status Sepsis Action Taken by Nursing 09/14/24 18:03 09/14/24 18:03 09/14/24 18:06 Temperature Temperature Source Pulse Rate 99 H Pulse Rate [Apical] 97 H Pulse Rate from SpO2 Sensor 99 H Pulse Rhythm [Apical] Pulse Strength [Apical] Respiratory Rate 25 H 20 Respiratory Effort / Characteristics Non-Labored Spontaneous Respiratory Depth Normal Respiratory Pattern Regular Blood Pressure 164/97 H Blood Pressure [Right Arm] 164/97 H Blood Pressure Mean 145 Blood Pressure Mean [Right Arm] 119 Blood Pressure Position Blood Pressure Position [Right Arm] Semi-fowlers Pulse Oximetry 97 97 Oxygen Delivery Method Room Air Sepsis Recent Fever Within 48 Hours Sepsis New/Unexplained Change in Mental Status Sepsis Action Taken by Nursing 09/14/24 18:15 09/14/24 18:15 09/14/24 18:27 Temperature Temperature Source Pulse Rate 108 H Pulse Rate [Apical] 114 H Pulse Rate from SpO2 Sensor 106 H Pulse Rhythm [Apical] Pulse Strength [Apical] Respiratory Rate 20 25 H Respiratory Effort / Characteristics Non-Labored Spontaneous Respiratory Depth Normal Respiratory Pattern Regular Blood Pressure 173/98 H Blood Pressure [Right Arm] 173/98 H Blood Pressure Mean 146 Blood Pressure Mean [Right Arm] 123 Blood Pressure Position Blood Pressure Position [Right Arm] Pulse Oximetry 100 97 Oxygen Delivery Method Room Air Sepsis Recent Fever Within 48 Hours Sepsis New/Unexplained Change in Mental Status Sepsis Action Taken by Nursing 09/14/24 18:30 09/14/24 18:36 09/14/24 18:47 Temperature 36.6 C Temperature Source Oral Pulse Rate 110 H Pulse Rate [Apical] 106 H Pulse Rate from SpO2 Sensor 110 H Pulse Rhythm [Apical] Pulse Strength [Apical] Respiratory Rate 28 H 20 Respiratory Effort / Characteristics Non-Labored Spontaneous Respiratory Depth Normal Respiratory Pattern Regular Blood Pressure 171/108 H Blood Pressure [Right Arm] 173/108 H Blood Pressure Mean 129 Blood Pressure Mean [Right Arm] 129 Blood Pressure Position Blood Pressure Position [Right Arm] Semi-fowlers Pulse Oximetry 98 100 Oxygen Delivery Method Room Air Sepsis Recent Fever Within 48 Hours Sepsis New/Unexplained Change in Mental Status Sepsis Action Taken by Nursing 09/14/24 19:26 09/14/24 19:33 09/14/24 19:51 Temperature Temperature Source Pulse Rate 93 H 98 H Pulse Rate [Apical] 89 Pulse Rate from SpO2 Sensor Pulse Rhythm [Apical] Regular Pulse Strength [Apical] Normal Respiratory Rate 15 20 21 Respiratory Effort / Characteristics Non-Labored Spontaneous Respiratory Depth Normal Respiratory Pattern Regular Blood Pressure 165/106 H 149/106 H Blood Pressure [Right Arm] 164/116 H Blood Pressure Mean 125 120 Blood Pressure Mean [Right Arm] 132 Blood Pressure Position Blood Pressure Position [Right Arm] Pulse Oximetry 96 94 95 Oxygen Delivery Method Room Air Sepsis Recent Fever Within 48 Hours Sepsis New/Unexplained Change in Mental Status Sepsis Action Taken by Nursing 09/14/24 20:00 09/14/24 20:30 Temperature Temperature Source Pulse Rate 94 H 94 H Pulse Rate [Apical] Pulse Rate from SpO2 Sensor Pulse Rhythm [Apical] Pulse Strength [Apical] Respiratory Rate 23 19 Respiratory Effort / Characteristics Respiratory Depth Respiratory Pattern Blood Pressure 175/101 H 170/99 H Blood Pressure [Right Arm] Blood Pressure Mean 125 122 Blood Pressure Mean [Right Arm] Blood Pressure Position Blood Pressure Position [Right Arm] Pulse Oximetry 97 98 Oxygen Delivery Method Sepsis Recent Fever Within 48 Hours Sepsis New/Unexplained Change in Mental Status Sepsis Action Taken by Nursing Physical Exam GENERAL: Disheveled. Patient is screaming and crying thrashing in the bed. HENT: Exam performed. -Head: Normocephalic and atraumatic. CV: Tachycardic rate, regular rhythm, normal heart sounds and intact distal pulses. There is no peripheral edema. Palpable radial pulses bue. PULM/CHEST: Lungs clear to auscultation bilaterally. ABD: The abdomen is soft. NEURO: Motor and sensation grossly intact. Course Course 1710: The patient was evaluated in room A1. A complete history and physical exam was performed Cardiac monitoring: An order was placed for continuous cardiac monitoring. The monitor shows a rate of 140 with sinus tachycardia rhythm interpreted by me reports the patient gets like this when she does not have enough Valium and Percocet. 1 mg of Ativan ordered for the patient. 174: Status post 1 mg of Ativan and while IV fluids are infusing the patient is alert and oriented x 3 speaking in complete sentences and is no longer thrashing in the bed crying and screaming. 1850: Vital signs stable with IV fluids running. Patient's lactic acid is 4.4. Patient be given additional 1 L normal saline so she gets a total bolus of 30 cc/kg normal saline. Rocephin also ordered for the patient. 0: Vital signs stable. On reassessment patient is resting comfortably and asking for food and popsicles. Labs show leukocytosis of 19. VBG unremarkable. Potassium 3.2. Potassium repleted orally in the emergency department. CT of the head negative. Chest x-ray negative. CT of the abdomen pelvis shows infectious bronchiolitis primarily seen in the right middle lobe. Patient will be treated with additionally with azithromycin. [facility]. Administered Medications Discontinued Medications Azithromycin (Azithromycin 250 Mg Tab) 500 mg PO NOW ONE Stop: 09/14/24 18:27 Last Admin: 09/14/24 18:38 Dose: 500 mg Documented By: KINGSLEY Diazepam (Diazepam 5 Mg Tablet) 5 mg PO NOW ONE Stop: 09/14/24 20:35 Last Admin: 09/14/24 20:48 Dose: 5 mg Documented By: JULITA Sodium Chloride (Nss) 1,000 mls @ 999 mls/hr IV .Q1H1M ONE Stop: 09/14/24 18:16 Last Infusion: 09/14/24 18:00 Dose: Infused Documented By: Admin: 09/14/24 17:23 Dose: 999 mls/hr Documented By: KINGSLEY Sodium Chloride (Nss) 1,000 mls @ 999 mls/hr IV .Q1H1M ONE Stop: 09/14/24 18:43 Last Infusion: 09/14/24 18:51 Dose: Infused Documented By: Admin: 09/14/24 18:01 Dose: 999 mls/hr Documented By: KINGSLEY Ceftriaxone Sodium (Rocephin) 2,000 mg in 50 mls @ 100 mls/hr IV NOW STA Stop: 09/14/24 18:23 Last Infusion: 09/14/24 18:50 Dose: Infused Documented By: Admin: 09/14/24 18:03 Dose: 100 mls/hr Documented By: KINGSLEY Sodium Chloride (Nss) 1,000 mls @ 999 mls/hr IV .Q1H1M ONE Stop: 09/14/24 20:27 Last Infusion: 09/14/24 20:54 Dose: Infused Documented By: Admin: 09/14/24 19:51 Dose: 999 mls/hr Documented By: JULITA Ioversol (Optiray 320 100ml) 94 ml IV ONCE ONE Stop: 09/14/24 17:54 Last Admin: 09/14/24 17:53 Dose: 94 ml Documented By: JANICE Ketorolac Tromethamine (Ketorolac Tromethamine 15 Mg/Ml Vial) 15 mg IV NOW STA Stop: 09/14/24 18:30 Last Admin: 09/14/24 18:35 Dose: 15 mg Documented By: KINGSLEY Lorazepam (Lorazepam 2 Mg/1 Ml Vial) 1 mg IV NOW STA Stop: 09/14/24 17:17 Last Admin: 09/14/24 17:22 Dose: 1 mg Documented By: KINGSLEY Potassium Chloride (Potassium Chloride 10 Meq Tabcr) 40 meq PO NOW STA Stop: 09/14/24 18:27 Last Admin: 09/14/24 18:39 Dose: 40 meq Documented By: KINGSLEY Critical Care Time Critical Care Time: Yes Total Critical Care Time: 55 I have personally spent greater than 55 minutes of critical care time in the direct management of this patient. This includes bedside care, interpretation of diagnostic studies, and testing, discussion with consultants, patient, and family members, and other required patient management activities. This 55 minutes is in excess of all separately billable procedures. Medical Decision Making Laboratory Data Attestation: I reviewed the patient's lab results. 09/14/24 17:14 09/14/24 17:14 Lab Results 09/14/24 09/14/24 09/14/24 Range/Units 17:07 17:14 17:19 WBC 19.01 H (4.8-10.8) K/ul RBC 5.34 (4.20-5.40) M/uL Hgb 18.0 H (12.0-16.0) g/dl POC Hgb 16.7 H (12.0-16.0) g/dl Hct 50.6 H (37.0-47.0) % POC Hct 49 H (37-47) % MCV 94.8 (80.0-100.0) fL MCH 33.7 (25.0-34.0) pg MCHC 35.6 (32.0-36.0) g/dL RDW Std Deviation 46.4 H (36.4-46.3) fL RDW Coeff of [place] 13.3 (11.5-14.5) % Plt Count 346 (130-400) K/uL MPV 9.6 (9.4-12.4) fL Immature Gran % (Auto) 0.4 % Neut % (Auto) 75.1 % Lymph % (Auto) 17.3 % [place] % (Auto) 6.0 % Eos % (Auto) 0.8 % Baso % (Auto) 0.4 % Neut # (Auto) 14.28 H (1.40-6.50) K/uL Lymph # (Auto) 3.29 (1.20-3.40) K/uL [place] # (Auto) 1.15 H (0.11-0.59) K/uL Eos # (Auto) 0.15 (0.00-0.50) K/uL Baso # (Auto) 0.07 (0.00-0.20) K/uL Immature Gran # (Auto) 0.07 (0.01-0.20) K/uL PT 11.6 (9.0-12.0) Seconds INR 1.1 (0.9-1.1) APTT 25 (21-31) Seconds PTT Ratio 0.9 VBG pH (7.36-7.41) VBG pCO2 (38-50) mmHg VBG pO2 mmHg VBG HCO3 mmol/L VBG O2 Saturation % VBG Base Excess mEq/L POC Sodium 135 (135-144) mmol/L Sodium 137 (136-145) mmol/L POC Potassium 3.2 L (3.3-5.0) mmol/L Potassium 3.2 L (3.5-5.1) mmol/L POC Chloride 93 L (101-112) mmol/L Chloride 92 L (98-107) mmol/L Carbon Dioxide 30 (21-32) mmol/L POC Total CO2 29 (24-31) mmol/L Anion Gap 15 H (3-11) POC Anion Gap 16.0 (16-25) mmol/L POC BUN 20 H (7-18) mg/dl BUN 19 (6-23) mg/dl Creatinine 0.94 (0.6-1.2) mg/dl POC Creatinine 1.0 (0.6-1.3) mg/dl Est Cr Clr Drug Dosing 55.3 ml/min eGFR 71.66 BUN/Creatinine Ratio 20.2 H (10-20) Glucose 125 H (70-99(Fasting)) mg/dl POC Glucose 142 H (70-99) mg/dl POC Glucose (other) 129 H (70-99) mg/dl Lactate (0.4-2.0) mmol/L Calcium 10.2 (8.6-10.3) mg/dl POC Ioniz Calcium Wan 1.06 L (1.12-1.32) mmol/l Magnesium 1.8 (1.7-2.4) mg/dl Total Bilirubin 2.0 H (0.2-1.0) mg/dl AST 20 (13-39) U/L ALT 20 (7-52) U/L Alkaline Phosphatase 113 H (34-104) U/L Troponin I High Sens 6.0 (0-14) pg/ml Total Protein 7.6 (6.0-8.3) gm/dl Albumin 4.7 (3.4-5.0) gm/dl Globulin 2.9 (2.5-4.0) gm/dl Albumin/Globulin Ratio 1.6 (0.9-2) Procalcitonin (0-0.5) ng/ml Urine Color Urine Appearance (Clear) Urine pH (4.5-7.5) Ur Specific [place] (1.000-1.030) Urine Protein (Negative) Urine Glucose (UA) (Negative) Urine Ketones (Negative) Urine Blood (Negative) Urine Nitrite (Negative) Urine Bilirubin (Negative) Urine Urobilinogen (Negative) Ur Leukocyte Esterase (Negative) Urine WBC (Auto) (0-5) /hpf Urine RBC (Auto) (0-2) /hpf U Hyaline Cast (Auto) (0-2) /lpf U Epithel Cells (Auto) (0-2) /hpf Urine Bacteria (Auto) (None Seen) Adenovirus (PCR) (NotDetected) B. pertussis DNA (PCR) (NotDetected) B.parapertussis DNA PCR (NotDetected) C. pneumoniae DNA (PCR) (NotDetected) Coronavirus OC43 (PCR) (NotDetected) Coronavirus HKU1 (PCR) (NotDetected) Coronavirus 229E (PCR) (NotDetected) SARS-CoV-2 (PCR) (NotDetected) Coronavirus NL63 (PCR) (NotDetected) Human Metapneumovir PCR (NotDetected) Influenza Type A (PCR) (NotDetected) Influenza Type B (PCR) (NotDetected) M. pneumoniae (PCR) (NotDetected) Parainfluenza 1 (PCR) (NotDetected) Parainfluenza 2 (PCR) (NotDetected) Parainfluenza 3 (PCR) (NotDetected) Parainfluenza 4 (PCR) (NotDetected) RSV (PCR) (NotDetected) Entero/Rhino (PCR) (NotDetected) 09/14/24 09/14/24 09/14/24 Range/Units 17:21 18:07 18:19 WBC (4.8-10.8) K/ul RBC (4.20-5.40) M/uL Hgb (12.0-16.0) g/dl POC Hgb (12.0-16.0) g/dl Hct (37.0-47.0) % POC Hct (37-47) % MCV (80.0-100.0) fL MCH (25.0-34.0) pg MCHC (32.0-36.0) g/dL RDW Std Deviation (36.4-46.3) fL RDW Coeff of [place] (11.5-14.5) % Plt Count (130-400) K/uL MPV (9.4-12.4) fL Immature Gran % (Auto) % Neut % (Auto) % Lymph % (Auto) % [place] % (Auto) % Eos % (Auto) % Baso % (Auto) % Neut # (Auto) (1.40-6.50) K/uL Lymph # (Auto) (1.20-3.40) K/uL [place] # (Auto) (0.11-0.59) K/uL Eos # (Auto) (0.00-0.50) K/uL Baso # (Auto) (0.00-0.20) K/uL Immature Gran # (Auto) (0.01-0.20) K/uL PT (9.0-12.0) Seconds INR (0.9-1.1) APTT (21-31) Seconds PTT Ratio VBG pH 7.48 H (7.36-7.41) VBG pCO2 42 (38-50) mmHg VBG pO2 56 mmHg VBG HCO3 31 mmol/L VBG O2 Saturation 91.0 % VBG Base Excess 7.0 mEq/L POC Sodium (135-144) mmol/L Sodium (136-145) mmol/L POC Potassium (3.3-5.0) mmol/L Potassium (3.5-5.1) mmol/L POC Chloride (101-112) mmol/L Chloride (98-107) mmol/L Carbon Dioxide (21-32) mmol/L POC Total CO2 (24-31) mmol/L Anion Gap (3-11) POC Anion Gap (16-25) mmol/L POC BUN (7-18) mg/dl BUN (6-23) mg/dl Creatinine (0.6-1.2) mg/dl POC Creatinine (0.6-1.3) mg/dl Est Cr Clr Drug Dosing ml/min eGFR BUN/Creatinine Ratio (10-20) Glucose (70-99(Fasting)) mg/dl POC Glucose (70-99) mg/dl POC Glucose (other) (70-99) mg/dl Lactate 4.4 H* (0.4-2.0) mmol/L Calcium (8.6-10.3) mg/dl POC Ioniz Calcium Wan (1.12-1.32) mmol/l Magnesium (1.7-2.4) mg/dl Total Bilirubin (0.2-1.0) mg/dl AST (13-39) U/L ALT (7-52) U/L Alkaline Phosphatase (34-104) U/L Troponin I High Sens (0-14) pg/ml Total Protein (6.0-8.3) gm/dl Albumin (3.4-5.0) gm/dl Globulin (2.5-4.0) gm/dl Albumin/Globulin Ratio (0.9-2) Procalcitonin 0.04 (0-0.5) ng/ml Urine Color Yellow Urine Appearance Clear (Clear) Urine pH 6.5 (4.5-7.5) Ur Specific [place] 1.024 (1.000-1.030) Urine Protein Negative (Negative) Urine Glucose (UA) Negative (Negative) Urine Ketones Negative (Negative) Urine Blood Trace H (Negative) Urine Nitrite Negative (Negative) Urine Bilirubin Negative (Negative) Urine Urobilinogen Negative (Negative) Ur Leukocyte Esterase 1+ H (Negative) Urine WBC (Auto) 6-10 H (0-5) /hpf Urine RBC (Auto) 0-2 (0-2) /hpf U Hyaline Cast (Auto) 0-2 (0-2) /lpf U Epithel Cells (Auto) 0-2 (0-2) /hpf Urine Bacteria (Auto) None Seen (None Seen) Adenovirus (PCR) Not Detected (NotDetected) B. pertussis DNA (PCR) Not Detected (NotDetected) B.parapertussis DNA PCR Not Detected (NotDetected) C. pneumoniae DNA (PCR) Not Detected (NotDetected) Coronavirus OC43 (PCR) Not Detected (NotDetected) Coronavirus HKU1 (PCR) Not Detected (NotDetected) Coronavirus 229E (PCR) Not Detected (NotDetected) SARS-CoV-2 (PCR) Not Detected (NotDetected) Coronavirus NL63 (PCR) Not Detected (NotDetected) Human Metapneumovir PCR Not Detected (NotDetected) Influenza Type A (PCR) Not Detected (NotDetected) Influenza Type B (PCR) Not Detected (NotDetected) M. pneumoniae (PCR) Not Detected (NotDetected) Parainfluenza 1 (PCR) Not Detected (NotDetected) Parainfluenza 2 (PCR) Not Detected (NotDetected) Parainfluenza 3 (PCR) Not Detected (NotDetected) Parainfluenza 4 (PCR) Not Detected (NotDetected) RSV (PCR) Not Detected (NotDetected) Entero/Rhino (PCR) Not Detected (NotDetected) 09/14/24 09/14/24 Range/Units 19:24 19:50 WBC (4.8-10.8) K/ul RBC (4.20-5.40) M/uL Hgb (12.0-16.0) g/dl POC Hgb (12.0-16.0) g/dl Hct (37.0-47.0) % POC Hct (37-47) % MCV (80.0-100.0) fL MCH (25.0-34.0) pg MCHC (32.0-36.0) g/dL RDW Std Deviation (36.4-46.3) fL RDW Coeff of [place] (11.5-14.5) % Plt Count (130-400) K/uL MPV (9.4-12.4) fL Immature Gran % (Auto) % Neut % (Auto) % Lymph % (Auto) % [place] % (Auto) % Eos % (Auto) % Baso % (Auto) % Neut # (Auto) (1.40-6.50) K/uL Lymph # (Auto) (1.20-3.40) K/uL [place] # (Auto) (0.11-0.59) K/uL Eos # (Auto) (0.00-0.50) K/uL Baso # (Auto) (0.00-0.20) K/uL Immature Gran # (Auto) (0.01-0.20) K/uL PT (9.0-12.0) Seconds INR (0.9-1.1) APTT (21-31) Seconds PTT Ratio VBG pH (7.36-7.41) VBG pCO2 (38-50) mmHg VBG pO2 mmHg VBG HCO3 mmol/L VBG O2 Saturation % VBG Base Excess mEq/L POC Sodium (135-144) mmol/L Sodium (136-145) mmol/L POC Potassium (3.3-5.0) mmol/L Potassium (3.5-5.1) mmol/L POC Chloride (101-112) mmol/L Chloride (98-107) mmol/L Carbon Dioxide (21-32) mmol/L POC Total CO2 (24-31) mmol/L Anion Gap (3-11) POC Anion Gap (16-25) mmol/L POC BUN (7-18) mg/dl BUN (6-23) mg/dl Creatinine (0.6-1.2) mg/dl POC Creatinine (0.6-1.3) mg/dl Est Cr Clr Drug Dosing ml/min eGFR BUN/Creatinine Ratio (10-20) Glucose (70-99(Fasting)) mg/dl POC Glucose (70-99) mg/dl POC Glucose (other) (70-99) mg/dl Lactate 2.3 H* 1.4 (0.4-2.0) mmol/L Calcium (8.6-10.3) mg/dl POC Ioniz Calcium Wan (1.12-1.32) mmol/l Magnesium (1.7-2.4) mg/dl Total Bilirubin (0.2-1.0) mg/dl AST (13-39) U/L ALT (7-52) U/L Alkaline Phosphatase (34-104) U/L Troponin I High Sens (0-14) pg/ml Total Protein (6.0-8.3) gm/dl Albumin (3.4-5.0) gm/dl Globulin (2.5-4.0) gm/dl Albumin/Globulin Ratio (0.9-2) Procalcitonin (0-0.5) ng/ml Urine Color Urine Appearance (Clear) Urine pH (4.5-7.5) Ur Specific [place] (1.000-1.030) Urine Protein (Negative) Urine Glucose (UA) (Negative) Urine Ketones (Negative) Urine Blood (Negative) Urine Nitrite (Negative) Urine Bilirubin (Negative) Urine Urobilinogen (Negative) Ur Leukocyte Esterase (Negative) Urine WBC (Auto) (0-5) /hpf Urine RBC (Auto) (0-2) /hpf U Hyaline Cast (Auto) (0-2) /lpf U Epithel Cells (Auto) (0-2) /hpf Urine Bacteria (Auto) (None Seen) Adenovirus (PCR) (NotDetected) B. pertussis DNA (PCR) (NotDetected) B.parapertussis DNA PCR (NotDetected) C. pneumoniae DNA (PCR) (NotDetected) Coronavirus OC43 (PCR) (NotDetected) Coronavirus HKU1 (PCR) (NotDetected) Coronavirus 229E (PCR) (NotDetected) SARS-CoV-2 (PCR) (NotDetected) Coronavirus NL63 (PCR) (NotDetected) Human Metapneumovir PCR (NotDetected) Influenza Type A (PCR) (NotDetected) Influenza Type B (PCR) (NotDetected) M. pneumoniae (PCR) (NotDetected) Parainfluenza 1 (PCR) (NotDetected) Parainfluenza 2 (PCR) (NotDetected) Parainfluenza 3 (PCR) (NotDetected) Parainfluenza 4 (PCR) (NotDetected) RSV (PCR) (NotDetected) Entero/Rhino (PCR) (NotDetected) Imaging Data Attestation: I personally reviewed and interpreted this imaging study as follows: My Impression: Chest x-ray negative. Airway clear. No pneumothorax. No consolidation. No cardiomegaly or cephalization.. No free air under the diaphragm. No fractures of the skeletal structures. Radiologist's Impression: Chest X-Ray 09/14/24 17:03 EXAM: Radiograph of the Chest 1 View INDICATION: Chest pain. TECHNIQUE: Frontal view of the chest. COMPARISON: 01/07/2024 FINDINGS: Lungs and pleural spaces: Stable symmetrical hyperinflation. No consolidation or pulmonary edema. No pleural effusion or pneumothorax. Heart: Shape and configuration within normal limits allowing for technique. Mediastinum: Normal contour. Bones/joints: No fracture, erosion or dislocation. Soft tissues: No abnormality noted. No radiopaque foreign body noted. Upper abdomen: No abnormality noted. IMPRESSION: Stable chronic changes. No acute disease. ACT 112: Negative or not required by law. Electronically signed by Lucie Dailey 09-14-2024 5:47 PM Abdomen/Pelvis CT 09/14/24 17:18 EXAMINATION: CT of the abdomen and pelvis performed after the administration of IV contrast TECHNIQUE: Helical CT images from the lung bases through the symphysis pubis were obtained with contrast. Coronal and sagittal reformatted images were generated at a workstation for further assessment. Dose reduction techniques were achieved by using automatic exposure control and/or adjustment of mA and/or kV according to patient size and/or use of iterative reconstruction technique. COMPARISON: None HISTORY: Abdominal pain FINDINGS: Lower chest: The lungs appear emphysematous. Minimal centrilobular nodules in the right middle lobe are seen. Liver: No suspicious liver lesions. Portal veins appear patent. Gallbladder: Cholecystectomy changes. Spleen: Normal size. Pancreas: No suspicious pancreatic lesions. The pancreatic duct is not dilated. Adrenal glands: No adrenal nodules. Kidneys: No hydronephrosis or obstructing renal stones. Bladder / Pelvic organs: Unremarkable. Bowel: No bowel obstruction. No abnormal bowel wall thickening. The appendix is unremarkable. Lymph nodes: No retroperitoneal, mesenteric, or pelvic lymphadenopathy. Peritoneum / Retroperitoneum: No free fluid or air within the abdomen. Vessels: No infrarenal aortic aneurysm. Moderate aortoiliac calcification. Bones and soft tissues: No suspicious lesion in the bones. IMPRESSION: No acute findings in the abdomen or pelvis. Minimal infectious bronchiolitis partially seen in the right middle lobe. Electronically signed by Ben Marinelli 09-14-2024 6:[address] 09/14/24 17:18 CT head without contrast History: Headache Comparison: 05/27/2022 Technique: Using multidetector thin collimation helical acquisition technique, axial, coronal and sagittal CT images from the skull base to the vertex were obtained without intravenous contrast. Dose reduction techniques were achieved by using automatic exposure control and/or adjustment of mA and/or kV according to patient size and/or use of iterative reconstruction technique. Findings: No intracranial hemorrhage, mass-effect, or midline shift. The ventricles are proportionate to the cerebral sulci. The ramirez to white matter differentiation of the cerebral hemispheres is preserved. The basal cisterns are patent. There is moderate cerebral atrophy. Moderate, patchy low-attenuation changes in the white matter, most suggestive of sequelae of chronic small vessel ischemic disease. The visualized paranasal sinuses are clear. Mastoid air cells are clear. Impression: No acute intracranial pathology. Electronically signed by Ben Marinelli 09-14-2024 6:06 PM ECG Data Attestation: I personally reviewed and interpreted this ECG as follows: Rate (beats per minute): 137 Rhythm: + sinus tachycardia ECG Intervals/blocks: + Normal QRS ECG ST segments: + Normal ST segments ECG Findings: + Peaked T waves Additional Comments: PA 114. No delta wave. [facility] Narrative 1711: The patient was evaluated in room A1. A complete history and physical exam was performed Cardiac monitoring: An order was placed for continuous cardiac monitoring. The monitor shows a rate of 140 with sinus tachycardia rhythm interpreted by me reports the patient gets like this when she does not have enough Valium and Percocet. 1 mg of Ativan ordered for the patient. 1745: Status post 1 mg of Ativan and while IV fluids are infusing the patient is alert and oriented x 3 speaking in complete sentences and is no longer thrashing in the bed crying and screaming. 1850: Vital signs stable with IV fluids running. Patient's lactic acid is 4.4. Patient be given additional 1 L normal saline so she gets a total bolus of 30 cc/kg normal saline. Rocephin also ordered for the patient. 1920: Vital signs stable. On reassessment patient is resting comfortably and asking for food and popsicles. Labs show leukocytosis of 19. VBG unremarkable. Potassium 3.2. Potassium repleted orally in the emergency department. CT of the head negative. Chest x-ray negative. CT of the abdomen pelvis shows infectious bronchiolitis primarily seen in the right middle lobe. Patient will be treated with additionally with azithromycin. [facility] Impression & Plan Pneumonia, Sepsis Discharge Plan Visit Data Chief Complaint: Weakness Stated Complaint: CHEST PAIN,L SIDE OF FACE NUMB,MIGRAINE ED Provider: Paul Perry Discharge Problem: Pneumonia, Sepsis Patient Disposition: Admitted As Inpatient Discharge Instructions Interventions: ED Discharge Assessment Last Done: 09/14/24 20:53 Forms Stand Alone Forms: My [facility] Prescriptions Prescriptions: No Action esomeprazole magnesium [Nexium] 40 mg Capsule,Delayed Release(Dr/Ec) 40 mg PO DAILY atorvastatin 10 mg tablet 10 mg PO HS diazepam 10 mg tablet 10 mg PO TID PRN (Reason: Anxiety) albuterol sulfate 90 mcg/actuation HFA aerosol inhaler 2 inh inhalation Q6 PRN (Reason: Wheezing) oxycodone-acetaminophen 10-325 mg tablet 1 tab PO Q4 PRN (Reason: Pain) ondansetron HCl 4 mg tablet 4 mg PO Q8 PRN (Reason: Nausea And Vomiting) Referrals Referrals: PCP,NO [Primary Care Provider] - Discharge Problem: Pneumonia Qualifiers: Pneumonia type: due to unspecified organism Laterality: unspecified laterality Lung location: unspecified part of lung Qualified Code(s): J18.9 - Pneumonia, unspecified organism
[2024-09-14] MEDS ORDERED: ALBUTEROL HFA 8 GM INHALER INH PRN (21:33)
[2024-09-14] MEDS ORDERED: POLYETHYLENE (MIRALAX) 17 GM PACK PO PRN (21:33)
[2024-09-14] MEDS ORDERED: DOCUSATE SODIUM 100 MG CAP PO PRN (21:33)
[2024-09-14] MEDS ORDERED: diazePAM 5 MG TABLET PO PRN (21:33)
[2024-09-14] MEDS: oxyCODONE/ACETAMINOPHEN 10-325 TAB PO PRN (21:39)
[2024-09-14] MEDS ORDERED: Nursing to Pharmacy Communication SCH (22:00)
[2024-09-14] MEDS: ATORVASTATIN 10 MG TAB PO SCH (22:09)
[2024-09-15] MEDS: CALCIUM GLUCONATE 1,000 MG/60 ML BAG IV STA (01:53)
--- NOTE | 2024-09-15 07:38 | Electrocardiogram Report ---
Test Reason : Blood Pressure : */* mmHG Vent. Rate : 137 BPM Atrial Rate : 137 BPM P-R Int : 114 ms QRS Dur : 80 ms QT Int : 296 ms P-R-T Axes : 74 93 79 degrees QTcB Int : 446 ms Sinus tachycardia Left atrial enlargement Rightward axis Old Septal infarct (cited on or before 26-May-2022) ST depression in Inferior leads , consider ischemia Abnormal ECG When compared with ECG of 07-Jan-2024 00:52, Vent. rate has increased by [address] now depressed in Inferior leads Confirmed by Bernardo Abraham ([id number]) on 09/15/2024 7:37:33 AM Referred By: REFERRED SELF Confirmed By: Bernardo Abraham
[2024-09-15] MEDS: OPTIRAY 320 125ml IV ONE (08:48)
[2024-09-15] MEDS: PANTOprazole 40 MG TAB PO SCH (09:12)
[2024-09-15] MEDS: ATORVASTATIN 10 MG TAB PO SCH (09:12)
[2024-09-15] MEDS: ASPIRIN 81 MG ECTAB PO SCH (09:13)
[2024-09-15] MEDS: diazePAM 5 MG TABLET PO PRN (09:14)
--- NOTE | 2024-09-15 09:20 | CT Scan Report ---
CT angio neck with con, CT angio head w con CLINICAL HISTORY: left facial numbness. COMPARISON STUDY: TECHNIQUE: Following the IV administration of 112 of Optiray, CT angiogram of the neck and brain was performed from the aortic arch to the skull base. Images are reviewed in the axial, sagittal, and cor onal planes. 3-D MIPS images are created and assessed. IV contrast was administered without complicat ion. All measurements were calculated based on NASCET criteria. A dose lowering technique was utiliz ed adhering to the principles of ALARA. CT DOSE: 458.11 mGy.cm COMPARISON STUDY: Head CT yesterday and MRA of 10/28/2016 FINDINGS: There are minimal atherosclerotic calcifications. Bilateral common and internal carotid art eries showed no significant narrowing or occlusion. The left vertebral artery originates from the aor tic arch, anatomic variant. The right vertebral artery is dominant and the left vertebral artery is v clementina diminutive and terminates in PICA, anatomic variant. The right vertebral artery is diminutive bey ond PICA, anatomic variant. The basilar artery is very diminutive but patent. The anterior, middle, a nd posterior cerebral arteries are patent bilaterally. There is origin of the posterior cerebra l arteries, anatomic variant. Cerebral venous sinuses opacify normally. There is stable mucosal thickening and fluid in the maxillary and left ethmoid sinuses. There are fin dings of emphysema in the visualized upper lungs. IMPRESSION: 1. 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 2. No significant arterial narrowing or occlusion seen at the neck or brain. ACT 112: Negative or not required by law. The above report was generated using voice recognition software. It may contain grammatical, syntax o r spelling errors. Electronically signed by: Daljit Newby M.D. 09/15/2024 9:18 AM
[2024-09-15 09:22] LABS: Hematocrit (blood only) 35.7 % (37.0-47.0); Hemoglobin 12.5 g/dl (12.0-16.0); Mean Corpuscular Hemoglobin 33.7 pg (25.0-34.0); Mean Corpuscular Volume 96.2 fL (80.0-100.0); Mean Platelet Volume 9.8 fL (9.4-12.4); Platelet Count 191 K/uL (130-400); RDW Coefficient of Variation 13.3 % (11.5-14.5); RDW Standard Deviation 46.7 fL (36.4-46.3); Red Blood Count 3.71 M/uL (4.20-5.40); White Blood Count 8.41 K/ul (4.8-10.8)
[2024-09-15 09:25] LABS: Total Protein 5.3 gm/dl (6.0-8.3)
[2024-09-15 09:29] LABS: Albumin Level 3.3 gm/dl (3.4-5.0); BUN Creatinine Ratio 21.7 (10-20); Bilirubin Direct 0.3 mg/dl (0-0.2); Bilirubin,Total 1.6 mg/dl (0.2-1.0); Calcium 8.9 mg/dl (8.6-10.3); Creatinine Clr Calc Pharmacy 87.9 ml/min; Potassium 3.9 mmol/L (3.5-5.1); Thyroid Stimulating Hormone 1.398 uIu/ml (0.300-4.500)
[2024-09-15 11:16] LABS: Estimated Average Glucose 103 mg/dl; Hemoglobin A1C 5.2 % (4.5-5.6)
[2024-09-15] MEDS: VENLAFAXINE HCL XR 37.5 MG CAPXR PO SCH (18:10)
[2024-09-15] MEDS ORDERED: ALBUT/IPRATROP 3MG/0.5MG NEB 3 ML VIAL NEB PRN (19:53)
[2024-09-15] MEDS: SODIUM CHLOR 7% 4 ML NEB NEB ONE (20:11)
[2024-09-15] MEDS: ACETAMINOPHEN 325 MG TAB PO PRN (20:42)
[2024-09-15] MEDS: guaiFENesin 600 MG TABCR PO SCH (20:43)
[2024-09-15] MEDS: GADOBUTROL 65ML VIAL IV ONE (21:23)
[2024-09-15] MEDS: ONDANSETRON INJ 2 MG/ML 2 ML VIAL IV PRN (21:38)
--- NOTE | 2024-09-15 22:49 | Hospitalist Progress Note ---
Date of Service September 15, 2024 Assessment & Plan (1) Left facial numbness: Plan: Patient reports several days of left sided facial numbness as well as perioral numbness and numbness/tingling of her fingertips bilaterally. Most likely secondary to anxiety. -Observation to medical -MRI brain ordered to assess for possible CVA - unfortunately, machine is not functioning at present. Negative CTA Head and Neck -likely migraine, order venlafaxine -Continue Atorvastatin 10mg po daily -Initiate ASA 81mg po daily (2) Coronary artery disease: Plan: Patient reports history of CAD. No chest pain. Troponin is unremarkable -Continue Atorvastatin -Initiate ASA 81mg po daily (3) Anxiety: Plan: Patient with anxiety. Has been on Diazepam 10mg po TID PRN in the past which she has not been able to get since June. Patient reports significant anxiety and panic. Diazepam 5mg po given in the ER with marked improvement in her symptoms -Will continue Diazepam 5mg po BID Added venlafaxine. (4) Electrolyte abnormality: Plan: Hypokalemia and hypocalcemia -Repleted with KCl 40mEq PO and Calcium gluconate 1gm IV -Repeat labs in AM (5) GERD (gastroesophageal reflux disease): Plan: Patient with GERD. On Nexium outpatient -Protonix 40mg po daily while inpatient (6) LFTs abnormal: Plan: Patient with elevation of T-bili as well as Alkaline Phosphatase. She has had some nausea and vomiting ongoing for the last three days. CT of the abdomen reveals prior cholecystectomy otherwise no acute findings -Repeat LFTs in AM -Additional imaging pending results of repeat LFTs (7) Elevated blood pressure reading: Plan: Patient with elevated blood pressure readings. In setting of acute anxiety as well as pain. She does not have diagnosis of hypertension -Monitor for now Plan Case Management consultation appreciated - patient will need to establish with a local PCP. Would benefit from having appointment made for her prior to discharge. Admission and Anticipated Discharge Date Admission Date: September 14, 2024 Subjective Patient reports having a headache and feeling anxious Physical Exam Physical Exam: General: patient very anxious in appearance, answers questions appropriately Skin: warm, dry, intact, no rashes or lesions HEENT: NC/AT, PERRL, EOMI Heart: +S1/S2, regular, no m/r/g Lungs: equal air entry bilaterally, no rales/rhonchi/wheezes Abd: +BS, soft, NT/ND, no masses/organomegaly/ascites Ext: warm, 2+ pulses in UE/LE bilaterally, no clubbing/cyanosis or edema Neuro: left facial numbness, MS 5/5 in UE/LE bilaterally, no facial droop, tongue midline Results & Data Results & Data Vital Signs (Past 12 Hours) Vital Signs Temp Pulse Resp BP BP Pulse Ox O2 Del Method 09/15/24 20:11 90 18 96 Room Air 09/15/24 19:45 Room Air 09/15/24 19:43 36.8 C 90 16 135/84 94 Room Air 09/15/24 14:39 36.8 C 95 H 18 146/84 H 94 Room Air 09/15/24 10:53 Room Air PG Care Time/CCT Total # of Minutes Spent Total Time Spent with Patient: Total time spent is greater than 50% in coordination of care (as documented) at patient's floor/unit and/or counseling patient: Coding Level of Care Code 14874 SUB INP/OBS CARE 3/50MIN Diagnoses Left facial numbness R20.0 Coronary artery disease I25.10 Anxiety F41.9 Electrolyte abnormality E87.8 GERD (gastroesophageal reflux disease) K21.9 LFTs abnormal R79.89 Elevated blood pressure reading R03.0
--- NOTE | 2024-09-15 22:51 | Magnetic Resonance Report ---
Exam(s): MRI HEAD W/WO Contrast IV Amt: 5mL Gadavist given existing IV EXAM: MR Head Without and With Intravenous Contrast CLINICAL HISTORY: Reason for exam: left sided facial numbness x 4 days. TECHNIQUE: Magnetic resonance images of the head/brain without and with intravenous contrast in multiple planes. CONTRAST: Patient received 5mL Gadavist given existing IV of IV contrast COMPARISON: Prior brain MRI from October 29, 2016. FINDINGS: Brain: Mild nonspecific white matter changes. No mass. No hemorrhage. No acute infarct. The flow voids at the base the brain are intact. Ventricles: Unremarkable. No ventriculomegaly. Bones/joints: Unremarkable. No acute fracture. Sinuses: Chronic maxillary and ethmoid sinusitis. No acute sinusitis. Mastoid air cells: Unremarkable as visualized. No mastoid effusion. Orbits: Unremarkable as visualized. IMPRESSION: No evidence of acute intracranial pathology. If there is continued clinical concern for facial neuritis, and MRI of the IACs with and without contrast may be of benefit for further evaluation. Electronically signed by: Nadine Bush MD 09/15/24 22:50 PM
[2024-09-16 08:42] LABS: Hematocrit (blood only) 36.4 % (37.0-47.0); Hemoglobin 12.6 g/dl (12.0-16.0); Mean Corpuscular Hemoglobin 33.9 pg (25.0-34.0); Mean Corpuscular Hgb Conc 34.6 g/dL (32.0-36.0); Mean Corpuscular Volume 97.8 fL (80.0-100.0); Mean Platelet Volume 9.7 fL (9.4-12.4); Platelet Count 175 K/uL (130-400); RDW Coefficient of Variation 13.2 % (11.5-14.5); RDW Standard Deviation 47.5 fL (36.4-46.3); Red Blood Count 3.72 M/uL (4.20-5.40); White Blood Count 7.77 K/ul (4.8-10.8)
[2024-09-16 09:33] LABS: BUN Creatinine Ratio 34.9 (10-20); C Reactive Protein 1.76 mg/dl (0-0.5); Calcium 8.6 mg/dl (8.6-10.3); Creatinine Clr Calc Pharmacy 83.7 ml/min; Potassium 4.2 mmol/L (3.5-5.1)
[2024-09-16 14:13] VITALS: BP 121/73; PULSE 54; RESP 15; TEMP 97.9; O2SAT 95
--- NOTE | 2024-09-18 13:46 | Discharge Summary ---
Discharge Summary Date of Service September 16, 2024 Principal Dx & Hospital Course #1 = Principal Diagnosis (1) Left facial numbness: Patient reports several days of left sided facial numbness as well as perioral numbness and numbness/tingling of her fingertips bilaterally. Most likely secondary to anxiety. -was admitted to observation on medical -MRI brain: negative for stroke -Negative CTA Head and Neck -likely migraine, order venlafaxine to help with migraines/anxiety -Continue Atorvastatin 10mg po daily -Initiate ASA 81mg po daily (2) Coronary artery disease: Patient reports history of CAD. No chest pain. Troponin is unremarkable -Continue Atorvastatin -Initiate ASA 81mg po daily (3) Anxiety: Patient with anxiety. Has been on Diazepam 10mg po TID PRN in the past which she has not been able to get since June. Patient reports significant anxiety and panic. Diazepam 5mg po given in the ER with marked improvement in her symptoms -Will continue Diazepam 5mg po BID Added venlafaxine. (4) Electrolyte abnormality: Hypokalemia and hypocalcemia -Repleted with KCl 40mEq PO and Calcium gluconate 1gm IV (5) GERD (gastroesophageal reflux disease): Patient with GERD. On Nexium outpatient -Protonix 40mg po daily while inpatient (6) LFTs abnormal: Patient with elevation of T-bili as well as Alkaline Phosphatase. She has had some nausea and vomiting ongoing for the last three days. CT of the abdomen reveals prior cholecystectomy otherwise no acute findings -recommend followup with PCP to recheck levels (7) Elevated blood pressure reading: Patient with elevated blood pressure readings. In setting of acute anxiety as well as pain. She does not have diagnosis of hypertension Plan Case Management consultation appreciated - patient will need to establish with a local PCP. W Admission HPI Per Admitting Provider Eliz Swan is a 54yo female with history of CAD, COPD, GERD, HLP presenting from home with complaint of left sided facial numbness, perioral numbness and tingling as well as tingling of her fingertips bilaterally, possibly some word finding difficulty as well. Also with generalized pain and anxiety. Patient has prescriptions for PO Valium as well as Percocet. She was following with a PCP but he retired and she has not been able to get her medications since June. She denies having any serious withdrawal symptoms since being off the Valium and Percocet, however, she reports that her anxiety has been "out of control" and she's been "freaking out". Her symptoms have been ongoing for the last 3-4 days. Patient additionally reports 3days of nausea, vomiting and PO intolerance. She has not eaten much for the last 3 days. Denies fever, chills, abdominal pain. In the ER patient patient hypertensive Adequate oxygenation ER Course: Ativan 1mg IV NSS x 3L Ceftriaxone 2gm Toradol 15mg IV Azithromycin 500mg po KCl 40mEq PO Diazepam 5mg po Discharge Exam General: patient very anxious in appearance, answers questions appropriately Skin: warm, dry, intact, no rashes or lesions HEENT: NC/AT, PERRL, EOMI Heart: +S1/S2, regular, no m/r/g Lungs: equal air entry bilaterally, no rales/rhonchi/wheezes Abd: +BS, soft, NT/ND, no masses/organomegaly/ascites Ext: warm, 2+ pulses in UE/LE bilaterally, no clubbing/cyanosis or edema Neuro: left facial numbness, MS 5/5 in UE/LE bilaterally, no facial droop, tongue midline Discharge Plan Discharge Items Patient Disposition: Home - Self-Care Reason For Visit: WEAKNESS, LEFT SIDED FACIAL NUMBNESS Discharge Diagnosis: weakness, left sided facial numbness Activity: Resume your previous activity Non-emergency contact: Primary Care Provider Call non-emergency contact if: you have any medication questions Follow-up/Referrals: Sharee Grewal MD [Physician] - 09/20/24 8:00 am PCP,NO [Primary Care Provider] - Diet: Regular Addtl Attending Provider Instructions: recommend close followup with new PCP. We started you on a new medication called venlafaxine which should help with your anxiety. Please take it daily. I did prescribe some as needed anxiety medication: diazepam for you. We will also place you on some pain medicine. Pending Studies at Discharge: No Stand-Alone Forms: My [facility], Smoking Cessation Medications and DC Order Prescriptions: New aspirin 81 mg Tablet,Delayed Release (Dr/Ec) 81 mg PO DAILY Qty: 30 0RF guaifenesin [Mucinex] 600 mg Tablet Extended Release 12hr 600 mg PO Q12 Qty: 30 0RF oxycodone-acetaminophen 10-325 mg tablet 1 tab PO BID PRN (Reason: pain) Qty: 20 0RF Continued ondansetron HCl 4 mg tablet 4 mg PO Q8 PRN (Reason: Nausea And Vomiting) atorvastatin 10 mg tablet 10 mg PO HS Qty: 30 0RF esomeprazole magnesium [Nexium] 40 mg Capsule,Delayed Release(Dr/Ec) 40 mg PO DAILY Qty: 30 0RF Discontinued diazepam 10 mg tablet 10 mg PO TID PRN (Reason: Anxiety) oxycodone-acetaminophen 10-325 mg tablet 1 tab PO Q4 PRN (Reason: Pain) No Action venlafaxine 37.5 mg capsule,extended release 24hr 37.5 mg PO PM Qty: 30 3RF hydroxyzine HCl 25 mg tablet 25 mg PO BID PRN (Reason: panic attack) 30 Days Qty: 60 1RF rimegepant [Nurtec ODT] 75 mg tablet,disintegrating 0RF propranolol 60 mg capsule,extended release 24 hr 60 mg PO DAILY Qty: 30 2RF Discharge Orders: Discharge Order (Routine); Ordered 09/16/24 Ordered By: Coy Sarmiento/Other Patient Handouts: Diazepam Oral Tablet, Venlafaxine Extended Release Oral Capsule, Oxycodone/Acetaminophen Oral Tablet Admission Data Admit Date/Time: 09/14/24 20:10 Attending Provider: Coy Gates Admit Provider: Shy Meléndez Primary Care Provider: PCP,NO Other Providers: Shy Meléndez Other Interventions: Discharge Summary Assessment (RN) Last Done: 09/16/24 14:37 Hospital Stay Data Consultations 09/14/24 19:18 ED Decision to Admit Stat Diagnostic Imagining Performed 09/14/24 17:18 CT abd pelvis IV con only Stat CT head/brain wo con Stat 09/15/24 09:00 CTA head w con [CT angio head w con] Routine CTA neck with con [CT angio neck with con] Routine 09/15/24 10:34 MR brain wo/w con Routine Pending Results Patient Have Any Pending Studies at Discharge: No Discharge Instructions Given to Patient (Per Discharging Provider) recommend close followup with new PCP. We started you on a new medication called venlafaxine which should help with your anxiety. Please take it daily. I did prescribe some as needed anxiety medication: diazepam for you. We will also place you on some pain medicine. Total Time Total Time Spent Total Time Spent (In Minutes): 32 Coding Level of Care Code 06530 INP/OBS DISCH >30 MIN Diagnoses Left facial numbness R20.0 Coronary artery disease I25.10 Anxiety F41.9 Electrolyte abnormality E87.8 GERD (gastroesophageal reflux disease) K21.9 LFTs abnormal R79.89 Elevated blood pressure reading R03.0
== END 2024-09-16 16:47 | disposition home or self-care (01) ==
LOC: 3N 16:47 → ED 16:47 → SUATTDRO 20:10 → 3N 20:53

== ENCOUNTER 2025-03-05 10:03 | Inpatient (IN) ==
--- NOTE | 2025-03-05 10:36 | Emergency Department Note ---
Impression & Plan Nausea, vomiting and diarrhea, Acute dehydration, Left-sided chest pain ED Provider Note Name: JOSEFINA SHORE Age: 55 Sex: Female Arrives Via: Walk-In Informant: Patient, ED Provider: Lake Swenson MD Chief Complaint: Chest pain Impression: As per impressions above Medical Decision Makin-year-old female arrives for evaluation of left-sided chest pain. Patient with multiple different complaints and somewhat difficult to pin down. She does have a history of cardiac disease and her makes clear that she has complete occlusion of one of her vessels. She also is complaining of vomiting and diarrhea. She states she is dehydrated. She does not however have any abdominal pain. On examination patient is a bit tachycardic and is clearly dehydrated. She has clear lung sounds bilaterally and I soft nontender abdomen. She is also quite anxious. She was given some IV Ativan and Zofran with improvement in her nausea. Her heart rate has come down some with initial fluid bolus and a second bolus was given with further improvement. Unfortunately during this time patient's chest pain did return. She is given sublingual nitroglycerin without any change in her pain. She was then given some IV Tylenol and seems to be feeling a bit better. Patient with multiple other complaints throughout multiple discussions. She is bit hard of hearing and her speech is a bit garbled thus it is somewhat difficult having conversations with her at times. Given all of this the patient's previous history persistent tachycardia and her continued discomfort I do think it would be reasonable to bring her in for further evaluation. She and her are very much on board with this plan. I am somewhat suspicious that much of this is gastroenteritis and she may be having some chest discomfort from vomiting. However given her cardiac history and her findings I do not think discharge would be reasonable at this time. Triage/Nursing Notes reviewed by Me External Chart Review by me: I did review a PCP note from 02/12/2025 at which point patient was reportedly complaining of numbness of her cheeks. She had also been vomiting for some days at that point as well. I discussed this with the patient who states that the vomiting was just the last 2 days but that the numbness on her face has been for several years. She has no neurologic deficits I am not sure that there is an acute neurologic workup is necessary at this point given the multiple other issues going on at this time. Differential:Infection, dehydration, metabolic abnormality, hypo/hyperglycemia, electrolyte disturbance, anemia, hypoxia, cardiac sources, intracerebral event, toxicologic, neurologic, as well as other pathologies. Vital Signs: reviewed and remarkable for tachycardia Interventions: Normal Saline bolus, Ativan IV, Tylenol IV, Zofran IV, sublingual nitroglycerin, aspirin p.o. Labs:ED labs Reviewed by me and remarkable for no significant abnormalities Imaging:X ray results are stated below per my interpretation: Chest: 1 view: No infiltrate, no effusion, normal cardiac border. EKG:As per my interpretation. Indication chest pain. Sinus tachycardia 107 bpm QTc of 451. There is no ectopy no ischemia. When compared to EKG of October 18, 2024 there are no significant changes. Cardiac/Tele Monitoring: Cardiac Monitoring: An Order was placed for continuous cardiac monitoring. The monitor shows a rate of 105 with a sinus tach rhythm. Consults:Discussed with Dr. Gates and the hospitalist team with plan for them to bring in for further management Plan: Disposition:Hospitalization. Condition: Fair History of Present Illness: 55-year-old female arrives for evaluation of left- sided chest pain. Patient notes 2 days of sharp heavy left-sided chest pain. No radiation of pain. Associated with 2 days of nausea, vomiting, diarrhea. She has not been eating or drinking well the last few days. Denies any specific abdominal pain. Denies any falls, trauma, injuries. She is not having any difficulty breathing nor is noted any shortness of breath. She does note that her face feels numb. She states has been going on for many years and she is unsure why. She does have a history of CAD with previous stent and a known blocked vessel. Of note has been stated that patient used to have Percocet prescriptions which she would use for pains like this however those were stopped several months ago. Past Medical History: Migraines, CAD, GERD, anxiety, ambulatory dysfunction Home Medications:See Below Allergies:See Below Vitals:Blood Pressure: 129/93, Pulse 124, RR 20, T 37.1C, O2 97% on RA Physical Exam: GENERAL: Patient is cachectic appearing and in moderate distress. Very anxious. Dry mucous membranes RESPIRATORY: No dyspnea. Clear to auscultation and equal bilaterally. CARDIOVASCULAR: Tachy.No murmur appreciated. GASTROINTESTINAL: Abdomen soft, non-tender, no peritonitis. EXTREMITIES: Normal motion all extremities, no cyanosis, no edema. NEUROLOGIC: Alert and oriented. No focal neurologic deficits appreciated SKIN: No rash, no jaundice, no diaphoresis. PSYCH: Appropriate GCS: 15 ED Course: Times/Reassessments: Waxing and waning chest pains nausea and other complaints throughout her stay Lake Swenson MD Past Med/Surg History Problem List (Updated 03/05/25 @ 15:20 by Lake Swenson MD) Left-sided chest pain (Acute) Acute dehydration (Acute) Nausea, vomiting and diarrhea (Acute) Migraine without aura Opioid dependence (Acute) Benzodiazepine dependence (Acute) GERD (gastroesophageal reflux disease) Problem related to nonsupportive living environment Ambulatory dysfunction Anxiety (Acute) Coronary artery disease COPD exacerbation (Acute) Medical History Sacral decubitus ulcer COPD (chronic obstructive pulmonary disease) SBO (small bowel obstruction) Sprained ankle Ectopic Migraines Surgical History H/O section Hx of cholecystectomy No significant past surgical history Family History Other Nausea & vomiting Social History Smoking Status: Current some day smoker Tobacco Type: Cigarettes Age Started Using Tobacco: 14; packs per day: 1; Cigarettes Per Day: 1/2 PPD; Second Hand Exposure: Yes; Do You Dip or Chew Tobacco: No; Hx Alcohol Use: No Hx Substance Use: No Preferred Language: Belarusian Communication Ability: Effective 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 Beliefs That Will Affect Care: None marital status: Current Living Situation: Spouse Current Living Situation Comment: lives in a trailer with currently frozen pipes/no water current occupational status: disabled Feels Safe at Home: Yes Assistive Devices: None Allergies Allergies Allergy/AdvReac Type Severity Reaction Status Date / Time haloperidol Allergy Severe TONGUE Verified 01/26/25 13:05 SWELLS hydroxyzine Allergy Severe CAN'T Verified 01/26/25 13:05 BREATH prochlorperazine AdvReac Intermediate SICK Verified 01/26/25 13:05 escitalopram AdvReac Mild MAKES HER Verified 01/26/25 13:05 "THINK GOOFY" rofecoxib AdvReac Mild FIERRO LIPS Verified 01/26/25 13:05 prednisone AdvReac Unknown GI UPSET Verified 01/26/25 13:05 tramadol AdvReac Unknown UNABLE TO Verified 01/26/25 13:05 VOID Home Meds Home Medications Medication Instructions Recorded Confirmed acetaminophen 500 mg tablet 500 mg PO Q6H PRN Pain 01/26/25 03/05/25 (Tylenol Extra Strength) fremanezumab-vfrm 225 mg/1.5 mL 225 mg subcut MONTHLY 03/05/25 03/05/25 subcutaneous auto-injector (Ajovy) Previous Rx's Medication Instructions Recorded prochlorperazine maleate 10 mg 10 mg PO DAILY PRN nausea and 01/26/25 tablet vomiting 30 days #30 tabs Results & Data (ED) Vital Signs Vital Signs - 24 hr 03/05/25 10:15 03/05/25 10:51 03/05/25 12:42 Temperature 37.1 C Temperature Source Oral Pulse Rate 124 H 115 H 109 H Pulse Rate from SpO2 Sensor 108 H Respiratory Rate 20 23 Respiratory Effort / Characteristics Non-Labored Spontaneous Respiratory Depth Normal Blood Pressure 129/93 Blood Pressure Mean 105 Pulse Oximetry 97 96 Oxygen Delivery Method Room Air Sepsis Recent Fever Within 48 Hours No Sepsis New/Unexplained Change in Mental Status N/A Sepsis Action Taken by Nursing No Action Required 03/05/25 12:43 03/05/25 12:51 03/05/25 13:00 Temperature Temperature Source Pulse Rate 108 H Pulse Rate from SpO2 Sensor 109 H Respiratory Rate 24 Respiratory Effort / Characteristics Respiratory Depth Blood Pressure 158/101 H 143/106 H Blood Pressure Mean 140 129 Pulse Oximetry 90 Oxygen Delivery Method Sepsis Recent Fever Within 48 Hours Sepsis New/Unexplained Change in Mental Status Sepsis Action Taken by Nursing 03/05/25 14:00 03/05/25 14:06 03/05/25 14:40 Temperature Temperature Source Pulse Rate 110 H 98 H Pulse Rate from SpO2 Sensor 106 H Respiratory Rate 16 Respiratory Effort / Characteristics Respiratory Depth Blood Pressure 148/106 H Blood Pressure Mean 119 Pulse Oximetry 96 Oxygen Delivery Method Sepsis Recent Fever Within 48 Hours Sepsis New/Unexplained Change in Mental Status Sepsis Action Taken by Nursing Laboratory Data 03/05/25 11:59 03/05/25 11:59 Lab Results 03/05/25 Range/Units 11:59 WBC 5.46 (4.8-10.8) K/ul RBC 5.02 (4.20-5.40) M/uL Hgb 16.3 H (12.0-16.0) g/dl Hct 46.4 (37.0-47.0) % MCV 92.4 (80.0-100.0) fL MCH 32.5 (25.0-34.0) pg MCHC 35.1 (32.0-36.0) g/dL RDW Std Deviation 41.6 (36.4-46.3) fL RDW Coeff of Rosetta 12.1 (11.5-14.5) % Plt Count 163 (130-400) K/uL MPV 9.9 (9.4-12.4) fL Immature Gran % (Auto) 0.2 % Neut % (Auto) 64.9 % Lymph % (Auto) 19.8 % Vilas % (Auto) 14.7 % Eos % (Auto) 0.0 % Baso % (Auto) 0.4 % Neut # (Auto) 3.55 (1.40-6.50) K/uL Lymph # (Auto) 1.08 L (1.20-3.40) K/uL Vilas # (Auto) 0.80 H (0.11-0.59) K/uL Eos # (Auto) 0.00 (0.00-0.50) K/uL Baso # (Auto) 0.02 (0.00-0.20) K/uL Immature Gran # (Auto) 0.01 (0.01-0.20) K/uL Sodium 135 L (136-145) mmol/L Potassium 3.5 (3.5-5.1) mmol/L Chloride 101 (98-107) mmol/L Carbon Dioxide 23 (21-32) mmol/L Anion Gap 11 (3-11) BUN 18 (6-23) mg/dl Creatinine 1.01 (0.6-1.2) mg/dl Est Cr Clr Drug Dosing 54.6 ml/min eGFR 65.33 BUN/Creatinine Ratio 17.8 (10-20) Glucose 104 H (70-99(Fasting)) mg/dl Calcium 9.4 (8.6-10.3) mg/dl Magnesium 1.7 (1.7-2.4) mg/dl Total Bilirubin 1.5 H (0.2-1.0) mg/dl Direct Bilirubin 0.2 (0-0.2) mg/dl AST 20 (13-39) U/L ALT 15 (7-52) U/L Alkaline Phosphatase 105 H (34-104) U/L Troponin I High Sens 6.1 (0-14) pg/ml Total Protein 7.3 (6.0-8.3) gm/dl Albumin 4.1 (3.4-5.0) gm/dl Lipase 12 (11-82) U/L TSH 1.226 (0.300-4.500) uIu/ml Administered Medications Discontinued Medications Aspirin (Aspirin 81 Mg Chew) 324 mg PO NOW STA Stop: 03/05/25 13:49 Last Admin: 03/05/25 13:53 Dose: 324 mg Documented By: AGNES Sodium Chloride (Nss) 1,000 mls @ 999 mls/hr IV .Q1H1M ONE Stop: 03/05/25 11:33 Last Infusion: 03/05/25 11:51 Dose: Infused Documented By: Admin: 03/05/25 11:00 Dose: 999 mls/hr Documented By: AGNES Acetaminophen (Ofirmev) 1,000 mg in 100 mls @ 400 mls/hr IV NOW STA Stop: 03/05/25 14:02 Last Infusion: 03/05/25 14:08 Dose: Infused Documented By: Admin: 03/05/25 13:53 Dose: 400 mls/hr Documented By: AGNES Sodium Chloride (Nss) 1,000 mls @ 999 mls/hr IV .Q1H1M ONE Stop: 03/05/25 14:48 Last Infusion: 03/05/25 14:53 Dose: Infused Documented By: Admin: 03/05/25 13:55 Dose: 999 mls/hr Documented By: AGNES Lorazepam (Lorazepam 2 Mg/1 Ml Vial) 1 mg IV NOW STA Stop: 03/05/25 10:34 Last Admin: 03/05/25 11:05 Dose: Not Given Documented By: AGNES Nitroglycerin (Nitroglycerin Sl 0.4 Mg/Tab Tab) 0.4 mg SL NOW STA Stop: 03/05/25 13:07 Last Admin: 03/05/25 13:13 Dose: 0.4 mg Documented By: AGNES Ondansetron HCl (Ondansetron Inj 2 Mg/Ml 2 Ml Vial) 4 mg IV NOW STA Stop: 03/05/25 10:34 Last Admin: 03/05/25 11:03 Dose: 4 mg Documented By: AGNES Ondansetron HCl (Ondansetron Inj 2 Mg/Ml 2 Ml Vial) 4 mg IV NOW STA Stop: 03/05/25 13:07 Last Admin: 03/05/25 13:13 Dose: 4 mg Documented By: AGNES Imaging Data Radiologist's Impression: Chest X-Ray 03/05/25 10:33 XR chest 1V portable CLINICAL HISTORY: left chest pain COMPARISON STUDY: 10/18/2024 FINDINGS: Heart size and pulmonary vasculature are normal. No consolidation or pleural effusion. No pneumothorax. IMPRESSION: No acute findings. ACT 112: Negative or not required by law. Electronically signed by: Daljit Newby M.D. 03/05/2025 10:53 AM Discharge Plan Visit Data Chief Complaint: Pain (Generalized) Stated Complaint: PAIN ED Provider: Lake Swenson Discharge Problem: Nausea, vomiting and diarrhea, Acute dehydration, Left-sided chest pain Patient Disposition: Admitted As Inpatient Condition: Fair Forms Stand Alone Forms: [facility], Important Visit Information Prescriptions Prescriptions: No Action acetaminophen [Tylenol Extra Strength] 500 mg tablet 500 mg PO Q6H PRN (Reason: Pain) prochlorperazine maleate 10 mg tablet 10 mg PO DAILY PRN (Reason: nausea and vomiting) 30 Days Qty: 30 2RF Ajovy Autoinjector 225 mg/1.5 mL auto-injector 225 mg subcut MONTHLY Referrals Referrals: Sharee Grewal MD [Primary Care Provider] -
--- NOTE | 2025-03-05 10:54 | XRay Report ---
XR chest 1V portable CLINICAL HISTORY: left chest pain COMPARISON STUDY: 10/18/2024 FINDINGS: Heart size and pulmonary vasculature are normal. No consolidation or pleural effusion. No p neumothorax. IMPRESSION: No acute findings. ACT 112: Negative or not required by law. Electronically signed by: Daljit Newby M.D. 03/05/2025 10:53 AM
[2025-03-05] MEDS: SODIUM CHLORIDE 0.9% 1,000 ML IV ONE ×2 (11:00→13:55)
[2025-03-05] MEDS: ONDANSETRON INJ 2 MG/ML 2 ML VIAL IV STA ×2 (11:03→13:13)
[2025-03-05 12:29] LABS: Hematocrit (blood only) 46.4 % (37.0-47.0); Hemoglobin 16.3 g/dl (12.0-16.0); Immature Granulocytes # (auto) 0.01 K/uL (0.01-0.20); Immature Granulocytes % (auto) 0.2 %; Mean Corpuscular Hemoglobin 32.5 pg (25.0-34.0); Mean Corpuscular Volume 92.4 fL (80.0-100.0); Platelet Count 163 K/uL (130-400); RDW Standard Deviation 41.6 fL (36.4-46.3); Red Blood Count 5.02 M/uL (4.20-5.40); White Blood Count 5.46 K/ul (4.8-10.8)
[2025-03-05 12:41] LABS: Anion Gap 11.0 (3-11); Bilirubin,Total 1.5 mg/dl (0.2-1.0); Calcium 9.4 mg/dl (8.6-10.3); Carbon Dioxide 23.0 mmol/L (21-32); Chloride 101.0 mmol/L (98-107); Potassium 3.5 mmol/L (3.5-5.1); Sodium 135.0 mmol/L (136-145)
[2025-03-05 12:47] LABS: Alanine Aminotransferase 15.0 U/L (7-52); Alkaline Phosphatase 105.0 U/L (34-104); Blood Urea Nitrogen 18.0 mg/dl (6-23); Creatinine Clr Calc Pharmacy 54.6 ml/min; Glucose 104.0 mg/dl (70-99(Fasting)); Total Protein 7.3 gm/dl (6.0-8.3)
[2025-03-05] MEDS: NITROGLYCERIN SL 0.4 MG/TAB TAB SL STA (13:13)
[2025-03-05 13:37] LABS: Magnesium 1.7 mg/dl (1.7-2.4)
[2025-03-05 13:42] LABS: Lipase 12.0 U/L (11-82)
[2025-03-05] MEDS: ASPIRIN 81 MG CHEW PO STA (13:53)
[2025-03-05] MEDS: ACETAMINOPHEN 1,000 MG/100 ML VIAL IV STA (13:53)
[2025-03-05 14:08] LABS: Thyroid Stimulating Hormone 1.226 uIu/ml (0.300-4.500)
[2025-03-05] MEDS: ENOXAPARIN INJ 40 MG/0.4 ML SYR SQ STA (15:58)
--- NOTE | 2025-03-05 16:16 | History & Physical Report ---
Date of Service March 05, 2025 Assessment & Plan (1) Acute dehydration: (2) GERD (gastroesophageal reflux disease): (3) Nausea, vomiting and diarrhea: (4) Coronary artery disease: (5) Chest pain: Plan Ms. Swan is a 55 y.o. F with past medical history of migraines, panic attack, CAD, GERD, who is admitted due to chest pain. #Chest pain - given nitro, Ativan, Zofran, acetaminophen, ASA 324mg and 2L fluid in ED; nitro did not help, partial relief with Ativan - tachycardic in 120s upon arrival - admit med-surg with tele - will monitor tele for any acute changes - EKG shows sinus tachy, ECHO pending - trop 6.1 - total bili 1.5, alk phos 105 - Chest XR unremarkable #Nausea/Vomiting/Diarrhea - could be related to dehydration due to gastroenteritis/viral infection - Pantoprazole 40 mg IV BID - Sucralfate QID suspension - 100 mL/hr NS fluids for 1 L #URI - Covid, flu testing pending Dispo: med-surg tele VTE Prophylaxis: Lovenox Code: DNR/DNI Diet: Heart healthy Admission and Anticipated Discharge Date Admission Date: During face to face encounter, I obtained a history and physical examination, discussed plan of care with patient and answered any questions. I discussed plan of care with Dr. Goel. I reviewed above note and agree with it except for the following: Patient will be admitted for chest pain. May be GI in origin. will monitor LFTs will test for flu. History of Present Illness Chief Complaint: Chest pain Primary Care Provider: Sharee Grewal MD Ms. Swan is a 55 y.o. F with past medical history of migraines, panic attack, CAD, GERD, who is admitted due to chest pain. Patient is a poor historian. She reports history of mid-chest pain for past few months that worsened this morning. Reports the chest pain radiates to bilateral shoulders. Reports lightheadedness, SALAS, nausea, R arm pain, mild SOB, cough, chills, sore throat. Denies sick contacts. Patient had 2 vomiting episodes this morning - non-bloody and yellow in color. She has history of reflux and does not take antiacid medication. Reports her face feels numb. Reports worsening longstanding cough as well as dysuria that started this morning, denies blood in urine. Smokes 1-2 cigarettes per day. Denies illicit drug use and alcohol use. Of note, patient had a cholecystectomy in 1992, but denies any other abdominal surgery history. Allergies Allergy/AdvReac Type Severity Reaction Status Date / Time haloperidol Allergy Severe TONGUE Verified 01/26/25 13:05 SWELLS hydroxyzine Allergy Severe CAN'T Verified 01/26/25 13:05 BREATH prochlorperazine AdvReac Intermediate SICK Verified 01/26/25 13:05 escitalopram AdvReac Mild MAKES HER Verified 01/26/25 13:05 "THINK GOOFY" rofecoxib AdvReac Mild FIERRO LIPS Verified 01/26/25 13:05 prednisone AdvReac Unknown GI UPSET Verified 01/26/25 13:05 tramadol AdvReac Unknown UNABLE TO Verified 01/26/25 13:05 VOID Home Medications Medication Instructions Recorded Confirmed Type acetaminophen 500 mg tablet 500 mg PO Q6H PRN Pain 01/26/25 03/05/25 History (Tylenol Extra Strength) prochlorperazine maleate 10 mg 10 mg PO DAILY PRN nausea and 01/26/25 03/05/25 Rx tablet vomiting 30 days #30 tabs fremanezumab-vfrm 225 mg/1.5 mL 225 mg subcut MONTHLY 03/05/25 03/05/25 History subcutaneous auto-injector (Ajovy) Past Med/Surg History Problem List (Updated 03/07/25 @ 13:41 by Mehran Ceballos PA-C) Right otitis media Lower extremity paralysis Urinary tract infection COVID Left-sided chest pain (Acute) Acute dehydration (Acute) Nausea, vomiting and diarrhea (Acute) Migraine without aura Opioid dependence (Acute) Benzodiazepine dependence (Acute) GERD (gastroesophageal reflux disease) Problem related to nonsupportive living environment Ambulatory dysfunction Anxiety (Acute) Coronary artery disease COPD exacerbation (Acute) Medical History Sacral decubitus ulcer COPD (chronic obstructive pulmonary disease) SBO (small bowel obstruction) Sprained ankle Ectopic Migraines Surgical History H/O section Hx of cholecystectomy No significant past surgical history Family History Other Nausea & vomiting Social History Smoking Status: Current some day smoker Tobacco Type: Cigarettes Age Started Using Tobacco: 14; packs per day: 1; Cigarettes Per Day: 1/2 PPD; Second Hand Exposure: Yes; Do You Dip or Chew Tobacco: No; Hx Alcohol Use: No Hx Substance Use: No Preferred Language: Argentine Communication Ability: Impaired Media Intern Required: No Beliefs That Will Affect Care: None marital status: Current Living Situation: Spouse Current Living Situation Comment: lives in a trailer with currently frozen pipes/no water current occupational status: disabled Feels Safe at Home: Yes Assistive Devices: None Review of Systems Constitutional: as per Subjective / HPI Physical Exam Constitutional: + ill appearing and + thin Respiratory: + audible wheezes (bilaterally) Cardiovascular: Rate/Rhythm: + tachycardic Gastrointestinal (Abdomen): normal bowel sounds, soft, nontender, no hepatosplenomegaly Skin: no rashes, warm and dry Psychiatric: Orientation: oriented to place Apperance: + disheveled Judgment: + limited judgement Results & Data Results & Data Vital Signs (Past 12 Hours) Vital Signs Temp Pulse Resp BP Pulse Ox O2 Del Method 03/05/25 14:40 98 H 03/05/25 14:06 110 H 16 96 03/05/25 14:00 148/106 H 03/05/25 13:00 143/106 H 03/05/25 12:51 108 H 24 90 03/05/25 12:43 158/101 H 03/05/25 12:42 109 H 23 96 03/05/25 10:51 115 H 03/05/25 10:15 37.1 C 124 H 20 129/93 97 Room Air Code Status & VTE Plan VTE Prophylaxis Plan VTE Prophylaxis will be ordered: Yes Resident Activity Tracking Resident Involvement: Resident Care Provided Care Provided: Adult Hospital Medicine
[2025-03-05] MEDS: SUCRALFATE 1 GM/10 ML UDC PO SCH (17:42)
[2025-03-05] MEDS: SODIUM CHLORIDE 0.9% 1,000 ML IV SCH (18:42)
[2025-03-05] MEDS: PANTOprazole 40 MG in DEXTROSE 5% MINI-B 100 ML IV SCH (20:22)
[2025-03-05 21:30] LABS: Influenza A virus by PCR Negative (Neg); Influenza B virus by PCR Negative (Neg); SARS CoV2 RNA(COVID-19) Ceph POSITIVE (Negative)
[2025-03-06] MEDS ORDERED: DICLOFENAC SOD 1% GEL 100 GM TUBE EXT PRN (00:28)
[2025-03-06] MEDS: ACETAMINOPHEN 500 MG TAB PO PRN (01:28)
[2025-03-06] MEDS: MoRPHine SULFATE 2 MG/ML CARP IV STA (01:30)
[2025-03-06 01:36] LABS: Appearance Urine Clear (Clear); Bacteria Urine Automated 2+ (None Seen); Epithelial Cell Urine Auto 0-2 /hpf (0-2); Glucose Urine UA Negative (Negative); WBC Urine Automated >50 /hpf (0-5)
[2025-03-06 01:48] LABS: Amphetamines+Metham, Urine Neg (Neg); MDMA (Ecstacy), Urine Neg (Neg); Marijuana, Urine Neg (Neg)
[2025-03-06 07:01] LABS: Hematocrit (blood only) 42.6 % (37.0-47.0); Hemoglobin 14.6 g/dl (12.0-16.0); Immature Granulocytes # (auto) 0.01 K/uL (0.01-0.20); Immature Granulocytes % (auto) 0.2 %; Mean Corpuscular Hemoglobin 31.9 pg (25.0-34.0); Mean Corpuscular Volume 93.2 fL (80.0-100.0); Platelet Count 145 K/uL (130-400); RDW Standard Deviation 42.6 fL (36.4-46.3); Red Blood Count 4.57 M/uL (4.20-5.40); White Blood Count 5.04 K/ul (4.8-10.8)
[2025-03-06 07:24] LABS: Anion Gap 7.0 (3-11); Blood Urea Nitrogen 24.0 mg/dl (6-23); Calcium 8.7 mg/dl (8.6-10.3); Carbon Dioxide 24.0 mmol/L (21-32); Chloride 105.0 mmol/L (98-107); Creatinine Clr Calc Pharmacy 62.0 ml/min; Glucose 91.0 mg/dl (70-99(Fasting)); Potassium 3.5 mmol/L (3.5-5.1); Sodium 136.0 mmol/L (136-145)
[2025-03-06 09:30] LABS: Alanine Aminotransferase 18.0 U/L (7-52); Alkaline Phosphatase 85.0 U/L (34-104); Bilirubin,Total 1.3 mg/dl (0.2-1.0); Total Protein 6.1 gm/dl (6.0-8.3)
[2025-03-06] MEDS: PANTOprazole 40 MG in SYRINGE BID IV SCH (09:42)
[2025-03-06] MEDS ORDERED: ENOXAPARIN INJ 40 MG/0.4 ML SYR SQ SCH (15:45)
--- NOTE | 2025-03-06 16:13 | Hospitalist Progress Note ---
"Date of Service March 06, 2025 Assessment & Plan (1) COVID: (2) Urinary tract infection: (3) Lower extremity paralysis: Plan This patient is a 55-year-old female who presented on 03/06 for chest pain/tightness. Given nitro, Ativan, Zofran, acetaminophen, ASA 324mg and 2L fluid in ED; nitro did not help, partial relief with Ativan. COVID-positive on arrival. #COVID | chest pain/tightness No leukocytosis; afebrile CXR unremarkable Troponin WNL at 6.1 on arrival, repeat pending EKG showed sinus tachycardia Echocardiogram completed, pending Continuous telemetry monitoring for now Suspect that patient's chest pain/tightness is due to active COVID infection COVID isolation precaution in place Supportive care Non-hypoxic on 03/06 Acetaminophen as needed Titrate supplemental oxygen PRN Continuous pulse oximetry #Urinary tract infection UA positive on arrival Clinically, patient endorses burning with urination that started just prior to hospitalization No prior urine cultures available for sensitivity Ceftriaxone 2000 mg IV q24h Follow current UCx #Lower extremity paralysis | ? [place] When asked to wiggle toes in bed, patient reports she was feels like she is wiggling them, but is unable to She also reports she is unable to lift her legs off the bed Patient appears somnolent/withdrawn on exam; garbled speech; gazing into distance; slow to respond to questioning She reports she does not use any ambulatory assist devices at home Per review of Neuro visit on 01/25/25, suspected to have migraines without aura as a cause of most neuro symptoms H/o hospitalization in Sep 2024 for left facial numbness Unable to obtain brain MRI at the time as the machine was malfunctioning Negative CTA head and neck Brain MRI ordered, pending PT/OT evaluations appreciate #N/V/D Pantoprazole 40 mg IV BID Sucralfate QID suspension NSS at 100 mL/hr x 1 L [facility] Prophylaxis: Lovenox Admission and Anticipated Discharge Date Admission Date: March 05, 2025 Subjective Mrs. Swan reports she is still having chest tightness today, that is constant. She also endorses pleuritic chest pain, dry cough, and shortness of breath. She is unsure if she had any fevers or chills overnight. She denies any prior history of COVID. She is not up-to-date on her COVID or flu immunizations. Patient is unsure where she might of picked up COVID, as she reports she never leaves her trailer home, and her is not currently sick. She does endorse burning with urination, that started shortly before being hospitalized. When asked to rate her chest pain, she rates it as a 10 out of 10, with radiation to both shoulders. Patient denies alcohol use, IV drug use, or recent tobacco use; former tobacco cigarette smoker but quit a while back. ROS: Patient endorses chest tightness/pain, shortness of breath, pleuritic CP, dry cough, and burning with urination. Patient is unsure of fever/chills. Patient denies abdominal pain, N/V/D, or blood in the urine or stool. Review of Systems Review of Systems: See HPI above Physical Exam Physical Exam: General: no acute distress; disheveled appearance; withdrawn behavior; lethargic; toxic appearing with mottled skin; cachectic; cooperative; SpO2 92% on RA HEENT: normocephalic, atraumatic; PERRLA; strabismus of the left eye appreciated; vision intact; hard of hearing Neck: supple; no lymphadenopathy; trachea midline Skin: Mottled skin surrounding neck; diaphoretic; warm; no cyanosis; no rashes, bruising, or erythema noted CV: chest wall NTP; RRR; S1/S2 normal; no murmurs/rubs/gallops; pulses intact and symmetric at radial, DP, and PT Lungs: no acute respiratory distress; symmetrical chest wall expansion; mild expiratory wheeze auscultated in the lower lung rebollar bilaterally ABD: Soft, NTP; BS present; no rebound/guarding; no distention MSK: no tics or fasciculations; no edema noted in the LEs b/l, nonerythematous; patient reports she is unable to wiggle her toes; when asked to lift her legs off the bed, she is unable to lift her legs; passive ROM of the knees produce pain bilateral Neuro: A&Ox3; flat mood and affect; patient appears to gaze into empty space; garbled speech; unable to assess sensation Results & Data Results & Data Vital Signs (Past 12 Hours) Vital Signs Temp Pulse Pulse Resp BP BP Pulse Ox 03/06/25 15:27 87 03/06/25 11:17 36.6 C 84 16 112/73 92 03/06/25 07:29 76 03/06/25 07:24 36.7 C 87 18 142/86 H 95 03/06/25 04:30 36.6 C 81 18 114/74 95 O2 Del Method 03/06/25 15:27 03/06/25 11:17 Room Air 03/06/25 07:29 03/06/25 07:24 Room Air 03/06/25 04:30 Room Air PG Care Time/CCT Total # of Minutes Spent Total Time Spent with Patient: Total time spent is greater than 50% in coordination of care (as documented) at patient's floor/unit and/or counseling patient: [place] [address] SUB INP/OBS CARE 3/50MIN Patient Type Established History Comprehensive Exam Comprehensive Medical Decision Making High Complexity Diagnoses COVID U07.1 Urinary tract infection N39.0 Lower extremity paralysis G83.10"
[2025-03-06] MEDS: cefTRIAXone SODIUM 2,000 MG/50 ML BAG IV SCH (17:08)
--- NOTE | 2025-03-06 18:52 | Magnetic Resonance Report ---
Clinical History: Slurred speech Technique: Multiple T1 and T2-weighted magnetic resonance images were obtained of the brain without gadolinium contrast Findings: Some sequences are limited by motion artifact. There is no sign of acute or old infarction with normal-appearing diffusion weighted images. There is cerebral atrophy, within expected limits for the patient's age. There are small areas of increased T2 signal intensity within the periventricular white matter of the cerebral hemispheres bilaterally. This is most likely due to chronic small vessel ischemic disease. No definite mass lesion is seen on this noncontrast study. There is no intracranial hemorrhage or other fluid collection. No midline shift or other form of herniation is seen. There is no hydrocephalus. Normal flow-voids are seen within the arteries of the [id number]. The orbits appear unremarkable. There is fluid in the maxillary sinuses bilaterally. There is ethmoid and sphenoid sinus mucosal thickening. There is partial opacification of the left mastoid air cells Impression: 1. Cerebral atrophy and mild chronic small vessel ischemic disease 2. No sign of infarct or mass lesion 3. Acute sinusitis 4. Partial opacification of the left mastoid air cells, which may be due to inflammatory mastoiditis ACT 112: Positive. There are findings on this exam that require communication between the performing entity and the patient following Patient Test Result Information Act ([place] ACT 112) guidelines. Electronically signed by Jeremy Smith 03-06-2025 6:52 PM
--- NOTE | 2025-03-06 21:51 | XCELERA ---
[id number]
--- NOTE | 2025-03-06 22:34 | Electrocardiogram Report ---
Test Reason : Blood Pressure : */* mmHG Vent. Rate : 106 BPM Atrial Rate : 106 BPM P-R Int : 122 ms QRS Dur : 90 ms QT Int : 340 ms P-R-T Axes : 57 82 79 degrees QTcB Int : 451 ms Sinus tachycardia Otherwise normal ECG When compared with ECG of 18-Oct-2024 01:45, ST no longer depressed in Inferior leads Confirmed by Tom Guadalupe ([id number]) on 03/06/2025 10:33:59 PM Referred By: REFERRED SELF Confirmed By: Tom Guadalupe
[2025-03-07 13:07] LABS: Anion Gap 8.0 (3-11); Blood Urea Nitrogen 20.0 mg/dl (6-23); Calcium 8.6 mg/dl (8.6-10.3); Carbon Dioxide 24.0 mmol/L (21-32); Chloride 106.0 mmol/L (98-107); Creatinine Clr Calc Pharmacy 65.3 ml/min; Glucose 105.0 mg/dl (70-99(Fasting)); Potassium 3.7 mmol/L (3.5-5.1); Sodium 138.0 mmol/L (136-145)
[2025-03-07 13:22] LABS: Hematocrit (blood only) 36.8 % (37.0-47.0); Hemoglobin 13.5 g/dl (12.0-16.0); Mean Corpuscular Hemoglobin 33.3 pg (25.0-34.0); Mean Corpuscular Volume 90.9 fL (80.0-100.0); Platelet Count 135 K/uL (130-400); RDW Standard Deviation 40.9 fL (36.4-46.3); Red Blood Count 4.05 M/uL (4.20-5.40); White Blood Count 4.40 K/ul (4.8-10.8)
[2025-03-07 13:23] LABS: Immature Granulocytes # (auto) 0.01 K/uL (0.01-0.20); Immature Granulocytes % (auto) 0.2 %
--- NOTE | 2025-03-07 13:37 | Hospitalist Progress Note ---
Date of Service March 07, 2025 Assessment & Plan (1) COVID: (2) Urinary tract infection: (3) Lower extremity paralysis: (4) Right otitis media: Plan This patient is a 55-year-old female who presented on 03/06 for chest pain/tightness. Given nitro, Ativan, Zofran, acetaminophen, ASA 324mg and 2L fluid in ED; nitro did not help, partial relief with Ativan. COVID-positive on arrival. #COVID | chest pain/tightness No leukocytosis; afebrile CXR unremarkable Troponin WNL x 2 EKG showed sinus tachycardia Echocardiogram completed, pending Continuous telemetry monitoring for now Suspect that patient's chest pain/tightness is due to active COVID infection COVID isolation precaution in place Supportive care Non-hypoxic on 03/06 and 03/07 Acetaminophen as needed Titrate supplemental oxygen PRN Continuous pulse oximetry #Urinary tract infection UA positive on arrival Clinically, patient endorses burning with urination that started just prior to hospitalization No prior urine cultures available for sensitivity Ceftriaxone 2000 mg IV q24h Follow current UCx #Lower extremity paralysis | ? [place] When asked to wiggle toes in bed, patient reports she was feels like she is wiggling them, but is unable to She also reports she is unable to lift her legs off the bed Patient appears somnolent/withdrawn on exam; garbled speech; gazing into distance; slow to respond to questioning She reports she does not use any ambulatory assist devices at home Per review of Neuro visit on 01/25/25, suspected to have migraines without aura as a cause of most neuro symptoms H/o hospitalization in Sep 2024 for left facial numbness Unable to obtain brain MRI at the time as the machine was malfunctioning Negative CTA head and neck Brain MRI on 03/06 without acute strokes, but did reveal acute sinusitis and potential inflammatory mastoiditis PT/OT evaluations appreciated (still pending on 03/07) #Right otitis media Right ear canal/TM is erythematous on clinical exam Rocephin (as above) #N/V/D Pantoprazole 40 mg IV BID Sucralfate QID suspension NSS at 100 mL/hr x 1 L Dispo: Continued stay on MedSurg telemetry VTE Prophylaxis: Lovenox Admission and Anticipated Discharge Date Admission Date: March 05, 2025 Subjective Mrs. Swan reports she is still feeling sick this morning. She reports she did not sleep much. She also reports she wears glasses at baseline, but has not had them in the hospital, and she is unsure if her vision has been more blurry than usual. She said she felt dizzy/lightheaded when she went for her MRI last night. She also reports she is having difficulty with hearing that has been worsening over the past several days. In regard to her chest pain, she reports it is a 10/10 this morning, and that her "right arm" still hurts. She reports she is still having difficulty moving her extremities, and reports she cannot lift her right arm off the bed. The only symptom that seems to be resolving is her burning with urination, which has improved from yesterday. ROS: Patient endorses lightheadedness/dizziness with movements, joint pain, headache, chest pain, mild SOB, pleuritic CP, dry cough, and weakness in the lower extremities bilaterally. Patient denies fever, chills, pain in the ears, ringing in the ears, photophobia, abdominal pain, nausea, vomiting, or burning with urination. Review of Systems Review of Systems: See HPI above Physical Exam Physical Exam: General: no acute distress; disheveled appearance; withdrawn behavior; lethargic; toxic appearing with mottled skin around the neck; cachectic; cooperative; SpO2 95% on RA HEENT: normocephalic, atraumatic; PERRLA; strabismus of the left eye appreciated; vision intact; hard of hearing Right ear: Erythematous in the canal/TM, with dried blood/cerumen impaction noted; no inflammation, erythema, or swelling behind the ear to suggest masto iditis Left ear: Pearly ramirez TM, mild erythema noted in the canal; no inflammation, erythema, or swelling behind the ear suggest mastoiditis Neck: supple; trachea midline; negative Brudzinski's sign Skin: Mottled skin surrounding neck; diaphoretic; warm; no cyanosis; no rashes, bruising, or erythema noted CV: chest wall NTP; RRR; S1/S2 normal; no murmurs/rubs/gallops; pulses intact and symmetric at radial, DP, and PT Lungs: no acute respiratory distress; dry cough; symmetrical chest wall expansion; expiratory wheeze and bibasilar crackles in the lower lung rebollar bilaterally ABD: Soft, NTP; BS present; no rebound/guarding; no distention MSK: no tics or fasciculations; no edema noted in the LEs b/l, nonerythematous; patient reports she is unable to wiggle her toes; when asked to lift her legs off the bed, she is unable to lift her legs; passive ROM of the knees produce pain bilateral Neuro: A&Ox3; flat mood and affect; patient appears to gaze into empty space; garbled speech; unable to assess sensation Results & Data Results & Data Vital Signs (Past 12 Hours) Vital Signs Temp Pulse Pulse Resp BP Pulse Ox O2 Del Method 03/07/25 10:44 36.6 C 84 18 133/84 95 Room Air 03/07/25 09:41 87 03/07/25 07:08 36.8 C 86 18 138/88 95 Room Air 03/07/25 04:08 36.9 C 87 18 115/80 95 Room Air PG Care Time/CCT Total # of Minutes Spent Total Time Spent with Patient: Total time spent is greater than 50% in coordination of care (as documented) at patient's floor/unit and/or counseling patient: Coding [place] [address] SUB INP/OBS CARE 3/50MIN Patient Type Established History Comprehensive Exam Comprehensive Medical Decision Making High Complexity Diagnoses COVID U07.1 Urinary tract infection N39.0 Lower extremity paralysis G83.10 Right otitis media H66.91
[2025-03-08 07:51] LABS: Hematocrit (blood only) 38.4 % (37.0-47.0); Hemoglobin 13.7 g/dl (12.0-16.0); Immature Granulocytes # (auto) 0.01 K/uL (0.01-0.20); Immature Granulocytes % (auto) 0.2 %; Mean Corpuscular Hemoglobin 32.9 pg (25.0-34.0); Mean Corpuscular Volume 92.1 fL (80.0-100.0); Platelet Count 143 K/uL (130-400); RDW Standard Deviation 41.1 fL (36.4-46.3); Red Blood Count 4.17 M/uL (4.20-5.40); White Blood Count 4.61 K/ul (4.8-10.8)
[2025-03-08 08:23] LABS: Anion Gap 7.0 (3-11); Blood Urea Nitrogen 25.0 mg/dl (6-23); Calcium 9.0 mg/dl (8.6-10.3); Carbon Dioxide 26.0 mmol/L (21-32); Chloride 105.0 mmol/L (98-107); Creatinine Clr Calc Pharmacy 61.3 ml/min; Glucose 94.0 mg/dl (70-99(Fasting)); Potassium 3.9 mmol/L (3.5-5.1); Sodium 138.0 mmol/L (136-145)
--- NOTE | 2025-03-08 12:36 | Hospitalist Progress Note ---
"Date of Service March 08, 2025 Assessment & Plan (1) COVID: (2) Urinary tract infection: (3) Lower extremity paralysis: (4) Right otitis media: Plan This patient is a 55-year-old female who presented on 03/06 for chest pain/tightness. Given nitro, Ativan, Zofran, acetaminophen, ASA 324mg and 2L fluid in ED; nitro did not help, partial relief with Ativan. COVID-positive on arrival. #COVID | chest pain/tightness No leukocytosis; afebrile CXR unremarkable Troponin WNL x 2 EKG showed sinus tachycardia Echocardiogram on 03/06 revealed LVEF at 60 to 65% without regional wall motion abnormalities Continuous telemetry monitoring for now Suspect that patient's chest pain/tightness is due to active COVID infection COVID isolation precaution in place Supportive care Patient negrito non-hypoxic on continuous pulse oximetry Titrate supplemental oxygen PRN While non-hypoxic, patient continues to appear clinically ill on exam, and reports that her symptoms feel like they are worsening on 03/08; VSS Decadron 6mg IV QAM DuoNeb 3 mL Q6R for ongoing expiratory wheeze Menthol lozenges q2h PRN for throat pain Acetaminophen PRN #Urinary tract infection UA positive on arrival Clinically, patient endorses burning with urination that started just prior to hospitalization No prior urine cultures available for sensitivity Ceftriaxone 2000 mg IV q24h Update: Final UCx with no growth to date on 03/08 Will plan to discontinue ceftriaxone after completion of 3-day course for acute otitis media (see below) #Lower extremity paralysis | ? [place] When asked to wiggle toes in bed, patient reports she was feels like she is wiggling them, but is unable to She also reports she is unable to lift her legs off the bed Patient appears somnolent/withdrawn on exam; garbled speech; gazing into distance; slow to respond to questioning She reports she does not use any ambulatory assist devices at home Per review of Neuro visit on 01/25/25, suspected to have migraines without aura as a cause of most neuro symptoms H/o hospitalization in Sep 2024 for left facial numbness Unable to obtain brain MRI at the time as the machine was malfunctioning Negative CTA head and neck Brain MRI on 03/06 without acute strokes, but did reveal acute sinusitis and potential inflammatory mastoiditis Clinically, patient does not appear to have mastoiditis on physical exam and patient denies ear pain PT/OT evaluations appreciated for lower extremity deficits PT recommending acute rehab on 03/07 CM consult appreciated; patient is agreeable to rehab upon discharge; referrals made to [facility] on 03/08 #Right otitis media | acute sinusitis Clinically, right ear canal/TM is erythematous Ceftriaxone 2000 mg IV x 3 days (to be completed on 03/08) #N/V/D Pantoprazole 40 mg IV BID Sucralfate QID suspension NSS at 100 mL/hr x 1 L Dispo: Continued stay on MedSurg telemetry; hopeful discharge in the next 1 to 2 days if clinically improving; patient will require acute rehab upon discharge VTE Prophylaxis: Lovenox Admission and Anticipated Discharge Date Admission Date: March 05, 2025 Supervising Physician Co-Signing Physician Notes Attending Attestation - Chart reviewed, care plan d/w PAMELA Ceballos. I agree w/ the guillermo components of his documentation. If pt's leg weakness persists consider lumbar spine MRI. MRI brain w/o acute stroke or other intra-parenchymal findings to explain her leg symptoms. Tee Mccollum MD Subjective Mrs. Swan is still feeling quite sick this morning. She slept okay, but reports she feels like she is wheezing more today. She still endorses mild chest pain, as well as pleuritic CP and cough. Her burning with urination has resolved. No fevers overnight. Additionally, she is having some difficulty swallowing today, is concerned that her throat might be starting to get swollen. Overall, she reports she feels around the same as she did yesterday. ROS: Patient endorses chills, mild chest pain, pleuritic CP, productive cough, mild SOB at rest, wheezing, difficulty hearing, and difficulty swallowing. Patient denies fever, night sweats, ear pain, abdominal pain, N/V, or burning with urination. Review of Systems Review of Systems: See HPI above Physical Exam Physical Exam: General: no acute distress; disheveled appearance; withdrawn behavior; lethargic; cachectic; cooperative; SpO2 97% on RA HEENT: normocephalic, atraumatic; PERRLA; strabismus of the left eye appreciated; vision intact; hard of hearing Neck: supple; trachea midline; negative Brudzinski's sign Skin: Mottled skin surrounding neck; diaphoretic; warm; no cyanosis; no rashes, bruising, or erythema noted CV: chest wall NTP; RRR Lungs: no acute respiratory distress; dry cough; symmetrical chest wall expansion; expiratory wheeze and bibasilar crackles auscultated in the lower lung rebollar bilateral ABD: Soft, NTP; BS present; no rebound/guarding; no distention MSK: no tics or fasciculations; no edema noted in the LEs b/l, nonerythematous; patient demonstrates ability to wiggle her toes today, and exhibits 1/5 strength when lifting legs from the bed bilaterally Neuro: A&Ox3; flat mood and affect; patient appears to gaze into empty space; garbled speech; patient reports sensation is intact and symmetric in lower extremity bilaterally assessed via light touch Results & Data Results & Data Vital Signs (Past 12 Hours) Vital Signs Temp Pulse Resp BP Pulse Ox O2 Del Method 03/08/25 08:47 36.6 C 78 18 165/104 H 97 Room Air 03/08/25 02:30 36.1 C L 79 16 115/77 94 Room Air PG Care Time/CCT Total # of Minutes Spent Total Time Spent with Patient: Total time spent is greater than 50% in coordination of care (as documented) at patient's floor/unit and/or counseling patient: Coding [place] [address] SUB INP/OBS CARE 3/50MIN Patient Type Established Medical Decision Making High Complexity Diagnoses COVID U07.1 Urinary tract infection N39.0 Lower extremity paralysis G83.10 Right otitis media H66.91"
[2025-03-08] MEDS: ALBUT/IPRATROP 3MG/0.5MG NEB 3 ML VIAL NEB STA (16:23)
[2025-03-08] MEDS ORDERED: DEXAMETHASONE SOD INJ 4 MG/ML VIAL IV STA (16:40)
[2025-03-08] MEDS: dexAMETHasone 4 MG in SYRINGE 0 ML IV STA (17:42)
[2025-03-08] MEDS: COUGH DROP (SUGAR FREE) LOZ 24 LOZ/1 BOX BUCCAL PRN (17:50)
[2025-03-08] MEDS: ALBUT/IPRATROP 3MG/0.5MG NEB 3 ML VIAL NEB SCH (19:15)
[2025-03-09] MEDS ORDERED: DEXAMETHASONE SOD INJ 4 MG/ML VIAL IV SCH (09:00)
[2025-03-09] MEDS ORDERED: dexAMETHasone 6 MG in SYRINGE 0 ML IV SCH (09:00)
[2025-03-09] MEDS ORDERED: ALBUT/IPRATROP 3MG/0.5MG NEB 3 ML VIAL NEB PRN (09:34)
[2025-03-09 11:25] LABS: Hematocrit (blood only) 40.1 % (37.0-47.0); Hemoglobin 13.8 g/dl (12.0-16.0); Immature Granulocytes # (auto) 0.01 K/uL (0.01-0.20); Immature Granulocytes % (auto) 0.2 %; Mean Corpuscular Hemoglobin 31.4 pg (25.0-34.0); Mean Corpuscular Volume 91.1 fL (80.0-100.0); Platelet Count 135 K/uL (130-400); RDW Standard Deviation 40.3 fL (36.4-46.3); Red Blood Count 4.40 M/uL (4.20-5.40); White Blood Count 6.39 K/ul (4.8-10.8)
[2025-03-09 11:37] LABS: Anion Gap 12.0 (3-11); Blood Urea Nitrogen 21.0 mg/dl (6-23); Calcium 9.4 mg/dl (8.6-10.3); Carbon Dioxide 22.0 mmol/L (21-32); Chloride 104.0 mmol/L (98-107); Creatinine Clr Calc Pharmacy 70.1 ml/min; Glucose 172.0 mg/dl (70-99(Fasting)); Magnesium 1.7 mg/dl (1.7-2.4); Potassium 3.6 mmol/L (3.5-5.1); Sodium 138.0 mmol/L (136-145)
[2025-03-09] MEDS: ACETAMINOPHEN 500 MG TAB PO STA (11:37)
--- NOTE | 2025-03-09 12:49 | Hospitalist Progress Note ---
Date of Service March 09, 2025 Assessment & Plan (1) COVID: (2) Urinary tract infection: (3) Lower extremity paralysis: (4) Right otitis media: Plan This patient is a 55-year-old female who presented on 03/06 for chest pain/tightness. Given nitro, Ativan, Zofran, acetaminophen, ASA 324mg and 2L fluid in ED; nitro did not help, partial relief with Ativan. COVID-positive on arrival. #COVID | chest pain/tightness No leukocytosis; afebrile CXR unremarkable Troponin WNL x 2 EKG showed sinus tachycardia Echocardiogram on 03/06 revealed LVEF at 60 to 65% without regional wall motion abnormalities Do not suspect patient's chest pain is cardiac in nature Patient has had no episodes of hypoxia while in the hospital; not tachycardic; will defer chest CTA Suspect that patient's chest pain/tightness is due to active COVID infection Improvement on 03/09; VSS; no leukocytosis COVID isolation precaution in place Supportive care Patient remains non-hypoxic on continuous pulse oximetry Titrate supplemental oxygen PRN Trial of Decadron 4 mg IV x 1, however patient reports she did not tolerate it well DuoNeb 3 mL PRN for wheezing Note: Wheezing with significant proving on 03/09 Menthol lozenges q2h PRN for throat pain Acetaminophen PRN #Urinary tract infection Burning with urination resolved No prior urine cultures available for sensitivity Ceftriaxone 2000 mg IV q24h Update: Final UCx with no growth to date on 03/08 Will plan to discontinue ceftriaxone after completion of 3-day course for acute otitis media (see below) #Lower extremity paralysis | ? [place] When asked to wiggle toes in bed, patient reports she was feels like she is wiggling them, but is unable to She also reports she is unable to lift her legs off the bed Patient appears somnolent/withdrawn on exam; garbled speech; gazing into distance; slow to respond to questioning She reports she does not use any ambulatory assist devices at home Per review of Neuro visit on 01/25/25, suspected to have migraines without aura as a cause of most neuro symptoms H/o hospitalization in Sep 2024 for left facial numbness Unable to obtain brain MRI at the time as the machine was malfunctioning Negative CTA head and neck Brain MRI on 03/06 without acute strokes, but did reveal acute sinusitis and potential inflammatory mastoiditis Clinically, patient does not appear to have mastoiditis on physical exam and patient denies ear pain PT/OT evaluations appreciated for lower extremity deficits PT recommending acute rehab on 03/07 CM consult appreciated; patient is agreeable to rehab upon discharge; referrals made to [facility] and [facility] on 03/08 CC accepted on 03/09 - insurance auth pending Vitamin B12 level ordered, pending #Right otitis media | acute sinusitis Clinically, right ear canal/TM is erythematous Ceftriaxone 2000 mg IV x 3 days (to be completed on 03/08) #N/V/D Pantoprazole 40 mg IV BID Sucralfate QID suspension NSS at 100 mL/hr x 1 L Dispo: Continued stay on MedSur telemetry; [facility] offered rehab bed on 03/09; discussed with CM, applied for insurance authorization VTE Prophylaxis: [email or web address] Attempted to call patient's (Harshad) on 03/09 to provide updates regarding patient care as well as plan to rehab. Was unable to reach, and patient's voice mailbox is reportedly not set up; unable to leave a message requesting callback. Discussed with patient, who reports she has been in contact with her , and that he plans to come to the hospital later today Admission and Anticipated Discharge Date Admission Date: March 05, 2025 Supervising Physician Co-Signing Physician Notes Attending Attestation - Chart reviewed, care plan d/w PAMELA Ceballos. I agree w/ the guillermo components of his documentation. Tee Mccollum MD Subjective Mrs. Swan reports she has been doing better today. She slept okay last night, but did wake up briefly around 2 AM. She is unsure if any of the additional remedies (nebulizer, lozenges, etc.) has been helping, but she reports her chest pain has resolved today, and she mainly has pain in her left upper back. No SOB at rest. She still reports that it hurts to swallow, and she has a dry mouth. She also reports that the steroids did not help much last night, and made her feel "giddy". Patient is requesting additional medicine (Percocet) as she has a migraine this morning. She is also requesting (Valium/Ativan) at night to help her sleep. ROS: Patient endorses headache, left scapular/back pain, pain with swallowing, dry mouth, and difficulty hearing. Patient denies fever, chills, ear pain, ringing in the ears, chest pain, SOB, pleuritic CP, abdominal pain, nausea, vomiting, diarrhea, burning with urination, or blood in the urine or stool. Review of Systems Review of Systems: See HPI above Physical Exam Physical Exam: General: no acute distress; disheveled appearance; withdrawn behavior; lethargic; cachectic; cooperative; SpO2 97% on RA HEENT: normocephalic, atraumatic; PERRLA; strabismus of the left eye appreciated; vision intact; hard of hearing Neck: supple; trachea midline; negative Brudzinski's sign Skin: Mottled skin surrounding neck; diaphoretic; warm; no cyanosis; no rashes, bruising, or erythema noted CV: chest wall NTP; RRR Lungs: no acute respiratory distress; dry cough; symmetrical chest wall expansion; expiratory wheeze and bibasilar crackles auscultated in the lower lung rebollar bilateral ABD: Soft, NTP; BS present; no rebound/guarding; no distention MSK: no tics or fasciculations; no edema noted in the LEs b/l, nonerythematous; patient demonstrates ability to wiggle her toes today, and exhibits 1/5 strength when lifting legs from the bed bilaterally Neuro: A&Ox3; flat mood and affect; patient appears to gaze into empty space; garbled speech; patient reports sensation is intact and symmetric in lower extremity bilaterally assessed via light touch Results & Data Results & Data Vital Signs (Past 12 Hours) Vital Signs Temp Pulse Resp BP BP Pulse Ox O2 Del Method 03/09/25 11:32 36.6 C 96 H 17 162/97 H 97 Room Air 03/09/25 07:45 88 16 96 Room Air 03/09/25 07:00 36.5 C 95 H 16 134/92 97 Room Air 03/09/25 03:40 36.6 C 91 H 20 134/100 95 Room Air PG Care Time/CCT Total # of Minutes Spent Total Time Spent with Patient: Total time spent is greater than 50% in coordination of care (as documented) at patient's floor/unit and/or counseling patient: C[place] [address] SUB INP/OBS CARE 50MIN Patient Type Established Medical Decision Making High Complexity Diagnoses COVID U07.1 Urinary tract infection N39.0 Lower extremity paralysis G83.10 Right otitis media H66.91
[2025-03-09] MEDS: MELATONIN 3 MG TAB PO SCH (21:01)
[2025-03-10 05:03] LABS: Hematocrit (blood only) 38.9 % (37.0-47.0); Hemoglobin 13.2 g/dl (12.0-16.0); Immature Granulocytes # (auto) 0.02 K/uL (0.01-0.20); Immature Granulocytes % (auto) 0.3 %; Mean Corpuscular Hemoglobin 31.4 pg (25.0-34.0); Mean Corpuscular Volume 92.6 fL (80.0-100.0); Platelet Count 171 K/uL (130-400); RDW Standard Deviation 41.3 fL (36.4-46.3); Red Blood Count 4.20 M/uL (4.20-5.40); White Blood Count 7.72 K/ul (4.8-10.8)
[2025-03-10 05:18] LABS: Anion Gap 8.0 (3-11); Blood Urea Nitrogen 29.0 mg/dl (6-23); Calcium 8.9 mg/dl (8.6-10.3); Carbon Dioxide 24.0 mmol/L (21-32); Chloride 107.0 mmol/L (98-107); Creatinine Clr Calc Pharmacy 52.0 ml/min; Glucose 95.0 mg/dl (70-99(Fasting)); Potassium 4.2 mmol/L (3.5-5.1); Sodium 139.0 mmol/L (136-145)
--- NOTE | 2025-03-10 13:33 | Hospitalist Progress Note ---
"Date of Service March 10, 2025 Assessment & Plan (1) COVID: (2) Urinary tract infection: (3) Lower extremity paralysis: (4) Right otitis media: Plan This patient is a 55-year-old female who presented on 03/06 for chest pain/tightness. Given nitro, Ativan, Zofran, acetaminophen, ASA 324mg and 2L fluid in ED; nitro did not help, partial relief with Ativan. COVID-positive on arrival. #COVID | chest pain/tightness No leukocytosis; afebrile CXR unremarkable Troponin WNL x 2 EKG showed sinus tachycardia Echocardiogram on 03/06 revealed LVEF at 60 to 65% without regional wall motion abnormalities Do not suspect patient's chest pain is cardiac in nature Patient has had no episodes of hypoxia while in the hospital; not tachycardic; will defer chest CTA Suspect that patient's chest pain/tightness is due to active COVID infection Improvement on 03/09 and 03/10; VSS; no leukocytosis - MEDICALLY CLEARED FOR D/C Continue COVID isolation precaution Supportive care Patient remains non-hypoxic on continuous pulse oximetry Titrate supplemental oxygen PRN Trial of Decadron 4 mg IV x 1, however patient reported she did not tolerate it well DuoNeb 3 mL PRN for wheezing Menthol lozenges q2h PRN for throat pain Acetaminophen PRN #Urinary tract infection Burning with urination resolved No prior urine cultures available for sensitivity Ceftriaxone 2000 mg IV q24h Update: Final UCx with no growth to date on 03/08 Will plan to discontinue ceftriaxone after completion of 3-day course for acute otitis media (see below) #Lower extremity paralysis | ? Catatonia - improving When asked to wiggle toes in bed, patient reports she was feels like she is wiggling them, but is unable to She also reports she is unable to lift her legs off the bed Patient appears somnolent/withdrawn on exam; garbled speech; gazing into distance; slow to respond to questioning She reports she does not use any ambulatory assist devices at home Per review of Neuro visit on 01/25/25, suspected to have migraines without aura as a cause of most neuro symptoms H/o hospitalization in Sep 2024 for left facial numbness Unable to obtain brain MRI at the time as the machine was malfunctioning Negative CTA head and neck Brain MRI on 03/06 without acute strokes, but did reveal acute sinusitis and potential inflammatory mastoiditis Clinically, patient does not appear to have mastoiditis on physical exam and patient denies ear pain Vitamin B12 level ordered, pending #Ambulatory function PT/OT evaluations appreciated for lower extremity deficits PT recommending acute rehab on 03/07 CM consult appreciated; patient is agreeable to rehab upon discharge; referrals made to [facility] and [facility] on 03/08 [facility] accepted - insurance auth pending on 03/09 and 03/10 #Right otitis media | acute sinusitis Clinically, right ear canal/TM is erythematous Ceftriaxone 2000 mg IV x 3 days (to be completed on 03/08) #N/V/D Pantoprazole 40 mg IV BID Sucralfate QID suspension NSS at 100 mL/hr x 1 L Dispo: Continued stay on [facility] telemetry; transfer to [facility] pending insurance authorization; hopeful discharge on 03/11 VTE Prophylaxis: [employer] Called patient's (Harshad) on 03/10 and provided update regarding hospitalization. Informed that the patient had been accepted at [facility], however we are still awaiting an insurance authorization. appreciative of updates. Admission and Anticipated Discharge Date Admission Date: March 05, 2025 Supervising Physician Co-Signing Physician Notes Attending Attestation - Chart reviewed, care plan d/w PAMELA Ceballos. I agree w/ the guillermo components of his documentation. Tee Mccollum MD Subjective Mrs. Swan reports she is still having 10 out of 10 chest pain this morning, which started around 6 AM. She is having no difficulty breathing, but does endorse pleuritic chest pain with deep breaths. She has ongoing dry cough as well. She reports her wheezing has resolved, and had no setbacks overnight such as fevers. She denies hemoptysis. Overall, she reports she is feeling better in regard to her legs. For instance she was able to get up to the bathroom by herself overnight; notes she did not use a walker at this time, but reports no falls. Patient reports he has been eating and drinking well. ROS: Patient endorses lightheadedness with walking, difficulty hearing, chest pain, pleuritic chest pain, and dry cough. Patient denies fevers, chills, night sweats, headache, pain in the ears, ringing in the ears, SOB at rest, ISBELL, hemoptysis, abdominal pain, N/V/D, changes in urinary or bowel habits, burning urination, or numbness or tingling in the arms or legs. Review of Systems Review of Systems: See HPI above Physical Exam Physical Exam: General: no acute distress; somewhat disheveled; however, pleasant affect; cachectic; cooperative; SpO2 97% on RA HEENT: normocephalic, atraumatic; PERRLA; strabismus of the left eye apprecia cornelius; vision intact; hard of hearing, worse in the right ear Neck: supple; trachea midline Skin: Mottled skin surrounding neck; diaphoretic; warm; no cyanosis; no rashes, bruising, or erythema noted CV: chest wall NTP; RRR Lungs: no acute respiratory distress; dry cough; symmetrical chest wall expansion; no wheezing or adventitious breath sounds auscultated in the lower lung rebollar bilaterally ABD: Soft, NTP; BS present; no rebound/guarding; no distention MSK: no tics or fasciculations; no edema noted in the LEs b/l, nonerythematous; patient demonstrates ability to wiggle her toes, and exhibits 2/5 strength when lifting legs from the bed bilaterally Neuro: A&Ox3; flat mood and affect; patient appears to gaze into empty space at times; patient reports sensation is intact and symmetric in lower extremity bilaterally assessed via light touch Results & Data Results & Data Vital Signs (Past 12 Hours) Vital Signs Temp Pulse Pulse Resp BP Pulse Ox O2 Del Method 03/10/25 08:59 64 03/10/25 08:59 Room Air 03/10/25 08:59 36.4 C 71 18 156/92 H 97 Room Air 03/10/25 02:43 36.6 C 94 H 20 118/79 95 Room Air PG Care Time/CCT Total # of Minutes Spent Total Time Spent with Patient: Total time spent is greater than 50% in coordination of care (as documented) at patient's floor/unit and/or counseling patient: C[place] [address] SUB INP/OBS CARE 3/50MIN Patient Type Established Medical Decision Making High Complexity Diagnoses COVID U07.1 Urinary tract infection N39.0 Lower extremity paralysis G83.10 Right otitis media H66.91"
[2025-03-10] MEDS: LIDOCAINE 5% 1 PATCH TD STA (16:12)
--- NOTE | 2025-03-10 18:19 | Communication Note ---
Per nursing staff, patient reported recurrence of chest pain the evening of 03/10. I assessed the patient at bedside around 1750. She reports that she has had ongoing chest pain over the past hour that was not relieved by Tylenol. She is unsure if the lidocaine patch or the steroids yesterday helped with her chest pain. She rates her pain as a 10 out of 10, and reports it feels like there is a "elephant sitting on [her] chest". Vital signs are stable at this time; heart rate ~70 bpm; 95% SpO2 on room air. Patient did have a repeat EKG this morning during a similar episode of chest pain, which did not reveal any acute ischemic findings. Chest pain is substernal and reproducible on exam. Out of an abundance of caution, will order additional troponin x 1. While her vitals are not suggestive of a pulmonary embolism, she does report that her grandfather of a blood clot/pulmonary embolism. Given she endorses worsening pleuritic chest pain in the setting of a COVID infection, will order chest CTA to rule out PE. Patient is amenable to this test, and reports she has no allergies to IV contrast. Renal function okay at this time. Date of Service: March 10, 2025
[2025-03-10] MEDS: OPTIRAY 320 125ml IV ONE (18:47)
[2025-03-10] MEDS: REMOVE LIDODERM PATCH SCH (20:01)
--- NOTE | 2025-03-10 20:04 | Electrocardiogram Report ---
Test Reason : Blood Pressure : */* mmHG Vent. Rate : 67 BPM Atrial Rate : 67 BPM P-R Int : 126 ms QRS Dur : 94 ms QT Int : 410 ms P-R-T Axes : 44 72 72 degrees QTcB Int : 433 ms Sinus rhythm with marked sinus arrhythmia Otherwise normal ECG When compared with ECG of 05-Mar-2025 10:40, Vent. rate has decreased by 39 bpm Confirmed by Tom Guadalupe ([id number]) on 03/10/2025 8:04:07 PM Referred By: REFERRED SELF Confirmed By: Tom Guadalupe
--- NOTE | 2025-03-10 20:19 | CT Scan Report ---
EXAM: CT angio chest PE protocol CLINICAL HISTORY: PE TECHNIQUE: CT angiography of the chest was performed with and without intravenous contrast with the following protocol: axial images with, reconstructed coronal and sagittal images. Non-contrast images were initially acquired, followed by contrast-enhanced images in arterial and venous phases. Intravenous contrast [119ml opti 320] was administered using automated injection techniques. Bolus tracking was employed to optimize arterial phase imaging. One of these 3D techniques was utilized: Maximum Intensity Pixel (MIP), 3D Reconstructed Images, Volume Rendered Images, Surface Shaded Rendering. One of the following dose reduction techniques was utilized for this exam: Automated exposure control, adjustment of the mA and/or kV according to patient size, and use of iterative reconstruction. DLP: 435.52 mGy.cm COMPARISON: 10/18/2024 CR reviewed FINDINGS: Aorta and Great Vessels: Ascending Aorta: Normal in caliber, no aneurysm, dissection, or significant atherosclerosis. Aortic Arch: Normal in caliber, no aneurysm, dissection, or significant atherosclerosis. Descending Aorta: Normal in caliber, no aneurysm, dissection, or significant atherosclerosis. Pulmonary Arteries: The main pulmonary artery and its branches are patent. No evidence of pulmonary embolism or significant stenosis. Heart: Cardiac Chambers: Normal in size. No evidence of cardiomegaly. Evidence of bilateral superior vena cava which is normal anatomical variant Pericardium: No pericardial effusion or thickening. Lungs and Pleura: Lungs are clear without evidence of consolidation, collapse, or focal lesions. No pleural effusion or pleural thickening. Mild bilateral centrilobular emphysema more at the right lower lung lobe Bilateral basal atelectatic bands Mediastinum: Few calcified mediastinal lymph nodes the largest is right hilar measuring 6 mm Normal appearance of the trachea and central bronchi. Hilar Structures: Hilar structures are normal without enlargement. Chest Wall: No mass lesions or abnormalities in the chest wall. Vascular Structures: Superior Vena Cava: Patent without evidence of stenosis or thrombus. Inferior Vena Cava: Patent without evidence of stenosis or thrombus. Bones and Soft Tissues: No fractures, lytic, or blastic lesions of the visualized bony structures. Soft tissues are unremarkable. IMPRESSION: 1. The study is negative for pulmonary embolism. 2. No acute pulmonary abnormality. 3. Evidence of bilateral superior vena cavas which is normal anatomical variant. 4. Few calcified mediastinal lymph nodes. 5. Mild bilateral centrilobular emphysema. 6. Bilateral basal atelectatic bands. Electronically signed by Shane Todd 03-10-2025 8:18 PM
--- NOTE | 2025-03-10 23:05 | Billing Data ---
Date of Service March 05, 2025 Coding Level of Care Code 86152 INT INP/OBS CARE
[2025-03-11] MEDS: IBUPROFEN 600 MG TAB PO ONE (07:53)
[2025-03-11 10:44] LABS: Anion Gap 7 (3-11); Blood Urea Nitrogen 32 mg/dl (6-23); Calcium 9.2 mg/dl (8.6-10.3); Carbon Dioxide 24 mmol/L (21-32); Chloride 105 mmol/L (98-107); Creatinine Clr Calc Pharmacy 55.3 ml/min; Glucose 99 mg/dl (70-99(Fasting)); Potassium 4.2 mmol/L (3.5-5.1); Sodium 136 mmol/L (136-145)
[2025-03-11] MEDS: KETOROLAC TROMETHAMINE 15 MG/ML VIAL IV ONE (11:47)
[2025-03-11] MEDS: COLCHICINE 0.6 MG TAB PO ONE (11:48)
--- NOTE | 2025-03-11 12:54 | Discharge Summary ---
Discharge Summary Date of Service March 11, 2025 Principal Dx & Hospital Course #1 = Principal Diagnosis (1) COVID: (2) Atypical chest pain: (3) Lower extremity paralysis: (4) Urinary tract infection: (5) Right otitis media: Plan This patient is a 55-year-old female who presented on 03/06 for chest pain/tightness. Given nitro, Ativan, Zofran, acetaminophen, ASA 324mg and 2L fluid in ED; nitro did not help, partial relief with Ativan. COVID-positive on arrival. Day of discharge 03/11: #COVID infection -improving No leukocytosis; afebrile Patient tested positive on 03/05 (she is currently on day 7 of isolation precautions) No reported episodes of hypoxia while in the hospital; not tachycardic Suspect that patient's chest pain/tightness is due to active COVID infection Improvement on 03/09 - 03/11; VSS; no leukocytosis - MEDICALLY CLEARED FOR D/C Continue COVID isolation precaution per [facility] policies Supportive care Patient remains non-hypoxic on continuous pulse oximetry Titrate supplemental oxygen PRN Trial of Decadron 4 mg IV x 1, however patient reported she did not tolerate this well DuoNeb 3 mL PRN for wheezing Menthol lozenges q2h PRN for throat pain Acetaminophen PRN # Atypical chest pain | chest tightness | ? Viral pericarditis Patient has repeatedly reported intermittent episodes of 10 out of 10 chest pain CXR unremarkable on arrival Troponin WNL x 3 EKG showed NSR Echocardiogram on 03/06 revealed LVEF at 60 to 65% without regional wall motion abnormalities Do not suspect patient's chest pain is cardiac in nature On the evening of 03/10, she reported a new onset of pain like there was "an elephant sitting on her chest" A troponin was obtained at this time, and was WNL Chest CTA obtained did not reveal any evidence of pulmonary embolism Case was discussed with Dr. Nice; repeat EKG may exhibit a elevation at J- point; ? Suggestive of a concomitant viral pericarditis Small pericardial effusion noted on echocardiogram 02/26 However, CRP and ESR are both negative, and chest CTA does not mention pericardial effusion Trial of colchicine 0.6 mg p.o. x 1 Trial of Toradol 50 mg IV x 1 #Urinary tract infection -resolved Burning with urination on arrival, but this resolved shortly after short course of ceftriaxone 2000 mg IV q24h No prior urine cultures available for sensitivity Update: Final UCx with no growth to date on 03/08 #Lower extremity paralysis | ? Catatonia - improving 03/07 - when asked to wiggle toes in bed, patient reports she was feels like she is wiggling them, but is unable to She also reports she is unable to lift her legs off the bed Patient appears somnolent/withdrawn on exam; garbled speech; gazing into distance; slow to respond to questioning She reports she does not use any ambulatory assist devices at home Per review of Neuro visit on 01/25/25, suspected to have migraines without aura as a cause of most neuro symptoms H/o hospitalization in Sep 2024 for left facial numbness Unable to obtain brain MRI at the time as the machine was malfunctioning Negative CTA head and neck Brain MRI on 03/06 without acute strokes, but did reveal acute sinusitis and potential inflammatory mastoiditis Clinically, patient does not appear to have mastoiditis on physical exam and patient denies ear pain Patient began to improve 03/08 -03/11 in the hospital; ? Physical deconditioning secondary to COVID infection Vitamin B12 level ordered, pending #Ambulatory function PT/OT evaluations appreciated for lower extremity deficits PT recommending acute rehab on 03/07 CM consult appreciated; patient is agreeable to rehab upon discharge; referrals made to [facility] and [facility] on 03/08 [facility] accepted -will plan to transfer patient to [facility] on Right otitis media | acute sinusitis -resolved Clinically, right ear canal/TM is erythematous Ceftriaxone 2000 mg IV x 3 days (to be completed on 03/08) #N/V/D Pantoprazole 40 mg IV BID Sucralfate QID suspension Dispo: Discharge to [facility] for acute rehab on 03/11; to transport Called patient's (Harshad) on 03/10 and provided update regarding hospitalization. Informed that the patient had been accepted at [facility], however we are still awaiting an insurance authorization. appreciative of updates. He reports that he is able to transfer her to [facility] on 03/11 Admission HPI Per Admitting Provider Ms. Swan is a 55 y.o. F with past medical history of migraines, panic attack, CAD, GERD, who is admitted due to chest pain. Patient is a poor historian. She reports history of mid-chest pain for past few months that worsened this morning. Reports the chest pain radiates to bilateral shoulders. Reports lightheadedness, SALAS, nausea, R arm pain, mild SOB, cough, chills, sore throat. Denies sick contacts. Patient had 2 vomiting episodes this morning - non-bloody and yellow in color. She has history of reflux and does not take antiacid medication. Reports her face feels numb. Reports worsening longstanding cough as well as dysuria that started this morning, denies blood in urine. Smokes 1-2 cigarettes per day. Denies illicit drug use and alcohol use. Of note, patient had a cholecystectomy in 1992, but denies any other abdominal surgery history. Admission Exam Per Admitting Provider Constitutional: + ill appearing and + thin Respiratory: + audible wheezes (bilaterally) Cardiovascular: Rate/Rhythm: + tachycardic Gastrointestinal (Abdomen): normal bowel sounds, soft, nontender, no hepatosplenomegaly Skin: no rashes, warm and dry Psychiatric: Orientation: oriented to place Apperance: + disheveled Judgment: + limited judgement Discharge Exam General: no acute distress; somewhat disheveled appearance; pleasant affect; cachectic; cooperative; SpO2 97% on RA HEENT: normocephalic, atraumatic; PERRLA; strabismus of the left eye appreciated; vision intact; hard of hearing, worse in the right ear Neck: supple; trachea midline Skin: Mottled skin surrounding neck; diaphoretic; warm; no cyanosis; no rashes, bruising, or erythema noted CV: chest wall NTP; RRR Lungs: no acute respiratory distress; dry cough; symmetrical chest wall expansion; no wheezing or adventitious breath sounds auscultated in the lower lung rebollar bilaterally ABD: Soft, NTP; BS present; no rebound/guarding; no distention MSK: no tics or fasciculations; no edema noted in the LEs b/l, nonerythematous; patient demonstrates ability to wiggle her toes, and exhibits 2/5 strength when lifting legs from the bed bilaterally Neuro: A&Ox3; flat mood and affect; patient appears to gaze into empty space at times; patient reports sensation is intact and symmetric in lower extremity bilaterally assessed via light touch Discharge Plan Discharge Items Patient Disposition: Transfer Inpatient Rehab Fac Reason For Visit: CHEST PAIN Discharge Diagnosis: COVID infection, ambulatory function Condition on Discharge: Fair Activity: As commented below Activity Comment: Gradually increase activity as tolerated, follow-up PT/OT recommendations Non-emergency contact: Primary Care Provider Call non-emergency contact if: you have any medication questions, your symptoms worsen, your pain is not controlled, your pain is worsening and you have a fever Follow-up/Referrals: Sharee Grewal MD [Primary Care Provider] - Diet: Regular Pending Studies at Discharge: No Stand-Alone Forms: My [facility] Skilled Items Patient informed of condition?: Yes DNR: Yes Discharge Level of Care: Acute rehab Communicable Disease: Yes Discharge Prognosis: Stable Lines: None Urinary Catheter: No Medications and DC Order Prescriptions: Continued acetaminophen [Tylenol Extra Strength] 500 mg tablet 500 mg PO Q6H PRN (Reason: Pain) prochlorperazine maleate 10 mg tablet 10 mg PO DAILY PRN (Reason: nausea and vomiting) 30 Days Qty: 30 2RF Ajovy Autoinjector 225 mg/1.5 mL auto-injector 225 mg subcut MONTHLY Admission Data Admit Date/Time: 03/05/25 15:36 Attending Provider: Tee Mccollum Admit Provider: Joyce Goel Primary Care Provider: Sharee Grewal Other Providers: Coy Gates [id number],[facility]; [facility]; [facility], Hospital Stay Data Consultations 03/05/25 14:20 ED Decision to Admit Stat Diagnostic Imagining Performed 03/06/25 16:32 MRI Brain [MR brain wo con] Urgent 03/10/25 18:09 CT angio chest PE protocol Stat Total Time Total Time Spent Total Time Spent (In Minutes): 35 Coding Diagnoses COVID U07.1 Atypical chest pain R07.89 Lower extremity paralysis G83.10 Urinary tract infection N39.0 Right otitis media H66.91
--- NOTE | 2025-03-11 14:11 | Hospitalist Progress Note ---
Date of Service March 11, 2025 Assessment & Plan (1) COVID: (2) Atypical chest pain: (3) Viral pericarditis: (4) Lower extremity paralysis: (5) Urinary tract infection: (6) Right otitis media: Plan This patient is a 55-year-old female who presented on 03/06 for chest pain/tightness. Given nitro, Ativan, Zofran, acetaminophen, ASA 324mg and 2L fluid in ED; nitro did not help, partial relief with Ativan. COVID-positive on arrival. #COVID infection -improving No leukocytosis; afebrile Patient tested positive on 03/05 (she is currently on day 7 of isolation precautions) No reported episodes of hypoxia while in the hospital; not tachycardic Suspect that patient's chest pain/tightness is due to active COVID infection Improvement on 03/09 - 03/11; VSS; no leukocytosis Continue COVID isolation precaution per [facility] policies Supportive care Patient remains non-hypoxic on continuous pulse oximetry Titrate supplemental oxygen PRN Trial of Decadron 4 mg IV x 1, however patient reported she did not tolerate this well DuoNeb 3 mL PRN for wheezing Menthol lozenges q2h PRN for throat pain Acetaminophen PRN # Atypical chest pain | ?Viral pericarditis Patient has repeatedly reported intermittent episodes of 10 out of 10 chest pain CXR unremarkable on arrival Troponin WNL x 3 EKG showed NSR Echocardiogram on 03/06 revealed LVEF at 60 to 65% without regional wall motion abnormalities On the evening of 03/10, she reported a new onset of pain like there was "an elephant sitting on her chest" A troponin was obtained at this time, and was WNL Chest CTA obtained did not reveal any evidence of pulmonary embolism Patient was evaluated in conjunction with Dr. Mccollum; repeat EKG may exhibit a elevation at J-point; ?Suggestive of a concomitant viral pericarditis; ? Costochondritis Small pericardial effusion noted on echocardiogram 03/06 However, CRP and ESR are both negative, and chest CTA does not mention pericardial effusion Trial of colchicine 0.6 mg p.o. twice daily Trial of Toradol 10 mg p.o. q6h Patient is currently receiving Protonix 40 mg IV BID for stomach protection Repeat a.m. CRP Assess for improvement in chest pain #Urinary tract infection -resolved Burning with urination on arrival, but this resolved shortly after short course of ceftriaxone 2000 mg IV q24h No prior urine cultures available for sensitivity Update: Final UCx with no growth to date on 03/08 #Lower extremity paralysis | ? Catatonia - improving 03/07 - when asked to wiggle toes in bed, patient reports she was feels like she is wiggling them, but is unable to She also reports she is unable to lift her legs off the bed Patient appears somnolent/withdrawn on exam; garbled speech; gazing into distance; slow to respond to questioning She reports she does not use any ambulatory assist devices at home Per review of Neuro visit on 01/25/25, suspected to have migraines without aura as a cause of most neuro symptoms H/o hospitalization in Sep 2024 for left facial numbness Unable to obtain brain MRI at the time as the machine was malfunctioning Negative CTA head and neck Brain MRI on 03/06 without acute strokes, but did reveal acute sinusitis and potential inflammatory mastoiditis Clinically, patient does not appear to have mastoiditis on physical exam and patient denies ear pain Patient began to improve 03/08 -03/11 in the hospital; ? Physical deconditioning secondary to COVID infection Vitamin B12 level WNL #Ambulatory function PT/OT evaluations appreciated for lower extremity deficits PT recommending acute rehab on 03/07 CM consult appreciated; patient is agreeable to rehab upon discharge; referrals made to [facility] and [facility] on 03/08 [facility] accepted -will plan to transfer patient to [facility] on Right otitis media | acute sinusitis -resolved Clinically, right ear canal/TM is erythematous Ceftriaxone 2000 mg IV x 3 days (to be completed on 03/08) #N/V/D Pantoprazole 40 mg IV BID Sucralfate QID suspension Dispo: Continued stay inpatient, with hopeful discharge to [facility] for acute rehab on 03/12 Called patient's (Harshad) on 03/10 and 03/11 and provided update regarding hospitalization. Informed that the patient had been accepted at [facility]. appreciative of updates. He reports that he is able to transfer her to [facility] once medically stable Admission and Anticipated Discharge Date Admission Date: March 05, 2025 Supervising Physician Co-Signing Physician Notes Attending Attestation and progress note: Pt seen/examined, chart reviewed, care plan d/w PAMELA Ceballos. I agree w/ the guillermo components of his documentation. Saw patient at bedside with Mr Ceballos. Patient was resting comfortably in bed. Nontoxic appearing. I laid her flat in bed and she did state her left sided chest pain was worse. Taking deep breaths does make it worse. "Elephant sitting on my chest." VSS, afebrile, o2 sats wnl gen - thin, NAD neck - no JVD mouth - MMM heart - RRR, s1 s2, no murmur, no rub lungs - poor airation, end-exp wheezes, no rales, no increased work of breathing abd - soft NT ND BS+ chest wall - mild tenderness left costo-chondral junction to palpation ext - no edema, pulses 2+ b/l EKG - my reading - NSR, new J-point elevation inferior leads, and very subtle J- point elevation V5/V6; early repol V2/V3/V4 CTA chest findings from prior - negative PE echo - EF preserved, small pericardial effusion A/P: 1. COVID-19 infection 2. chest pain - somewhat pleuritic, somewhat worsened by supine positioning; given the EKG findings, known COVID disease, pericardial effusion, etc - will Rx for pericarditis -start colchicine 0.6mg BID -start NSAID -repeat EKG in am -repeat another troponin today -if this is musculoskeletal the above meds for pericarditis should help muscle, too 3. low-normal B12 level - with various neuro symptoms would Rx with oral B12 Tee Mccollum MD Subjective Mrs. Swan reports she is still having 10 out of 10 chest pain this morning. She had difficulty sleeping last night. She also reports that her head was hurting all night, and she has a migraine at present. She reports that Toradol has helped with migraines in the past, as well as Percocet. Patient reports that her chest pain is reproducible with palpation, and that lying flat makes her chest pain worse. ROS: Patient endorses chest pain, pleuritic CP, cough, nausea, and ongoing headache/migraine. Patient denies fever, chills, night sweats, SOB at rest, abdominal pain, N/V/D, or burning with urination. Review of Systems Review of Systems: See HPI above Physical Exam Physical Exam: General: no acute distress; somewhat disheveled appearance; pleasant affect; cachectic; cooperative; SpO2 97% on RA HEENT: normocephalic, atraumatic; PERRLA; strabismus of the left eye appreciated; vision intact; hard of hearing, worse in the right ear Neck: supple; trachea midline Skin: Mottled skin surrounding neck; diaphoretic; warm; no cyanosis; no rashes, bruising, or erythema noted CV: chest wall is mildly TTP at the left sternal border; left shoulder is TTP; lying patient flat on her back increases chest pain; RRR; no murmurs or rubs appreciated Lungs: no acute respiratory distress; dry cough; symmetrical chest wall expansion; no wheezing or adventitious breath sounds auscultated in the lower lung rebollar bilaterally ABD: Soft, NTP; BS present; no rebound/guarding; no distention MSK: no tics or fasciculations; no edema noted in the LEs b/l, nonerythematous; patient demonstrates ability to wiggle her toes, and exhibits 2/5 strength when lifting legs from the bed bilaterally Neuro: A&Ox3; flat mood and affect; patient appears to gaze into empty space at times; patient reports sensation is intact and symmetric in lower extremity bilaterally assessed via light touch Patient seen in conjunction with Dr. Mccollum Results & Data Results & Data Vital Signs (Past 12 Hours) Vital Signs Temp Pulse Pulse Resp BP Pulse Ox O2 Del Method 03/11/25 11:51 36.4 C L 70 18 145/91 H 97 Room Air 03/11/25 07:52 36.4 C L 80 18 153/81 H 97 Room Air 03/11/25 07:40 Room Air 03/11/25 07:26 65 03/11/25 03:39 36.6 C 99 H 20 106/71 96 Room Air PG Care Time/CCT Total # of Minutes Spent Total Time Spent with Patient: Total time spent is greater than 50% in coordination of care (as documented) at patient's floor/unit and/or counseling patient: C[place] [address] SUB INP/OBS CARE 3/50MIN Patient Type Established Medical Decision Making High Complexity Diagnoses COVID U07.1 Atypical chest pain R07.89 Viral pericarditis B33.23 Lower extremity paralysis G83.10 Urinary tract infection N39.0 Right otitis media H66.91
[2025-03-11] MEDS: ALUMINUM/MAGNESIUM SUSP 30 ML UDC PO STA (15:34)
[2025-03-11] MEDS: KETOROLAC TROMETHAMINE 10 MG TABLET PO SCH (17:34)
[2025-03-11] MEDS: COLCHICINE 0.6 MG TAB PO SCH (20:46)
[2025-03-12 06:45] LABS: Anion Gap 7 (3-11); Blood Urea Nitrogen 43 mg/dl (6-23); Calcium 9.1 mg/dl (8.6-10.3); Carbon Dioxide 25 mmol/L (21-32); Chloride 105 mmol/L (98-107); Creatinine Clr Calc Pharmacy 55.1 ml/min; Glucose 102 mg/dl (70-99(Fasting)); Potassium 4.7 mmol/L (3.5-5.1); Sodium 137 mmol/L (136-145)
[2025-03-12] MEDS ORDERED: DEXAMETHASONE SOD INJ 4 MG/ML VIAL IV STA (09:58)
[2025-03-12] MEDS: ALBUT/IPRATROP 3MG/0.5MG NEB 3 ML VIAL INH STA (11:02)
[2025-03-12] MEDS: LORazepam 0.5 MG TAB PO STA (12:22)
[2025-03-12] MEDS: dexAMETHasone 4 MG in SYRINGE 0 ML IV ONE (12:36)
--- NOTE | 2025-03-12 14:32 | Hospitalist Progress Note ---
Date of Service March 12, 2025 Assessment & Plan (1) COVID: (2) Viral pericarditis: (3) Atypical chest pain: (4) Lower extremity paralysis: (5) Urinary tract infection: (6) Right otitis media: Plan This patient is a 55-year-old female who presented on 03/06 for chest pain/tightness. Given nitro, Ativan, Zofran, acetaminophen, ASA 324mg and 2L fluid in ED; nitro did not help, partial relief with Ativan. COVID-positive on arrival. #COVID infection -improving No leukocytosis; afebrile Patient tested positive on 03/05 (she is currently on day 7 of isolation precautions) No reported episodes of hypoxia while in the hospital; not tachycardic Suspect that patient's chest pain/tightness is due to active COVID infection Improvement on 03/09 - 03/12; VSS; no leukocytosis Will plan for continued COVID isolation precaution per [facility] policies Supportive care Patient remains non-hypoxic on continuous pulse oximetry Titrate supplemental oxygen PRN Trial of Decadron 4 mg IV x 1, however patient reported she did not tolerate this well Reports made her feel "giddy" and did not alleviate her chest pain DuoNeb 3 mL PRN for wheezing Menthol lozenges q2h PRN for throat pain Acetaminophen PRN # Atypical chest pain | Viral pericarditis Patient has repeatedly reported intermittent episodes of 10 out of 10 chest pain She describes it as "an elephant were sitting on [her] chest" CXR unremarkable on arrival Troponin WNL x 3 Echocardiogram on 03/06 revealed LVEF at 60 to 65% without regional wall motion abnormalities Chest CTA obtained did not reveal any evidence of pulmonary embolism Patient was evaluated in conjunction with Dr. Mccollum; repeat EKGs exhibit J- points consistent with concomitant viral pericarditis Small pericardial effusion noted on echocardiogram 03/06 While CRP and ESR are both negative, suspect patient's chest pain is likely due to viral pericarditis Continue colchicine 0.6 mg p.o. twice daily Continue Toradol 10 mg p.o. q6h Protonix 40 mg IV BID for stomach protection Trend CRP Assess daily for improvement in chest pain #Urinary tract infection -resolved Burning with urination on arrival, but this resolved shortly after short course of ceftriaxone 2000 mg IV q24h No prior urine cultures available for sensitivity Update: Final UCx with no growth to date on 03/08 #Lower extremity paralysis | ? Catatonia -improving 03/07 - when asked to wiggle toes in bed, patient reports she was feels like she is wiggling them, but is unable to She also reports she is unable to lift her legs off the bed Patient appears somnolent/withdrawn on exam; garbled speech; gazing into distance; slow to respond to questioning She reports she does not use any ambulatory assist devices at home Per review of Neuro visit on 01/25/25, suspected to have migraines without aura as a cause of most neuro symptoms H/o hospitalization in Sep 2024 for left facial numbness Unable to obtain brain MRI at the time as the machine was malfunctioning Negative CTA head and neck Brain MRI on 03/06 without acute strokes, but did reveal acute sinusitis and potential inflammatory mastoiditis Clinically, patient does not appear to have mastoiditis on physical exam and patient denies ear pain Patient began to improve 03/09 - 03/12 in the hospital; ? Physical deconditioning secondary to COVID infection Vitamin B12 level WNL #Ambulatory function PT/OT evaluations appreciated for lower extremity deficits PT recommending acute rehab on 03/07 CM consult appreciated; patient is agreeable to rehab upon discharge; referrals made to [facility] and [facility] on 03/08 [facility] accepted -plan to transfer patient over once medically stable/chest pain improving #Right otitis media | acute sinusitis -improving Clinically, right ear canal/TM is erythematous Ceftriaxone 2000 mg IV x 3 days (to be completed on 03/08) Patient still endorses difficulty with hearing (R ear > L ear) #N/V/D Pantoprazole 40 mg IV BID Sucralfate QID suspension Dispo: Continued stay inpatient; hopeful d/c to [facility] in the next 1 to 2 days if chest pain improves with the above treatments Called patient's (Harshad) on 03/10, 03/11, and 03/12 and provided update regarding hospitalization. Informed that the patient had been accepted at [facility]. appreciative of updates. He reports that he is able to transfer her to [facility] once medically stable Admission and Anticipated Discharge Date Admission Date: March 05, 2025 Supervising Physician Co-Signing Physician Notes Attending Attestation and progress note: Chart reviewed, care plan d/w PAMELA Ceballos. I agree w/ the guillermo components of his documentation except B12 level is low- normal and she does NOT have LE paralysis. 1. COVID-19 infection 2. chest pain / suspected pericarditis 2nd to #1 - cont colchicine, cont NSAID 3. low-normal B12 level - with various neuro symptoms would Rx with oral B12 1000mcg daily ultimate dispo - rehab Tee Mccollum MD Subjective Mrs. Swan reports she slept "iffy" last night. She is eating and drinking well. However, her chest pain continues to be around the same as yesterday. She characterizes it as an "elephant sitting on her chest". She rates it a 10 out of 10. She is unsure if the Toradol or colchicine have been helping, but does think they are beginning to help. She denies any shortness of breath at rest, or dyspnea on exertion when she gets up to the go to the bathroom. She has noticed that it is easier to get up to go to the bathroom, but still feels lightheaded/dizzy whenever she stands. Patient characterizes the chest pain as pleuritic in nature, worse with deep breaths and coughing. No fevers overnight. ROS: Patient endorses chest pain, pleuritic CP, cough, lightheadedness/dizziness when standing, and difficulty hearing. Patient denies fever, chills, night sweats, pain in the ears, tinnitus, SOB at rest, dyspnea on exertion, abdominal pain, N/V/D, or changes in urinary/bowel habits. Addendum at 1300: Additional remedies such as DuoNeb and Ativan have not changed patient's chest pain. Repeat EKG does reveal J-point progression consistent with pericarditis. Will plan to keep patient overnight for continued chest pain until Toradol begins to take effect. Review of Systems Review of Systems: See HPI above Physical Exam Physical Exam: General: no acute distress; somewhat disheveled appearance; pleasant affect; cachectic; cooperative; SpO2 97% on RA HEENT: normocephalic, atraumatic; PERRLA; strabismus of the left eye appreciated; vision intact; hard of hearing, worse in the right ear Neck: supple; trachea midline Skin: Mottled skin surrounding neck; diaphoretic; warm; no cyanosis; no rashes, bruising, or erythema noted CV: chest wall is mildly TTP at the left sternal border; RRR; no murmurs or rubs appreciated Lungs: no acute respiratory distress; dry cough; symmetrical chest wall expansion; no wheezing or adventitious breath sounds auscultated in the lower lung rebollar bilaterally ABD: Soft, NTP; BS present; no rebound/guarding; no distention MSK: no tics or fasciculations; no edema noted in the LEs b/l, nonerythematous; patient demonstrates ability to wiggle her toes, and exhibits 3/5 strength when lifting legs from the bed bilaterally Neuro: A&Ox3; normal mood and affect; patient reports sensation is intact and symmetric in lower extremity bilaterally assessed via light touch Results & Data Results & Data Vital Signs (Past 12 Hours) Vital Signs Temp Pulse Pulse Resp BP Pulse Ox O2 Del Method 03/12/25 12:20 36.4 C L 79 16 140/89 97 Room Air 03/12/25 11:02 77 18 96 Room Air 03/12/25 08:18 36.5 C 57 L 16 131/79 97 Room Air 03/12/25 08:00 Room Air 03/12/25 07:38 87 03/12/25 03:33 36.3 C L 77 20 134/87 97 Room Air PG Care Time/CCT Total # of Minutes Spent Total Time Spent with Patient: Total time spent is greater than 50% in coordination of care (as documented) at patient's floor/unit and/or counseling patient: Coding [place] [address] SUB INP/OBS CARE 3/50MIN Patient Type Established Medical Decision Making High Complexity Diagnoses COVID U07.1 Viral pericarditis B33.23 Atypical chest pain R07.89 Lower extremity paralysis G83.10 Urinary tract infection N39.0 Right otitis media H66.91
--- NOTE | 2025-03-12 18:28 | Electrocardiogram Report ---
Test Reason : Blood Pressure : */* mmHG Vent. Rate : 77 BPM Atrial Rate : 77 BPM P-R Int : 128 ms QRS Dur : 90 ms QT Int : 408 ms P-R-T Axes : 61 69 71 degrees QTcB Int : 461 ms Sinus rhythm with marked sinus arrhythmia Otherwise normal ECG When compared with ECG of 10-Mar-2025 06:43, No significant change was found Confirmed by Ben Bryant [id number] on 03/12/2025 6:28:06 PM Referred By: REFERRED SELF Confirmed By: Ben Bryant
[2025-03-13 06:29] LABS: Hematocrit (blood only) 39.8 % (37.0-47.0); Hemoglobin 13.6 g/dl (12.0-16.0); Mean Corpuscular Hemoglobin 32.1 pg (25.0-34.0); Mean Corpuscular Volume 93.9 fL (80.0-100.0); Platelet Count 242 K/uL (130-400); RDW Standard Deviation 42.4 fL (36.4-46.3); Red Blood Count 4.24 M/uL (4.20-5.40); White Blood Count 7.60 K/ul (4.8-10.8)
[2025-03-13 06:46] LABS: Anion Gap 6.0 (3-11); Blood Urea Nitrogen 45.0 mg/dl (6-23); Calcium 8.9 mg/dl (8.6-10.3); Carbon Dioxide 22.0 mmol/L (21-32); Chloride 108.0 mmol/L (98-107); Creatinine Clr Calc Pharmacy 50.8 ml/min; Glucose 107.0 mg/dl (70-99(Fasting)); Potassium 4.5 mmol/L (3.5-5.1); Sodium 136.0 mmol/L (136-145)
[2025-03-13 08:14] VITALS: TEMP 97.5
[2025-03-13] MEDS: CYANOCOBALAMIN (B-12) 500 MCG TABLET PO SCH (08:39)
[2025-03-13 12:32] VITALS: RESP 18; O2SAT 96
--- NOTE | 2025-03-13 13:00 | Cardiology Consultation ---
Date of Consultation March 13, 2025 Assessment & Plan (1) Atypical chest pain: (2) Sinus arrhythmia: Plan 1. Chest pain: Unclear etiology. She has some tenderness with palpation, but not the exact pain she has been describing. She states that the duration of symptoms has been quite extended possibly months. She states it is constant in nature and feels heavy in her chest. However, there is no objective findings of coronary ischemia, coronary insufficiency or inflammation. She is not responded well to nonsteroidals or colchicine. I do not think this is likely inflammatory. Chest CT did not demonstrate any gross abnormalities. At this point I think I would discontinue her colchicine and nonsteroidal medication. I do not think there is a life-threatening etiology for her symptoms. As such, she can be treated symptomatically. Perhaps alternative analgesics such as gabapentin or even narcotics may help. 2. Sinus arrhythmia: Noted on her EKGs and telemetry. However, no overt symptoms. I do not think this is a clinical concern. History of Present Illness Reason for Consultation: Chest pain Requesting Physician: Miguel A Attending Physician: Tee Mccollum MD History of Present Illness The patient is a 55-year-old woman without a known history of cardiac disease who was brought to the hospital by family members for chest pain: This occurred on 03/05/2025. There is reports at that time that the symptoms started that day. However, during today's interview the patient feels that her symptoms may have been present for months. Described as a heavy sensation in the precordium which radiates to her scapula. Very mild pleuritic component. No change with motion of the left arm. She also reports some discomfort in the right arm with certain activities. There is been no objective findings to support a diagnosis. Chest CTA did not demonstrate any aortic pathology or pulmonary embolus. No gross lung pathology. Cardiac biomarkers and inflammatory markers have been normal. She has been treated with Toradol and colchicine without effect. There is not appear to have been any specific medical intervention which improved her symptoms. She has some other complaints as well including chronic headaches and paresthesias in her left hand. She is a very sedentary individual. She does not perform much in the way of physical activity. She states that she generally restricts her activity to her home. No exercise. Very few chores at home. No outdoor activity. She seems to be limited by lassitude and fatigue rather than any specific complaints such as breathing difficulty or exertional chest pain. Allergies Allergy/AdvReac Type Severity Reaction Status Date / Time haloperidol Allergy Severe TONGUE Verified 01/26/25 13:05 SWELLS hydroxyzine Allergy Severe CAN'T Verified 01/26/25 13:05 BREATH prochlorperazine AdvReac Intermediate SICK Verified 01/26/25 13:05 escitalopram AdvReac Mild MAKES HER Verified 01/26/25 13:05 "THINK GOOFY" rofecoxib AdvReac Mild FIERRO LIPS Verified 01/26/25 13:05 prednisone AdvReac Unknown GI UPSET Verified 01/26/25 13:05 tramadol AdvReac Unknown UNABLE TO Verified 01/26/25 13:05 VOID Home Medications Medication Instructions Recorded Confirmed Type acetaminophen 500 mg tablet 500 mg PO Q6H PRN Pain 01/26/25 03/05/25 History (Tylenol Extra Strength) prochlorperazine maleate 10 mg 10 mg PO DAILY PRN nausea and 01/26/25 03/05/25 Rx tablet vomiting 30 days #30 tabs fremanezumab-vfrm 225 mg/1.5 mL 225 mg subcut MONTHLY 03/05/25 03/05/25 History subcutaneous auto-injector (Ajovy) fluticasone furoate 100 1 inh inhalation DAILY #60 ea 03/13/25 Rx mcg-vilanterol 25 mcg/dose inhalation powder (Breo Ellipta) pantoprazole 40 mg tablet,delayed 40 mg PO DAILY #30 tabs 03/13/25 Rx release sucralfate 100 mg/mL oral 1 g (10 mL) PO QID #1,000 mL 03/13/25 Rx suspension Patient History Medical History Sacral decubitus ulcer COPD (chronic obstructive pulmonary disease) SBO (small bowel obstruction) Sprained ankle Ectopic Migraines Surgical History H/O section Hx of cholecystectomy No significant past surgical history Family History Other Nausea & vomiting Social History Smoking Status: Current some day smoker Tobacco Type: Cigarettes Age Started Using Tobacco: 14; packs per day: 1; Cigarettes Per Day: 1/2 PPD; Second Hand Exposure: Yes; Do You Dip or Chew Tobacco: No; Hx Alcohol Use: No Hx Substance Use: No Preferred Language: German Communication Ability: Impaired Label Cutter Required: No Beliefs That Will Affect Care: None marital status: Current Living Situation: Spouse Current Living Situation Comment: lives in a trailer with currently frozen pipes/no water current occupational status: disabled Feels Safe at Home: Yes Assistive Devices: None Review of Systems Review of Systems: Per HPI Physical Exam Physical Exam: She is alert and oriented x3. Mood affect appear normal. She answered all questions appropriately. HEENT: Sclerae are anicteric. Pupils are equal and reactive to light and accommodation. Extraocular movements were intact. Neuro: Cranial nerves intact Chest: Mild tenderness along the left parasternal border. Lungs: Lungs are clear to auscultation bilaterally. There are no rales wheezes or rhonchi. She has normal respiratory effort without use of accessory muscles. There is normal pulmonary excursion. Cardiac: The rhythm was regular. S1 and S2 were normal. There are no murmurs on examination. The PMI was not markedly displaced on palpation. Extremities: Patient has bilateral radial pulses that are equal in intensity. There is no evidence cyanosis or clubbing. There was no evidence of significant peripheral edema bilaterally. Skin: Macular rash in the upper chest and neck Results & Data Vital Signs (Past 12 Hours) Vital Signs Temp Pulse Pulse Resp BP Pulse Ox O2 Del Method 03/13/25 12:30 36.4 C L 80 18 146/84 H 96 Room Air 03/13/25 09:00 Room Air 03/13/25 07:00 36.4 C L 57 L 16 144/70 H 94 Room Air 03/13/25 06:26 79 03/13/25 03:41 36.8 C 85 20 117/78 94 Room Air Laboratory Results Abnormal Lab Results 03/13/25 06:11 WBC 7.60 RBC 4.24 Hgb 13.6 Hct 39.8 MCV 93.9 MCH 32.1 MCHC 34.2 RDW Std Deviation 42.4 RDW Coeff of Rosetta 12.2 Plt Count 242 MPV 9.8 Sodium 136 Potassium 4.5 Chloride 108 H Carbon Dioxide 22 Anion Gap 6 BUN 45 H Creatinine 1.05 Est Cr Clr Drug Dosing 50.8 eGFR 62.36 BUN/Creatinine Ratio 42.9 H Glucose 107 H Calcium 8.9 Troponin I High Sens 3.5 Diagnostic Findings Echocardiogram 03/06/2025: Normal LV systolic function with ejection fraction of 60 to 65%. No regional wall motion normalities. No significant valvular heart disease. Small pericardial effusion. PG Care Time/CCT Total # of Minutes Spent Total Time Spent with Patient: Total time spent is greater than 50% in coordination of care (as documented) at patient's floor/unit and/or counseling patient: Coding Level of Care Code 05174 OFFICE CONSULT LVL M Diagnoses Atypical chest pain R07.89 Sinus arrhythmia I49.8
--- NOTE | 2025-03-13 13:11 | Discharge Summary ---
Discharge Summary Date of Service March 13, 2025 Principal Dx & Hospital Course #1 = Principal Diagnosis (1) COVID: (2) Viral pericarditis: (3) Atypical chest pain: (4) Lower extremity paralysis: (5) Urinary tract infection: (6) Right otitis media: Plan This patient is a 55-year-old female who presented on 03/06 for chest pain/tightness. Given nitro, Ativan, Zofran, acetaminophen, ASA 324mg and 2L fluid in ED; nitro did not help, partial relief with Ativan. COVID-positive on arrival. #COVID infection -improving No leukocytosis; afebrile Patient tested positive on 03/05 (she is currently on day 7 of isolation precautions) No reported episodes of hypoxia while in the hospital; not tachycardic Suspect that patient's chest pain/tightness is due to active COVID infection Improvement on 03/09 - 03/12; VSS; no leukocytosis Will plan for continued COVID isolation precaution per [place] [facility] policies Supportive care Patient remains non-hypoxic on continuous pulse oximetry Trial of Decadron 4 mg IV x 1, however patient reported she did not tolerate this well- Reports made her feel "giddy" and did not alleviate her chest pain Acetaminophen PRN on dc # Atypical chest pain Patient has repeatedly reported intermittent episodes of 10 out of 10 chest pain; She describes it as "an elephant were sitting on [her] chest" CXR unremarkable on arrival Troponin WNL x 4; CRP negative Echocardiogram on 03/06 revealed LVEF at 60 to 65% without regional wall motion abnormalities Chest CTA obtained did not reveal any evidence of pulmonary embolism Cardiology consulted --> do not feel it is cardiac in nature. recommend treating w/ analgesics. NSAIDs dc'ed on discharge. Protonix + Carafate continued on discharge in event it is GI related --> consider GI referral outpatient. #Urinary tract infection -resolved Burning with urination on arrival, but this resolved shortly after short course of ceftriaxone 2000 mg IV q24h No prior urine cultures available for sensitivity Update: Final UCx with no growth to date on 03/08 #Weakness/Ambulatory dysfunction PT/OT consulted - recommending rehab per pt she is able to walk to bathroom. Denies numbness/tingling in LE B12 WNL. Sent to [facility] for rehab 03/13. #Right otitis media | acute sinusitis -improving Clinically, right ear canal/TM is erythematous s/p Ceftriaxone 2000 mg IV x 3 days completed on 03/08 Patient still endorses difficulty with hearing (R ear > L ear) #N/V/D Pantoprazole 40 mg PO BID Sucralfate QID suspension Discharged to [facility] 03/13. Discussed w/ cardiology + CM 03/13 prior to dc Discharge Exam Constitutional WD/WN, vitals as above Eyes PERRL, conjunctivae normal, anicteric sclerae Respiratory normal respiratory effort, lungs clear to auscultation Cardiovascular RRR, no murmur, no edema Gastrointestinal (Abdomen) normal bowel sounds, soft, nontender, no hepatosplenomegaly Neurologic PERRL, EOMI, accommodation nl, no face palsy, no dysarthria Psychiatric A+Ox3, euthymic affect Discharge Plan Discharge Items Patient Disposition: Transfer Inpatient Rehab Fac Reason For Visit: CHEST PAIN Discharge Diagnosis: COVID infection, ambulatory function Condition on Discharge: Fair Activity: As commented below Activity Comment: Gradually increase activity as tolerated, follow-up PT/OT recommendations Non-emergency contact: Primary Care Provider Call non-emergency contact if: you have any medication questions, your symptoms worsen, your pain is not controlled, your pain is worsening and you have a fever Follow-up/Referrals: Sharee Grewal MD [Primary Care Provider] - Diet: Regular Addtl Attending Provider Instructions: Ms. Swan, You were recently hospitalized for chest pain and were found to have COVID-19. You had a thorough cardiac workup that was found to be negative. You were also evaluated by our best worker who does not believe you have pericarditis either. Please see recommendations below regarding your discharge. Please start Breo Ellipta inhaler once daily. This will help with shortness of breath secondary to your COPD. The remainder of your outpatient medications may be resumed on discharge. Given that your chest pain has been ruled out from a cardiac standpoint, Please follow up with your PCP within 1-2 weeks of discharge for further care & recommendations. Please continue on Pantoprazole and Carafate in the event the pain is related to a GI origin. Pending Studies at Discharge: No Stand-Alone Forms: [facility] Patient informed of condition?: Yes DNR: Yes Discharge Level of Care: Acute rehab Communicable Disease: Yes Discharge Prognosis: Stable Lines: None Urinary Catheter: No Medications and DC Order Prescriptions: New sucralfate 100 mg/mL Suspension 1 g PO QID Qty: 1000 0RF pantoprazole 40 mg tablet,delayed release (DR/EC) 40 mg PO DAILY Qty: 30 0RF fluticasone furoate-vilanterol [Breo Ellipta] 100-25 mcg/dose blister with device 1 inh inhalation DAILY Qty: 60 0RF Continued acetaminophen [Tylenol Extra Strength] 500 mg tablet 500 mg PO Q6H PRN (Reason: Pain) prochlorperazine maleate 10 mg tablet 10 mg PO DAILY PRN (Reason: nausea and vomiting) 30 Days Qty: 30 2RF Ajovy Autoinjector 225 mg/1.5 mL auto-injector 225 mg subcut MONTHLY Discharge Orders: Discharge Order (Routine); Ordered 03/13/25 Ordered By: Tawana Sarmiento/Other Patient Handouts: V-Simple Ways to Avoid COVID-19, ED Pain, Acute, Uncertain Cause Admission Data Admit Date/Time: 03/05/25 15:36 Attending Provider: Tee Mccollum Admit Provider: Joyce Goel Primary Care Provider: Sharee Grewal Other Providers: Coy Gates; [id number],[facility]; [place]; [facility],; Ben Bryant Other Interventions: Discharge Summary Assessment (RN) Last Done: 03/13/25 14:17 Hospital Stay Data Consultations 03/05/25 14:20 ED Decision to Admit Stat 03/13/25 10:01 Consult Cardiology Routine Diagnostic Imagining Performed 03/06/25 16:32 MRI Brain [MR brain wo con] Urgent 03/10/25 18:09 CT angio chest PE protocol Stat Pending Results Patient Have Any Pending Studies at Discharge: No Discharge Instructions Given to Patient (Per Discharging Provider) Ms. Swan, You were recently hospitalized for chest pain and were found to have COVID-19. You had a thorough cardiac workup that was found to be negative. You were also evaluated by our best worker who does not believe you have pericarditis either. Please see recommendations below regarding your discharge. Please start Breo Ellipta inhaler once daily. This will help with shortness of breath secondary to your COPD. The remainder of your outpatient medications may be resumed on discharge. Given that your chest pain has been ruled out from a cardiac standpoint, Please follow up with your PCP within 1-2 weeks of discharge for further care & recommendations. Please continue on Pantoprazole and Carafate in the event the pain is related to a GI origin. Total Time Total Time Spent Total Time Spent (In Minutes): 50 Total Time Includes: Examination of the Patient, Discharge Planning, Medication Reconciliation and Communication With Other Providers Coding Level of Care Code 98146 INP/OBS DISCH >30 MIN Diagnoses COVID U07.1 Viral pericarditis B33.23 Atypical chest pain R07.89 Lower extremity paralysis G83.10 Urinary tract infection N39.0 Right otitis media H66.91
[2025-03-13 13:16] VITALS: BP 162/97
[2025-03-13 15:00] VITALS: PULSE 83
== END 2025-03-13 15:22 | DRG 178 ==
LOC: ED 10:03 → SUATTDRO 15:36 → 2W 15:36